=== PATIENT | male | born 1955 | race American Indian/Alaskan Native ===

== ENCOUNTER 2019-07-19 13:18 | Inpatient (IN) | payer BC, MEDICARE ==
[2019-07-19] MEDS ORDERED: SODIUM CHLORIDE 0.9% 1000 ML IV SOLN IV ONE (14:45)
[2019-07-19] MEDS ORDERED: ALBUTEROL 2.5 MG/3 ML NEBU IH ONE (14:49)
--- NOTE | 2019-07-19 14:51 | Emergency Department Report ---
ED Shortness of Breath HPI - General Chief Complaint: Dyspnea/Respdistress Stated Complaint: ABNORMAL BREATHING Time Seen by Provider: 07/19/19 14:22 Source: patient Mode of arrival: Ambulatory Limitations: No Limitations - History of Present Illness Initial Comments: This is a 64-year-old gentleman. This patient is not known to this provider previously. Primary care Dr.: Dr Crowder Oncology: Dr Dolan Past medical history: Lung cancer, right-sided port, history of chemotherapy, radiation therapy, currently on durvalumab the patient presents to the ER with a complaint of cough, shortness of breath, malaise and fatigue. This is associated with left-sided hemithorax pain. This is been going on for the past couple days. It is getting worse. No fevers. No chest pain. No abdominal pain. No muscular pain. No urinary symptoms. MD Complaint: shortness of breath, cough -: Gradual, days(s) Quality: aching Consistency: intermittent Improves With: oxygen, rest, upright position Worsens With: lying flat, exertion Known History Of: other - Related Data Home Oxygen Therapy: No Home Medications Medication Instructions Recorded Confirmed Last Taken ALBUTEROL Inhaler (OR & NICU) 2 puff IH QID PRN 07/19/19 07/19/19 07/18/19 [Proair] Aspirin [Aspirin BABY CHEW TAB] 81 mg PO QDAY 07/19/19 07/19/19 07/18/19 Carvedilol [Coreg] 3.125 mg PO BID 07/19/19 07/19/19 07/18/19 Diclofenac EC [Voltaren] 25 mg PO QDAY 07/19/19 07/19/19 07/18/19 Durvalumab [Imfinzi] 120 mg IV Q2W 07/19/19 07/19/19 07/18/19 Lisinopril [Zestril TAB] 2.5 mg PO QDAY 07/19/19 07/19/19 07/18/19 diazePAM [Diazepam] 10 mg PO QHS 07/19/19 07/19/19 07/18/19 Allergies Allergy/AdvReac Type Severity Reaction Status Date / Time No Known Allergies Allergy Verified 07/19/19 14:55 ED Review of Systems ROS: Stated complaint: ABNORMAL BREATHING Other details as noted in HPI Constitutional: malaise, weakness. denies: fever Eyes: denies: eye discharge ENT: congestion Respiratory: cough, shortness of breath Cardiovascular: denies: chest pain Gastrointestinal: denies: nausea, vomiting Genitourinary: denies: dysuria Musculoskeletal: back pain, myalgia Skin: denies: lesions Neurological: weakness Hematological/Lymphatic: denies: easy bleeding ED Past Medical Hx - Past Medical History Previous Medical History?: Yes Additional medical history: Lung CA - Surgical History Past Surgical History?: Yes Additional Surgical History: Port placement. Cervical fusion - Medications Home Medications: Home Medications Medication Instructions Recorded Confirmed Last Taken Type ALBUTEROL Inhaler (OR & NICU) 2 puff IH QID PRN 07/19/19 07/19/19 07/18/19 History [Proair] Aspirin [Aspirin BABY CHEW TAB] 81 mg PO QDAY 07/19/19 07/19/19 07/18/19 History Carvedilol [Coreg] 3.125 mg PO BID 07/19/19 07/19/19 07/18/19 History Diclofenac EC [Voltaren] 25 mg PO QDAY 07/19/19 07/19/19 07/18/19 History Durvalumab [Imfinzi] 120 mg IV Q2W 07/19/19 07/19/19 07/18/19 History Lisinopril [Zestril TAB] 2.5 mg PO QDAY 07/19/19 07/19/19 07/18/19 History diazePAM [Diazepam] 10 mg PO QHS 07/19/19 07/19/19 07/18/19 History ED Physical Exam - General Limitations: No Limitations General appearance: alert, anxious, in distress - Head Head exam: Present: atraumatic, normocephalic - Eye Eye exam: Present: normal appearance, EOMI. Absent: nystagmus - ENT ENT exam: Present: normal exam, normal orophraynx, mucous membranes moist, normal external ear exam - Neck Neck exam: Present: normal inspection, full ROM. Absent: tenderness, meningismus - Respiratory Respiratory exam: Present: respiratory distress, rhonchi - Cardiovascular Cardiovascular Exam: Present: normal rhythm, tachycardia, normal heart sounds. Absent: systolic murmur, diastolic murmur, rubs, gallop - GI/Abdominal GI/Abdominal exam: Present: soft. Absent: distended, tenderness, guarding, rebound, rigid, pulsatile mass - Rectal Rectal exam: Present: deferred - Extremities Exam Extremities exam: Present: normal inspection, full ROM, other (2+ pulses noted in the bilateral upper, lower extremities. There is no long bone tenderness. Musculoskeletal compartments are soft. The pelvis is stable.). Absent: pedal edema, joint swelling, calf tenderness - Back Exam Back exam: Present: normal inspection, full ROM. Absent: tenderness, CVA tenderness (R), CVA tenderness (L), paraspinal tenderness, vertebral tenderness - Neurological Exam Neurological exam: Present: alert, other (there is no facial droop. The tongue is midline. Extraocular movements are intact bilaterally. Patient speaking in full complete sentences. Shoulder shrug is intact bilaterally. Hearing is grossly intact bilaterally. Visual acuity intact to finger counting and color perception at a close distance. 5/5 strength 4 extremities. Sensation intact to light touch in 4 extremities.) - Psychiatric Psychiatric exam: Present: anxious - Skin Skin exam: Present: warm, dry, intact, normal color. Absent: rash ED Course Vital Signs 07/19/19 07/19/19 07/19/19 13:34 14:00 14:30 Temperature 98.0 F Pulse Rate 116 H 112 H 112 H Pulse Rate [ Anterior Bilateral Throughout] Respiratory 116 H 18 21 Rate Respiratory Rate [Anterior Bilateral Throughout] Blood Pressure 100/65 97/67 Blood Pressure 121/76 [Left] O2 Sat by Pulse 98 96 Oximetry 07/19/19 07/19/19 15:00 15:24 Temperature Pulse Rate 117 H Pulse Rate [ 114 H Anterior Bilateral Throughout] Respiratory 21 Rate Respiratory 20 Rate [Anterior Bilateral Throughout] Blood Pressure 115/75 Blood Pressure [Left] O2 Sat by Pulse 86 Oximetry - Reevaluation(s) Reevaluation #1: 07/19/19 18:32 CT scan of chest suggest no pulmonary embolism, pneumonia is suggested, along with known existing lung cancer. Hospital physician, Dr. Lozada to admit patient to the medical service. ED Medical Decision Making - Lab Data Result diagrams: 07/19/19 15:02 07/19/19 15:02 Vital Signs 07/19/19 07/19/19 07/19/19 13:34 14:00 14:30 Temperature 98.0 F Pulse Rate 116 H 112 H 112 H Pulse Rate [ Anterior Bilateral Throughout] Respiratory 116 H 18 21 Rate Respiratory Rate [Anterior Bilateral Throughout] Blood Pressure 100/65 97/67 Blood Pressure 121/76 [Left] O2 Sat by Pulse 98 96 Oximetry 07/19/19 07/19/19 15:00 15:24 Temperature Pulse Rate 117 H Pulse Rate [ 114 H Anterior Bilateral Throughout] Respiratory 21 Rate Respiratory 20 Rate [Anterior Bilateral Throughout] Blood Pressure 115/75 Blood Pressure [Left] O2 Sat by Pulse 86 Oximetry Lab Results 07/19/19 07/19/19 07/19/19 Range/Units 15:02 15:02 15:02 WBC 6.7 (4.5-11.0) K/mm3 RBC 4.31 (3.65-5.03) M/mm3 Hgb 12.5 (11.8-15.2) gm/dl Hct 37.1 (35.5-45.6) % MCV 86 (84-94) fl MCH 29 (28-32) pg MCHC 34 (32-34) % RDW 15.3 H (13.2-15.2) % Plt Count 233 (140-440) K/mm3 Lymph % (Auto) 15.3 (13.4-35.0) % [place] % (Auto) 11.0 H (0.0-7.3) % Eos % (Auto) 0.4 (0.0-4.3) % Baso % (Auto) 0.4 (0.0-1.8) % Lymph # 1.0 L (1.2-5.4) K/mm3 [place] # 0.7 (0.0-0.8) K/mm3 Eos # 0.0 (0.0-0.4) K/mm3 Baso # 0.0 (0.0-0.1) K/mm3 Seg Neutrophils % 72.9 H (40.0-70.0) % Seg Neutrophils # 4.9 (1.8-7.7) K/mm3 PT 13.9 (12.2-14.9) Sec. INR 1.10 (0.87-1.13) APTT 31.5 (24.2-36.6) Sec. D-Dimer 916.71 H (0-234) ng/mlDDU POC ABG pH (7.35-7.45) POC ABG pCO2 (35-45) POC ABG pO2 (80-105) POC ABG HCO3 (22-26 mml/L) POC ABG Total CO2 (23-27mmol/L) POC ABG O2 Sat POC ABG Base Excess ((-2) - (+3)mmol/L) FiO2 % Sodium 137 (137-145) mmol/L Potassium 4.7 (3.6-5.0) mmol/L Chloride 99.1 (98-107) mmol/L Carbon Dioxide 23 (22-30) mmol/L Anion Gap 20 mmol/L BUN 14 (9-20) mg/dL Creatinine 1.0 (0.8-1.5) mg/dL Estimated GFR > 60 ml/min BUN/Creatinine Ratio 14 % Glucose 107 H (75-100) mg/dL Lactic Acid (0.7-2.0) mmol/L Calcium 9.1 (8.4-10.2) mg/dL Magnesium 2.30 (1.7-2.3) mg/dL Total Bilirubin 0.40 (0.1-1.2) mg/dL AST 15 (5-40) units/L ALT 10 (7-56) units/L Alkaline Phosphatase 88 (35-129) units/L Total Creatine Kinase 66 (55-170) units/L Troponin T < 0.010 (0.00-0.029) ng/mL Total Protein 8.2 (6.3-8.2) g/dL Albumin 3.7 L (3.9-5) g/dL Albumin/Globulin Ratio 0.8 % Urine Color (Yellow) Urine Turbidity (Clear) Urine pH (5.0-7.0) Ur Specific [place] (1.003-1.030) Urine Protein (Negative) mg/dL Urine Glucose (UA) (Negative) mg/dL Urine Ketones (Negative) mg/dL Urine Blood (Negative) Urine Nitrite (Negative) Urine Bilirubin (Negative) Urine Urobilinogen (<2.0) mg/dL Ur Leukocyte Esterase (Negative) Urine WBC (Auto) (0.0-6.0) /HPF Urine RBC (Auto) (0.0-6.0) /HPF Urine Mucus /HPF 07/19/19 07/19/19 07/19/19 Range/Units 15:02 15:20 15:58 WBC (4.5-11.0) K/mm3 RBC (3.65-5.03) M/mm3 Hgb (11.8-15.2) gm/dl Hct (35.5-45.6) % MCV (84-94) fl MCH (28-32) pg MCHC (32-34) % RDW (13.2-15.2) % Plt Count (140-440) K/mm3 Lymph % (Auto) (13.4-35.0) % [place] % (Auto) (0.0-7.3) % Eos % (Auto) (0.0-4.3) % Baso % (Auto) (0.0-1.8) % Lymph # (1.2-5.4) K/mm3 [place] # (0.0-0.8) K/mm3 Eos # (0.0-0.4) K/mm3 Baso # (0.0-0.1) K/mm3 Seg Neutrophils % (40.0-70.0) % Seg Neutrophils # (1.8-7.7) K/mm3 PT (12.2-14.9) Sec. INR (0.87-1.13) APTT (24.2-36.6) Sec. D-Dimer (0-234) ng/mlDDU POC ABG pH 7.432 (7.35-7.45) POC ABG pCO2 34.3 L (35-45) POC ABG pO2 67 L (80-105) POC ABG HCO3 22.9 (22-26 mml/L) POC ABG Total CO2 24 (23-27mmol/L) POC ABG O2 Sat 94 POC ABG Base Excess -1 ((-2) - (+3)mmol/L) FiO2 21 % Sodium (137-145) mmol/L Potassium (3.6-5.0) mmol/L Chloride (98-107) mmol/L Carbon Dioxide (22-30) mmol/L Anion Gap mmol/L BUN (9-20) mg/dL Creatinine (0.8-1.5) mg/dL Estimated GFR ml/min BUN/Creatinine Ratio % Glucose (75-100) mg/dL Lactic Acid 1.20 (0.7-2.0) mmol/L Calcium (8.4-10.2) mg/dL Magnesium (1.7-2.3) mg/dL Total Bilirubin (0.1-1.2) mg/dL AST (5-40) units/L ALT (7-56) units/L Alkaline Phosphatase (35-129) units/L Total Creatine Kinase (55-170) units/L Troponin T (0.00-0.029) ng/mL Total Protein (6.3-8.2) g/dL Albumin (3.9-5) g/dL Albumin/Globulin Ratio % Urine Color Yellow (Yellow) Urine Turbidity Clear (Clear) Urine pH 5.0 (5.0-7.0) Ur Specific [place] 1.017 (1.003-1.030) Urine Protein <15 mg/dl (Negative) mg/dL Urine Glucose (UA) Neg (Negative) mg/dL Urine Ketones Neg (Negative) mg/dL Urine Blood Sm (Negative) Urine Nitrite Neg (Negative) Urine Bilirubin Neg (Negative) Urine Urobilinogen < 2.0 (<2.0) mg/dL Ur Leukocyte Esterase Neg (Negative) Urine WBC (Auto) < 1.0 (0.0-6.0) /HPF Urine RBC (Auto) 3.0 (0.0-6.0) /HPF Urine Mucus Few /HPF - EKG Data -: EKG Interpreted by Nh EKG shows normal: sinus rhythm Rate: tachycardia - EKG Data 07/19/19 16:54 The EKG shows sinus tachycardia, 108 bpm, borderline leftward axis deviation versus low voltage, there is motion artifact, there is poor R-wave progression, QTC is prolonged, the EKG is abnormal, there is no prior for comparison, the EKG is not consistent with ST elevation PA - Radiology Data Radiology results: report reviewed, image reviewed Print Report Referring Physician: RASHAD MCNAMARA Patient Name: KHURRAM REDDY Date of : 1955 Sex: Male Report Date: 2019-07-19 Report Status: Finalized Findings [facility] [address] [place] [address] XRay Report Signed Patient: KHURRAM REDDY MR#: [id number] [birth year] : 1955 Acct:[id number] Age/Sex: 64 / M ADM Date: 07/19/19 Loc: ED Attending Dr: Ordering Physician: RASHAD MCNAMARA MD Date of Service: 07/19/19 Procedure(s): XR chest 1V ap Accession Number(s): [id number] cc: RASHAD MCNAMARA MD Fluoro Time In Minutes: CHEST 1 VIEW INDICATION: sob. COMPARISON: None FINDINGS: Support devices: Right [id number]-[id number] terminates near the cavoatrial junction. Rebreather device is partially imaged. Heart: Upper limits of normal. Lungs/Pleura: The interstitium is prominent throughout both lungs which could represent chronic interstitial changes. Patchy infiltration is suspected in the region of the lingula which could represent an early infiltrate. No consolidation, pleural effusion or pneumothorax. Additional findings: None. IMPRESSION: Bilateral chronic interstitial changes. Possible early infiltrate in the lingula. Signer Name: Cash Gaona Jr, MD Signed: 07/19/2019 3:39 PM Workstation Name: [id number] Transcribed By: TTR Dictated By: CASH GAONA JR, MD Electronically Authenticated By: CASH GAONA JR, MD Signed Date/Time: 07/19/19 1539 DD/ 1538 Report Referring Physician: RASHAD MCNAMARA Patient Name: KHURRAM REDDY Date of : 1955 Sex: Male Report Date: 2019-07-19 Report Status: Finalized Findings [address] [address] Cat Scan Report Signed Patient: KHURRAM REDDY MR#: [id number] [birth year] : 1955 Acct:[id number] Age/Sex: 64 / M ADM Date: 07/19/19 Loc: ED Attending Dr: Ordering Physician: RASHAD MCNAMARA MD Date of Service: 07/19/19 Procedure(s): CT angio chest Accession Number(s): [id number] cc: RASHAD MCNAMARA MD CT angio chest INDICATION / CLINICAL INFORMATION: sob lung ca. TECHNIQUE: Axial CT images were obtained after injection of Omnipaque 350, 100 cc IV contrast using CTA protocol. 3 plane MIP / 3D reconstructions were produced. All CT scans at this location are performed using CT dose reduction for ALARA by means of automated exposure control. COMPARISON: None available. FINDINGS: The lungs contain diffuse bilateral interstitial disease. A left effusion is small. A more localized soft tissue lesion at the lingula anteriorly and medially (series #3, image 213) measures 3.2 cm in the AP dimension. A few areas of slightly more patchy infiltrate are seen bilaterally. A few small mediastinal nodes are present. Negative for dominant mass. Imaging of the upper abdomen is unremarkable. Negative for aneurysm, dissection or pulmonary embolus. IMPRESSION: 1. Soft tissue lesion at the lingula medially likely represents the patient's known lung cancer. 2. Small left pleural effusion and diffuse bilateral interstitial lung disease. 3. There are a few areas of slightly more confluent density which may represent more confluent interstitial disease. Signer Name: Kyle Dotson MD Signed: 07/19/2019 6:00 PM Workstation Name: [id number] Transcribed By: ES Dictated By: Kyle Dotson MD Electronically Authenticated By: Kyle Dotson MD Signed Date/Time: 07/19/19 1800 - Medical Decision Making Differential diagnosis, including but not limited to: Pulmonary embolism, pneumonia, metastatic lung disease, atelectatic changes, respiratory failure Assessment and plan: 64-year-old gentleman with tachycardia, hypoxia, borderline hypoxemic respiratory failure, PaO2 67 on room air, requiring supplemental oxygen. Concerning for pneumonia versus pulmonary embolism. CT scan of the ch est will be ordered to exclude pulmonary embolism. Patient will be treated according to the sepsis pathway with appropriate targeted antibiotic therapy. Discussed plan of care with patient, who verbalizes understanding. Critical care attestation.: If time is entered above; I have spent that time in minutes in the direct care of this critically ill patient, excluding procedure time. ED Disposition Clinical Impression: Hypoxia, Dyspnea Disposition: DC-09 OP ADMIT IP TO THIS HOSP Is pt being admited?: Yes Condition: Fair Referrals: PRIMARY CARE, [Primary Care Provider] - 3-5 Days
[2019-07-19 15:20] LABS: Basophils % (Auto) 0.4 % (0.0-1.8); Eosinophils % (Auto) 0.4 % (0.0-4.3); Hematocrit 37.1 % (35.5-45.6); Hemoglobin 12.5 gm/dl (11.8-15.2); Lymphocytes % (Auto) 15.3 % (13.4-35.0); Mean Corpuscular HGB Conc 34 % (32-34); Mean Corpuscular Volume 86 fl (84-94); Monocytes # (Auto) 0.7 K/mm3 (0.0-0.8); Platelet Count 233 K/mm3 (140-440); Red Blood Count 4.31 M/mm3 (3.65-5.03); Red Cell Distribution Width 15.3 % (13.2-15.2)
[2019-07-19 15:40] LABS: Alanine Aminotransferase 10 units/L (7-56); Albumin 3.7 g/dL (3.9-5); BUN/Creatinine Ratio 14; Blood Urea Nitrogen 14 mg/dL (9-20); Calcium 9.1 mg/dL (8.4-10.2); Hemolysis Index 3
--- NOTE | 2019-07-19 15:44 | XRay Report ---
CHEST 1 VIEW INDICATION: sob. COMPARISON: None FINDINGS: Support devices: Right Eoqxyb-e-Twii terminates near the cavoatrial junction. Rebreather device is pa rtially imaged. Heart: Upper limits of normal. Lungs/Pleura: The interstitium is prominent throughout both lungs which could represent chronic inter stitial changes. Patchy infiltration is suspected in the region of the lingula which could represent an early infiltrate. No consolidation, pleural effusion or pneumothorax. Additional findings: None. IMPRESSION: Bilateral chronic interstitial changes. Possible early infiltrate in the lingula. Signer Name: Cash Gaona Jr, MD Signed: 07/19/2019 3:39 PM Workstation Name: [id number]
[2019-07-19 15:47] LABS: Bilirubin,Urine NEG (Negative); Blood,Urine SM (Negative); Color,Urine Yellow (Yellow); Mucus,Urine FEW /HPF; Protein,Urine <15 mg/dL mg/dL (Negative); Urobilinogen,Urine < 2.0 mg/dL (<2.0); WBC,Urine < 1.0 /HPF (0.0-6.0)
[2019-07-19 15:50] LABS: INR 1.1 (0.87-1.13)
[2019-07-19 15:51] LABS: Partial Thromboplastin Time 31.5 Sec. (24.2-36.6)
[2019-07-19] MEDS ORDERED: SODIUM CHLORIDE 0.9% 500 ML 500 ML ONE (16:53)
[2019-07-19] MEDS ORDERED: SODIUM CHLORIDE 0.9% 1000 ML 1,000 ML ONE (16:54)
--- NOTE | 2019-07-19 18:05 | Cat Scan Report ---
CT angio chest INDICATION / CLINICAL INFORMATION: sob lung ca. TECHNIQUE: Axial CT images were obtained after injection of Omnipaque 350, 100 cc IV contrast using CTA protocol . 3 plane MIP / 3D reconstructions were produced. All CT scans at this location are performed using C T dose reduction for ALARA by means of automated exposure control. COMPARISON: None available. FINDINGS: The lungs contain diffuse bilateral interstitial disease. A left effusion is small. A more localized soft tissue lesion at the lingula anteriorly and medially (series #3, image 213) measures 3.2 cm in t he AP dimension. A few areas of slightly more patchy infiltrate are seen bilaterally. A few small mediastinal nodes are present. Negative for dominant mass. Imaging of the upper abdomen i s unremarkable. Negative for aneurysm, dissection or pulmonary embolus. IMPRESSION: 1. Soft tissue lesion at the lingula medially likely represents the patient's known lung cancer. 2. Small left pleural effusion and diffuse bilateral interstitial lung disease. 3. There are a few areas of slightly more confluent density which may represent more confluent inters titial disease. Signer Name: Kyle Dotson MD Signed: 07/19/2019 6:00 PM Workstation Name: [id number]
--- NOTE | 2019-07-19 18:27 | History and Physical Report ---
History of Present Illness Chief complaint: I feel weak, and Im short of breath. History of present illness: 64 YO Male with Lung Cancer S/P Radiation, Currently undergoing Chemotherapy with Left Hemothorax, HTN, Anxiety presents to ED for evaluation. Pt states that he has experienced shortness of breath, cough, malaise, and fatigue over the past 3 days with persistently worsening symptoms over the same time frame. Pt was seen by his Oncologist and was found to have pulse oximetry in the 70's with exertion. Pt was subsequently sent to [facility] for further care and evaluation. Pt seen and evaluated in ED and found to have Acute Hypoxemic Respiratory Failure complicated by HCAP. Pt placed on supplemental oxygen and admitted to [facility]. No prior admission for review. All listed medication reconciled at time of admissi on. Past History Past Medical History: other (see hpi) Past Surgical History: Other (Port placement, Cervical Fusion) Social history: , lives with family. denies: smoking, alcohol abuse, prescription drug abuse Family history: no significant family history (reviewed) Medications and Allergies Allergies Allergy/AdvReac Type Severity Reaction Status Date / Time No Known Allergies Allergy Verified 07/19/19 14:55 Home Medications Medication Instructions Recorded Confirmed Last Taken Type ALBUTEROL Inhaler (OR & NICU) 2 puff IH QID PRN 07/19/19 07/19/19 07/18/19 History [Proair] Aspirin [Aspirin BABY CHEW TAB] 81 mg PO QDAY 07/19/19 07/19/19 07/18/19 History Carvedilol [Coreg] 3.125 mg PO BID 07/19/19 07/19/19 07/18/19 History Diclofenac EC [Voltaren] 25 mg PO QDAY 07/19/19 07/19/19 07/18/19 History Durvalumab [Imfinzi] 120 mg IV Q2W 07/19/19 07/19/19 07/18/19 History Lisinopril [Zestril TAB] 2.5 mg PO QDAY 07/19/19 07/19/19 07/18/19 History diazePAM [Diazepam] 10 mg PO QHS 07/19/19 07/19/19 07/18/19 History Review of Systems Constitutional: weight loss, no weight gain, no fever, no chills Ears, nose, mouth and throat: no ear pain, no ear discharge, no tinnitis, no decreased hearing, no nose pain Cardiovascular: no chest pain, no orthopnea, no palpitations Respiratory: cough, shortness of breath, no congestion, no wheezing Gastrointestinal: no nausea, no vomiting, no diarrhea, no constipation Genitourinary Male: no hematuria, no flank pain, no discharge, no urinary frequency, no urinary hesitancy Rectal: no pain, no incontinence, no bleeding Musculoskeletal: no neck stiffness, no neck pain, no shooting arm pain, no arm numbness/tingling, no low back pain Integumentary: no rash, no pruritis, no redness, no sores, no wounds Neurological: no transient paralysis, no paralysis, no weakness, no parathesias, no numbness, no tingling Psychiatric: no anxiety, no memory loss, no change in sleep habits, no insomnia, no hypersomnia, no change in libido, no suicidal ideation Endocrine: no cold intolerance, no heat intolerance, no polyphagia, no excessive thirst, no polydipsia, no polyuria Hematologic/Lymphatic: no easy bruising, no easy bleeding, no lymphadenopathy, no lymphedema Allergic/Immunologic: no urticaria, no allergic rhinitis, no wheezing, no persistent infections, no anaphylaxis, no angioedema Exam - Constitutional Vitals: Temp Pulse Resp BP Pulse Ox 98.0 F 114 H 20 115/75 86 07/19/19 13:34 07/19/19 15:24 07/19/19 15:24 07/19/19 15:00 07/19/19 15:00 General appearance: Present: mild distress - EENT Eyes: Present: PERRL ENT: hearing intact, clear oral mucosa - Neck Neck: Present: supple, normal ROM - Respiratory Respiratory: right: diminished, rhonchi - Cardiovascular Heart Sounds: Present: S1 & S2. Absent: rub, click - Extremities Extremities: pulses symmetrical, No edema Peripheral Pulses: within normal limits - Abdominal General gastrointestinal: Present: soft, non-tender, non-distended, normal bowel sounds Male genitourinary: Present: normal - Integumentary Integumentary: Present: clear, warm, dry - Musculoskeletal Musculoskeletal: generalized weakness - Psychiatric Psychiatric: appropriate mood/affect, intact judgment & insight - Neurologic Neurologic: CNII-XII intact, moves all extremities Results - Labs CBC & Chem 7: 07/19/19 15:02 10/21/19 15:02 Labs: Abnormal lab results 07/19/19 07/19/19 07/19/19 Range/Units 15:02 15:02 15:02 RDW 15.3 H (13.2-15.2) % [place] % (Auto) 11.0 H (0.0-7.3) % Lymph # 1.0 L (1.2-5.4) K/mm3 Seg Neutrophils % 72.9 H (40.0-70.0) % D-Dimer 916.71 H (0-234) ng/mlDDU POC ABG pCO2 (35-45) POC ABG pO2 (80-105) Glucose 107 H (75-100) mg/dL Albumin 3.7 L (3.9-5) g/dL 07/19/19 Range/Units 15:58 RDW (13.2-15.2) % [place] % (Auto) (0.0-7.3) % Lymph # (1.2-5.4) K/mm3 Seg Neutrophils % (40.0-70.0) % D-Dimer (0-234) ng/mlDDU POC ABG pCO2 34.3 L (35-45) POC ABG pO2 67 L (80-105) Glucose (75-100) mg/dL Albumin (3.9-5) g/dL Assessment and Plan - Patient Problems (1) HCAP (healthcare-associated pneumonia) Current Visit: Yes Status: Acute Plan to address problem: Pneumonia Protocol: IV antibiotic therapy, IVF resuscitation therapy, monitor uop q shift, CT Chest, Chest X ray, supplemental oxygen, nebulizer therapy, NIPPV as clinically indicated, pulse oximetry, blood cultures, CBC, CMP. (2) Lung cancer Current Visit: Yes Status: Acute Qualifiers: Laterality: unspecified laterality Plan to address problem: Oncology consulted, continue current care. (3) Respiratory failure Current Visit: Yes Status: Acute Qualifiers: Chronicity: acute Respiratory failure complication: hypoxia Qualified Code(s): J96.01 - Acute respiratory failure with hypoxia Plan to address problem: Supplemental oxygen, pulse oximetry, chest x ray, NIPPV as clinically indicated, pain control, CT chest, d dimer (4) HTN (hypertension) Current Visit: Yes Status: Acute Qualifiers: Hypertension type: essential hypertension Qualified Code(s): I10 - Essential (primary) hypertension Plan to address problem: Monitor bp q shift, supportive care. (5) DVT prophylaxis Current Visit: Yes Status: Acute Plan to address problem: SCD to BLE while in bed, prophylactic lovenox
[2019-07-19] MEDS ORDERED: ALBUTEROL 2.5 MG/3 ML NEBU IH PRN (18:28)
[2019-07-19] MEDS ORDERED: DURVALUMAB IV SCH (18:30)
[2019-07-19] MEDS ORDERED: HYDROcodone/HOMATROPINE 5-1.5MG /5 ML ORAL LIQD UNIT DOSE PO PRN (18:36)
[2019-07-19] MEDS ORDERED: VANCOMYCIN PHARMACY TO DOSE IV SCH (19:00)
[2019-07-19] MEDS ORDERED: VANCOMYCIN 1,500 MG in SODIUM CHLORIDE 0.9% 500 ML 500 ML IV ONE (20:00)
[2019-07-19] MEDS: CEFEPIME/NS 2 GM/100 ML 2 GM/100 ML BAG IV SCH (21:39)
[2019-07-19] MEDS ORDERED: NON-FORMULARY EACH (Diazepam [Diazepam] 10 MG) PO SCH (22:00)
[2019-07-19] MEDS: diazePAM 5 MG TAB PO SCH (22:38)
[2019-07-20] MEDS: BENZONATATE 100 MG CAP PO SCH ×4 (00:18→21:24)
[2019-07-20] MEDS: diazePAM 5 MG TAB PO SCH ×2 (03:08→21:24)
[2019-07-20] MEDS: CEFEPIME/NS 2 GM/100 ML 2 GM/100 ML BAG IV SCH ×3 (05:20→21:24)
[2019-07-20] MEDS: ASPIRIN 81 MG TAB CHEW PO SCH (09:45)
[2019-07-20] MEDS: ENOXAPARIN 40 MG/0.4 ML INJ SUB-Q SCH (09:45)
[2019-07-20] MEDS: VANCOMYCIN/NS 1 GM/250 ML 1 GM/250 ML BAG IV SCH ×2 (09:45→22:16)
[2019-07-20] MEDS: DICLOFENAC EC 25 MG TAB PO SCH (09:45)
[2019-07-20] MEDS ORDERED: ENOXAPARIN 30 MG/0.3 ML INJ SUB-Q SCH (10:00)
[2019-07-20] MEDS ORDERED: LISINOPRIL 5 MG TAB PO SCH (10:00)
[2019-07-20] MEDS ORDERED: NON-FORMULARY EACH (Lisinopril [Zestril Tab] 2.5 MG) PO SCH (10:00)
--- NOTE | 2019-07-20 16:07 | Progress Note ---
Assessment and Plan Assessment and plan: (1) HCAP (healthcare-associated pneumonia) Current Visit: Yes Status: Acute Plan to address problem: Pneumonia Protocol: IV antibiotic therapy, IVF resuscitation therapy,supplemental oxygen, nebulizer therapy, NIPPV as clinically indicated, pulse oximetry, blood cultures, CBC, CMP. CT and chest x-ray was done and infiltrates vs atelectasis (2) Lung cancer Current Visit: Yes Status: Acute Qualifiers: Laterality: unspecified laterality Plan to address problem: Oncology consulted, continue current care. (3) Respiratory failure Current Visit: Yes Status: Acute Qualifiers: Chronicity: acute Respiratory failure complication: hypoxia Qualified Code(s): J96.01 - Acute respiratory failure with hypoxia Plan to address problem: Supplemental oxygen, pulse oximetry, chest x ray, NIPPV as clinically indicated, pain control, CT chest, d dimer (4) HTN (hypertension) Current Visit: Yes Status: Acute Qualifiers: Hypertension type: essential hypertension Qualified Code(s): I10 - Essential (primary) hypertension Plan to address problem: Monitor bp q shift, supportive care. (5) DVT prophylaxis Current Visit: Yes Status: Acute Plan to address problem: SCD to BLE while in bed, prophylactic lovenox History Interval history: Patient was seen this morning, patient's complaining generalized weakness. No pain. Hospitalist Physical - Physical exam Narrative exam: Not in cardiopulmonary distress. The patient appeared well nourished and normally developed. Vital signs as documented. Head exam is unremarkable. No scleral icterus . Neck is without jugular venous distension, thyromegaly, or carotid bruits. Lungs are clear to auscultation. Cardiac exam reveals regular rate and Rhythm. First and second heart sounds normal. No murmurs, rubs or gallops. Abdominal exam reveals normal bowel sounds, no masses, no organomegaly and no aortic enlargement. Extremities are nonedematous and both femoral and pedal pulses are normal. DRUG COUNSELOR: Alert and oriented 3. No focal weakness. - Constitutional Vitals: Temp Pulse Resp BP Pulse Ox 99.4 F 118 H 21 103/57 98 07/20/19 04:00 07/20/19 12:00 07/20/19 12:00 07/20/19 12:00 07/20/19 12:00 General appearance: Present: mild distress Results - Labs CBC & Chem 7: 07/19/19 15:02 07/19/19 15:02 Labs: Laboratory Last Values WBC 6.7 K/mm3 (4.5-11.0) 07/19/19 15:02 RBC 4.31 M/mm3 (3.65-5.03) 07/19/19 15:02 Hgb 12.5 gm/dl (11.8-15.2) 07/19/19 15:02 Hct 37.1 % (35.5-45.6) 07/19/19 15:02 MCV 86 fl (84-94) 07/19/19 15:02 MCH 29 pg (28-32) 07/19/19 15:02 MCHC 34 % (32-34) 07/19/19 15:02 RDW 15.3 % (13.2-15.2) H 07/19/19 15:02 Plt Count 233 K/mm3 (140-440) 07/19/19 15:02 Lymph % (Auto) 15.3 % (13.4-35.0) 07/19/19 15:02 [place] % (Auto) 11.0 % (0.0-7.3) H 07/19/19 15:02 Eos % (Auto) 0.4 % (0.0-4.3) 07/19/19 15:02 Baso % (Auto) 0.4 % (0.0-1.8) 07/19/19 15:02 Lymph # 1.0 K/mm3 (1.2-5.4) L 07/19/19 15:02 [place] # 0.7 K/mm3 (0.0-0.8) 07/19/19 15:02 Eos # 0.0 K/mm3 (0.0-0.4) 07/19/19 15:02 Baso # 0.0 K/mm3 (0.0-0.1) 07/19/19 15:02 Seg Neutrophils % 72.9 % (40.0-70.0) H 07/19/19 15:02 Seg Neutrophils # 4.9 K/mm3 (1.8-7.7) 07/19/19 15:02 PT 13.9 Sec. (12.2-14.9) 07/19/19 15:02 INR 1.10 (0.87-1.13) 07/19/19 15:02 APTT 31.5 Sec. (24.2-36.6) 07/19/19 15:02 D-Dimer 916.71 ng/mlDDU (0-234) H 07/19/19 15:02 POC ABG pH 7.432 (7.35-7.45) 07/19/19 15:58 POC ABG pCO2 34.3 (35-45) L 07/19/19 15:58 POC ABG pO2 67 (80-105) L 07/19/19 15:58 POC ABG HCO3 22.9 (22-26 mml/L) 07/19/19 15:58 POC ABG Total CO2 24 (23-27mmol/L) 07/19/19 15:58 POC ABG O2 Sat 94 07/19/19 15:58 POC ABG Base Excess -1 ((-2) - (+3)mmol/L) 07/19/19 15:58 FiO2 21 % 07/19/19 15:58 Sodium 137 mmol/L (137-145) 07/19/19 15:02 Potassium 4.7 mmol/L (3.6-5.0) 07/19/19 15:02 Chloride 99.1 mmol/L (98-107) 07/19/19 15:02 Carbon Dioxide 23 mmol/L (22-30) 07/19/19 15:02 Anion Gap 20 mmol/L 07/19/19 15:02 BUN 14 mg/dL (9-20) 07/19/19 15:02 Creatinine 1.0 mg/dL (0.8-1.5) 07/19/19 15:02 Estimated GFR > 60 ml/min 07/19/19 15:02 BUN/Creatinine Ratio 14 % 07/19/19 15:02 Glucose 107 mg/dL (75-100) H 07/19/19 15:02 Lactic Acid 1.70 mmol/L (0.7-2.0) 07/19/19 21:44 Calcium 9.1 mg/dL (8.4-10.2) 07/19/19 15:02 Magnesium 2.30 mg/dL (1.7-2.3) 07/19/19 15:02 Total Bilirubin 0.40 mg/dL (0.1-1.2) 07/19/19 15:02 AST 15 units/L (5-40) 07/19/19 15:02 ALT 10 units/L (7-56) 07/19/19 15:02 Alkaline Phosphatase 88 units/L (35-129) 07/19/19 15:02 Total Creatine Kinase 66 units/L (55-170) 07/19/19 15:02 Troponin T < 0.010 ng/mL (0.00-0.029) 07/19/19 19:30 Total Protein 8.2 g/dL (6.3-8.2) 07/19/19 15:02 Albumin 3.7 g/dL (3.9-5) L 07/19/19 15:02 Albumin/Globulin Ratio 0.8 % 07/19/19 15:02 Urine Color Yellow (Yellow) 07/19/19 15:20 Urine Turbidity Clear (Clear) 07/19/19 15:20 Urine pH 5.0 (5.0-7.0) 07/19/19 15:20 Ur Specific [place] 1.017 (1.003-1.030) 07/19/19 15:20 Urine Protein <15 mg/dl mg/dL (Negative) 07/19/19 15:20 Urine Glucose (UA) Neg mg/dL (Negative) 07/19/19 15:20 Urine Ketones Neg mg/dL (Negative) 07/19/19 15:20 Urine Blood Sm (Negative) 07/19/19 15:20 Urine Nitrite Neg (Negative) 07/19/19 15:20 Urine Bilirubin Neg (Negative) 07/19/19 15:20 Urine Urobilinogen < 2.0 mg/dL (<2.0) 07/19/19 15:20 Ur Leukocyte Esterase Neg (Negative) 07/19/19 15:20 Urine WBC (Auto) < 1.0 /HPF (0.0-6.0) 07/19/19 15:20 Urine RBC (Auto) 3.0 /HPF (0.0-6.0) 07/19/19 15:20 Urine Mucus Few /HPF 07/19/19 15:20 Active Medications - Current Medications Current Medications: Generic Name Dose Route Start Last Admin Trade Name Freq PRN Reason Stop Dose Admin Albuterol 2.5 mg 07/19/19 18:28 Proventil IH Q3HRT PRN Shortness Of Breath Aspirin 81 mg 07/20/19 10:00 07/20/19 09:45 Baby Aspirin PO 81 mg QDAY ELI Administration Benzonatate 100 mg 07/19/19 23:45 07/20/19 13:51 Tessalon Perles PO 100 mg Q8HR ELI Administration Diazepam 10 mg 07/19/19 22:00 07/20/19 03:08 Valium PO 10 mg HS ELI Administration Diclofenac Sodium 25 mg 07/20/19 10:00 07/20/19 09:45 Voltaren PO 25 mg QDAY ELI Administration Enoxaparin Sodium 40 mg 07/20/19 10:00 07/20/19 09:45 Lovenox SUB-Q 40 mg QDAY@1000 ELI Administration Hydrocodone Bit/Homatropine Methylb 10 ml 07/19/19 18:36 Hydromet PO Q6H PRN Cough Cefepime HCl 2 gm in 100 mls @ 200 mls/hr 07/19/19 20:00 07/20/19 13:51 Maxipime/Ns 2 Gm/100 Ml IV 200 mls/hr Q8H ELI Administration Protocol Vancomycin HCl 1 gm in 250 mls @ 125 mls/hr 07/20/19 10:00 07/20/19 09:45 Vancomycin/Ns 1 Gm/250 Ml IV 125 mls/hr Q12H ELI Administration Lisinopril 2.5 mg 07/20/19 10:00 07/20/19 09:46 Zestril PO 2.5 mg QDAY ELI Administration Miscellaneous Medication 120 mg 07/19/19 18:30 Durvalumab [Imfinzi] IV Q2W ELI Sodium Chloride 10 ml 07/19/19 22:00 07/20/19 09:45 Sodium Chloride Flush Syringe 10 Ml IV 10 ml BID ELI Administration Sodium Chloride 10 ml 07/19/19 18:28 Sodium Chloride Flush Syringe 10 Ml IV PRN PRN LINE FLUSH Nutrition/Malnutrition Assess - Dietary Evaluation Nutrition/Malnutrition Findings: Nutrition Notes Start: 07/20/19 12:10 Freq: Status: Active Protocol: Document 07/20/19 12:10 AP (Rec: 07/20/19 12:51 AP [email or web address]) Co-Sign 07/20/19 12:10 KH Nutrition Notes Need for Assessment 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 Currently undergoing CA tx. Pt states he likes vanilla ensure. Pt dislikes " cafeteria" food so isn't eating much instay. Burn Absent Trauma Absent Current % PO Poor (25-49%) Minimum of two criteria No physical signs of malnutrition #1 Nutrition Diagnosis Inadequate oral intake Etiology Pt does not like the food here . As Evidenced by Signs and Symptoms Pt consumes <50% of meal trays . Is patient on ventilator? No Is Patient Ambulatory and/or Out of Bed Yes REE-([facility]-ambulatory/OOB) [ 1932.125 NUTR.MSJOOB] Calculation Used for Recommendations [facility] Additional Notes PRO needs: 75-90g/day (1-1.2g/ kg IBW 75kg) Fluid: 1ml/kcal or per MD Nutrition Intervention Change Diet Order: Continue regular diet. Add Supplement/Snack (indicate name/kcal Ensure Enlive Vanilla BID /protein ) Provides kCal: 700 Provides Protein (gm) 40 Goal #1 Pt meet >80% of kcal/PRO needs via PO/ONS. Anticipated Discharge Needs: Regular Follow-Up By: 07/22/19 Additional Comments F/U for PO/ONS intakes.
[2019-07-21] MEDS: BENZONATATE 100 MG CAP PO SCH ×3 (05:23→21:57)
[2019-07-21 05:26] LABS: Basophils % (Auto) 0.2 % (0.0-1.8); Eosinophils % (Auto) 0.5 % (0.0-4.3); Hematocrit 34.6 % (35.5-45.6); Hemoglobin 11.5 gm/dl (11.8-15.2); Lymphocytes # (Auto) 0.9 K/mm3 (1.2-5.4); Mean Corpuscular HGB Conc 33 % (32-34); Mean Corpuscular Volume 86 fl (84-94); Monocytes # (Auto) 0.7 K/mm3 (0.0-0.8); Monocytes % (Auto) 10.5 % (0.0-7.3); Platelet Count 193 K/mm3 (140-440); Red Blood Count 4.03 M/mm3 (3.65-5.03); Red Cell Distribution Width 15.2 % (13.2-15.2)
[2019-07-21] MEDS: CEFEPIME/NS 2 GM/100 ML 2 GM/100 ML BAG IV SCH ×3 (05:38→20:40)
[2019-07-21 06:10] LABS: BUN/Creatinine Ratio 12; Blood Urea Nitrogen 11 mg/dL (9-20); Calcium 8.8 mg/dL (8.4-10.2); Hemolysis Index 5
[2019-07-21] MEDS: VANCOMYCIN/NS 1 GM/250 ML 1 GM/250 ML BAG IV SCH ×2 (09:44→21:53)
[2019-07-21] MEDS: ASPIRIN 81 MG TAB CHEW PO SCH (09:45)
[2019-07-21] MEDS: ENOXAPARIN 40 MG/0.4 ML INJ SUB-Q SCH (09:45)
[2019-07-21] MEDS: DICLOFENAC EC 25 MG TAB PO SCH (09:46)
[2019-07-21] MEDS: CARVEDILOL 3.125 MG TAB PO SCH ×2 (10:08→21:59)
--- NOTE | 2019-07-21 11:59 | Consultation ---
History of Present Illness Consult date: 07/21/19 Consult reason: shortness of breath History of present illness: 64 YO male with Lung Cancer S/P Radiation, Currently undergoing immunotherapy and presenting with worsening shortness of breath, cough, malaise, and fatigue over the past 3 days. Pt was seen by his Oncologist and was found to have pulse oximetry in the 70's with exertion. Pt was subsequently sent to [facility] for further care and evaluation. Pt seen and evaluated in ED and found to have Acute Hypoxemic Respiratory Failure complicated by HCAP. Patient also describes pleuritic chest pain. Past History Past Medical History: other (see hpi) Past Surgical History: Other (Port placement, Cervical Fusion) Social history: , lives with family. denies: smoking, alcohol abuse, prescription drug abuse Family history: no significant family history (reviewed) Medications and Allergies Allergies Allergy/AdvReac Type Severity Reaction Status Date / Time No Known Allergies Allergy Verified 07/19/19 14:55 Home Medications Medication Instructions Recorded Confirmed Last Taken Type ALBUTEROL Inhaler (OR & NICU) 2 puff IH QID PRN 07/19/19 07/19/19 07/18/19 History [Proair] Aspirin [Aspirin BABY CHEW TAB] 81 mg PO QDAY 07/19/19 07/19/19 07/18/19 History Carvedilol [Coreg] 3.125 mg PO BID 07/19/19 07/19/19 07/18/19 History Diclofenac EC [Voltaren] 25 mg PO QDAY 07/19/19 07/19/19 07/18/19 History Durvalumab [Imfinzi] 120 mg IV Q2W 07/19/19 07/19/19 07/18/19 History Lisinopril [Zestril TAB] 2.5 mg PO QDAY 07/19/19 07/19/19 07/18/19 History diazePAM [Diazepam] 10 mg PO QHS 07/19/19 07/19/19 07/18/19 History Active Meds: Active Medications Albuterol (Proventil) 2.5 mg IH Q3HRT PRN PRN Reason: Shortness Of Breath Aspirin (Baby Aspirin) 81 mg PO QDAY [facility] Last Admin: 07/21/19 09:45 Dose: 81 mg Documented by: Benzonatate (Tessalon Perles) 100 mg PO Q8HR [facility] Last Admin: 07/21/19 05:23 Dose: 100 mg Documented by: Carvedilol (Coreg) 3.125 mg PO BID [facility] Last Admin: 07/21/19 10:08 Dose: 3.125 mg Documented by: Diazepam (Valium) 10 mg PO HS [facility] Last Admin: 07/20/19 21:24 Dose: 10 mg Documented by: Diclofenac Sodium (Voltaren) 25 mg PO QDAY [facility] Last Admin: 07/21/19 09:46 Dose: 25 mg Documented by: Enoxaparin Sodium (Lovenox) 40 mg SUB-Q QDAY@1000 [facility] Last Admin: 07/21/19 09:45 Dose: 40 mg Documented by: Hydrocodone Bit/Homatropine Methylb (Hydromet) 10 ml PO Q6H PRN PRN Reason: Cough Cefepime HCl (Maxipime/Ns 2 Gm/100 Ml) 2 gm in 100 mls @ 200 mls/hr IV Q8H [facility]; Protocol Last Admin: 07/21/19 11:25 Dose: 200 mls/hr Documented by: Vancomycin HCl (Vancomycin/Ns 1 Gm/250 Ml) 1 gm in 250 mls @ 125 mls/hr IV Q12H [facility] Last Admin: 07/21/19 09:44 Dose: 125 mls/hr Documented by: Miscellaneous Medication (Durvalumab [Imfinzi]) 120 mg IV Q2W [facility] Sodium Chloride (Sodium Chloride Flush Syringe 10 Ml) 10 ml IV BID [facility] Last Admin: 07/21/19 09:47 Dose: 10 ml Documented by: Sodium Chloride (Sodium Chloride Flush Syringe 10 Ml) 10 ml IV PRN PRN PRN Reason: LINE FLUSH Review of Systems All systems: negative Physical Examination Vital Signs Temp Pulse Resp BP Pulse Ox 98.0 F 116 H 116 H 121/76 98 07/19/19 13:34 07/19/19 13:34 07/19/19 13:34 07/19/19 13:34 07/19/19 13:34 General appearance: mild distress HEENT: Positive: PERRL Neck: Positive: neck supple. Negative: JVD/HJR Cardiac: Positive: Tachycardia Lungs: Positive: Rales Neuro: Positive: Grossly Intact Abdomen: Positive: Soft Extremities: Present: normal Results 07/21/19 04:23 07/21/19 04:23 CBC 07/21/19 Range/Units 04:23 WBC 7.0 (4.5-11.0) K/mm3 RBC 4.03 (3.65-5.03) M/mm3 Hgb 11.5 L (11.8-15.2) gm/dl Hct 34.6 L (35.5-45.6) % Plt Count 193 (140-440) K/mm3 Lymph # 0.9 L (1.2-5.4) K/mm3 [place] # 0.7 (0.0-0.8) K/mm3 Eos # 0.0 (0.0-0.4) K/mm3 Baso # 0.0 (0.0-0.1) K/mm3 Comprehensive Metabolic Panel 07/21/19 Range/Units 04:23 Sodium 137 (137-145) mmol/L Potassium 4.1 (3.6-5.0) mmol/L Chloride 99.9 (98-107) mmol/L Carbon Dioxide 21 L (22-30) mmol/L BUN 11 (9-20) mg/dL Creatinine 0.9 (0.8-1.5) mg/dL Glucose 108 H (75-100) mg/dL Calcium 8.8 (8.4-10.2) mg/dL - EKG Interpretation EKG shows: tachycardia EKG interpretations - Telemetry EKG Rhythm: Sinus Tachycardia Assessment and Plan Shortness of breath No clinical evidence of heart failure Troponin x 2 negative Exam is consistent with diffuse crackles CT scan showing diffuse interstitial lung disease Lung cancer on immunotherapy Mild cardiomyopathy, LVEF 40-45% by echo done 05/2019 No recent ischemic work-up Reflex sinus tachycardia No other arrhythmias Recommendations: Patient has shortness of breath and evidence of interstitial lung disease most likely an adverse reaction from his immunotherapy. There is no evidence of heart failure We will get a limited echo to re-evaluate his LVEF Suggest oncology consult to look into his immunotherapy and think of alternatives
--- NOTE | 2019-07-21 15:32 | Progress Note ---
Assessment and Plan Assessment and plan: (1) HCAP (healthcare-associated pneumonia) Current Visit: Yes Status: Acute Plan to address problem: Pneumonia Protocol: IV antibiotic therapy, IVF resuscitation therapy,supplemental oxygen, nebulizer therapy, NIPPV as clinically indicated, pulse oximetry, blood cultures, CBC, CMP. CT and chest x-ray was done and infiltrates vs atelectasis (2) Lung cancer Current Visit: Yes Status: Acute Qualifiers: Laterality: unspecified laterality Plan to address problem: Oncology consulted, continue current care. On immunotherapy Dr Webster consulted (3) Respiratory failure Current Visit: Yes Status: Acute Qualifiers: Chronicity: acute Respiratory failure complication: hypoxia Qualified Code(s): J96.01 - Acute respiratory failure with hypoxia Plan to address problem: Supplemental oxygen, pulse oximetry, chest x ray, NIPPV as clinically indicated, pain control, CT chest, d dimer (4) HTN (hypertension) Current Visit: Yes Status: Acute Qualifiers: Hypertension type: essential hypertension Qualified Code(s): I10 - Essential (primary) hypertension Plan to address problem: Monitor bp q shift, supportive care. (5) DVT prophylaxis Current Visit: Yes Status: Acute Plan to address problem: SCD to BLE while in bed, prophylactic lovenox Tachycardia; cardiology consulted and will do echo. They didn't mention about tachycardia that was i consulted for. History Interval history: Patient was seen this morning, patient's complaining generalized weakness. Shortness of breath. Hospitalist Physical - Physical exam Narrative exam: Not in cardiopulmonary distress. The patient appeared well nourished and normally developed. Vital signs as documented. Head exam is unremarkable. No scleral icterus . Neck is without jugular venous distension, thyromegaly, or carotid bruits. Lungs are clear to auscultation. Cardiac exam reveals regular rate and Rhythm. First and second heart sounds normal. No murmurs, rubs or gallops. Abdominal exam reveals normal bowel sounds, no masses, no organomegaly and no aortic enlargement. Extremities are nonedematous and both femoral and pedal pulses are normal. DELICATE FABRICS PRESSER: Alert and oriented 3. No focal weakness. - Constitutional Vitals: Temp Pulse Resp BP Pulse Ox 98.4 F 118 H 17 93/62 96 07/21/19 08:00 07/21/19 15:00 07/21/19 15:00 07/21/19 15:00 07/21/19 15:00 General appearance: Present: mild distress Results - Labs CBC & Chem 7: 07/21/19 04:23 07/21/19 04:23 Labs: Laboratory Last Values WBC 7.0 K/mm3 (4.5-11.0) 07/21/19 04:23 RBC 4.03 M/mm3 (3.65-5.03) 07/21/19 04:23 Hgb 11.5 gm/dl (11.8-15.2) L 07/21/19 04:23 Hct 34.6 % (35.5-45.6) L 07/21/19 04:23 MCV 86 fl (84-94) 07/21/19 04:23 MCH 28 pg (28-32) 07/21/19 04:23 MCHC 33 % (32-34) 07/21/19 04:23 RDW 15.2 % (13.2-15.2) 07/21/19 04:23 Plt Count 193 K/mm3 (140-440) 07/21/19 04:23 Lymph % (Auto) 13.0 % (13.4-35.0) L 07/21/19 04:23 [place] % (Auto) 10.5 % (0.0-7.3) H 07/21/19 04:23 Eos % (Auto) 0.5 % (0.0-4.3) 07/21/19 04:23 Baso % (Auto) 0.2 % (0.0-1.8) 07/21/19 04:23 Lymph # 0.9 K/mm3 (1.2-5.4) L 07/21/19 04:23 [place] # 0.7 K/mm3 (0.0-0.8) 07/21/19 04:23 Eos # 0.0 K/mm3 (0.0-0.4) 07/21/19 04:23 Baso # 0.0 K/mm3 (0.0-0.1) 07/21/19 04:23 Seg Neutrophils % 75.8 % (40.0-70.0) H 07/21/19 04:23 Seg Neutrophils # 5.3 K/mm3 (1.8-7.7) 07/21/19 04:23 PT 13.9 Sec. (12.2-14.9) 07/19/19 15:02 INR 1.10 (0.87-1.13) 07/19/19 15:02 APTT 31.5 Sec. (24.2-36.6) 07/19/19 15:02 D-Dimer 916.71 ng/mlDDU (0-234) H 07/19/19 15:02 POC ABG pH 7.432 (7.35-7.45) 07/19/19 15:58 POC ABG pCO2 34.3 (35-45) L 07/19/19 15:58 POC ABG pO2 67 (80-105) L 07/19/19 15:58 POC ABG HCO3 22.9 (22-26 mml/L) 07/19/19 15:58 POC ABG Total CO2 24 (23-27mmol/L) 07/19/19 15:58 POC ABG O2 Sat 94 07/19/19 15:58 POC ABG Base Excess -1 ((-2) - (+3)mmol/L) 07/19/19 15:58 FiO2 21 % 07/19/19 15:58 Sodium 137 mmol/L (137-145) 07/21/19 04:23 Potassium 4.1 mmol/L (3.6-5.0) 07/21/19 04:23 Chloride 99.9 mmol/L (98-107) 07/21/19 04:23 Carbon Dioxide 21 mmol/L (22-30) L 07/21/19 04:23 Anion Gap 20 mmol/L 07/21/19 04:23 BUN 11 mg/dL (9-20) 07/21/19 04:23 Creatinine 0.9 mg/dL (0.8-1.5) 07/21/19 04:23 Estimated GFR > 60 ml/min 07/21/19 04:23 BUN/Creatinine Ratio 12 % 07/21/19 04:23 Glucose 108 mg/dL (75-100) H 07/21/19 04:23 Lactic Acid 1.70 mmol/L (0.7-2.0) 07/19/19 21:44 Calcium 8.8 mg/dL (8.4-10.2) 07/21/19 04:23 Magnesium 2.30 mg/dL (1.7-2.3) 07/19/19 15:02 Total Bilirubin 0.40 mg/dL (0.1-1.2) 07/19/19 15:02 AST 15 units/L (5-40) 07/19/19 15:02 ALT 10 units/L (7-56) 07/19/19 15:02 Alkaline Phosphatase 88 units/L (35-129) 07/19/19 15:02 Total Creatine Kinase 66 units/L (55-170) 07/19/19 15:02 Troponin T < 0.010 ng/mL (0.00-0.029) 07/19/19 19:30 Total Protein 8.2 g/dL (6.3-8.2) 07/19/19 15:02 Albumin 3.7 g/dL (3.9-5) L 07/19/19 15:02 Albumin/Globulin Ratio 0.8 % 07/19/19 15:02 Urine Color Yellow (Yellow) 07/19/19 15:20 Urine Turbidity Clear (Clear) 07/19/19 15:20 Urine pH 5.0 (5.0-7.0) 07/19/19 15:20 Ur Specific [place] 1.017 (1.003-1.030) 07/19/19 15:20 Urine Protein <15 mg/dl mg/dL (Negative) 07/19/19 15:20 Urine Glucose (UA) Neg mg/dL (Negative) 07/19/19 15:20 Urine Ketones Neg mg/dL (Negative) 07/19/19 15:20 Urine Blood Sm (Negative) 07/19/19 15:20 Urine Nitrite Neg (Negative) 07/19/19 15:20 Urine Bilirubin Neg (Negative) 07/19/19 15:20 Urine Urobilinogen < 2.0 mg/dL (<2.0) 07/19/19 15:20 Ur Leukocyte Esterase Neg (Negative) 07/19/19 15:20 Urine WBC (Auto) < 1.0 /HPF (0.0-6.0) 07/19/19 15:20 Urine RBC (Auto) 3.0 /HPF (0.0-6.0) 07/19/19 15:20 Urine Mucus Few /HPF 07/19/19 15:20 Active Medications - Current Medications Current Medications: Generic Name Dose Route Start Last Admin Trade Name Freq PRN Reason Stop Dose Admin Albuterol 2.5 mg 07/19/19 18:28 Proventil IH Q3HRT PRN Shortness Of Breath Aspirin 81 mg 07/20/19 10:00 07/21/19 09:45 Baby Aspirin PO 81 mg QDAY ELI Administration Benzonatate 100 mg 07/19/19 23:45 07/21/19 13:14 Tessalon Perles PO 100 mg Q8HR ELI Administration Carvedilol 3.125 mg 07/21/19 11:00 07/21/19 10:08 Coreg PO 3.125 mg BID ELI Administration Diazepam 10 mg 07/19/19 22:00 07/20/19 21:24 Valium PO 10 mg HS ELI Administration Diclofenac Sodium 25 mg 07/20/19 10:00 07/21/19 09:46 Voltaren PO 25 mg QDAY ELI Administration Enoxaparin Sodium 40 mg 07/20/19 10:00 07/21/19 09:45 Lovenox SUB-Q 40 mg QDAY@1000 ELI Administration Hydrocodone Bit/Homatropine Methylb 10 ml 07/19/19 18:36 Hydromet PO Q6H PRN Cough Cefepime HCl 2 gm in 100 mls @ 200 mls/hr 07/19/19 20:00 07/21/19 11:25 Maxipime/Ns 2 Gm/100 Ml IV 200 mls/hr Q8H ELI Administration Protocol Vancomycin HCl 1 gm in 250 mls @ 125 mls/hr 07/20/19 10:00 07/21/19 09:44 Vancomycin/Ns 1 Gm/250 Ml IV 125 mls/hr Q12H ELI Administration Miscellaneous Medication 120 mg 07/19/19 18:30 Durvalumab [Imfinzi] IV Q2W ELI Sodium Chloride 10 ml 07/19/19 22:00 07/21/19 09:47 Sodium Chloride Flush Syringe 10 Ml IV 10 ml BID ELI Administration Sodium Chloride 10 ml 07/19/19 18:28 Sodium Chloride Flush Syringe 10 Ml IV PRN PRN LINE FLUSH Nutrition/Malnutrition Assess - Dietary Evaluation Nutrition/Malnutrition Findings: Nutrition Notes Start: 07/20/19 12:10 Freq: Status: Active Protocol: Document 07/20/19 12:10 AP (Rec: 07/20/19 12:51 AP [id number]) Co-Sign 07/20/19 12:10 Nutrition Notes Need for Assessment 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 Currently undergoing CA tx. Pt states he likes vanilla ensure. Pt dislikes " cafeteria" food so isn't eating much instay. Burn Absent Trauma Absent Current % PO Poor (25-49%) Minimum of two criteria No physical signs of malnutrition #1 Nutrition Diagnosis Inadequate oral intake Etiology Pt does not like the food here . As Evidenced by Signs and Symptoms Pt consumes <50% of meal trays . Is patient on ventilator? No Is Patient Ambulatory and/or Out of Bed Yes [facility] [ 1932.125 NUTR.MSJOOB] Calculation Used for Recommendations [facility] Additional Notes PRO needs: 75-90g/day (1-1.2g/ kg IBW 75kg) Fluid: 1ml/kcal or per MD Nutrition Intervention Change Diet Order: Continue regular diet. Add Supplement/Snack (indicate name/kcal Ensure Enlive Vanilla BID /protein ) Provides kCal: 700 Provides Protein (gm) 40 Goal #1 Pt meet >80% of kcal/PRO needs via PO/ONS. Anticipated Discharge Needs: Regular Follow-Up By: 07/22/19 Additional Comments F/U for PO/ONS intakes.
[2019-07-21] MEDS: diazePAM 5 MG TAB PO SCH (21:58)
[2019-07-22] MEDS ORDERED: dilTIAZem 25 MG/5 ML INJ IV ONE (03:03)
[2019-07-22 05:05] LABS: BUN/Creatinine Ratio 16; Blood Urea Nitrogen 13 mg/dL (9-20); Calcium 8.7 mg/dL (8.4-10.2); Hemolysis Index 0
[2019-07-22] MEDS: CEFEPIME/NS 2 GM/100 ML 2 GM/100 ML BAG IV SCH ×3 (06:33→21:40)
[2019-07-22] MEDS: BENZONATATE 100 MG CAP PO SCH ×3 (06:33→21:46)
--- NOTE | 2019-07-22 08:04 | Event Note ---
Date: 07/22/19 [id number]
--- NOTE | 2019-07-22 08:51 | Consultation ---
REFERRING PHYSICIAN: Dr. Lozada. REASON FOR CONSULTATION: Lung cancer, on immunotherapy, short of breath. HISTORY OF PRESENT ILLNESS: I saw the patient, a 64-year-old male in the medical floor. The patient has history of lung cancer, as per the information he has stage 3. He received chemotherapy and radiation and then was on immunotherapy with Imfinzi. The patient states he has received 3 treatments of same. His oncologist is Dr. Dolan. He has been short of breath for 2 weeks, he has been having cough. He came to the hospital. He also has fatigue, malaise. He was placed on BiPAP. He is alert, awake. At this time, he is feeling slightly better with the BiPAP, no headache, no visual disturbances. No ear discharge, no chest pain, no vomiting, no diarrhea, no dysuria. PAST MEDICAL HISTORY: As above. PAST SURGICAL HISTORY: Port placement, cervical fusion. SOCIAL HISTORY: , lives with family members. No history of tobacco usage. FAMILY HISTORY: Noncontributory. ALLERGIES: None. HOME MEDICATIONS: Include aspirin, Coreg, Imfinzi, lisinopril, diazepam. PHYSICAL EXAMINATION: VITAL SIGNS: Temperature 98.9, pulse 142, respirations 28, BP 137/82. HEENT: No pallor, no icterus. NECK: No neck lymph nodes. The patient is on BiPAP. HEART: S1, S2. LUNGS: Decreased air entry bases. ABDOMEN: Soft. EXTREMITIES: No calf tenderness. NEUROLOGIC: Alert, awake. LABORATORY DATA: White cell 7, hemoglobin 11, MCV 86, platelet 193, potassium 4.1, creatinine 0.8, calcium 8.7. RADIOLOGY: 1. CTA chest shows soft tissue abnormality in the lingula, likely to represent the patient's cancer. 2. Small left pleural effusion. 3. Diffuse bilateral interstitial lung disease. ASSESSMENT: 1. Interstitial changes on Radiology. 2. Shortness of breath, it is possible that this may be effect of pneumonitis. This may be pneumonitis secondary to Imfinzi. I discussed with Dr. Dolan. 3. We will start the patient on methylprednisolone dose ranges 2-4 mg/kg daily. I discussed with Dr. Heath. We will do blood sugar monitoring. 4. History of hypertension. 5. History of respiratory issues. 6. History of port placement. 7. I will follow the patient during inpatient stay and then in the clinic setting. JOB# [id number] ERIC/ROCIO
[2019-07-22] MEDS ORDERED: METHYLPREDNISOLONE SOD SUC IV SCH (10:00)
[2019-07-22] MEDS ORDERED: SODIUM CHLORIDE 0.9% IV SCH (10:00)
[2019-07-22] MEDS: ASPIRIN 81 MG TAB CHEW PO SCH (10:29)
[2019-07-22] MEDS: ENOXAPARIN 40 MG/0.4 ML INJ SUB-Q SCH (10:29)
[2019-07-22] MEDS: CARVEDILOL 3.125 MG TAB PO SCH ×2 (10:29→21:47)
[2019-07-22] MEDS: DICLOFENAC EC 25 MG TAB PO SCH (10:30)
--- NOTE | 2019-07-22 11:05 | Progress Note ---
Assessment and Plan Shortness of breath CT scan showing diffuse interstitial lung disease Lung cancer on immunotherapy Mild cardiomyopathy LVEF 40-45% by echo done 05/2019 limited echo this admission shows septal flattening of the interventricular septum consistent with RV overload. EF 40-45% No recent ischemic work-up Reflex sinus tachycardia No other arrhythmias Conservative cardiac management. Subjective Date of service: 07/22/19 Interval history: On Bipap therapy. Objective Vital Signs Temp Pulse Pulse Resp BP Pulse Ox 07/22/19 10:29 134 H 100/64 07/22/19 08:22 92 07/22/19 08:00 98.9 F 07/22/19 06:00 128 H 46 H 103/68 99 07/22/19 05:06 129 H 29 H 137/82 96 07/22/19 05:01 142 H 28 H 137/82 73 L 07/22/19 04:00 98.9 F 131 H 129 H 18 114/72 93 07/22/19 03:23 146 H 110/70 07/22/19 03:00 142 H 19 110/70 90 07/22/19 02:00 133 H 20 107/74 92 07/22/19 01:00 128 H 22 109/72 92 07/22/19 00:00 98.7 F 124 H 126 H 18 119/69 94 07/21/19 23:58 119 H 07/21/19 23:03 120 H 19 105/72 94 07/21/19 23:00 119 H 21 105/72 93 07/21/19 22:00 113 H 18 101/66 95 07/21/19 21:00 123 H 29 H 102/75 90 07/21/19 20:24 98 07/21/19 20:00 98.9 F 118 H 119 H 24 101/64 98 07/21/19 19:58 118 H 07/21/19 19:00 118 H 33 H 101/67 97 07/21/19 18:00 116 H 22 96/62 95 07/21/19 17:01 108 H 21 93/62 99 07/21/19 16:01 120 H 28 H 93/62 94 07/21/19 15:00 97.7 F 118 H 17 93/62 96 07/21/19 14:01 117 H 16 91/58 96 07/21/19 13:00 125 H 20 94/61 97 07/21/19 12:00 98.0 F 128 H 20 94/63 98 - Physical Examination General: Other (on Bipap therapy) HEENT: Positive: PERRL Neuro: Positive: Grossly Intact Extremities: Present: normal - Labs and Meds Comprehensive Metabolic Panel 07/22/19 Range/Units 03:44 Sodium 139 (137-145) mmol/L Potassium 4.1 (3.6-5.0) mmol/L Chloride 101.9 (98-107) mmol/L Carbon Dioxide 23 (22-30) mmol/L BUN 13 (9-20) mg/dL Creatinine 0.8 (0.8-1.5) mg/dL Glucose 129 H (75-100) mg/dL Calcium 8.7 (8.4-10.2) mg/dL
[2019-07-22] MEDS ORDERED: ALPRAZolam 0.5 MG TAB PO PRN (11:24)
[2019-07-22] MEDS: METHYLPREDNISOLONE SOD SUC IV SCH (12:13)
[2019-07-22] MEDS: SODIUM CHLORIDE 0.9% IV SCH (12:13)
--- NOTE | 2019-07-22 12:30 | Consultation ---
History of Present Illness Consult date: 07/22/19 Requesting physician: LAZARO VARGAS Reason for consult: COPD, hypoxemia, abnormal CXR/CT History of present illness: 64 y/o male with lung CA, followed by Dr. Dolan, currently on immunosuppressive therapy with I think a monoclonal antibody presents after being seen at Oncology and room air sats in the 70's. CTA done and was negative for PE but shows chronic changes consistent with lung disease and what appears to be some radiation changes as well. Per patient has never seen a lung specialist until today. Past History Past Medical History: other (see hpi) Past Surgical History: Other (Port placement, Cervical Fusion) Social history: , lives with family. denies: smoking, alcohol abuse, prescription drug abuse Family history: no significant family history (reviewed) Medications and Allergies Allergies Allergy/AdvReac Type Severity Reaction Status Date / Time No Known Allergies Allergy Verified 07/19/19 14:55 Home Medications Medication Instructions Recorded Confirmed Last Taken Type ALBUTEROL Inhaler (OR & NICU) 2 puff IH QID PRN 07/19/19 07/19/19 07/18/19 History [Proair] Aspirin [Aspirin BABY CHEW TAB] 81 mg PO QDAY 07/19/19 07/19/19 07/18/19 History Carvedilol [Coreg] 3.125 mg PO BID 07/19/19 07/19/19 07/18/19 History Diclofenac EC [Voltaren] 25 mg PO QDAY 07/19/19 07/19/19 07/18/19 History Durvalumab [Imfinzi] 120 mg IV Q2W 07/19/19 07/19/19 07/18/19 History Lisinopril [Zestril TAB] 2.5 mg PO QDAY 07/19/19 07/19/19 07/18/19 History diazePAM [Diazepam] 10 mg PO QHS 07/19/19 07/19/19 07/18/19 History Active Meds: Active Medications Albuterol (Proventil) 2.5 mg IH Q3HRT PRN PRN Reason: Shortness Of Breath Alprazolam (Xanax) 0.5 mg PO Q8H PRN PRN Reason: Anxiety Aspirin (Baby Aspirin) 81 mg PO QDAY ELI Last Admin: 07/22/19 10:29 Dose: 81 mg Documented by: Benzonatate (Tessalon Perles) 100 mg PO Q8HR [facility] Last Admin: 07/22/19 06:33 Dose: 100 mg Documented by: Carvedilol (Coreg) 3.125 mg PO BID [facility] Last Admin: 07/22/19 10:29 Dose: 3.125 mg Documented by: Diazepam (Valium) 10 mg PO HS [facility] Last Admin: 07/21/19 21:58 Dose: 10 mg Documented by: Diclofenac Sodium (Voltaren) 25 mg PO QDAY [facility] Last Admin: 07/22/19 10:30 Dose: 25 mg Documented by: Enoxaparin Sodium (Lovenox) 40 mg SUB-Q QDAY@1000 ELI Last Admin: 07/22/19 10:29 Dose: 40 mg Documented by: Hydrocodone Bit/Homatropine Methylb (Hydromet) 10 ml PO Q6H PRN PRN Reason: Cough Cefepime HCl (Cefepime/Ns 2 Gm/100 Ml) 2 gm in 100 mls @ 200 mls/hr IV Q8H [facility]; Protocol Stop: 07/23/19 23:59 Last Admin: 07/22/19 12:13 Dose: 200 mls/hr Documented by: Methylprednisolone Sodium Succinate 140 mg/ Sodium Chloride 100 mls @ 200 mls/hr IV Q24HR [facility] Last Admin: 07/22/19 12:13 Dose: 200 mls/hr Documented by: Miscellaneous Medication (Durvalumab [Imfinzi]) 120 mg IV Q2W [facility] Sodium Chloride (Sodium Chloride Flush Syringe 10 Ml) 10 ml IV BID [facility] Last Admin: 07/22/19 10:29 Dose: 10 ml Documented by: Sodium Chloride (Sodium Chloride Flush Syringe 10 Ml) 10 ml IV PRN PRN PRN Reason: LINE FLUSH Review of Systems All systems: negative Physical Examination Vital signs: Vital Signs Temp Pulse Resp BP Pulse Ox 98.0 F 116 H 116 H 121/76 98 07/19/19 13:34 07/19/19 13:34 07/19/19 13:34 07/19/19 13:34 07/19/19 13:34 General appearance: alert, appears uncomfortable Eyes: non-icteric ENT: oropharynx moist Neck: supple Effort: very labored Ascultation: Bilateral: rales, rhonchi Percussion: Bilateral: not dull Tactile fremitus: Bilateral: normal Cardiovascular: other (sinus tachycardia) Gastrointestinal: soft Extremities: no edema normal mental status, non-focal exam Results - Laboratory Findings CBC and BMP: 07/21/19 04:23 07/22/19 03:44 ABG POC ABG pH 7.432 (7.35-7.45) 07/19/19 15:58 POC ABG pCO2 34.3 (35-45) L 07/19/19 15:58 POC ABG pO2 67 (80-105) L 07/19/19 15:58 POC ABG HCO3 22.9 (22-26 mml/L) 07/19/19 15:58 POC ABG Total CO2 24 (23-27mmol/L) 07/19/19 15:58 POC ABG O2 Sat 94 07/19/19 15:58 PT/INR, D-dimer PT 13.9 Sec. (12.2-14.9) 07/19/19 15:02 INR 1.10 (0.87-1.13) 07/19/19 15:02 D-Dimer 916.71 ng/mlDDU (0-234) H 07/19/19 15:02 Abnormal lab findings: Abnormal Labs 07/19/19 07/19/19 07/19/19 15:02 15:02 15:02 Hgb Hct RDW 15.3 H Lymph % (Auto) [place] % (Auto) 11.0 H Lymph # 1.0 L Seg Neutrophils % 72.9 H D-Dimer 916.71 H POC ABG pCO2 POC ABG pO2 Carbon Dioxide Glucose 107 H Lactic Acid Albumin 3.7 L 07/19/19 07/19/19 07/21/19 15:58 19:30 04:23 Hgb 11.5 L Hct 34.6 L RDW Lymph % (Auto) 13.0 L [place] % (Auto) 10.5 H Lymph # 0.9 L Seg Neutrophils % 75.8 H D-Dimer POC ABG pCO2 34.3 L POC ABG pO2 67 L Carbon Dioxide Glucose Lactic Acid 2.40 H* Albumin 07/21/19 07/22/19 04:23 03:44 Hgb Hct RDW Lymph % (Auto) [place] % (Auto) Lymph # Seg Neutrophils % D-Dimer POC ABG pCO2 POC ABG pO2 Carbon Dioxide 21 L Glucose 108 H 129 H Lactic Acid Albumin - Diagnostic Findings CT scan - chest: image reviewed (as stated in HPI) Assessment and Plan 64 y/o male with acute respiratory failure secondary to underlying COPD exacerbation from either radiation pneumonitis, infection (pneumonia) or both. 1. Agree with onc in regards to steroids but I feel that 24 hour dosing is not enough. Will go ahead with the 140 ordered until I can speak with Dr. Hernandez. Would suggest increasing steroids to 60q6 and tapering from there. 2. Agree with broad spec abx therapy as well. Would add Vanc back given that he is immunosuppressed and now we are adding steroids 3. Will also given a one time dose of IV lasix 10 to help eliminate any extra volume that could be compromising respiratory status. 4. Overall prognosis is guarded. patient is very close to iminiate respiratory failure. He is a full code.
[2019-07-22] MEDS ORDERED: FUROSEMIDE 20 MG/2 ML INJ IV ONE (12:31)
[2019-07-22] MEDS ORDERED: FUROSEMIDE 20 MG/2 ML INJ ONE (15:51)
--- NOTE | 2019-07-22 16:51 | Progress Note ---
Assessment and Plan Assessment and plan: (1) HCAP (healthcare-associated pneumonia) Current Visit: Yes Status: Acute Continue empiric treatment with cefepime, vancomycin discontinued today blood cultures negative CT and chest x-ray was done and infiltrates vs atelectasis Pulmonary consulted and recommend to increase steroid dose (2) Lung cancer Current Visit: Yes Status: Acute Qualifiers: Laterality: unspecified laterality Plan to address problem: Oncology consulted, continue current care. On immunotherapy Dr Webster consulted (3) Respiratory failure Current Visit: Yes Status: Acute Qualifiers: Chronicity: acute Respiratory failure complication: hypoxia Qualified Code(s): J96.01 - Acute respiratory failure with hypoxia Plan to address problem: Supplemental oxygen, pulse oximetry, chest x ray, NIPPV as clinically indicated, pain control, CT chest, d dimer (4) HTN (hypertension) Current Visit: Yes Status: Acute Qualifiers: Hypertension type: essential hypertension Qualified Code(s): I10 - Essential (primary) hypertension Plan to address problem: Monitor bp q shift, supportive care. (5) DVT prophylaxis Current Visit: Yes Status: Acute Plan to address problem: SCD to BLE while in bed, prophylactic lovenox Tachycardia; cardiology consulted and did echo which showed mild decrease in EF. History Interval history: Patient was seen this morning, patient's complaining generalized weakness. Shortness of breath. Hospitalist Physical - Physical exam Narrative exam: Not in cardiopulmonary distress. The patient appeared well nourished and normally developed. Vital signs as documented. Head exam is unremarkable. No scleral icterus . Neck is without jugular venous distension, thyromegaly, or carotid bruits. Lungs are clear to auscultation. Cardiac exam reveals regular rate and Rhythm. First and second heart sounds normal. No murmurs, rubs or gallops. Abdominal exam reveals normal bowel sounds, no masses, no organomegaly and no aortic enlargement. Extremities are nonedematous and both femoral and pedal pulses are normal. RAND CEMENTER: Alert and oriented 3. No focal weakness. - Constitutional Vitals: Temp Pulse Resp BP Pulse Ox 98.5 F 132 H 19 102/69 98 07/22/19 15:54 07/22/19 13:00 07/22/19 13:00 07/22/19 13:00 07/22/19 13:00 General appearance: Present: mild distress Results - Labs CBC & Chem 7: 07/21/19 04:23 07/22/19 03:44 Labs: Laboratory Last Values WBC 7.0 K/mm3 (4.5-11.0) 07/21/19 04:23 RBC 4.03 M/mm3 (3.65-5.03) 07/21/19 04:23 Hgb 11.5 gm/dl (11.8-15.2) L 07/21/19 04:23 Hct 34.6 % (35.5-45.6) L 07/21/19 04:23 MCV 86 fl (84-94) 07/21/19 04:23 MCH 28 pg (28-32) 07/21/19 04:23 MCHC 33 % (32-34) 07/21/19 04:23 RDW 15.2 % (13.2-15.2) 07/21/19 04:23 Plt Count 193 K/mm3 (140-440) 07/21/19 04:23 Lymph % (Auto) 13.0 % (13.4-35.0) L 07/21/19 04:23 [place] % (Auto) 10.5 % (0.0-7.3) H 07/21/19 04:23 Eos % (Auto) 0.5 % (0.0-4.3) 07/21/19 04:23 Baso % (Auto) 0.2 % (0.0-1.8) 07/21/19 04:23 Lymph # 0.9 K/mm3 (1.2-5.4) L 07/21/19 04:23 [place] # 0.7 K/mm3 (0.0-0.8) 07/21/19 04:23 Eos # 0.0 K/mm3 (0.0-0.4) 07/21/19 04:23 Baso # 0.0 K/mm3 (0.0-0.1) 07/21/19 04:23 Seg Neutrophils % 75.8 % (40.0-70.0) H 07/21/19 04:23 Seg Neutrophils # 5.3 K/mm3 (1.8-7.7) 07/21/19 04:23 PT 13.9 Sec. (12.2-14.9) 07/19/19 15:02 INR 1.10 (0.87-1.13) 07/19/19 15:02 APTT 31.5 Sec. (24.2-36.6) 07/19/19 15:02 D-Dimer 916.71 ng/mlDDU (0-234) H 07/19/19 15:02 POC ABG pH 7.432 (7.35-7.45) 07/19/19 15:58 POC ABG pCO2 34.3 (35-45) L 07/19/19 15:58 POC ABG pO2 67 (80-105) L 07/19/19 15:58 POC ABG HCO3 22.9 (22-26 mml/L) 07/19/19 15:58 POC ABG Total CO2 24 (23-27mmol/L) 07/19/19 15:58 POC ABG O2 Sat 94 07/19/19 15:58 POC ABG Base Excess -1 ((-2) - (+3)mmol/L) 07/19/19 15:58 FiO2 21 % 07/19/19 15:58 Sodium 139 mmol/L (137-145) 07/22/19 03:44 Potassium 4.1 mmol/L (3.6-5.0) 07/22/19 03:44 Chloride 101.9 mmol/L (98-107) 07/22/19 03:44 Carbon Dioxide 23 mmol/L (22-30) 07/22/19 03:44 Anion Gap 18 mmol/L 07/22/19 03:44 BUN 13 mg/dL (9-20) 07/22/19 03:44 Creatinine 0.8 mg/dL (0.8-1.5) 07/22/19 03:44 Estimated GFR > 60 ml/min 07/22/19 03:44 BUN/Creatinine Ratio 16 % 07/22/19 03:44 Glucose 129 mg/dL (75-100) H 07/22/19 03:44 Lactic Acid 1.70 mmol/L (0.7-2.0) 07/19/19 21:44 Calcium 8.7 mg/dL (8.4-10.2) 07/22/19 03:44 Magnesium 2.30 mg/dL (1.7-2.3) 07/19/19 15:02 Total Bilirubin 0.40 mg/dL (0.1-1.2) 07/19/19 15:02 AST 15 units/L (5-40) 07/19/19 15:02 ALT 10 units/L (7-56) 07/19/19 15:02 Alkaline Phosphatase 88 units/L (35-129) 07/19/19 15:02 Total Creatine Kinase 66 units/L (55-170) 07/19/19 15:02 Troponin T < 0.010 ng/mL (0.00-0.029) 07/19/19 19:30 Total Protein 8.2 g/dL (6.3-8.2) 07/19/19 15:02 Albumin 3.7 g/dL (3.9-5) L 07/19/19 15:02 Albumin/Globulin Ratio 0.8 % 07/19/19 15:02 Urine Color Yellow (Yellow) 07/19/19 15:20 Urine Turbidity Clear (Clear) 07/19/19 15:20 Urine pH 5.0 (5.0-7.0) 07/19/19 15:20 Ur Specific [place] 1.017 (1.003-1.030) 07/19/19 15:20 Urine Protein <15 mg/dl mg/dL (Negative) 07/19/19 15:20 Urine Glucose (UA) Neg mg/dL (Negative) 07/19/19 15:20 Urine Ketones Neg mg/dL (Negative) 07/19/19 15:20 Urine Blood Sm (Negative) 07/19/19 15:20 Urine Nitrite Neg (Negative) 07/19/19 15:20 Urine Bilirubin Neg (Negative) 07/19/19 15:20 Urine Urobilinogen < 2.0 mg/dL (<2.0) 07/19/19 15:20 Ur Leukocyte Esterase Neg (Negative) 07/19/19 15:20 Urine WBC (Auto) < 1.0 /HPF (0.0-6.0) 07/19/19 15:20 Urine RBC (Auto) 3.0 /HPF (0.0-6.0) 07/19/19 15:20 Urine Mucus Few /HPF 07/19/19 15:20 Active Medications - Current Medications Current Medications: Generic Name Dose Route Start Last Admin Trade Name Freq PRN Reason Stop Dose Admin Albuterol 2.5 mg 07/19/19 18:28 Proventil IH Q3HRT PRN Shortness Of Breath Alprazolam 0.5 mg 07/22/19 11:24 Xanax PO Q8H PRN Anxiety Aspirin 81 mg 07/20/19 10:00 07/22/19 10:29 Baby Aspirin PO 81 mg QDAY ELI Administration Benzonatate 100 mg 07/19/19 23:45 07/22/19 15:50 Tessalon Perles PO 100 mg Q8HR ELI Administration Carvedilol 3.125 mg 07/21/19 11:00 07/22/19 10:29 Coreg PO 3.125 mg BID ELI Administration Diazepam 10 mg 07/19/19 22:00 07/21/19 21:58 Valium PO 10 mg HS ELI Administration Diclofenac Sodium 25 mg 07/20/19 10:00 07/22/19 10:30 Voltaren PO 25 mg QDAY ELI Administration Enoxaparin Sodium 40 mg 07/20/19 10:00 07/22/19 10:29 Lovenox SUB-Q 40 mg QDAY@1000 ELI Administration Hydrocodone Bit/Homatropine Methylb 10 ml 07/19/19 18:36 Hydromet PO Q6H PRN Cough Cefepime HCl 2 gm in 100 mls @ 200 mls/hr 07/19/19 20:00 07/22/19 12:13 Cefepime/Ns 2 Gm/100 Ml IV 07/23/19 23:59 200 mls/hr Q8H [facility]I Administration Protocol Methylprednisolone Sodium 100 mls @ 200 mls/hr 07/22/19 12:00 07/22/19 12:13 Succinate 140 mg/ Sodium IV 200 mls/hr Chloride Q24HR [facility] Administration Miscellaneous Medication 120 mg 07/19/19 18:30 Durvalumab [Imfinzi] IV Q2W [facility] Sodium Chloride 10 ml 07/19/19 22:00 07/22/19 10:29 Sodium Chloride Flush Syringe 10 Ml IV 10 ml BID ELI Administration Sodium Chloride 10 ml 07/19/19 18:28 Sodium Chloride Flush Syringe 10 Ml IV PRN PRN LINE FLUSH Nutrition/Malnutrition Assess - Dietary Evaluation Nutrition/Malnutrition Findings: Nutrition Notes Start: 07/20/19 12:10 Freq: Status: Active Protocol: Document 07/22/19 11:27 RM (Rec: 07/22/19 11:47 RM [id number]) Nutrition Notes Initial or Follow up Reassessment Current Diagnosis Hypertension,Respiratory Failure Other Pertinent Diagnosis Lung CA, anxiety, HCAP Current Diet Regular Labs/Tests Reviewed Pertinent Medications Reviewed Height 5 ft 10 in Weight 70 kg [place] Body Weight (kg) 75.45 BMI 22.1 Subjective/Other Information Pt stated that he eats most of his meals and does not know why he is receiving Ensure Enlive but drank one today. Per tech pt has some short term memory loss and tells different people different things. Stated that pt eats 50 to 75% of facility meals in addition to food that family brings in. Stated that pt has said that he likes to have Ensure Enlive in case he does not like the facility meal. Noted uneaten breakfast and 1 unopened Ensure Enlive at bedside. Pt stated that he does not like biscuits w/gravy and sausage. Noted preferences. Percent of energy/protein needs met: 100%/100% (facility meals + outside food +1 ONS) Burn Absent Trauma Absent Minimum of two criteria No physical signs of malnutrition #1 Nutrition Diagnosis Inadequate oral intake As Evidenced by Signs and Symptoms pt meeting 100% of calorie and protein needs via PO and ONS intakes Diagnosis Progress(for reassessment Resolved documentation) Is patient on ventilator? No Is Patient Ambulatory and/or Out of Bed Yes REE-([facility]-ambulatory/OOB) [ 1932.125 [id number]] Calculation Used for Recommendations [facility] Additional Notes PRO needs: 75-90g/day (1-1.2g/ kg IBW 75kg) Fluid: 1ml/kcal or per MD Nutrition Intervention Change Diet Order: Continue current diet Add Supplement/Snack (indicate name/kcal Ensure Enlive Vanilla 1 daily /protein ) Provides kCal: 350 Provides Protein (gm) 20 Goal #1 Continue to meet at least 75% of calorie and protein needs via PO intakes Anticipated Discharge Needs: Regular Follow-Up By: 07/29/19 Additional Comments Follow for PO and ONS intakes
[2019-07-22] MEDS: diazePAM 5 MG TAB PO SCH (21:46)
[2019-07-23] MEDS: CEFEPIME/NS 2 GM/100 ML 2 GM/100 ML BAG IV SCH ×2 (04:49→13:40)
[2019-07-23] MEDS: BENZONATATE 100 MG CAP PO SCH ×3 (05:13→21:01)
--- NOTE | 2019-07-23 10:25 | Progress Note ---
Assessment and Plan Shortness of breath CT scan showing diffuse interstitial lung disease Lung cancer on immunotherapy Mild cardiomyopathy LVEF 40-45% by echo done 05/2019 limited echo this admission shows evidence of right heart enlargement, pressure and volume overload. EF 40-45% No recent ischemic work-up Reflex sinus tachycardia No other arrhythmias Conservative cardiac management. Subjective Date of service: 07/23/19 Interval history: Venturi mask is in place. No distress noted. Objective Vital Signs Temp Pulse Pulse Resp BP Pulse Ox 07/23/19 09:58 98 07/23/19 09:40 96.3 F L 07/23/19 09:09 92 07/23/19 07:00 107 H 126/84 72 L 07/23/19 06:00 102 H 21 108/79 100 07/23/19 05:00 97 H 29 H 109/77 98 07/23/19 04:00 99 H 983 H 41 H 111/69 100 07/23/19 03:00 102 H 25 H 108/70 100 07/23/19 02:00 106 H 21 107/67 99 07/23/19 01:12 107 H 31 H 106/72 95 07/23/19 01:00 113 H 29 H 106/72 07/23/19 00:00 106 H 108 H 24 107/66 100 07/22/19 23:00 113 H 22 103/67 100 07/22/19 22:04 119 H 32 H 123/73 95 07/22/19 22:00 120 H 29 H 123/73 92 07/22/19 21:47 118 H 117/74 07/22/19 21:00 117 H 11 L 112/49 90 07/22/19 20:00 120 H 120 H 28 H 110/77 92 07/22/19 19:15 91 07/22/19 19:01 130 H 110/77 07/22/19 19:00 120 H 110/77 07/22/19 18:00 125 H 34 H 107/72 94 07/22/19 17:01 128 H 33 H 108/73 90 07/22/19 16:00 120 H 128 H 29 H 104/69 94 07/22/19 15:54 98.5 F 07/22/19 15:00 126 H 19 102/69 99 07/22/19 14:00 127 H 15 100/69 98 07/22/19 13:00 132 H 19 102/69 98 07/22/19 12:01 141 H 14 120/68 82 L 07/22/19 12:00 98.4 F 119 H 15 98 07/22/19 11:00 137 H 24 110/65 88 07/22/19 10:29 134 H 100/64 - Physical Examination General: No Apparent Distress HEENT: Positive: PERRL Neck: Positive: neck supple Cardiac: Positive: Tachycardia Lungs: Positive: Decreased Breath Sounds Neuro: Positive: Grossly Intact Abdomen: Positive: Soft Extremities: Absent: edema
[2019-07-23] MEDS: ENOXAPARIN 40 MG/0.4 ML INJ SUB-Q SCH (10:26)
[2019-07-23 10:27] LABS: BUN/Creatinine Ratio 26; Blood Urea Nitrogen 21 mg/dL (9-20); Calcium 9.1 mg/dL (8.4-10.2); Hemolysis Index 17
[2019-07-23] MEDS: DICLOFENAC EC 25 MG TAB PO SCH (10:27)
[2019-07-23] MEDS: CARVEDILOL 3.125 MG TAB PO SCH ×2 (10:27→21:00)
[2019-07-23] MEDS: METHYLPREDNISOLONE SOD SUC IV SCH (10:28)
[2019-07-23] MEDS: SODIUM CHLORIDE 0.9% IV SCH (10:28)
[2019-07-23] MEDS: ASPIRIN 81 MG TAB CHEW PO SCH (10:31)
[2019-07-23 11:17] LABS: Hematocrit 37.1 % (35.5-45.6); Hemoglobin 12.2 gm/dl (11.8-15.2); Mean Corpuscular HGB Conc 33 % (32-34); Mean Corpuscular Volume 86 fl (84-94); Platelet Count 219 K/mm3 (140-440); Red Blood Count 4.32 M/mm3 (3.65-5.03); Red Cell Distribution Width 15.3 % (13.2-15.2)
[2019-07-23 12:05] LABS: Basophils % (Manual) 0 % (0.0-1.8); Eosinophils % (Manual) 0 % (0.0-4.3); Ovalocytes Few; Platelet Estimate Consistent w Auto; Poikilocytosis Few; Total Cells Counted 100
[2019-07-23] MEDS ORDERED: FUROSEMIDE 20 MG/2 ML INJ IV NR (12:31)
--- NOTE | 2019-07-23 12:33 | Progress Note ---
Assessment and Plan 64 y/o male with acute respiratory failure secondary to underlying COPD exacerbation from either radiation pneumonitis, infection (pneumonia) or both. 1. Increased steroids to 60 q6. First dose of this will be at 1800. Gave another dose of lasix IV today as well. 2. Agree with broad spec abx therapy as well. Would add Vanc back given that he is immunosuppressed and now we are adding steroids 3. Continue PRN PPV and qhs therapy. 4. Overall prognosis is guarded. He is a full code. Subjective Date of service: 07/23/19 Interval history: Heme has not seen but I feel the need to change the frequency of the steroids. Patient has had some improvement and tolerated the lasix therapy well. at bedside. Objective Vital Signs - 12hr 07/23/19 07/23/19 07/23/19 01:00 01:12 02:00 Temperature Pulse Rate 113 H 107 H 106 H Pulse Rate [ From Monitor] Respiratory 29 H 31 H 21 Rate Blood Pressure 106/72 106/72 107/67 O2 Sat by Pulse 95 99 Oximetry 07/23/19 07/23/19 07/23/19 03:00 04:00 05:00 Temperature Pulse Rate 102 H 99 H 97 H Pulse Rate [ 983 H From Monitor] Respiratory 25 H 41 H 29 H Rate Blood Pressure 108/70 111/69 109/77 O2 Sat by Pulse 100 100 98 Oximetry 07/23/19 07/23/19 07/23/19 06:00 07:00 09:09 Temperature Pulse Rate 102 H 107 H Pulse Rate [ From Monitor] Respiratory 21 Rate Blood Pressure 108/79 126/84 O2 Sat by Pulse 100 72 L 92 Oximetry 07/23/19 07/23/19 07/23/19 09:40 09:58 10:27 Temperature 96.3 F L Pulse Rate 117 H Pulse Rate [ From Monitor] Respiratory Rate Blood Pressure 125/80 O2 Sat by Pulse 98 Oximetry Constitutional: alert, appears uncomfortable Eyes: non-icteric ENT: oropharynx moist Neck: supple Effort: very labored Ascultation: Bilateral: rales, rhonchi Percussion: Bilateral: not dull Tactile fremitus: Bilateral: normal Cardiovascular: other (sinus tachycardia) Gastrointestinal: soft Extremities: no edema Neurologic: normal mental status, non-focal exam CBC and BMP: 07/23/19 09:17 07/23/19 09:17 ABG, PT/INR, D-dimer: ABG POC ABG pH 7.432 (7.35-7.45) 07/19/19 15:58 POC ABG pCO2 34.3 (35-45) L 07/19/19 15:58 POC ABG pO2 67 (80-105) L 07/19/19 15:58 POC ABG HCO3 22.9 (22-26 mml/L) 07/19/19 15:58 POC ABG Total CO2 24 (23-27mmol/L) 07/19/19 15:58 POC ABG O2 Sat 94 07/19/19 15:58 PT/INR, D-dimer PT 13.9 Sec. (12.2-14.9) 07/19/19 15:02 INR 1.10 (0.87-1.13) 07/19/19 15:02 D-Dimer 916.71 ng/mlDDU (0-234) H 07/19/19 15:02 Abnormal lab findings: Abnormal Labs 07/19/19 07/19/19 07/19/19 15:02 15:02 15:02 Hgb Hct RDW 15.3 H Lymph % (Auto) [place] % (Auto) 11.0 H Lymph # 1.0 L Seg Neutrophils % 72.9 H Seg Neuts % (Manual) Lymphocytes % (Manual) Lymphocytes # (Manual) D-Dimer 916.71 H POC ABG pCO2 POC ABG pO2 Carbon Dioxide BUN Glucose 107 H POC Glucose Lactic Acid Albumin 3.7 L 07/19/19 07/19/19 07/21/19 15:58 19:30 04:23 Hgb 11.5 L Hct 34.6 L RDW Lymph % (Auto) 13.0 L [place] % (Auto) 10.5 H Lymph # 0.9 L Seg Neutrophils % 75.8 H Seg Neuts % (Manual) Lymphocytes % (Manual) Lymphocytes # (Manual) D-Dimer POC ABG pCO2 34.3 L POC ABG pO2 67 L Carbon Dioxide BUN Glucose POC Glucose Lactic Acid 2.40 H* Albumin 07/21/19 07/22/19 07/22/19 04:23 03:44 19:21 Hgb Hct RDW Lymph % (Auto) [place] % (Auto) Lymph # Seg Neutrophils % Seg Neuts % (Manual) Lymphocytes % (Manual) Lymphocytes # (Manual) D-Dimer POC ABG pCO2 POC ABG pO2 Carbon Dioxide 21 L BUN Glucose 108 H 129 H POC Glucose 314 H Lactic Acid Albumin 07/23/19 07/23/19 07/23/19 01:02 06:33 09:17 Hgb Hct RDW 15.3 H Lymph % (Auto) [place] % (Auto) Lymph # Seg Neutrophils % Seg Neuts % (Manual) 86.0 H Lymphocytes % (Manual) 9.0 L Lymphocytes # (Manual) 0.8 L D-Dimer POC ABG pCO2 POC ABG pO2 Carbon Dioxide BUN Glucose POC Glucose 120 H 152 H Lactic Acid Albumin 07/23/19 09:17 Hgb Hct RDW Lymph % (Auto) [place] % (Auto) Lymph # Seg Neutrophils % Seg Neuts % (Manual) Lymphocytes % (Manual) Lymphocytes # (Manual) D-Dimer POC ABG pCO2 POC ABG pO2 Carbon Dioxide 21 L BUN 21 H Glucose 181 H POC Glucose Lactic Acid Albumin
--- NOTE | 2019-07-23 15:13 | Progress Note ---
Assessment and Plan Assessment and plan: (1) HCAP (healthcare-associated pneumonia) Current Visit: Yes Status: Acute Continue empiric treatment with cefepime, vancomycin discontinued today blood cultures negative CT and chest x-ray was done and infiltrates vs atelectasis Pulmonary consulted and recommend to increase steroid dose (2) Lung cancer Current Visit: Yes Status: Acute Qualifiers: Laterality: unspecified laterality Plan to address problem: Oncology consulted, continue current care. On immunotherapy Dr Webster consulted (3) Respiratory failure, due to COPD exacerbation, likely due to acute radiation pneumonitis 2/2 immunotherapy - Patient is on IV Solu-Medrol - Breathing treatment, nebulizer treatment (4) HTN (hypertension) Current Visit: Yes Status: Acute Qualifiers: Hypertension type: essential hypertension Qualified Code(s): I10 - Essential (primary) hypertension Plan to address problem: Monitor bp q shift, supportive care. (5) DVT prophylaxis Current Visit: Yes Status: Acute Plan to address problem: SCD to BLE while in bed, prophylactic lovenox Tachycardia; cardiology consulted and did echo which showed mild decrease in EF. History Interval history: Patient was seen this morning, patient's complaining generalized weakness. Shortness of breath is getting better Hospitalist Physical - Physical exam Narrative exam: Not in cardiopulmonary distress. The patient appeared well nourished and normally developed. Vital signs as documented. Head exam is unremarkable. No scleral icterus . Neck is without jugular venous distension, thyromegaly, or carotid bruits. Lungs are clear to auscultation. Cardiac exam reveals regular rate and Rhythm. First and second heart sounds normal. No murmurs, rubs or gallops. Abdominal exam reveals normal bowel sounds, no masses, no organomegaly and no aortic enlargement. Extremities are nonedematous and both femoral and pedal pulses are normal. 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 No focal weakness. - Constitutional Vitals: Temp Pulse Resp BP Pulse Ox 97.4 F L 117 H 21 125/80 98 07/23/19 13:04 07/23/19 10:27 07/23/19 06:00 07/23/19 10:27 07/23/19 09:58 General appearance: Present: mild distress Results - Labs CBC & Chem 7: 07/23/19 09:17 07/23/19 09:17 Labs: Laboratory Last Values WBC 8.4 K/mm3 (4.5-11.0) 07/23/19 09:17 RBC 4.32 M/mm3 (3.65-5.03) 07/23/19 09:17 Hgb 12.2 gm/dl (11.8-15.2) 07/23/19 09:17 Hct 37.1 % (35.5-45.6) 07/23/19 09:17 MCV 86 fl (84-94) 07/23/19 09:17 MCH 28 pg (28-32) 07/23/19 09:17 MCHC 33 % (32-34) 07/23/19 09:17 RDW 15.3 % (13.2-15.2) H 07/23/19 09:17 Plt Count 219 K/mm3 (140-440) 07/23/19 09:17 Lymph % (Auto) 13.0 % (13.4-35.0) L 07/21/19 04:23 Carbon % (Auto) 10.5 % (0.0-7.3) H 07/21/19 04:23 Eos % (Auto) 0.5 % (0.0-4.3) 07/21/19 04:23 Baso % (Auto) 0.2 % (0.0-1.8) 07/21/19 04:23 Lymph # 0.9 K/mm3 (1.2-5.4) L 07/21/19 04:23 Carbon # 0.7 K/mm3 (0.0-0.8) 07/21/19 04:23 Eos # 0.0 K/mm3 (0.0-0.4) 07/21/19 04:23 Baso # 0.0 K/mm3 (0.0-0.1) 07/21/19 04:23 Add Manual Diff Complete 07/23/19 09:17 Total Counted 100 07/23/19 09:17 Seg Neutrophils % [employer] 07/23/19 09:17 Seg Neuts % (Manual) 86.0 % (40.0-70.0) H 07/23/19 09:17 Band Neutrophils % 0 % 07/23/19 09:17 Lymphocytes % (Manual) 9.0 % (13.4-35.0) L 07/23/19 09:17 Reactive Lymphs % (Man) 0 % 07/23/19 09:17 Monocytes % (Manual) 5.0 % (0.0-7.3) 07/23/19 09:17 Eosinophils % (Manual) 0 % (0.0-4.3) 07/23/19 09:17 Basophils % (Manual) 0 % (0.0-1.8) 07/23/19 09:17 Metamyelocytes % 0 % 07/23/19 09:17 Myelocytes % 0 % 07/23/19 09:17 Promyelocytes % 0 % 07/23/19 09:17 Blast Cells % 0 % 07/23/19 09:17 Nucleated RBC % Not Reportable 07/23/19 09:17 Seg Neutrophils # 5.3 K/mm3 (1.8-7.7) 07/21/19 04:23 Seg Neutrophils # Man 7.2 K/mm3 (1.8-7.7) 07/23/19 09:17 Band Neutrophils # 0.0 K/mm3 07/23/19 09:17 Lymphocytes # (Manual) 0.8 K/mm3 (1.2-5.4) L 07/23/19 09:17 Abs React Lymphs (Man) 0.0 K/mm3 07/23/19 09:17 Monocytes # (Manual) 0.4 K/mm3 (0.0-0.8) 07/23/19 09:17 Eosinophils # (Manual) 0.0 K/mm3 (0.0-0.4) 07/23/19 09:17 Basophils # (Manual) 0.0 K/mm3 (0.0-0.1) 07/23/19 09:17 Metamyelocytes # 0.0 K/mm3 07/23/19 09:17 Myelocytes # 0.0 K/mm3 07/23/19 09:17 Promyelocytes # 0.0 K/mm3 07/23/19 09:17 Blast Cells # 0.0 K/mm3 07/23/19 09:17 WBC Morphology Not Reportable 07/23/19 09:17 Hypersegmented Neuts Not Reportable 07/23/19 09:17 Hyposegmented Neuts Not Reportable 07/23/19 09:17 Hypogranular Neuts Not Reportable 07/23/19 09:17 Smudge Cells Not Reportable 07/23/19 09:17 Toxic Granulation Not Reportable 07/23/19 09:17 Toxic Vacuolation Not Reportable 07/23/19 09:17 Dohle Bodies Not Reportable 07/23/19 09:17 Pelger-Huet Anomaly Not Reportable 07/23/19 09:17 Zak Rods Not Reportable 07/23/19 09:17 Platelet Estimate Consistent w auto 07/23/19 09:17 Clumped Platelets Not Reportable 07/23/19 09:17 Plt Clumps, EDTA Not Reportable 07/23/19 09:17 Large Platelets Not Reportable 07/23/19 09:17 Giant Platelets Not Reportable 07/23/19 09:17 Platelet Satelliting Not Reportable 07/23/19 09:17 Plt Morphology Comment Not Reportable 07/23/19 09:17 RBC Morphology Not Reportable 07/23/19 09:17 Dimorphic RBCs Not Reportable 07/23/19 09:17 Polychromasia Not Reportable 07/23/19 09:17 Hypochromasia Not Reportable 07/23/19 09:17 Poikilocytosis Few 07/23/19 09:17 Anisocytosis Not Reportable 07/23/19 09:17 Microcytosis Not Reportable 07/23/19 09:17 Macrocytosis Not Reportable 07/23/19 09:17 Spherocytes Not Reportable 07/23/19 09:17 Pappenheimer Bodies Not Reportable 07/23/19 09:17 Sickle Cells Not Reportable 07/23/19 09:17 Target Cells Not Reportable 07/23/19 09:17 Tear Drop Cells Not Reportable 07/23/19 09:17 Ovalocytes Few 07/23/19 09:17 Helmet Cells Not Reportable 07/23/19 09:17 Alegre-Poydras Bodies Not Reportable 07/23/19 09:17 [place] Rings Not Reportable 07/23/19 09:17 Renata Cells Not Reportable 07/23/19 09:17 Bite Cells Not Reportable 07/23/19 09:17 Crenated Cell Not Reportable 07/23/19 09:17 Elliptocytes Not Reportable 07/23/19 09:17 Acanthocytes (Spur) Not Reportable 07/23/19 09:17 Rouleaux Not Reportable 07/23/19 09:17 Hemoglobin C Crystals Not Reportable 07/23/19 09:17 Schistocytes Not Reportable 07/23/19 09:17 Malaria parasites Not Reportable 07/23/19 09:17 Rafa Bodies Not Reportable 07/23/19 09:17 Hem Pathologist Commnt No 07/23/19 09:17 PT 13.9 Sec. (12.2-14.9) 07/19/19 15:02 INR 1.10 (0.87-1.13) 07/19/19 15:02 APTT 31.5 Sec. (24.2-36.6) 07/19/19 15:02 D-Dimer 916.71 ng/mlDDU (0-234) H 07/19/19 15:02 POC ABG pH 7.432 (7.35-7.45) 07/19/19 15:58 POC ABG pCO2 34.3 (35-45) L 07/19/19 15:58 POC ABG pO2 67 (80-105) L 07/19/19 15:58 POC ABG HCO3 22.9 (22-26 mml/L) 07/19/19 15:58 POC ABG Total CO2 24 (23-27mmol/L) 07/19/19 15:58 POC ABG O2 Sat 94 07/19/19 15:58 POC ABG Base Excess -1 ((-2) - (+3)mmol/L) 07/19/19 15:58 FiO2 21 % 07/19/19 15:58 Sodium 140 mmol/L (137-145) 07/23/19 09:17 Potassium 4.9 mmol/L (3.6-5.0) 07/23/19 09:17 Chloride 104.3 mmol/L (98-107) 07/23/19 09:17 Carbon Dioxide 21 mmol/L (22-30) L 07/23/19 09:17 Anion Gap 20 mmol/L 07/23/19 09:17 BUN 21 mg/dL (9-20) H 07/23/19 09:17 Creatinine 0.8 mg/dL (0.8-1.5) 07/23/19 09:17 Estimated GFR > 60 ml/min 07/23/19 09:17 BUN/Creatinine Ratio 26 % 07/23/19 09:17 Glucose 181 mg/dL (75-100) H 07/23/19 09:17 POC Glucose 185 (70-105) H 07/23/19 12:41 Lactic Acid 1.70 mmol/L (0.7-2.0) 07/19/19 21:44 Calcium 9.1 mg/dL (8.4-10.2) 07/23/19 09:17 Magnesium 2.30 mg/dL (1.7-2.3) 07/19/19 15:02 Total Bilirubin 0.40 mg/dL (0.1-1.2) 07/19/19 15:02 AST 15 units/L (5-40) 07/19/19 15:02 ALT 10 units/L (7-56) 07/19/19 15:02 Alkaline Phosphatase 88 units/L (35-129) 07/19/19 15:02 Total Creatine Kinase 66 units/L (55-170) 07/19/19 15:02 Troponin T < 0.010 ng/mL (0.00-0.029) 07/19/19 19:30 Total Protein 8.2 g/dL (6.3-8.2) 07/19/19 15:02 Albumin 3.7 g/dL (3.9-5) L 07/19/19 15:02 Albumin/Globulin Ratio 0.8 % 07/19/19 15:02 Urine Color Yellow (Yellow) 07/19/19 15:20 Urine Turbidity Clear (Clear) 07/19/19 15:20 Urine pH 5.0 (5.0-7.0) 07/19/19 15:20 Ur Specific [place] 1.017 (1.003-1.030) 07/19/19 15:20 Urine Protein <15 mg/dl mg/dL (Negative) 07/19/19 15:20 Urine Glucose (UA) Neg mg/dL (Negative) 07/19/19 15:20 Urine Ketones Neg mg/dL (Negative) 07/19/19 15:20 Urine Blood Sm (Negative) 07/19/19 15:20 Urine Nitrite Neg (Negative) 07/19/19 15:20 Urine Bilirubin Neg (Negative) 07/19/19 15:20 Urine Urobilinogen < 2.0 mg/dL (<2.0) 07/19/19 15:20 Ur Leukocyte Esterase Neg (Negative) 07/19/19 15:20 Urine WBC (Auto) < 1.0 /HPF (0.0-6.0) 07/19/19 15:20 Urine RBC (Auto) 3.0 /HPF (0.0-6.0) 07/19/19 15:20 Urine Mucus Few /HPF 07/19/19 15:20 Active Medications - Current Medications Current Medications: Generic Name Dose Route Start Last Admin Trade Name Freq PRN Reason Stop Dose Admin Albuterol 2.5 mg 07/19/19 18:28 Proventil IH Q3HRT PRN Shortness Of Breath Alprazolam 0.5 mg 07/22/19 11:24 Xanax PO Q8H PRN Anxiety Aspirin 81 mg 07/20/19 10:00 07/23/19 10:31 Baby Aspirin PO 81 mg QDAY ELI Administration Benzonatate 100 mg 07/19/19 23:45 07/23/19 13:40 Tessalon Perles PO 100 mg Q8HR ELI Administration Carvedilol 3.125 mg 07/21/19 11:00 07/23/19 10:27 Coreg PO 3.125 mg BID ELI Administration Diazepam 10 mg 07/19/19 22:00 07/22/19 21:46 Valium PO 10 mg HS ELI Administration Diclofenac Sodium 25 mg 07/20/19 10:00 07/23/19 10:27 Voltaren PO 25 mg QDAY ELI Administration Enoxaparin Sodium 40 mg 07/20/19 10:00 07/23/19 10:26 Lovenox SUB-Q 40 mg QDAY@1000 ELI Administration Hydrocodone Bit/Homatropine Methylb 10 ml 07/19/19 18:36 Hydromet PO Q6H PRN Cough Cefepime HCl 2 gm in 100 mls @ 200 mls/hr 07/19/19 20:00 07/23/19 13:40 Cefepime/Ns 2 Gm/100 Ml IV 07/23/19 23:59 200 mls/hr Q8H ELI Administration Protocol Methylprednisolone Sodium Succinate 60 mg 07/23/19 18:00 Solu-Medrol IV Q6HR ELI Miscellaneous Medication 120 mg 07/19/19 18:30 Durvalumab [Imfinzi] IV Q2W ELI Sodium Chloride 10 ml 07/19/19 22:00 07/23/19 10:28 Sodium Chloride Flush Syringe 10 Ml IV 10 ml BID ELI Administration Sodium Chloride 10 ml 07/19/19 18:28 Sodium Chloride Flush Syringe 10 Ml IV PRN PRN LINE FLUSH Nutrition/Malnutrition Assess - Dietary Evaluation Nutrition/Malnutrition Findings: Nutrition Notes Start: 07/20/19 12:10 Freq: Status: Active Protocol: Document 07/22/19 11:27 RM (Rec: 07/22/19 11:47 RM [id number]) Nutrition Notes Initial or Follow up Reassessment Current Diagnosis Hypertension,Respiratory Failure Other Pertinent Diagnosis Lung CA, anxiety, HCAP Current Diet Regular Labs/Tests Reviewed Pertinent Medications Reviewed Height 5 ft 10 in Weight 70 kg Walker Body Weight (kg) 75.45 BMI 22.1 Subjective/Other Information Pt stated that he eats most of his meals and does not know why he is receiving Ensure Enlive but drank one today. Per tech pt has some short term memory loss and tells different people different things. Stated that pt eats 50 to 75% of facility meals in addition to food that family brings in. Stated that pt has said that he likes to have Ensure Enlive in case he does not like the facility meal. Noted uneaten breakfast and 1 unopened Ensure Enlive at bedside. Pt stated that he does not like biscuits w/gravy and sausage. Noted preferences. Percent of energy/protein needs met: 100%/100% (facility meals + outside food +1 ONS) Burn Absent Trauma Absent Minimum of two criteria No physical signs of malnutrition #1 Nutrition Diagnosis Inadequate oral intake As Evidenced by Signs and Symptoms pt meeting 100% of calorie and protein needs via PO and ONS intakes Diagnosis Progress(for reassessment Resolved documentation) Is patient on ventilator? No Is Patient Ambulatory and/or Out of Bed Yes REE-([place]-St. Jeor-ambulatory/OOB) [ 1932.125 [id number]] Calculation Used for Recommendations [place]-St Jeor Additional Notes PRO needs: 75-90g/day (1-1.2g/ kg IBW 75kg) Fluid: 1ml/kcal or per MD Nutrition Intervention Change Diet Order: Continue current diet Add Supplement/Snack (indicate name/kcal Ensure Enlive Vanilla 1 daily /protein ) Provides kCal: 350 Provides Protein (gm) 20 Goal #1 Continue to meet at least 75% of calorie and protein needs via PO intakes Anticipated Discharge Needs: Regular Follow-Up By: 07/29/19 Additional Comments Follow for PO and ONS intakes
[2019-07-23] MEDS: methylPREDNISolone Sod Succinate 125 MG/2 ML INJ IV SCH (17:51)
[2019-07-23] MEDS: diazePAM 5 MG TAB PO SCH (21:00)
[2019-07-24] MEDS: CEFEPIME/NS 2 GM/100 ML 2 GM/100 ML BAG IV SCH (00:40)
[2019-07-24] MEDS: methylPREDNISolone Sod Succinate 125 MG/2 ML INJ IV SCH ×4 (00:40→18:14)
[2019-07-24] MEDS: BENZONATATE 100 MG CAP PO SCH ×3 (06:08→22:01)
[2019-07-24] MEDS: CARVEDILOL 3.125 MG TAB PO SCH ×2 (09:49→22:01)
[2019-07-24] MEDS: ASPIRIN 81 MG TAB CHEW PO SCH (09:49)
[2019-07-24] MEDS: ENOXAPARIN 40 MG/0.4 ML INJ SUB-Q SCH (09:51)
[2019-07-24] MEDS: DICLOFENAC EC 25 MG TAB PO SCH (09:52)
--- NOTE | 2019-07-24 10:28 | Progress Note ---
Subjective Date of service: 07/24/19 Interval history: No acute events Objective Vital Signs - 12hr 07/23/19 07/23/19 07/24/19 22:57 23:01 00:00 Temperature 97.3 F L Pulse Rate 97 H 110 H Pulse Rate [ 80 From Monitor] Respiratory 21 34 H 24 Rate Blood Pressure 122/81 O2 Sat by Pulse 97 99 96 Oximetry 07/24/19 07/24/19 07/24/19 00:01 01:01 02:00 Temperature Pulse Rate 108 H 104 H 102 H Pulse Rate [ From Monitor] Respiratory 25 H 21 24 Rate Blood Pressure 122/81 122/81 122/80 O2 Sat by Pulse 98 99 99 Oximetry 07/24/19 07/24/19 07/24/19 03:00 04:00 04:31 Temperature 97.3 F L Pulse Rate 96 H 93 H 97 H Pulse Rate [ 77 From Monitor] Respiratory 23 25 H 19 Rate Blood Pressure 116/80 112/77 112/77 O2 Sat by Pulse 99 99 99 Oximetry 07/24/19 07/24/19 07/24/19 05:00 06:00 07:00 Temperature Pulse Rate 92 H 92 H 94 H Pulse Rate [ From Monitor] Respiratory 17 20 22 Rate Blood Pressure 118/77 113/77 117/78 O2 Sat by Pulse 98 99 97 Oximetry 07/24/19 07/24/19 07/24/19 08:01 09:40 09:49 Temperature Pulse Rate 113 H 107 H Pulse Rate [ From Monitor] Respiratory 40 H Rate Blood Pressure 117/78 128/80 O2 Sat by Pulse 93 95 Oximetry Constitutional: alert, appears uncomfortable Eyes: non-icteric ENT: oropharynx moist Neck: supple Effort: very labored Ascultation: Bilateral: rales, rhonchi Percussion: Bilateral: not dull Tactile fremitus: Bilateral: normal Cardiovascular: other (sinus tachycardia) Gastrointestinal: soft Extremities: no edema Neurologic: normal mental status, non-focal exam CBC and BMP: 07/23/19 09:17 07/23/19 09:17 ABG, PT/INR, D-dimer: ABG POC ABG pH 7.432 (7.35-7.45) 07/19/19 15:58 POC ABG pCO2 34.3 (35-45) L 07/19/19 15:58 POC ABG pO2 67 (80-105) L 07/19/19 15:58 POC ABG HCO3 22.9 (22-26 mml/L) 07/19/19 15:58 POC ABG Total CO2 24 (23-27mmol/L) 07/19/19 15:58 POC ABG O2 Sat 94 07/19/19 15:58 PT/INR, D-dimer PT 13.9 Sec. (12.2-14.9) 07/19/19 15:02 INR 1.10 (0.87-1.13) 07/19/19 15:02 D-Dimer 916.71 ng/mlDDU (0-234) H 07/19/19 15:02 Abnormal lab findings: Abnormal Labs 07/19/19 07/19/19 07/19/19 15:02 15:02 15:02 Hgb Hct RDW 15.3 H Lymph % (Auto) [place] % (Auto) 11.0 H Lymph # 1.0 L Seg Neutrophils % 72.9 H Seg Neuts % (Manual) Lymphocytes % (Manual) Lymphocytes # (Manual) D-Dimer 916.71 H POC ABG pCO2 POC ABG pO2 Carbon Dioxide BUN Glucose 107 H POC Glucose Lactic Acid Albumin 3.7 L 07/19/19 07/19/19 07/21/19 15:58 19:30 04:23 Hgb 11.5 L Hct 34.6 L RDW Lymph % (Auto) 13.0 L [place] % (Auto) 10.5 H Lymph # 0.9 L Seg Neutrophils % 75.8 H Seg Neuts % (Manual) Lymphocytes % (Manual) Lymphocytes # (Manual) D-Dimer POC ABG pCO2 34.3 L POC ABG pO2 67 L Carbon Dioxide BUN Glucose POC Glucose Lactic Acid 2.40 H* Albumin 07/21/19 07/22/19 07/22/19 04:23 03:44 19:21 Hgb Hct RDW Lymph % (Auto) [place] % (Auto) Lymph # Seg Neutrophils % Seg Neuts % (Manual) Lymphocytes % (Manual) Lymphocytes # (Manual) D-Dimer POC ABG pCO2 POC ABG pO2 Carbon Dioxide 21 L BUN Glucose 108 H 129 H POC Glucose 314 H Lactic Acid Albumin 07/23/19 07/23/19 07/23/19 01:02 06:33 09:17 Hgb Hct RDW 15.3 H Lymph % (Auto) [place] % (Auto) Lymph # Seg Neutrophils % Seg Neuts % (Manual) 86.0 H Lymphocytes % (Manual) 9.0 L Lymphocytes # (Manual) 0.8 L D-Dimer POC ABG pCO2 POC ABG pO2 Carbon Dioxide BUN Glucose POC Glucose 120 H 152 H Lactic Acid Albumin 07/23/19 07/23/19 07/23/19 09:17 12:41 18:42 Hgb Hct RDW Lymph % (Auto) [place] % (Auto) Lymph # Seg Neutrophils % Seg Neuts % (Manual) Lymphocytes % (Manual) Lymphocytes # (Manual) D-Dimer POC ABG pCO2 POC ABG pO2 Carbon Dioxide 21 L BUN 21 H Glucose 181 H POC Glucose 185 H 198 H Lactic Acid Albumin 07/24/19 07/24/19 00:24 06:02 Hgb Hct RDW Lymph % (Auto) [place] % (Auto) Lymph # Seg Neutrophils % Seg Neuts % (Manual) Lymphocytes % (Manual) Lymphocytes # (Manual) D-Dimer POC ABG pCO2 POC ABG pO2 Carbon Dioxide BUN Glucose POC Glucose 179 H 150 H Lactic Acid Albumin
[2019-07-24 12:48] LABS: BUN/Creatinine Ratio 34; Blood Urea Nitrogen 24 mg/dL (9-20); Calcium 8.7 mg/dL (8.4-10.2); Hemolysis Index 0
--- NOTE | 2019-07-24 15:15 | Progress Note ---
Assessment and Plan Assessment and plan: (1) HCAP (healthcare-associated pneumonia) Current Visit: Yes Status: Acute Continue empiric treatment with cefepime, vancomycin discontinued today blood cultures negative CT and chest x-ray was done and infiltrates vs atelectasis Pulmonary consulted and recommend to increase steroid dose (2) Lung cancer Current Visit: Yes Status: Acute Qualifiers: Laterality: unspecified laterality Plan to address problem: Oncology consulted, continue current care. On immunotherapy Dr Webster consulted (3) Respiratory failure, due to COPD exacerbation, likely due to acute radiation pneumonitis 2/2 immunotherapy - Patient is on IV Solu-Medrol - Breathing treatment, nebulizer treatment (4) HTN (hypertension) Current Visit: Yes Status: Acute Qualifiers: Hypertension type: essential hypertension Qualified Code(s): I10 - Essential (primary) hypertension Plan to address problem: Monitor bp q shift, supportive care. (5) DVT prophylaxis Current Visit: Yes Status: Acute Plan to address problem: SCD to BLE while in bed, prophylactic lovenox Tachycardia; cardiology consulted and did echo which showed mild decrease in EF. History Interval history: Patient was seen this morning, patient's complaining generalized weakness. Shortness of breath is getting better Hospitalist Physical - Physical exam Narrative exam: Not in cardiopulmonary distress. The patient appeared well nourished and normally developed. Vital signs as documented. Head exam is unremarkable. No scleral icterus . Neck is without jugular venous distension, thyromegaly, or carotid bruits. Lungs are clear to auscultation. Cardiac exam reveals regular rate and Rhythm. First and second heart sounds normal. No murmurs, rubs or gallops. Abdominal exam reveals normal bowel sounds, no masses, no organomegaly and no aortic enlargement. Extremities are nonedematous and both femoral and pedal pulses are normal. [employer] MACHINE: Alert and oriented 3. No focal weakness. - Constitutional Vitals: Temp Pulse Resp BP Pulse Ox 97.3 F L 112 H 37 H 120/78 89 07/24/19 04:00 07/24/19 14:00 07/24/19 14:00 07/24/19 14:00 07/24/19 14:00 General appearance: Present: mild distress Results - Labs CBC & Chem 7: 07/23/19 09:17 07/24/19 12:15 Labs: Laboratory Last Values WBC 8.4 K/mm3 (4.5-11.0) 07/23/19 09:17 RBC 4.32 M/mm3 (3.65-5.03) 07/23/19 09:17 Hgb 12.2 gm/dl (11.8-15.2) 07/23/19 09:17 Hct 37.1 % (35.5-45.6) 07/23/19 09:17 MCV 86 fl (84-94) 07/23/19 09:17 MCH 28 pg (28-32) 07/23/19 09:17 MCHC 33 % (32-34) 07/23/19 09:17 RDW 15.3 % (13.2-15.2) H 07/23/19 09:17 Plt Count 219 K/mm3 (140-440) 07/23/19 09:17 Lymph % (Auto) 13.0 % (13.4-35.0) L 07/21/19 04:23 Burnett % (Auto) 10.5 % (0.0-7.3) H 07/21/19 04:23 Eos % (Auto) 0.5 % (0.0-4.3) 07/21/19 04:23 Baso % (Auto) 0.2 % (0.0-1.8) 07/21/19 04:23 Lymph # 0.9 K/mm3 (1.2-5.4) L 07/21/19 04:23 Burnett # 0.7 K/mm3 (0.0-0.8) 07/21/19 04:23 Eos # 0.0 K/mm3 (0.0-0.4) 07/21/19 04:23 Baso # 0.0 K/mm3 (0.0-0.1) 07/21/19 04:23 Add Manual Diff Complete 07/23/19 09:17 Total Counted 100 07/23/19 09:17 Seg Neutrophils % Automotive Airconditioning Mechanic 07/23/19 09:17 Seg Neuts % (Manual) 86.0 % (40.0-70.0) H 07/23/19 09:17 Band Neutrophils % 0 % 07/23/19 09:17 Lymphocytes % (Manual) 9.0 % (13.4-35.0) L 07/23/19 09:17 Reactive Lymphs % (Man) 0 % 07/23/19 09:17 Monocytes % (Manual) 5.0 % (0.0-7.3) 07/23/19 09:17 Eosinophils % (Manual) 0 % (0.0-4.3) 07/23/19 09:17 Basophils % (Manual) 0 % (0.0-1.8) 07/23/19 09:17 Metamyelocytes % 0 % 07/23/19 09:17 Myelocytes % 0 % 07/23/19 09:17 Promyelocytes % 0 % 07/23/19 09:17 Blast Cells % 0 % 07/23/19 09:17 Nucleated RBC % Not Reportable 07/23/19 09:17 Seg Neutrophils # 5.3 K/mm3 (1.8-7.7) 07/21/19 04:23 Seg Neutrophils # Man 7.2 K/mm3 (1.8-7.7) 07/23/19 09:17 Band Neutrophils # 0.0 K/mm3 07/23/19 09:17 Lymphocytes # (Manual) 0.8 K/mm3 (1.2-5.4) L 07/23/19 09:17 Abs React Lymphs (Man) 0.0 K/mm3 07/23/19 09:17 Monocytes # (Manual) 0.4 K/mm3 (0.0-0.8) 07/23/19 09:17 Eosinophils # (Manual) 0.0 K/mm3 (0.0-0.4) 07/23/19 09:17 Basophils # (Manual) 0.0 K/mm3 (0.0-0.1) 07/23/19 09:17 Metamyelocytes # 0.0 K/mm3 07/23/19 09:17 Myelocytes # 0.0 K/mm3 07/23/19 09:17 Promyelocytes # 0.0 K/mm3 07/23/19 09:17 Blast Cells # 0.0 K/mm3 07/23/19 09:17 WBC Morphology Not Reportable 07/23/19 09:17 Hypersegmented Neuts Not Reportable 07/23/19 09:17 Hyposegmented Neuts Not Reportable 07/23/19 09:17 Hypogranular Neuts Not Reportable 07/23/19 09:17 Smudge Cells Not Reportable 07/23/19 09:17 Toxic Granulation Not Reportable 07/23/19 09:17 Toxic Vacuolation Not Reportable 07/23/19 09:17 Dohle Bodies Not Reportable 07/23/19 09:17 Pelger-Huet Anomaly Not Reportable 07/23/19 09:17 Zak Rods Not Reportable 07/23/19 09:17 Platelet Estimate Consistent w auto 07/23/19 09:17 Clumped Platelets Not Reportable 07/23/19 09:17 Plt Clumps, EDTA Not Reportable 07/23/19 09:17 Large Platelets Not Reportable 07/23/19 09:17 Giant Platelets Not Reportable 07/23/19 09:17 Platelet Satelliting Not Reportable 07/23/19 09:17 Plt Morphology Comment Not Reportable 07/23/19 09:17 RBC Morphology Not Reportable 07/23/19 09:17 Dimorphic RBCs Not Reportable 07/23/19 09:17 Polychromasia Not Reportable 07/23/19 09:17 Hypochromasia Not Reportable 07/23/19 09:17 Poikilocytosis Few 07/23/19 09:17 Anisocytosis Not Reportable 07/23/19 09:17 Microcytosis Not Reportable 07/23/19 09:17 Macrocytosis Not Reportable 07/23/19 09:17 Spherocytes Not Reportable 07/23/19 09:17 Pappenheimer Bodies Not Reportable 07/23/19 09:17 Sickle Cells Not Reportable 07/23/19 09:17 Target Cells Not Reportable 07/23/19 09:17 Tear Drop Cells Not Reportable 07/23/19 09:17 Ovalocytes Few 07/23/19 09:17 Helmet Cells Not Reportable 07/23/19 09:17 Alegre-[place] Bodies Not Reportable 07/23/19 09:17 [place] Rings Not Reportable 07/23/19 09:17 Renata Cells Not Reportable 07/23/19 09:17 Bite Cells Not Reportable 07/23/19 09:17 Crenated Cell Not Reportable 07/23/19 09:17 Elliptocytes Not Reportable 07/23/19 09:17 Acanthocytes (Spur) Not Reportable 07/23/19 09:17 Rouleaux Not Reportable 07/23/19 09:17 Hemoglobin C Crystals Not Reportable 07/23/19 09:17 Schistocytes Not Reportable 07/23/19 09:17 Malaria parasites Not Reportable 07/23/19 09:17 Rafa Bodies Not Reportable 07/23/19 09:17 Hem Pathologist Commnt No 07/23/19 09:17 PT 13.9 Sec. (12.2-14.9) 07/19/19 15:02 INR 1.10 (0.87-1.13) 07/19/19 15:02 APTT 31.5 Sec. (24.2-36.6) 07/19/19 15:02 D-Dimer 916.71 ng/mlDDU (0-234) H 07/19/19 15:02 POC ABG pH 7.432 (7.35-7.45) 07/19/19 15:58 POC ABG pCO2 34.3 (35-45) L 07/19/19 15:58 POC ABG pO2 67 (80-105) L 07/19/19 15:58 POC ABG HCO3 22.9 (22-26 mml/L) 07/19/19 15:58 POC ABG Total CO2 24 (23-27mmol/L) 07/19/19 15:58 POC ABG O2 Sat 94 07/19/19 15:58 POC ABG Base Excess -1 ((-2) - (+3)mmol/L) 07/19/19 15:58 FiO2 21 % 07/19/19 15:58 Sodium 140 mmol/L (137-145) 07/24/19 12:15 Potassium 4.3 mmol/L (3.6-5.0) 07/24/19 12:15 Chloride 100.8 mmol/L (98-107) 07/24/19 12:15 Carbon Dioxide 26 mmol/L (22-30) 07/24/19 12:15 Anion Gap 18 mmol/L 07/24/19 12:15 BUN 24 mg/dL (9-20) H 07/24/19 12:15 Creatinine 0.7 mg/dL (0.8-1.5) L 07/24/19 12:15 Estimated GFR > 60 ml/min 07/24/19 12:15 BUN/Creatinine Ratio 34 % 07/24/19 12:15 Glucose 201 mg/dL (75-100) H 07/24/19 12:15 POC Glucose 225 (70-105) H 07/24/19 11:31 Lactic Acid 1.70 mmol/L (0.7-2.0) 07/19/19 21:44 Calcium 8.7 mg/dL (8.4-10.2) 07/24/19 12:15 Magnesium 2.30 mg/dL (1.7-2.3) 07/19/19 15:02 Total Bilirubin 0.40 mg/dL (0.1-1.2) 07/19/19 15:02 AST 15 units/L (5-40) 07/19/19 15:02 ALT 10 units/L (7-56) 07/19/19 15:02 Alkaline Phosphatase 88 units/L (35-129) 07/19/19 15:02 Total Creatine Kinase 66 units/L (55-170) 07/19/19 15:02 Troponin T < 0.010 ng/mL (0.00-0.029) 07/19/19 19:30 Total Protein 8.2 g/dL (6.3-8.2) 07/19/19 15:02 Albumin 3.7 g/dL (3.9-5) L 07/19/19 15:02 Albumin/Globulin Ratio 0.8 % 07/19/19 15:02 Urine Color Yellow (Yellow) 07/19/19 15:20 Urine Turbidity Clear (Clear) 07/19/19 15:20 Urine pH 5.0 (5.0-7.0) 07/19/19 15:20 Ur Specific [place] 1.017 (1.003-1.030) 07/19/19 15:20 Urine Protein <15 mg/dl mg/dL (Negative) 07/19/19 15:20 Urine Glucose (UA) Neg mg/dL (Negative) 07/19/19 15:20 Urine Ketones Neg mg/dL (Negative) 07/19/19 15:20 Urine Blood Sm (Negative) 07/19/19 15:20 Urine Nitrite Neg (Negative) 07/19/19 15:20 Urine Bilirubin Neg (Negative) 07/19/19 15:20 Urine Urobilinogen < 2.0 mg/dL (<2.0) 07/19/19 15:20 Ur Leukocyte Esterase Neg (Negative) 07/19/19 15:20 Urine WBC (Auto) < 1.0 /HPF (0.0-6.0) 07/19/19 15:20 Urine RBC (Auto) 3.0 /HPF (0.0-6.0) 07/19/19 15:20 Urine Mucus Few /HPF 07/19/19 15:20 Active Medications - Current Medications Current Medications: Generic Name Dose Route Start Last Admin Trade Name Freq PRN Reason Stop Dose Admin Albuterol 2.5 mg 07/19/19 18:28 Proventil IH Q3HRT PRN Shortness Of Breath Alprazolam 0.5 mg 07/22/19 11:24 Xanax PO Q8H PRN Anxiety Aspirin 81 mg 07/20/19 10:00 07/24/19 09:49 Baby Aspirin PO 81 mg QDAY ELI Administration Benzonatate 100 mg 07/19/19 23:45 07/24/19 15:00 Tessalon Perles PO 100 mg Q8HR ELI Administration Carvedilol 3.125 mg 07/21/19 11:00 07/24/19 09:49 Coreg PO 3.125 mg BID ELI Administration Diazepam 10 mg 07/19/19 22:00 07/23/19 21:00 Valium PO 10 mg HS ELI Administration Diclofenac Sodium 25 mg 07/20/19 10:00 07/24/19 09:52 Voltaren PO 25 mg QDAY ELI Administration Enoxaparin Sodium 40 mg 07/20/19 10:00 07/24/19 09:51 Lovenox SUB-Q 40 mg QDAY@1000 ELI Administration Hydrocodone Bit/Homatropine Methylb 10 ml 07/19/19 18:36 Hydromet PO Q6H PRN Cough Methylprednisolone Sodium Succinate 60 mg 07/23/19 18:00 07/24/19 12:00 Solu-Medrol IV 60 mg Q6HR ELI Administration Miscellaneous Medication 120 mg 07/19/19 18:30 Durvalumab [Imfinzi] IV Q2W ELI Sodium Chloride 10 ml 07/19/19 22:00 07/24/19 09:52 Sodium Chloride Flush Syringe 10 Ml IV 10 ml BID ELI Administration Sodium Chloride 10 ml 07/19/19 18:28 Sodium Chloride Flush Syringe 10 Ml IV PRN PRN LINE FLUSH Nutrition/Malnutrition Assess - Dietary Evaluation Nutrition/Malnutrition Findings: Nutrition Notes Start: 07/20/19 12:10 Freq: Status: Active Protocol: Document 07/22/19 11:27 RM (Rec: 07/22/19 11:47 RM [id number]) Nutrition Notes Initial or Follow up Reassessment Current Diagnosis Hypertension,Respiratory Failure Other Pertinent Diagnosis Lung CA, anxiety, HCAP Current Diet Regular Labs/Tests Reviewed Pertinent Medications Reviewed Height 5 ft 10 in Weight 70 kg [place] Body Weight (kg) 75.45 BMI 22.1 Subjective/Other Information Pt stated that he eats most of his meals and does not know why he is receiving Ensure Enlive but drank one today. Per tech pt has some short term memory loss and tells different people different things. Stated that pt eats 50 to 75% of facility meals in addition to food that family brings in. Stated that pt has said that he likes to have Ensure Enlive in case he does not like the facility meal. Noted uneaten breakfast and 1 unopened Ensure Enlive at bedside. Pt stated that he does not like biscuits w/gravy and sausage. Noted preferences. Percent of energy/protein needs met: 100%/100% (facility meals + outside food +1 ONS) Burn Absent Trauma Absent Minimum of two criteria No physical signs of malnutrition #1 Nutrition Diagnosis Inadequate oral intake As Evidenced by Signs and Symptoms pt meeting 100% of calorie and protein needs via PO and ONS intakes Diagnosis Progress(for reassessment Resolved documentation) Is patient on ventilator? No Is Patient Ambulatory and/or Out of Bed Yes REE-([facility]-ambulatory/OOB) [ 1932.125 [id number]] Calculation Used for Recommendations [facility] Additional Notes PRO needs: 75-90g/day (1-1.2g/ kg IBW 75kg) Fluid: 1ml/kcal or per MD Nutrition Intervention Change Diet Order: Continue current diet Add Supplement/Snack (indicate name/kcal Ensure Enlive Vanilla 1 daily /protein ) Provides kCal: 350 Provides Protein (gm) 20 Goal #1 Continue to meet at least 75% of calorie and protein needs via PO intakes Anticipated Discharge Needs: Regular Follow-Up By: 07/29/19 Additional Comments Follow for PO and ONS intakes
--- NOTE | 2019-07-24 15:36 | Hem/Onc Progress Note ---
Assessment and Plan 1. Interstitial changes on Radiology. 2. Shortness of breath, it is possible that this may be effect of pneumonitis. This may be pneumonitis secondary to Imfinzi. I had discussed with Dr. Dolan. 3. the patient on methylprednisolone dose ranges 2-4 mg/kg daily. I had discussed with Dr. Heath. 4. History of hypertension. 5. History of respiratory issues. 6. History of port placement. 7. I will follow the patient during inpatient stay and then in the clinic setting. d/w dr becerra - steroid frequency changed - Patient Problems (1) Lung cancer Current Visit: Yes Status: Acute Qualifiers: Laterality: unspecified laterality Subjective Date of service: 07/24/19 Principal diagnosis: lung ca Interval history: breathing better Objective - Exam Narrative Exam: Pain - none now General appearance - awake Performance status limited self care - on o2 Eyes - no icterus ENT - no thrush LNs cervical not palpable Neck - no LN Respiratory Normal Breath sounds - CTA anteriorly CVS S1 S2 + Extremities no calf tenderness General GI Soft Rectal deferred male - deferred Skin warm Musculoskeletal moves limbs neuro - awake - Constitutional Vitals: Last Vital Signs Temp 97.3 F L 07/24/19 04:00 Pulse 112 H 07/24/19 14:00 Resp 37 H 07/24/19 14:00 BP 120/78 07/24/19 14:00 Pulse Ox 89 07/24/19 14:00 - Labs Lab Results: Laboratory Results - last 24 hr 07/23/19 07/24/19 07/24/19 18:42 00:24 06:02 Sodium Potassium Chloride Carbon Dioxide Anion Gap BUN Creatinine Estimated GFR BUN/Creatinine Ratio Glucose POC Glucose 198 H 179 H 150 H Calcium 07/24/19 07/24/19 11:31 12:15 Sodium 140 Potassium 4.3 Chloride 100.8 Carbon Dioxide 26 Anion Gap 18 BUN 24 H Creatinine 0.7 L Estimated GFR > 60 BUN/Creatinine Ratio 34 Glucose 201 H POC Glucose 225 H Calcium 8.7 Medications & Allergies - Medications Allergies/Adverse Reactions: Allergies No Known Allergies Allergy (Verified 07/19/19 14:55) Home Medications: Home Medications Medication Instructions Recorded Confirmed Last Taken Type ALBUTEROL Inhaler (OR & NICU) 2 puff IH QID PRN 07/19/19 07/19/19 07/18/19 History [Proair] Aspirin [Aspirin BABY CHEW TAB] 81 mg PO QDAY 07/19/19 07/19/19 07/18/19 History Carvedilol [Coreg] 3.125 mg PO BID 07/19/19 07/19/19 07/18/19 History Diclofenac EC [Voltaren] 25 mg PO QDAY 07/19/19 07/19/19 07/18/19 History Durvalumab [Imfinzi] 120 mg IV Q2W 07/19/19 07/19/19 07/18/19 History Lisinopril [Zestril TAB] 2.5 mg PO QDAY 07/19/19 07/19/19 07/18/19 History diazePAM [Diazepam] 10 mg PO QHS 07/19/19 07/19/19 07/18/19 History Active Medications: Generic Name Dose Route Start Last Admin Trade Name Freq PRN Reason Stop Dose Admin Albuterol 2.5 mg 07/19/19 18:28 Proventil IH Q3HRT PRN Shortness Of Breath Alprazolam 0.5 mg 07/22/19 11:24 Xanax PO Q8H PRN Anxiety Aspirin 81 mg 07/20/19 10:00 07/24/19 09:49 Baby Aspirin PO 81 mg QDAY ELI Administration Benzonatate 100 mg 07/19/19 23:45 07/24/19 15:00 Tessalon Perles PO 100 mg Q8HR ELI Administration Carvedilol 3.125 mg 07/21/19 11:00 07/24/19 09:49 Coreg PO 3.125 mg BID ELI Administration Diazepam 10 mg 07/19/19 22:00 07/23/19 21:00 Valium PO 10 mg HS ELI Administration Diclofenac Sodium 25 mg 07/20/19 10:00 07/24/19 09:52 Voltaren PO 25 mg QDAY ELI Administration Enoxaparin Sodium 40 mg 07/20/19 10:00 07/24/19 09:51 Lovenox SUB-Q 40 mg QDAY@1000 ELI Administration Hydrocodone Bit/Homatropine Methylb 10 ml 07/19/19 18:36 Hydromet PO Q6H PRN Cough Methylprednisolone Sodium Succinate 60 mg 07/23/19 18:00 07/24/19 12:00 Solu-Medrol IV 60 mg Q6HR ELI Administration Miscellaneous Medication 120 mg 07/19/19 18:30 Durvalumab [Imfinzi] IV Q2W ELI Sodium Chloride 10 ml 07/19/19 22:00 07/24/19 09:52 Sodium Chloride Flush Syringe 10 Ml IV 10 ml BID ELI Administration Sodium Chloride 10 ml 07/19/19 18:28 Sodium Chloride Flush Syringe 10 Ml IV PRN PRN LINE FLUSH
[2019-07-24] MEDS: diazePAM 5 MG TAB PO SCH (22:00)
[2019-07-25] MEDS: methylPREDNISolone Sod Succinate 125 MG/2 ML INJ IV SCH ×4 (00:32→17:07)
[2019-07-25] MEDS: BENZONATATE 100 MG CAP PO SCH ×3 (06:27→22:16)
[2019-07-25] MEDS: ASPIRIN 81 MG TAB CHEW PO SCH (10:23)
[2019-07-25] MEDS: ENOXAPARIN 40 MG/0.4 ML INJ SUB-Q SCH (10:23)
[2019-07-25] MEDS: DICLOFENAC EC 25 MG TAB PO SCH (10:23)
[2019-07-25] MEDS: CARVEDILOL 3.125 MG TAB PO SCH ×2 (10:23→22:15)
--- NOTE | 2019-07-25 12:40 | Progress Note ---
Assessment and Plan Assessment and plan: (1) Suspected HCAP (healthcare-associated pneumonia) CTA chest negative for infiltrates Off antibiotics (2) H/O Lung cancer s/p radiation therapy oncology, Dr Webster following (3) Acute Respiratory failure with hypoxia likely due to radiation pneumonitis improving on IV Solu-Medrol and nebulizer treatment pulmonology following (4) Essential HTN (hypertension) -stable (5) Sinus Tachycardia cardiology consulted: echo done which showed mildly decreased EF of 40-45%. cont coreg (6) Hyperglycemia probably due to steroid use on SSI hba1c level pending DVT prophylaxis with lovenox Disp: d/c per clinical course and cleared by pulmonology/oncology History Interval history: Pt complained of dry mouth. He admits to sob, no chest pain Hospitalist Physical - Constitutional Vitals: Temp Pulse Resp BP Pulse Ox 96.3 F L 103 H 21 119/73 99 07/25/19 04:00 07/25/19 10:23 07/25/19 06:00 07/25/19 10:23 07/25/19 06:00 General appearance: Present: no acute distress, well-nourished - EENT Eyes: Present: PERRL, EOM intact ENT: hearing intact, clear oral mucosa - Neck Neck: Present: supple - Respiratory Respiratory effort: normal Respiratory: bilateral: CTA, diminished - Cardiovascular Rhythm: regular Heart Sounds: Present: S1 & S2 - Extremities Extremities: No edema - Abdominal General gastrointestinal: soft, non-tender, non-distended, normal bowel sounds - Integumentary Integumentary: Present: clear, warm, dry - Psychiatric Psychiatric: appropriate mood/affect - Neurologic Neurologic: CNII-XII intact Results - Labs CBC & Chem 7: 07/23/19 09:17 07/24/19 12:15 Labs: Laboratory Last Values WBC 8.4 K/mm3 (4.5-11.0) 07/23/19 09:17 RBC 4.32 M/mm3 (3.65-5.03) 07/23/19 09:17 Hgb 12.2 gm/dl (11.8-15.2) 07/23/19 09:17 Hct 37.1 % (35.5-45.6) 07/23/19 09:17 MCV 86 fl (84-94) 07/23/19 09:17 MCH 28 pg (28-32) 07/23/19 09:17 MCHC 33 % (32-34) 07/23/19 09:17 RDW 15.3 % (13.2-15.2) H 07/23/19 09:17 Plt Count 219 K/mm3 (140-440) 07/23/19 09:17 Lymph % (Auto) 13.0 % (13.4-35.0) L 07/21/19 04:23 [place] % (Auto) 10.5 % (0.0-7.3) H 07/21/19 04:23 Eos % (Auto) 0.5 % (0.0-4.3) 07/21/19 04:23 Baso % (Auto) 0.2 % (0.0-1.8) 07/21/19 04:23 Lymph # 0.9 K/mm3 (1.2-5.4) L 07/21/19 04:23 [place] # 0.7 K/mm3 (0.0-0.8) 07/21/19 04:23 Eos # 0.0 K/mm3 (0.0-0.4) 07/21/19 04:23 Baso # 0.0 K/mm3 (0.0-0.1) 07/21/19 04:23 Add Manual Diff Complete 07/23/19 09:17 Total Counted 100 07/23/19 09:17 Seg Neutrophils % Calender Operator Helper 07/23/19 09:17 Seg Neuts % (Manual) 86.0 % (40.0-70.0) H 07/23/19 09:17 Band Neutrophils % 0 % 07/23/19 09:17 Lymphocytes % (Manual) 9.0 % (13.4-35.0) L 07/23/19 09:17 Reactive Lymphs % (Man) 0 % 07/23/19 09:17 Monocytes % (Manual) 5.0 % (0.0-7.3) 07/23/19 09:17 Eosinophils % (Manual) 0 % (0.0-4.3) 07/23/19 09:17 Basophils % (Manual) 0 % (0.0-1.8) 07/23/19 09:17 Metamyelocytes % 0 % 07/23/19 09:17 Myelocytes % 0 % 07/23/19 09:17 Promyelocytes % 0 % 07/23/19 09:17 Blast Cells % 0 % 07/23/19 09:17 Nucleated RBC % Not Reportable 07/23/19 09:17 Seg Neutrophils # 5.3 K/mm3 (1.8-7.7) 07/21/19 04:23 Seg Neutrophils # Man 7.2 K/mm3 (1.8-7.7) 07/23/19 09:17 Band Neutrophils # 0.0 K/mm3 07/23/19 09:17 Lymphocytes # (Manual) 0.8 K/mm3 (1.2-5.4) L 07/23/19 09:17 Abs React Lymphs (Man) 0.0 K/mm3 07/23/19 09:17 Monocytes # (Manual) 0.4 K/mm3 (0.0-0.8) 07/23/19 09:17 Eosinophils # (Manual) 0.0 K/mm3 (0.0-0.4) 07/23/19 09:17 Basophils # (Manual) 0.0 K/mm3 (0.0-0.1) 07/23/19 09:17 Metamyelocytes # 0.0 K/mm3 07/23/19 09:17 Myelocytes # 0.0 K/mm3 07/23/19 09:17 Promyelocytes # 0.0 K/mm3 07/23/19 09:17 Blast Cells # 0.0 K/mm3 07/23/19 09:17 WBC Morphology Not Reportable 07/23/19 09:17 Hypersegmented Neuts Not Reportable 07/23/19 09:17 Hyposegmented Neuts Not Reportable 07/23/19 09:17 Hypogranular Neuts Not Reportable 07/23/19 09:17 Smudge Cells Not Reportable 07/23/19 09:17 Toxic Granulation Not Reportable 07/23/19 09:17 Toxic Vacuolation Not Reportable 07/23/19 09:17 Dohle Bodies Not Reportable 07/23/19 09:17 Pelger-Huet Anomaly Not Reportable 07/23/19 09:17 Zak Rods Not Reportable 07/23/19 09:17 Platelet Estimate Consistent w auto 07/23/19 09:17 Clumped Platelets Not Reportable 07/23/19 09:17 Plt Clumps, EDTA Not Reportable 07/23/19 09:17 Large Platelets Not Reportable 07/23/19 09:17 Giant Platelets Not Reportable 07/23/19 09:17 Platelet Satelliting Not Reportable 07/23/19 09:17 Plt Morphology Comment Not Reportable 07/23/19 09:17 RBC Morphology Not Reportable 07/23/19 09:17 Dimorphic RBCs Not Reportable 07/23/19 09:17 Polychromasia Not Reportable 07/23/19 09:17 Hypochromasia Not Reportable 07/23/19 09:17 Poikilocytosis Few 07/23/19 09:17 Anisocytosis Not Reportable 07/23/19 09:17 Microcytosis Not Reportable 07/23/19 09:17 Macrocytosis Not Reportable 07/23/19 09:17 Spherocytes Not Reportable 07/23/19 09:17 Pappenheimer Bodies Not Reportable 07/23/19 09:17 Sickle Cells Not Reportable 07/23/19 09:17 Target Cells Not Reportable 07/23/19 09:17 Tear Drop Cells Not Reportable 07/23/19 09:17 Ovalocytes Few 07/23/19 09:17 Helmet Cells Not Reportable 07/23/19 09:17 Alegre-[place]usick Bodies Not Reportable 07/23/19 09:17 [place] Rings Not Reportable 07/23/19 09:17 Renata Cells Not Reportable 07/23/19 09:17 Bite Cells Not Reportable 07/23/19 09:17 Crenated Cell Not Reportable 07/23/19 09:17 Elliptocytes Not Reportable 07/23/19 09:17 Acanthocytes (Spur) Not Reportable 07/23/19 09:17 Rouleaux Not Reportable 07/23/19 09:17 Hemoglobin C Crystals Not Reportable 07/23/19 09:17 Schistocytes Not Reportable 07/23/19 09:17 Malaria parasites Not Reportable 07/23/19 09:17 Rafa Bodies Not Reportable 07/23/19 09:17 Hem Pathologist Commnt No 07/23/19 09:17 PT 13.9 Sec. (12.2-14.9) 07/19/19 15:02 INR 1.10 (0.87-1.13) 07/19/19 15:02 APTT 31.5 Sec. (24.2-36.6) 07/19/19 15:02 D-Dimer 916.71 ng/mlDDU (0-234) H 07/19/19 15:02 POC ABG pH 7.432 (7.35-7.45) 07/19/19 15:58 POC ABG pCO2 34.3 (35-45) L 07/19/19 15:58 POC ABG pO2 67 (80-105) L 07/19/19 15:58 POC ABG HCO3 22.9 (22-26 mml/L) 07/19/19 15:58 POC ABG Total CO2 24 (23-27mmol/L) 07/19/19 15:58 POC ABG O2 Sat 94 07/19/19 15:58 POC ABG Base Excess -1 ((-2) - (+3)mmol/L) 07/19/19 15:58 FiO2 21 % 07/19/19 15:58 Sodium 140 mmol/L (137-145) 07/24/19 12:15 Potassium 4.3 mmol/L (3.6-5.0) 07/24/19 12:15 Chloride 100.8 mmol/L (98-107) 07/24/19 12:15 Carbon Dioxide 26 mmol/L (22-30) 07/24/19 12:15 Anion Gap 18 mmol/L 07/24/19 12:15 BUN 24 mg/dL (9-20) H 07/24/19 12:15 Creatinine 0.7 mg/dL (0.8-1.5) L 07/24/19 12:15 Estimated GFR > 60 ml/min 07/24/19 12:15 BUN/Creatinine Ratio 34 % 07/24/19 12:15 Glucose 201 mg/dL (75-100) H 07/24/19 12:15 POC Glucose 148 (70-105) H 07/25/19 06:40 Lactic Acid 1.70 mmol/L (0.7-2.0) 07/19/19 21:44 Calcium 8.7 mg/dL (8.4-10.2) 07/24/19 12:15 Magnesium 2.30 mg/dL (1.7-2.3) 07/19/19 15:02 Total Bilirubin 0.40 mg/dL (0.1-1.2) 07/19/19 15:02 AST 15 units/L (5-40) 07/19/19 15:02 ALT 10 units/L (7-56) 07/19/19 15:02 Alkaline Phosphatase 88 units/L (35-129) 07/19/19 15:02 Total Creatine Kinase 66 units/L (55-170) 07/19/19 15:02 Troponin T < 0.010 ng/mL (0.00-0.029) 07/19/19 19:30 Total Protein 8.2 g/dL (6.3-8.2) 07/19/19 15:02 Albumin 3.7 g/dL (3.9-5) L 07/19/19 15:02 Albumin/Globulin Ratio 0.8 % 07/19/19 15:02 Urine Color Yellow (Yellow) 07/19/19 15:20 Urine Turbidity Clear (Clear) 07/19/19 15:20 Urine pH 5.0 (5.0-7.0) 07/19/19 15:20 Ur Specific [place] 1.017 (1.003-1.030) 07/19/19 15:20 Urine Protein <15 mg/dl mg/dL (Negative) 07/19/19 15:20 Urine Glucose (UA) Neg mg/dL (Negative) 07/19/19 15:20 Urine Ketones Neg mg/dL (Negative) 07/19/19 15:20 Urine Blood Sm (Negative) 07/19/19 15:20 Urine Nitrite Neg (Negative) 07/19/19 15:20 Urine Bilirubin Neg (Negative) 07/19/19 15:20 Urine Urobilinogen < 2.0 mg/dL (<2.0) 07/19/19 15:20 Ur Leukocyte Esterase Neg (Negative) 07/19/19 15:20 Urine WBC (Auto) < 1.0 /HPF (0.0-6.0) 07/19/19 15:20 Urine RBC (Auto) 3.0 /HPF (0.0-6.0) 07/19/19 15:20 Urine Mucus Few /HPF 07/19/19 15:20 Active Medications - Current Medications Current Medications: Generic Name Dose Route Start Last Admin Trade Name Freq PRN Reason Stop Dose Admin Albuterol 2.5 mg 07/19/19 18:28 Proventil IH Q3HRT PRN Shortness Of Breath Alprazolam 0.5 mg 07/22/19 11:24 Xanax PO Q8H PRN Anxiety Aspirin 81 mg 07/20/19 10:00 07/25/19 10:23 Baby Aspirin PO 81 mg QDAY ELI Administration Benzonatate 100 mg 07/19/19 23:45 07/25/19 06:27 Tessalon Perles PO 100 mg Q8HR ELI Administration Carvedilol 3.125 mg 07/21/19 11:00 07/25/19 10:23 Coreg PO 3.125 mg BID ELI Administration Diazepam 10 mg 07/19/19 22:00 07/24/19 22:00 Valium PO 10 mg HS ELI Administration Diclofenac Sodium 25 mg 07/20/19 10:00 07/25/19 10:23 Voltaren PO 25 mg QDAY ELI Administration Enoxaparin Sodium 40 mg 07/20/19 10:00 07/25/19 10:23 Lovenox SUB-Q 40 mg QDAY@1000 ELI Administration Hydrocodone Bit/Homatropine Methylb 10 ml 07/19/19 18:36 Hydromet PO Q6H PRN Cough Methylprednisolone Sodium Succinate 60 mg 07/23/19 18:00 07/25/19 06:27 Solu-Medrol IV 60 mg Q6HR ELI Administration Miscellaneous Medication 120 mg 07/19/19 18:30 Durvalumab [Imfinzi] IV Q2W ELI Sodium Chloride 10 ml 07/19/19 22:00 07/25/19 10:23 Sodium Chloride Flush Syringe 10 Ml IV 10 ml BID ELI Administration Sodium Chloride 10 ml 07/19/19 18:28 Sodium Chloride Flush Syringe 10 Ml IV PRN PRN LINE FLUSH Nutrition/Malnutrition Assess - Dietary Evaluation Nutrition/Malnutrition Findings: Nutrition Notes Start: 07/20/19 12:10 Freq: Status: Active Protocol: Document 07/22/19 11:27 RM (Rec: 07/22/19 11:47 RM [id number]) Nutrition Notes Initial or Follow up Reassessment Current Diagnosis Hypertension,Respiratory Failure Other Pertinent Diagnosis Lung CA, anxiety, HCAP Current Diet Regular Labs/Tests Reviewed Pertinent Medications Reviewed Height 5 ft 10 in Weight 70 kg [place] Body Weight (kg) 75.45 BMI 22.1 Subjective/Other Information Pt stated that he eats most of his meals and does not know why he is receiving Ensure Enlive but drank one today. Per tech pt has some short term memory loss and tells different people different things. Stated that pt eats 50 to 75% of facility meals in addition to food that family brings in. Stated that pt has said that he likes to have Ensure Enlive in case he does not like the facility meal. Noted uneaten breakfast and 1 unopened Ensure Enlive at bedside. Pt stated that he does not like biscuits w/gravy and sausage. Noted preferences. Percent of energy/protein needs met: 100%/100% (facility meals + outside food +1 ONS) Burn Absent Trauma Absent Minimum of two criteria No physical signs of malnutrition #1 Nutrition Diagnosis Inadequate oral intake As Evidenced by Signs and Symptoms pt meeting 100% of calorie and protein needs via PO and ONS intakes Diagnosis Progress(for reassessment Resolved documentation) Is patient on ventilator? No Is Patient Ambulatory and/or Out of Bed Yes REE-([facility]-ambulatory/OOB) [ 1932.125 [id number]] Calculation Used for Recommendations [facility] Additional Notes PRO needs: 75-90g/day (1-1.2g/ kg IBW 75kg) Fluid: 1ml/kcal or per MD Nutrition Intervention Change Diet Order: Continue current diet Add Supplement/Snack (indicate name/kcal Ensure Enlive Vanilla 1 daily /protein ) Provides kCal: 350 Provides Protein (gm) 20 Goal #1 Continue to meet at least 75% of calorie and protein needs via PO intakes Anticipated Discharge Needs: Regular Follow-Up By: 07/29/19 Additional Comments Follow for PO and ONS intakes
[2019-07-25] MEDS ORDERED: DEXTROSE 50% IN WATER (25GM) 50 ML SYRINGE IV PRN (12:47)
--- NOTE | 2019-07-25 13:27 | Progress Note ---
Assessment and Plan 64 y/o male with acute respiratory failure secondary to underlying COPD exacerbation from either radiation pneumonitis, infection (pneumonia) or both. 1. Continue steroids. Will given IV lasix today as well 2. abx therapy stopped. Cannot see when It was discontinued. If patient decompensates will need to restart. 3. Continue PRN PPV and qhs therapy. 4. Overall prognosis is guarded. He is a full code. 5. Will add some PRN haldol therapy. Feel patient is stable enough for transfer to floor. Would suggest either tele or med surge with remote tele. Subjective Date of service: 07/25/19 Interval history: Had some delirium last night. Confused. Attempting to get up, taking off oxygen. Better this am. Sats stable and pulm status appears to be improving. not present. Objective Vital Signs - 12hr 07/25/19 07/25/19 07/25/19 02:00 03:00 04:00 Temperature 96.3 F L Pulse Rate 90 97 H 91 H Pulse Rate [ 90 From Monitor] Respiratory 26 H 28 H 20 Rate Blood Pressure 104/71 112/71 115/77 O2 Sat by Pulse 99 97 98 Oximetry 07/25/19 07/25/19 07/25/19 05:00 06:00 07:00 Temperature Pulse Rate 89 87 89 Pulse Rate [ From Monitor] Respiratory 22 21 25 H Rate Blood Pressure 110/75 116/83 125/82 O2 Sat by Pulse 98 99 94 Oximetry 07/25/19 07/25/19 07/25/19 08:00 09:00 10:00 Temperature 97.6 F Pulse Rate 90 107 H 102 H Pulse Rate [ 113 H From Monitor] Respiratory 22 32 H 20 Rate Blood Pressure 119/87 125/82 119/73 O2 Sat by Pulse 95 93 98 Oximetry 07/25/19 07/25/19 07/25/19 10:23 11:00 12:00 Temperature 97.5 F L Pulse Rate 103 H 99 H 108 H Pulse Rate [ 102 H From Monitor] Respiratory 20 28 H Rate Blood Pressure 119/73 115/76 112/74 O2 Sat by Pulse 98 97 Oximetry Constitutional: alert, appears uncomfortable Eyes: non-icteric ENT: oropharynx moist Neck: supple Effort: very labored Ascultation: Bilateral: rales, rhonchi Percussion: Bilateral: not dull Tactile fremitus: Bilateral: normal Cardiovascular: other (sinus tachycardia) Gastrointestinal: soft Extremities: no edema Neurologic: normal mental status, non-focal exam CBC and BMP: 07/23/19 09:17 07/24/19 12:15 ABG, PT/INR, D-dimer: ABG POC ABG pH 7.432 (7.35-7.45) 07/19/19 15:58 POC ABG pCO2 34.3 (35-45) L 07/19/19 15:58 POC ABG pO2 67 (80-105) L 07/19/19 15:58 POC ABG HCO3 22.9 (22-26 mml/L) 07/19/19 15:58 POC ABG Total CO2 24 (23-27mmol/L) 07/19/19 15:58 POC ABG O2 Sat 94 07/19/19 15:58 PT/INR, D-dimer PT 13.9 Sec. (12.2-14.9) 07/19/19 15:02 INR 1.10 (0.87-1.13) 07/19/19 15:02 D-Dimer 916.71 ng/mlDDU (0-234) H 07/19/19 15:02 Abnormal lab findings: Abnormal Labs 07/19/19 07/19/19 07/19/19 15:02 15:02 15:02 Hgb Hct RDW 15.3 H Lymph % (Auto) [place] % (Auto) 11.0 H Lymph # 1.0 L Seg Neutrophils % 72.9 H Seg Neuts % (Manual) Lymphocytes % (Manual) Lymphocytes # (Manual) D-Dimer 916.71 H POC ABG pCO2 POC ABG pO2 Carbon Dioxide BUN Creatinine Glucose 107 H POC Glucose Lactic Acid Albumin 3.7 L 07/19/19 07/19/19 07/21/19 15:58 19:30 04:23 Hgb 11.5 L Hct 34.6 L RDW Lymph % (Auto) 13.0 L [place] % (Auto) 10.5 H Lymph # 0.9 L Seg Neutrophils % 75.8 H Seg Neuts % (Manual) Lymphocytes % (Manual) Lymphocytes # (Manual) D-Dimer POC ABG pCO2 34.3 L POC ABG pO2 67 L Carbon Dioxide BUN Creatinine Glucose POC Glucose Lactic Acid 2.40 H* Albumin 07/21/19 07/22/19 07/22/19 04:23 03:44 19:21 Hgb Hct RDW Lymph % (Auto) [place] % (Auto) Lymph # Seg Neutrophils % Seg Neuts % (Manual) Lymphocytes % (Manual) Lymphocytes # (Manual) D-Dimer POC ABG pCO2 POC ABG pO2 Carbon Dioxide 21 L BUN Creatinine Glucose 108 H 129 H POC Glucose 314 H Lactic Acid Albumin 07/23/19 07/23/19 07/23/19 01:02 06:33 09:17 Hgb Hct RDW 15.3 H Lymph % (Auto) [place] % (Auto) Lymph # Seg Neutrophils % Seg Neuts % (Manual) 86.0 H Lymphocytes % (Manual) 9.0 L Lymphocytes # (Manual) 0.8 L D-Dimer POC ABG pCO2 POC ABG pO2 Carbon Dioxide BUN Creatinine Glucose POC Glucose 120 H 152 H Lactic Acid Albumin 07/23/19 07/23/19 07/23/19 09:17 12:41 18:42 Hgb Hct RDW Lymph % (Auto) [place] % (Auto) Lymph # Seg Neutrophils % Seg Neuts % (Manual) Lymphocytes % (Manual) Lymphocytes # (Manual) D-Dimer POC ABG pCO2 POC ABG pO2 Carbon Dioxide 21 L BUN 21 H Creatinine Glucose 181 H POC Glucose 185 H 198 H Lactic Acid Albumin 07/24/19 07/24/19 07/24/19 00:24 06:02 11:31 Hgb Hct RDW Lymph % (Auto) [place] % (Auto) Lymph # Seg Neutrophils % Seg Neuts % (Manual) Lymphocytes % (Manual) Lymphocytes # (Manual) D-Dimer POC ABG pCO2 POC ABG pO2 Carbon Dioxide BUN Creatinine Glucose POC Glucose 179 H 150 H 225 H Lactic Acid Albumin 07/24/19 07/24/19 07/24/19 12:15 18:32 23:54 Hgb Hct RDW Lymph % (Auto) [place] % (Auto) Lymph # Seg Neutrophils % Seg Neuts % (Manual) Lymphocytes % (Manual) Lymphocytes # (Manual) D-Dimer POC ABG pCO2 POC ABG pO2 Carbon Dioxide BUN 24 H Creatinine 0.7 L Glucose 201 H POC Glucose 251 H 215 H Lactic Acid Albumin 07/25/19 07/25/19 06:40 12:18 Hgb Hct RDW Lymph % (Auto) [place] % (Auto) Lymph # Seg Neutrophils % Seg Neuts % (Manual) Lymphocytes % (Manual) Lymphocytes # (Manual) D-Dimer POC ABG pCO2 POC ABG pO2 Carbon Dioxide BUN Creatinine Glucose POC Glucose 148 H 225 H Lactic Acid Albumin
[2019-07-25] MEDS: INSULIN LISPRO 100 UNIT/ML SUB-Q SCH ×2 (17:07→22:16)
[2019-07-25] MEDS: diazePAM 5 MG TAB PO SCH (22:15)
[2019-07-26] MEDS: methylPREDNISolone Sod Succinate 125 MG/2 ML INJ IV SCH ×4 (00:43→21:36)
[2019-07-26] MEDS: BENZONATATE 100 MG CAP PO SCH ×3 (06:12→21:35)
[2019-07-26] MEDS: INSULIN LISPRO 100 UNIT/ML SUB-Q SCH ×4 (07:30→21:37)
--- NOTE | 2019-07-26 07:56 | Hem/Onc Progress Note ---
Assessment and Plan 1. Interstitial changes on Radiology. 2. Shortness of breath, it is possible that this may be effect of pneumonitis. This may be pneumonitis secondary to Imfinzi. I had discussed with Dr. Dolan. 3. the patient on methylprednisolone dose ranges 2-4 mg/kg daily. I had discussed with Dr. Heath. 4. History of hypertension. 5. History of respiratory issues. 6. History of port placement. 7. I will follow the patient during inpatient stay and then in the clinic setting. ? option of changing to oral steroids? need for home o2? pt will follow dr Dolan upon discharge - Patient Problems (1) Lung cancer Current Visit: Yes Status: Acute Qualifiers: Laterality: unspecified laterality Subjective Date of service: 07/26/19 Principal diagnosis: lung ca Interval history: breathing better Objective - Exam Narrative Exam: Pain - none now General appearance - awake Performance status limited self care - on o2 Eyes - no icterus ENT - no thrush LNs cervical not palpable Neck - no LN Respiratory Normal Breath sounds - CTA anteriorly CVS S1 S2 + Extremities no calf tenderness General GI Soft Rectal deferred male - deferred Skin warm Musculoskeletal moves limbs neuro - awake - Constitutional Vitals: Last Vital Signs Temp 98.8 F 07/26/19 04:00 Pulse 95 H 07/26/19 06:00 Resp 29 H 07/26/19 06:00 BP 116/81 07/26/19 06:00 Pulse Ox 99 07/26/19 06:00 - Labs Lab Results: Laboratory Results - last 24 hr 07/25/19 07/25/19 07/25/19 12:18 16:37 21:46 POC Glucose 225 H 166 H 332 H Hemoglobin A1c 07/26/19 04:03 POC Glucose Hemoglobin A1c 6.1 H Medications & Allergies - Medications Allergies/Adverse Reactions: Allergies No Known Allergies Allergy (Verified 07/19/19 14:55) Home Medications: Home Medications Medication Instructions Recorded Confirmed Last Taken Type ALBUTEROL Inhaler (OR & NICU) 2 puff IH QID PRN 07/19/19 07/19/19 07/18/19 History [Proair] Aspirin [Aspirin BABY CHEW TAB] 81 mg PO QDAY 07/19/19 07/19/19 07/18/19 History Carvedilol [Coreg] 3.125 mg PO BID 07/19/19 07/19/1919 History Diclofenac EC [Voltaren] 25 mg PO QDAY 07/19/19 07/19/19 07/18/19 History Durvalumab [Imfinzi] 120 mg IV Q2W 07/19/19 07/19/19 07/18/19 History Lisinopril [Zestril TAB] 2.5 mg PO QDAY 07/19/19 07/19/19 07/18/19 History diazePAM [Diazepam] 10 mg PO QHS 07/19/19 07/19/19 07/18/19 History Active Medications: Generic Name Dose Route Start Last Admin Trade Name Freq PRN Reason Stop Dose Admin Albuterol 2.5 mg 07/19/19 18:28 Proventil IH Q3HRT PRN Shortness Of Breath Alprazolam 0.5 mg 07/22/19 11:24 Xanax PO Q8H PRN Anxiety Aspirin 81 mg 07/20/19 10:00 07/25/19 10:23 Baby Aspirin PO 81 mg QDAY ELI Administration Benzonatate 100 mg 07/19/19 23:45 07/26/19 06:12 Tessalon Perles PO 100 mg Q8HR ELI Administration Carvedilol 3.125 mg 07/21/19 11:00 07/25/19 22:15 Coreg PO 3.125 mg BID ELI Administration Dextrose 50 ml 07/25/19 12:47 D50w (25gm) Syringe IV Q30MIN PRN Hypoglycemia Diazepam 10 mg 07/19/19 22:00 07/25/19 22:15 Valium PO 10 mg HS ELI Administration Diclofenac Sodium 25 mg 07/20/19 10:00 07/25/19 10:23 Voltaren PO 25 mg QDAY ELI Administration Enoxaparin Sodium 40 mg 07/20/19 10:00 07/25/19 10:23 Lovenox SUB-Q 40 mg QDAY@1000 ELI Administration Hydrocodone Bit/Homatropine Methylb 10 ml 07/19/19 18:36 Hydromet PO Q6H PRN Cough Insulin Human Lispro 0 unit 07/25/19 16:30 07/25/19 22:16 Humalog SUB-Q 6 unit ACHS ELI Administration Protocol Methylprednisolone Sodium Succinate 60 mg 07/23/19 18:00 07/26/19 06:12 Solu-Medrol IV 60 mg Q6HR ELI Administration Miscellaneous Medication 120 mg 07/19/19 18:30 Durvalumab [Imfinzi] IV Q2W ELI Sodium Chloride 10 ml 07/19/19 22:00 07/25/19 22:17 Sodium Chloride Flush Syringe 10 Ml IV 10 ml BID ELI Administration Sodium Chloride 10 ml 07/19/19 18:28 Sodium Chloride Flush Syringe 10 Ml IV PRN PRN LINE FLUSH
[2019-07-26] MEDS: CARVEDILOL 3.125 MG TAB PO SCH ×2 (10:20→21:36)
--- NOTE | 2019-07-26 11:27 | Progress Note ---
Assessment and Plan Shortness of breath CT scan showing diffuse interstitial lung disease Lung cancer on immunotherapy Mild cardiomyopathy LVEF 40-45% by echo done 05/2019 limited echo this admission shows evidence of right heart enlargement, pressure and volume overload. EF 40-45% No recent ischemic work-up Reflex sinus tachycardia Conservative cardiac management. Subjective Date of service: 07/26/19 Principal diagnosis: lung ca Interval history: No distress noted. Objective Vital Signs Temp Pulse Pulse Resp BP Pulse Ox 07/26/19 10:17 97.5 F L 105 H 20 107/66 92 07/26/19 09:51 112 H 23 123/87 86 07/26/19 09:44 93 07/26/19 09:40 110 H 29 H 123/87 97 07/26/19 09:30 102 H 25 H 123/87 98 07/26/19 09:20 102 H 33 H 119/83 97 07/26/19 09:00 99 H 28 H 119/83 93 07/26/19 08:00 97.8 F 92 H 96 H 20 119/83 99 07/26/19 07:00 92 H 33 H 120/82 98 07/26/19 06:00 95 H 29 H 116/81 99 07/26/19 05:00 92 H 23 118/80 98 07/26/19 04:00 98.8 F 96 H 96 H 20 108/78 99 07/26/19 03:00 99 H 22 112/75 99 07/26/19 02:00 103 H 25 H 113/78 99 07/26/19 01:00 103 H 25 H 116/78 99 07/26/19 00:00 98.4 F 107 H 107 H 24 111/77 98 07/25/19 23:00 104 H 27 H 126/83 99 07/25/19 22:30 103 H 29 H 98 07/25/19 22:15 107 H 115/79 07/25/19 22:00 108 H 26 H 116/71 88 07/25/19 21:00 112 H 28 H 125/76 96 07/25/19 20:19 94 07/25/19 20:00 97.3 F L 104 H 104 H 30 H 135/91 95 07/25/19 19:00 97 H 27 H 127/81 96 07/25/19 18:00 93 H 19 123/84 98 07/25/19 17:00 98 H 23 119/81 96 07/25/19 16:00 97.4 F L 99 H 99 H 20 118/79 100 07/25/19 15:00 99 H 22 121/75 99 07/25/19 14:00 106 H 34 H 121/77 92 07/25/19 13:00 108 H 33 H 112/74 85 07/25/19 12:00 97.5 F L 108 H 102 H 28 H 112/74 97 - Physical Examination General: No Apparent Distress HEENT: Positive: PERRL Neck: Positive: trachea midline Cardiac: Positive: Tachycardia Lungs: Positive: Decreased Breath Sounds Neuro: Positive: Grossly Intact Abdomen: Positive: Soft Extremities: Absent: edema
[2019-07-26] MEDS ORDERED: FUROSEMIDE 20 MG/2 ML INJ IV ONE (12:41)
--- NOTE | 2019-07-26 12:46 | Progress Note ---
Assessment and Plan 64 y/o male with acute respiratory failure secondary to underlying COPD exacerbation from either radiation pneumonitis, infection (pneumonia) or both. 1. Will drop steroids down to BID dosing. lasix today as I did not order on yesterday. Needs labs to at least evaluate Cr. 2. abx therapy stopped. Cannot see when It was discontinued. If patient decompensates will need to restart. 3. Continue PRN PPV and qhs therapy. 4. Overall prognosis is guarded. He is a full code. Subjective Date of service: 07/26/19 Principal diagnosis: lung ca Interval history: No acute events. Being transferred to [facility] unit. Sats good on 3 liters. Reviewed Onc and Cards notes. Objective Vital Signs - 12hr 07/26/19 07/26/19 07/26/19 01:00 02:00 03:00 Temperature Pulse Rate 103 H 103 H 99 H Pulse Rate [ From Monitor] Respiratory 25 H 25 H 22 Rate Blood Pressure 116/78 113/78 112/75 O2 Sat by Pulse 99 99 99 Oximetry 07/26/19 07/26/19 07/26/19 04:00 05:00 06:00 Temperature 98.8 F Pulse Rate 96 H 92 H 95 H Pulse Rate [ 96 H From Monitor] Respiratory 20 23 29 H Rate Blood Pressure 108/78 118/80 116/81 O2 Sat by Pulse 99 98 99 Oximetry 07/26/19 07/26/19 07/26/19 07:00 08:00 09:00 Temperature 97.8 F Pulse Rate 92 H 92 H 99 H Pulse Rate [ 96 H From Monitor] Respiratory 33 H 20 28 H Rate Blood Pressure 120/82 119/83 119/83 O2 Sat by Pulse 98 99 93 Oximetry 07/26/19 07/26/19 07/26/19 09:20 09:30 09:40 Temperature Pulse Rate 102 H 102 H 110 H Pulse Rate [ From Monitor] Respiratory 33 H 25 H 29 H Rate Blood Pressure 119/83 123/87 123/87 O2 Sat by Pulse 97 98 97 Oximetry 07/26/19 07/26/19 07/26/19 09:44 09:51 10:17 Temperature 97.5 F L Pulse Rate 112 H 105 H Pulse Rate [ From Monitor] Respiratory 23 20 Rate Blood Pressure 123/87 107/66 O2 Sat by Pulse 93 86 92 Oximetry Constitutional: alert, appears uncomfortable Eyes: non-icteric ENT: oropharynx moist Neck: supple Effort: very labored Ascultation: Bilateral: rales, rhonchi Percussion: Bilateral: not dull Tactile fremitus: Bilateral: normal Cardiovascular: other (sinus tachycardia) Gastrointestinal: soft Extremities: no edema Neurologic: normal mental status, non-focal exam CBC and BMP: 07/23/19 09:17 07/24/19 12:15 ABG, PT/INR, D-dimer: ABG POC ABG pH 7.432 (7.35-7.45) 07/19/19 15:58 POC ABG pCO2 34.3 (35-45) L 07/19/19 15:58 POC ABG pO2 67 (80-105) L 07/19/19 15:58 POC ABG HCO3 22.9 (22-26 mml/L) 07/19/19 15:58 POC ABG Total CO2 24 (23-27mmol/L) 07/19/19 15:58 POC ABG O2 Sat 94 07/19/19 15:58 PT/INR, D-dimer PT 13.9 Sec. (12.2-14.9) 07/19/19 15:02 INR 1.10 (0.87-1.13) 07/19/19 15:02 D-Dimer 916.71 ng/mlDDU (0-234) H 07/19/19 15:02 Abnormal lab findings: Abnormal Labs 07/19/19 07/19/19 07/19/19 15:02 15:02 15:02 Hgb Hct RDW 15.3 H Lymph % (Auto) [place] % (Auto) 11.0 H Lymph # 1.0 L Seg Neutrophils % 72.9 H Seg Neuts % (Manual) Lymphocytes % (Manual) Lymphocytes # (Manual) D-Dimer 916.71 H POC ABG pCO2 POC ABG pO2 Carbon Dioxide BUN Creatinine Glucose 107 H POC Glucose Hemoglobin A1c Lactic Acid Albumin 3.7 L 07/19/19 07/19/19 07/21/19 15:58 19:30 04:23 Hgb 11.5 L Hct 34.6 L RDW Lymph % (Auto) 13.0 L Rowan % (Auto) 10.5 H Lymph # 0.9 L Seg Neutrophils % 75.8 H Seg Neuts % (Manual) Lymphocytes % (Manual) Lymphocytes # (Manual) D-Dimer POC ABG pCO2 34.3 L POC ABG pO2 67 L Carbon Dioxide BUN Creatinine Glucose POC Glucose Hemoglobin A1c Lactic Acid 2.40 H* Albumin 07/21/19 07/22/19 07/22/19 04:23 03:44 19:21 Hgb Hct RDW Lymph % (Auto) Rowan % (Auto) Lymph # Seg Neutrophils % Seg Neuts % (Manual) Lymphocytes % (Manual) Lymphocytes # (Manual) D-Dimer POC ABG pCO2 POC ABG pO2 Carbon Dioxide 21 L BUN Creatinine Glucose 108 H 129 H POC Glucose 314 H Hemoglobin A1c Lactic Acid Albumin 07/23/19 07/23/19 07/23/19 01:02 06:33 09:17 Hgb Hct RDW 15.3 H Lymph % (Auto) Row[place] % (Auto) Lymph # Seg Neutrophils % Seg Neuts % (Manual) 86.0 H Lymphocytes % (Manual) 9.0 L Lymphocytes # (Manual) 0.8 L D-Dimer POC ABG pCO2 POC ABG pO2 Carbon Dioxide BUN Creatinine Glucose POC Glucose 120 H 152 H Hemoglobin A1c Lactic Acid Albumin 07/23/19 07/23/19 07/23/19 09:17 12:41 18:42 Hgb Hct RDW Lymph % (Auto) Row[place] % (Auto) Lymph # Seg Neutrophils % Seg Neuts % (Manual) Lymphocytes % (Manual) Lymphocytes # (Manual) D-Dimer POC ABG pCO2 POC ABG pO2 Carbon Dioxide 21 L BUN 21 H Creatinine Glucose 181 H POC Glucose 185 H 198 H Hemoglobin A1c Lactic Acid Albumin 07/24/19 07/24/19 07/24/19 00:24 06:02 11:31 Hgb Hct RDW Lymph % (Auto) Row[place] % (Auto) Lymph # Seg Neutrophils % Seg Neuts % (Manual) Lymphocytes % (Manual) Lymphocytes # (Manual) D-Dimer POC ABG pCO2 POC ABG pO2 Carbon Dioxide BUN Creatinine Glucose POC Glucose 179 H 150 H 225 H Hemoglobin A1c Lactic Acid Albumin 07/24/19 07/24/19 07/24/19 12:15 18:32 23:54 Hgb Hct RDW Lymph % (Auto) Rowan % (Auto) Lymph # Seg Neutrophils % Seg Neuts % (Manual) Lymphocytes % (Manual) Lymphocytes # (Manual) D-Dimer POC ABG pCO2 POC ABG pO2 Carbon Dioxide BUN 24 H Creatinine 0.7 L Glucose 201 H POC Glucose 251 H 215 H Hemoglobin A1c Lactic Acid Albumin 07/25/19 07/25/19 07/25/19 06:40 12:18 16:37 Hgb Hct RDW Lymph % (Auto) Row[place] % (Auto) Lymph # Seg Neutrophils % Seg Neuts % (Manual) Lymphocytes % (Manual) Lymphocytes # (Manual) D-Dimer POC ABG pCO2 POC ABG pO2 Carbon Dioxide BUN Creatinine Glucose POC Glucose 148 H 225 H 166 H Hemoglobin A1c Lactic Acid Albumin 07/25/19 07/26/19 07/26/19 21:46 04:03 08:33 Hgb Hct RDW Lymph % (Auto) Row[place] % (Auto) Lymph # Seg Neutrophils % Seg Neuts % (Manual) Lymphocytes % (Manual) Lymphocytes # (Manual) D-Dimer POC ABG pCO2 POC ABG pO2 Carbon Dioxide BUN Creatinine Glucose POC Glucose 332 H 144 H Hemoglobin A1c 6.1 H Lactic Acid Albumin 07/26/19 11:32 Hgb Hct RDW Lymph % (Auto) Row[place] % (Auto) Lymph # Seg Neutrophils % Seg Neuts % (Manual) Lymphocytes % (Manual) Lymphocytes # (Manual) D-Dimer POC ABG pCO2 POC ABG pO2 Carbon Dioxide BUN Creatinine Glucose POC Glucose 242 H Hemoglobin A1c Lactic Acid Albumin
--- NOTE | 2019-07-26 12:48 | Progress Note ---
Assessment and Plan Assessment and plan: (1) Suspected HCAP (healthcare-associated pneumonia) CTA chest negative for infiltrates Off antibiotics (2) H/O Lung cancer on immunotherapy with Imfinzi. oncology, Dr Webster following (3) Acute Respiratory failure with hypoxia likely due to pneumonitis from the Imfinzi. improving on IV Solu-Medrol and nebulizer treatment pulmonology following (4) Essential HTN (hypertension) -stable (5) Sinus Tachycardia cardiology consulted: echo done which showed mildly decreased EF of 40-45%. cont coreg (6) Prediabetes with hba1c of 6.1 cont SSI and diet control DVT prophylaxis with lovenox Disp: d/c per clinical course and cleared by pulmonology/oncology. pt to be transferred to med/surg floor on telemetry History Interval history: Pt continues to report sob on mild exertion. He denies chest pain Hospitalist Physical - Constitutional Vitals: Temp Pulse Resp BP Pulse Ox 97.5 F L 105 H 20 107/66 92 07/26/19 10:17 07/26/19 10:17 07/26/19 10:17 07/26/19 10:17 07/26/19 10:17 General appearance: Present: no acute distress, well-nourished - EENT Eyes: Present: PERRL, EOM intact ENT: hearing intact - Neck Neck: Present: supple - Respiratory Respiratory effort: normal Respiratory: bilateral: diminished (bibasilar lungs), negative: wheezing - Cardiovascular Rhythm: regular Heart Sounds: Present: S1 & S2 (rhythm with tachycardia) - Extremities Extremities: No edema - Abdominal General gastrointestinal: soft, non-tender, non-distended, normal bowel sounds - Integumentary Integumentary: Present: warm, dry - Psychiatric Psychiatric: appropriate mood/affect - Neurologic Neurologic: CNII-XII intact Results - Labs CBC & Chem 7: 07/23/19 09:17 07/24/19 12:15 Labs: Laboratory Last Values WBC 8.4 K/mm3 (4.5-11.0) 07/23/19 09:17 RBC 4.32 M/mm3 (3.65-5.03) 07/23/19 09:17 Hgb 12.2 gm/dl (11.8-15.2) 07/23/19 09:17 Hct 37.1 % (35.5-45.6) 07/23/19 09:17 MCV 86 fl (84-94) 07/23/19 09:17 MCH 28 pg (28-32) 07/23/19 09:17 MCHC 33 % (32-34) 07/23/19 09:17 RDW 15.3 % (13.2-15.2) H 07/23/19 09:17 Plt Count 219 K/mm3 (140-440) 07/23/19 09:17 Lymph % (Auto) 13.0 % (13.4-35.0) L 07/21/19 04:23 [place] % (Auto) 10.5 % (0.0-7.3) H 07/21/19 04:23 Eos % (Auto) 0.5 % (0.0-4.3) 07/21/19 04:23 Baso % (Auto) 0.2 % (0.0-1.8) 07/21/19 04:23 Lymph # 0.9 K/mm3 (1.2-5.4) L 07/21/19 04:23 [place] # 0.7 K/mm3 (0.0-0.8) 07/21/19 04:23 Eos # 0.0 K/mm3 (0.0-0.4) 07/21/19 04:23 Baso # 0.0 K/mm3 (0.0-0.1) 07/21/19 04:23 Add Manual Diff Complete 07/23/19 09:17 Total Counted 100 07/23/19 09:17 Seg Neutrophils % Electric Meter Reader 07/23/19 09:17 Seg Neuts % (Manual) 86.0 % (40.0-70.0) H 07/23/19 09:17 Band Neutrophils % 0 % 07/23/19 09:17 Lymphocytes % (Manual) 9.0 % (13.4-35.0) L 07/23/19 09:17 Reactive Lymphs % (Man) 0 % 07/23/19 09:17 Monocytes % (Manual) 5.0 % (0.0-7.3) 07/23/19 09:17 Eosinophils % (Manual) 0 % (0.0-4.3) 07/23/19 09:17 Basophils % (Manual) 0 % (0.0-1.8) 07/23/19 09:17 Metamyelocytes % 0 % 07/23/19 09:17 Myelocytes % 0 % 07/23/19 09:17 Promyelocytes % 0 % 07/23/19 09:17 Blast Cells % 0 % 07/23/19 09:17 Nucleated RBC % Not Reportable 07/23/19 09:17 Seg Neutrophils # 5.3 K/mm3 (1.8-7.7) 07/21/19 04:23 Seg Neutrophils # Man 7.2 K/mm3 (1.8-7.7) 07/23/19 09:17 Band Neutrophils # 0.0 K/mm3 07/23/19 09:17 Lymphocytes # (Manual) 0.8 K/mm3 (1.2-5.4) L 07/23/19 09:17 Abs React Lymphs (Man) 0.0 K/mm3 07/23/19 09:17 Monocytes # (Manual) 0.4 K/mm3 (0.0-0.8) 07/23/19 09:17 Eosinophils # (Manual) 0.0 K/mm3 (0.0-0.4) 07/23/19 09:17 Basophils # (Manual) 0.0 K/mm3 (0.0-0.1) 07/23/19 09:17 Metamyelocytes # 0.0 K/mm3 07/23/19 09:17 Myelocytes # 0.0 K/mm3 07/23/19 09:17 Promyelocytes # 0.0 K/mm3 07/23/19 09:17 Blast Cells # 0.0 K/mm3 07/23/19 09:17 WBC Morphology Not Reportable 07/23/19 09:17 Hypersegmented Neuts Not Reportable 07/23/19 09:17 Hyposegmented Neuts Not Reportable 07/23/19 09:17 Hypogranular Neuts Not Reportable 07/23/19 09:17 Smudge Cells Not Reportable 07/23/19 09:17 Toxic Granulation Not Reportable 07/23/19 09:17 Toxic Vacuolation Not Reportable 07/23/19 09:17 Dohle Bodies Not Reportable 07/23/19 09:17 Pelger-Huet Anomaly Not Reportable 07/23/19 09:17 Zak Rods Not Reportable 07/23/19 09:17 Platelet Estimate Consistent w auto 07/23/19 09:17 Clumped Platelets Not Reportable 07/23/19 09:17 Plt Clumps, EDTA Not Reportable 07/23/19 09:17 Large Platelets Not Reportable 07/23/19 09:17 Giant Platelets Not Reportable 07/23/19 09:17 Platelet Satelliting Not Reportable 07/23/19 09:17 Plt Morphology Comment Not Reportable 07/23/19 09:17 RBC Morphology Not Reportable 07/23/19 09:17 Dimorphic RBCs Not Reportable 07/23/19 09:17 Polychromasia Not Reportable 07/23/19 09:17 Hypochromasia Not Reportable 07/23/19 09:17 Poikilocytosis Few 07/23/19 09:17 Anisocytosis Not Reportable 07/23/19 09:17 Microcytosis Not Reportable 07/23/19 09:17 Macrocytosis Not Reportable 07/23/19 09:17 Spherocytes Not Reportable 07/23/19 09:17 Pappenheimer Bodies Not Reportable 07/23/19 09:17 Sickle Cells Not Reportable 07/23/19 09:17 Target Cells Not Reportable 07/23/19 09:17 Tear Drop Cells Not Reportable 07/23/19 09:17 Ovalocytes Few 07/23/19 09:17 Helmet Cells Not Reportable 07/23/19 09:17 Alegre-Thurman Bodies Not Reportable 07/23/19 09:17 [place] Rings Not Reportable 07/23/19 09:17 Renata Cells Not Reportable 07/23/19 09:17 Bite Cells Not Reportable 07/23/19 09:17 Crenated Cell Not Reportable 07/23/19 09:17 Elliptocytes Not Reportable 07/23/19 09:17 Acanthocytes (Spur) Not Reportable 07/23/19 09:17 Rouleaux Not Reportable 07/23/19 09:17 Hemoglobin C Crystals Not Reportable 07/23/19 09:17 Schistocytes Not Reportable 07/23/19 09:17 Malaria parasites Not Reportable 07/23/19 09:17 Rafa Bodies Not Reportable 07/23/19 09:17 Hem Pathologist Commnt No 07/23/19 09:17 PT 13.9 Sec. (12.2-14.9) 07/19/19 15:02 INR 1.10 (0.87-1.13) 07/19/19 15:02 APTT 31.5 Sec. (24.2-36.6) 07/19/19 15:02 D-Dimer 916.71 ng/mlDDU (0-234) H 07/19/19 15:02 POC ABG pH 7.432 (7.35-7.45) 07/19/19 15:58 POC ABG pCO2 34.3 (35-45) L 07/19/19 15:58 POC ABG pO2 67 (80-105) L 07/19/19 15:58 POC ABG HCO3 22.9 (22-26 mml/L) 07/19/19 15:58 POC ABG Total CO2 24 (23-27mmol/L) 07/19/19 15:58 POC ABG O2 Sat 94 07/19/19 15:58 POC ABG Base Excess -1 ((-2) - (+3)mmol/L) 07/19/19 15:58 FiO2 21 % 07/19/19 15:58 Sodium 140 mmol/L (137-145) 07/24/19 12:15 Potassium 4.3 mmol/L (3.6-5.0) 07/24/19 12:15 Chloride 100.8 mmol/L (98-107) 07/24/19 12:15 Carbon Dioxide 26 mmol/L (22-30) 07/24/19 12:15 Anion Gap 18 mmol/L 07/24/19 12:15 BUN 24 mg/dL (9-20) H 07/24/19 12:15 Creatinine 0.7 mg/dL (0.8-1.5) L 07/24/19 12:15 Estimated GFR > 60 ml/min 07/24/19 12:15 BUN/Creatinine Ratio 34 % 07/24/19 12:15 Glucose 201 mg/dL (75-100) H 07/24/19 12:15 POC Glucose 242 (70-105) H 07/26/19 11:32 Hemoglobin A1c 6.1 % (4-6) H 07/26/19 04:03 Lactic Acid 1.70 mmol/L (0.7-2.0) 07/19/19 21:44 Calcium 8.7 mg/dL (8.4-10.2) 07/24/19 12:15 Magnesium 2.30 mg/dL (1.7-2.3) 07/19/19 15:02 Total Bilirubin 0.40 mg/dL (0.1-1.2) 07/19/19 15:02 AST 15 units/L (5-40) 07/19/19 15:02 ALT 10 units/L (7-56) 07/19/19 15:02 Alkaline Phosphatase 88 units/L (35-129) 07/19/19 15:02 Total Creatine Kinase 66 units/L (55-170) 07/19/19 15:02 Troponin T < 0.010 ng/mL (0.00-0.029) 07/19/19 19:30 Total Protein 8.2 g/dL (6.3-8.2) 07/19/19 15:02 Albumin 3.7 g/dL (3.9-5) L 07/19/19 15:02 Albumin/Globulin Ratio 0.8 % 07/19/19 15:02 Urine Color Yellow (Yellow) 07/19/19 15:20 Urine Turbidity Clear (Clear) 07/19/19 15:20 Urine pH 5.0 (5.0-7.0) 07/19/19 15:20 Ur Specific Mathias 1.017 (1.003-1.030) 07/19/19 15:20 Urine Protein <15 mg/dl mg/dL (Negative) 07/19/19 15:20 Urine Glucose (UA) Neg mg/dL (Negative) 07/19/19 15:20 Urine Ketones Neg mg/dL (Negative) 07/19/19 15:20 Urine Blood Sm (Negative) 07/19/19 15:20 Urine Nitrite Neg (Negative) 07/19/19 15:20 Urine Bilirubin Neg (Negative) 07/19/19 15:20 Urine Urobilinogen < 2.0 mg/dL (<2.0) 07/19/19 15:20 Ur Leukocyte Esterase Neg (Negative) 07/19/19 15:20 Urine WBC (Auto) < 1.0 /HPF (0.0-6.0) 07/19/19 15:20 Urine RBC (Auto) 3.0 /HPF (0.0-6.0) 07/19/19 15:20 Urine Mucus Few /HPF 07/19/19 15:20 Active Medications - Current Medications Current Medications: Generic Name Dose Route Start Last Admin Trade Name Freq PRN Reason Stop Dose Admin Albuterol 2.5 mg 07/19/19 18:28 Proventil IH Q3HRT PRN Shortness Of Breath Alprazolam 0.5 mg 07/22/19 11:24 Xanax PO Q8H PRN Anxiety Aspirin 81 mg 07/20/19 10:00 07/25/19 10:23 Baby Aspirin PO 81 mg QDAY ELI Administration Benzonatate 100 mg 07/19/19 23:45 07/26/19 06:12 Tessalon Perles PO 100 mg Q8HR ELI Administration Carvedilol 3.125 mg 07/21/19 11:00 07/25/19 22:15 Coreg PO 3.125 mg BID ELI Administration Dextrose 50 ml 07/25/19 12:47 D50w (25gm) Syringe IV Q30MIN PRN Hypoglycemia Diazepam 10 mg 07/19/19 22:00 07/25/19 22:15 Valium PO 10 mg HS ELI Administration Diclofenac Sodium 25 mg 07/20/19 10:00 07/25/19 10:23 Voltaren PO 25 mg QDAY ELI Administration Enoxaparin Sodium 40 mg 07/20/19 10:00 07/25/19 10:23 Lovenox SUB-Q 40 mg QDAY@1000 ELI Administration Hydrocodone Bit/Homatropine Methylb 10 ml 07/19/19 18:36 Hydromet PO Q6H PRN Cough Insulin Human Lispro 0 unit 07/25/19 16:30 07/26/19 07:30 Humalog SUB-Q Not Given ACHS [facility] Protocol Methylprednisolone Sodium Succinate 60 mg 07/23/19 18:00 07/26/19 06:12 Solu-Medrol IV 60 mg Q6HR ELI Administration Miscellaneous Medication 120 mg 07/19/19 18:30 Durvalumab [Imfinzi] IV Q2W ELI Sodium Chloride 10 ml 07/19/19 22:00 07/25/19 22:17 Sodium Chloride Flush Syringe 10 Ml IV 10 ml BID ELI Administration Sodium Chloride 10 ml 07/19/19 18:28 Sodium Chloride Flush Syringe 10 Ml IV PRN PRN LINE FLUSH Nutrition/Malnutrition Assess - Dietary Evaluation Nutrition/Malnutrition Findings: Nutrition Notes Start: 07/20/19 12:10 Freq: Status: Active Protocol: Document 07/22/19 11:27 RM (Rec: 07/22/19 11:47 RM [id number]) Nutrition Notes Initial or Follow up Reassessment Current Diagnosis Hypertension,Respiratory Failure Other Pertinent Diagnosis Lung CA, anxiety, HCAP Current Diet Regular Labs/Tests Reviewed Pertinent Medications Reviewed Height 5 ft 10 in Weight 70 kg [place] Body Weight (kg) 75.45 BMI 22.1 Subjective/Other Information Pt stated that he eats most of his meals and does not know why he is receiving Ensure Enlive but drank one today. Per tech pt has some short term memory loss and tells different people different things. Stated that pt eats 50 to 75% of facility meals in addition to food that family brings in. Stated that pt has said that he likes to have Ensure Enlive in case he does not like the facility meal. Noted uneaten breakfast and 1 unopened Ensure Enlive at bedside. Pt stated that he does not like biscuits w/gravy and sausage. Noted preferences. Percent of energy/protein needs met: 100%/100% (facility meals + outside food +1 ONS) Burn Absent Trauma Absent Minimum of two criteria No physical signs of malnutrition #1 Nutrition Diagnosis Inadequate oral intake As Evidenced by Signs and Symptoms pt meeting 100% of calorie and protein needs via PO and ONS intakes Diagnosis Progress(for reassessment Resolved documentation) Is patient on ventilator? No Is Patient Ambulatory and/or Out of Bed Yes REE-([facility]-ambulatory/OOB) [ 1932.125 [id number]] Calculation Used for Recommendations [facility] Additional Notes PRO needs: 75-90g/day (1-1.2g/ kg IBW 75kg) Fluid: 1ml/kcal or per MD Nutrition Intervention Change Diet Order: Continue current diet Add Supplement/Snack (indicate name/kcal Ensure Enlive Vanilla 1 daily /protein ) Provides kCal: 350 Provides Protein (gm) 20 Goal #1 Continue to meet at least 75% of calorie and protein needs via PO intakes Anticipated Discharge Needs: Regular Follow-Up By: 07/29/19 Additional Comments Follow for PO and ONS intakes
[2019-07-26] MEDS: ENOXAPARIN 40 MG/0.4 ML INJ SUB-Q SCH (13:02)
[2019-07-26] MEDS: ASPIRIN 81 MG TAB CHEW PO SCH (13:09)
[2019-07-26] MEDS: DICLOFENAC EC 25 MG TAB PO SCH (13:36)
[2019-07-26] MEDS: diazePAM 5 MG TAB PO SCH (21:35)
[2019-07-27] MEDS: BENZONATATE 100 MG CAP PO SCH ×3 (05:21→21:53)
--- NOTE | 2019-07-27 07:51 | Hem/Onc Progress Note ---
Assessment and Plan 1. Interstitial changes on Radiology. 2. Shortness of breath, it is possible that this may be effect of pneumonitis. This may be pneumonitis secondary to Imfinzi. I had discussed with Dr. Dolan. 3. the patient was on methylprednisolone dose ranges 2-4 mg/kg daily. I had discussed with Dr. Heath. 4. History of hypertension. 5. History of respiratory issues. 6. History of port placement. 7. I will follow the patient during inpatient stay and then in the clinic setting. ? option of changing to oral steroids? need for home o2? pt will follow dr Dolan upon discharge pt getting physical therapy - frequency of steroid reduced to BID - Patient Problems (1) Lung cancer Current Visit: Yes Status: Acute Qualifiers: Laterality: unspecified laterality Subjective Date of service: 07/27/19 Principal diagnosis: lung ca Interval history: transferred to medical floor - on 3 litres o2 - sitting and eating breakfast Objective - Exam Narrative Exam: Pain - none now General appearance - awake Performance status limited self care - on o2 Eyes - no icterus ENT - no thrush LNs cervical not palpable Neck - no LN Respiratory Normal Breath sounds - CTA anteriorly CVS S1 S2 + Extremities no calf tenderness General GI Soft Rectal deferred male - deferred Skin warm Musculoskeletal moves limbs neuro - awake - Constitutional Vitals: Last Vital Signs Temp 97.5 F L 07/27/19 04:20 Pulse 104 H 07/27/19 04:20 Resp 18 07/27/19 04:20 BP 109/81 07/27/19 04:20 Pulse Ox 100 07/27/19 07:34 - Labs Lab Results: Laboratory Results - last 24 hr 07/26/19 07/26/19 07/26/19 08:33 11:32 17:32 POC Glucose 144 H 242 H 122 H 07/26/19 21:12 POC Glucose 123 H Medications & Allergies - Medications Allergies/Adverse Reactions: Allergies No Known Allergies Allergy (Verified 07/19/19 14:55) Home Medications: Home Medications Medication Instructions Recorded Confirmed Last Taken Type ALBUTEROL Inhaler (OR & NICU) 2 puff IH QID PRN 07/19/19 07/19/19 07/18/19 History [Proair] Aspirin [Aspirin BABY CHEW TAB] 81 mg PO QDAY 07/19/19 07/19/19 07/18/19 History Carvedilol [Coreg] 3.125 mg PO BID 07/19/19 07/19/19 07/18/19 History Diclofenac EC [Voltaren] 25 mg PO QDAY 07/19/19 07/19/19 07/18/19 History Durvalumab [Imfinzi] 120 mg IV Q2W 07/19/19 07/19/19 07/18/19 History Lisinopril [Zestril TAB] 2.5 mg PO QDAY 07/19/19 07/19/19 07/18/19 History diazePAM [Diazepam] 10 mg PO QHS 07/19/19 07/19/19 07/18/19 History Active Medications: Generic Name Dose Route Start Last Admin Trade Name Freq PRN Reason Stop Dose Admin Albuterol 2.5 mg 07/19/19 18:28 Proventil IH Q3HRT PRN Shortness Of Breath Alprazolam 0.5 mg 07/22/19 11:24 07/26/19 15:34 Xanax PO 0.5 mg Q8H PRN Administration Anxiety Aspirin 81 mg 07/20/19 10:00 07/26/19 13:09 Baby Aspirin PO 81 mg QDAY ELI Administration Benzonatate 100 mg 07/19/19 23:45 07/27/19 05:21 Tessalon Perles PO 100 mg Q8HR ELI Administration Carvedilol 3.125 mg 07/21/19 11:00 07/26/19 21:36 Coreg PO 3.125 mg BID ELI Administration Dextrose 50 ml 07/25/19 12:47 D50w (25gm) Syringe IV Q30MIN PRN Hypoglycemia Diazepam 10 mg 07/19/19 22:00 07/26/19 21:35 Valium PO 10 mg HS ELI Administration Diclofenac Sodium 25 mg 07/20/19 10:00 07/26/19 13:36 Voltaren PO 25 mg QDAY ELI Administration Enoxaparin Sodium 40 mg 07/20/19 10:00 07/26/19 13:02 Lovenox SUB-Q 40 mg QDAY@1000 ELI Administration Hydrocodone Bit/Homatropine Methylb 10 ml 07/19/19 18:36 Hydromet PO Q6H PRN Cough Insulin Human Lispro 0 unit 07/25/19 16:30 07/26/19 21:37 Humalog SUB-Q Not Given ACHS ELI Protocol Methylprednisolone Sodium Succinate 60 mg 07/26/19 22:00 07/26/19 21:36 Solu-Medrol IV 60 mg Q12HR ELI Administration Miscellaneous Medication 120 mg 07/19/19 18:30 Durvalumab [Imfinzi] IV Q2W ELI Sodium Chloride 10 ml 07/19/19 22:00 07/26/19 21:37 Sodium Chloride Flush Syringe 10 Ml IV 10 ml BID ELI Administration Sodium Chloride 10 ml 07/19/19 18:28 Sodium Chloride Flush Syringe 10 Ml IV PRN PRN LINE FLUSH
[2019-07-27] MEDS: INSULIN LISPRO 100 UNIT/ML SUB-Q SCH ×4 (08:30→23:24)
[2019-07-27] MEDS: DICLOFENAC EC 25 MG TAB PO SCH (09:31)
[2019-07-27] MEDS: ENOXAPARIN 40 MG/0.4 ML INJ SUB-Q SCH (09:32)
[2019-07-27] MEDS: methylPREDNISolone Sod Succinate 125 MG/2 ML INJ IV SCH ×2 (09:32→21:53)
[2019-07-27] MEDS: CARVEDILOL 3.125 MG TAB PO SCH ×3 (09:33→22:00)
[2019-07-27] MEDS: ASPIRIN 81 MG TAB CHEW PO SCH (09:33)
--- NOTE | 2019-07-27 14:17 | Progress Note ---
Assessment and Plan 64 y/o male with acute respiratory failure secondary to underlying COPD exacerbation from chemotherapy per Oncology note. 1. Hold on any further lasix therapy. Tomorrow suggest changing to Prednisone 60 daily and taper from their. 2. abx therapy stopped. Cannot see when It was discontinued. If patient decompensates will need to restart. 3. Continue PRN PPV and qhs therapy. 4. 6 minute walk in the near future. 5. Agree with PT assessement and possiblity of home health Hopeful discharge in the next 24-48 hours. Subjective Date of service: 07/27/19 Principal diagnosis: lung ca Interval history: Patient currently in restroom. Sats good on 2 liters. Tolerated decrease in steroids. Objective Vital Signs - 12hr 07/27/19 07/27/19 07/27/19 04:00 04:20 07:34 Temperature 97.5 F L Pulse Rate 104 H 104 H Respiratory 18 Rate Blood Pressure Blood Pressure 109/81 [Left] O2 Sat by Pulse 97 100 Oximetry 07/27/19 07/27/19 07:40 09:33 Temperature 97.3 F L Pulse Rate 98 H 98 H Respiratory 18 Rate Blood Pressure 116/85 116/85 Blood Pressure [Left] O2 Sat by Pulse 94 Oximetry Constitutional: alert, appears uncomfortable Eyes: non-icteric ENT: oropharynx moist Neck: supple Effort: very labored Ascultation: Bilateral: rales, rhonchi Percussion: Bilateral: not dull Tactile fremitus: Bilateral: normal Cardiovascular: other (sinus tachycardia) Gastrointestinal: soft Extremities: no edema Neurologic: normal mental status, non-focal exam CBC and BMP: 07/23/19 09:17 07/24/19 12:15 ABG, PT/INR, D-dimer: ABG POC ABG pH 7.432 (7.35-7.45) 07/19/19 15:58 POC ABG pCO2 34.3 (35-45) L 07/19/19 15:58 POC ABG pO2 67 (80-105) L 07/19/19 15:58 POC ABG HCO3 22.9 (22-26 mml/L) 07/19/19 15:58 POC ABG Total CO2 24 (23-27mmol/L) 07/19/19 15:58 POC ABG O2 Sat 94 07/19/19 15:58 PT/INR, D-dimer PT 13.9 Sec. (12.2-14.9) 07/19/19 15:02 INR 1.10 (0.87-1.13) 07/19/19 15:02 D-Dimer 916.71 ng/mlDDU (0-234) H 07/19/19 15:02 Abnormal lab findings: Abnormal Labs 07/19/19 07/19/19 07/19/19 15:02 15:02 15:02 Hgb Hct RDW 15.3 H Lymph % (Auto) [place]oke % (Auto) 11.0 H Lymph # 1.0 L Seg Neutrophils % 72.9 H Seg Neuts % (Manual) Lymphocytes % (Manual) Lymphocytes # (Manual) D-Dimer 916.71 H POC ABG pCO2 POC ABG pO2 Carbon Dioxide BUN Creatinine Glucose 107 H POC Glucose Hemoglobin A1c Lactic Acid Albumin 3.7 L 07/19/19 07/19/19 07/21/19 15:58 19:30 04:23 Hgb 11.5 L Hct 34.6 L RDW Lymph % (Auto) 13.0 L [place] % (Auto) 10.5 H Lymph # 0.9 L Seg Neutrophils % 75.8 H Seg Neuts % (Manual) Lymphocytes % (Manual) Lymphocytes # (Manual) D-Dimer POC ABG pCO2 34.3 L POC ABG pO2 67 L Carbon Dioxide BUN Creatinine Glucose POC Glucose Hemoglobin A1c Lactic Acid 2.40 H* Albumin 07/21/19 07/22/19 07/22/19 04:23 03:44 19:21 Hgb Hct RDW Lymph % (Auto) [place] % (Auto) Lymph # Seg Neutrophils % Seg Neuts % (Manual) Lymphocytes % (Manual) Lymphocytes # (Manual) D-Dimer POC ABG pCO2 POC ABG pO2 Carbon Dioxide 21 L BUN Creatinine Glucose 108 H 129 H POC Glucose 314 H Hemoglobin A1c Lactic Acid Albumin 07/23/19 07/23/19 07/23/19 01:02 06:33 09:17 Hgb Hct RDW 15.3 H Lymph % (Auto) [place] % (Auto) Lymph # Seg Neutrophils % Seg Neuts % (Manual) 86.0 H Lymphocytes % (Manual) 9.0 L Lymphocytes # (Manual) 0.8 L D-Dimer POC ABG pCO2 POC ABG pO2 Carbon Dioxide BUN Creatinine Glucose POC Glucose 120 H 152 H Hemoglobin A1c Lactic Acid Albumin 07/23/19 07/23/19 07/23/19 09:17 12:41 18:42 Hgb Hct RDW Lymph % (Auto) [place] % (Auto) Lymph # Seg Neutrophils % Seg Neuts % (Manual) Lymphocytes % (Manual) Lymphocytes # (Manual) D-Dimer POC ABG pCO2 POC ABG pO2 Carbon Dioxide 21 L BUN 21 H Creatinine Glucose 181 H POC Glucose 185 H 198 H Hemoglobin A1c Lactic Acid Albumin 07/24/19 07/24/19 07/24/19 00:24 06:02 11:31 Hgb Hct RDW Lymph % (Auto) [place] % (Auto) Lymph # Seg Neutrophils % Seg Neuts % (Manual) Lymphocytes % (Manual) Lymphocytes # (Manual) D-Dimer POC ABG pCO2 POC ABG pO2 Carbon Dioxide BUN Creatinine Glucose POC Glucose 179 H 150 H 225 H Hemoglobin A1c Lactic Acid Albumin 07/24/19 07/24/19 07/24/19 12:15 18:32 23:54 Hgb Hct RDW Lymph % (Auto) [place] % (Auto) Lymph # Seg Neutrophils % Seg Neuts % (Manual) Lymphocytes % (Manual) Lymphocytes # (Manual) D-Dimer POC ABG pCO2 POC ABG pO2 Carbon Dioxide BUN 24 H Creatinine 0.7 L Glucose 201 H POC Glucose 251 H 215 H Hemoglobin A1c Lactic Acid Albumin 07/25/19 07/25/19 07/25/19 06:40 12:18 16:37 Hgb Hct RDW Lymph % (Auto) [place] % (Auto) Lymph # Seg Neutrophils % Seg Neuts % (Manual) Lymphocytes % (Manual) Lymphocytes # (Manual) D-Dimer POC ABG pCO2 POC ABG pO2 Carbon Dioxide BUN Creatinine Glucose POC Glucose 148 H 225 H 166 H Hemoglobin A1c Lactic Acid Albumin 07/25/19 07/26/19 07/26/19 21:46 04:03 08:33 Hgb Hct RDW Lymph % (Auto) [place] % (Auto) Lymph # Seg Neutrophils % Seg Neuts % (Manual) Lymphocytes % (Manual) Lymphocytes # (Manual) D-Dimer POC ABG pCO2 POC ABG pO2 Carbon Dioxide BUN Creatinine Glucose POC Glucose 332 H 144 H Hemoglobin A1c 6.1 H Lactic Acid Albumin 07/26/19 07/26/19 07/26/19 11:32 17:32 21:12 Hgb Hct RDW Lymph % (Auto) [place] % (Auto) Lymph # Seg Neutrophils % Seg Neuts % (Manual) Lymphocytes % (Manual) Lymphocytes # (Manual) D-Dimer POC ABG pCO2 POC ABG pO2 Carbon Dioxide BUN Creatinine Glucose POC Glucose 242 H 122 H 123 H Hemoglobin A1c Lactic Acid Albumin 07/27/19 07/27/19 07:48 11:34 Hgb Hct RDW Lymph % (Auto) [place] % (Auto) Lymph # Seg Neutrophils % Seg Neuts % (Manual) Lymphocytes % (Manual) Lymphocytes # (Manual) D-Dimer POC ABG pCO2 POC ABG pO2 Carbon Dioxide BUN Creatinine Glucose POC Glucose 113 H 174 H Hemoglobin A1c Lactic Acid Albumin
--- NOTE | 2019-07-27 15:15 | Progress Note ---
Assessment and Plan Assessment and plan: 64 YO Male with Lung Cancer S/P Radiation, Currently undergoing Chemotherapy with Left Hemothorax, HTN, Anxiety presents to ED for evaluation. Pt states that he has experienced shortness of breath, cough, malaise, and fatigue over the past 3 days with persistently worsening symptoms over the same time frame. Pt was seen by his Oncologist and was found to have pulse oximetry in the 70's with exertion. Pt was subsequently sent to [facility] for further care and evaluation. Pt seen and evaluated in ED and found to have Acute Hypoxemic Respiratory Failure complicated by HCAP. Pt placed on supplemental oxygen and admitted to [facility] [place]. (1) Acute Respiratory failure with hypoxia secondary to COPD exacerbation and also likely due to pneumonitis from the Imfinzi. improving on IV Solu-Medrol and nebulizer treatment pulmonology following (2)H/O Lung cancer on immunotherapy with Imfinzi. oncology, Dr Webster following (3) HCAP (healthcare-associated pneumonia) ruled out No evidence of Sepsis CTA chest negative for infiltrates Off antibiotics- Stopped on 07/24 (4) Essential HTN (hypertension) -stable (5) Mild cardiomyopathy- pER CARDIOLOGY LVEF 40-45% by echo done 05/2019 limited echo this admission shows evidence of right heart enlargement, pressure and volume overload. EF 40-45% No recent ischemic work-up Got a dose of lasix. No diagnosed hx of Heart failure Reflex sinus tachycardia cont coreg (6) Presumed Pneumonitis possible secondary to Infinzi. Continue to follow by pulmonary (7)Prediabetes with hba1c of 6.1 cont SSI and diet control DVT prophylaxis with lovenox Disp: d/c per clinical course and cleared by pulmonology/oncology. Hopeful discharge in the next 24 hours. History Interval history: F/U:" Shortness of breath. Patient seen and examined, reports lethargic after walking with PT. still with shortness of breath on exertion but reports improvement. Hospitalist Physical - Physical exam Narrative exam: General appearance: Present: no acute distress, well-nourished, ambulated with physcial therapy and appears deconditioned - EENT Eyes: Present: PERRL, EOM intact ENT: hearing intact - Neck Neck: Present: supple - Respiratory Respiratory effort: normal Respiratory: bilateral: diminished (bibasilar lungs), Mild wheezing at base - Cardiovascular Rhythm: regular Heart Sounds: Present: S1 & S2 (rhythm with tachycardia) - Extremities Extremities: No edema - Abdominal General gastrointestinal: soft, non-tender, non-distended, normal bowel sounds - Integumentary Integumentary: Present: warm, dry - Psychiatric Psychiatric: appropriate mood/affect - Neurologic Neurologic: CNII-XII intact - Constitutional Vitals: Temp Pulse Resp BP Pulse Ox 97.3 F L 98 H 18 116/85 94 07/27/19 07:40 07/27/19 09:33 07/27/19 07:40 07/27/19 09:33 07/27/19 07:40 General appearance: Present: no acute distress, well-nourished Results - Labs CBC & Chem 7: 07/23/19 09:17 07/24/19 12:15 Labs: Laboratory Last Values WBC 8.4 K/mm3 (4.5-11.0) 07/23/19 09:17 RBC 4.32 M/mm3 (3.65-5.03) 07/23/19 09:17 Hgb 12.2 gm/dl (11.8-15.2) 07/23/19 09:17 Hct 37.1 % (35.5-45.6) 07/23/19 09:17 MCV 86 fl (84-94) 07/23/19 09:17 MCH 28 pg (28-32) 07/23/19 09:17 MCHC 33 % (32-34) 07/23/19 09:17 RDW 15.3 % (13.2-15.2) H 07/23/19 09:17 Plt Count 219 K/mm3 (140-440) 07/23/19 09:17 Lymph % (Auto) 13.0 % (13.4-35.0) L 07/21/19 04:23 [place] % (Auto) 10.5 % (0.0-7.3) H 07/21/19 04:23 Eos % (Auto) 0.5 % (0.0-4.3) 07/21/19 04:23 Baso % (Auto) 0.2 % (0.0-1.8) 07/21/19 04:23 Lymph # 0.9 K/mm3 (1.2-5.4) L 07/21/19 04:23 [place] # 0.7 K/mm3 (0.0-0.8) 07/21/19 04:23 Eos # 0.0 K/mm3 (0.0-0.4) 07/21/19 04:23 Baso # 0.0 K/mm3 (0.0-0.1) 07/21/19 04:23 Add Manual Diff Complete 07/23/19 09:17 Total Counted 100 07/23/19 09:17 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 [employer] 07/23/19 09:17 Seg Neuts % (Manual) 86.0 % (40.0-70.0) H 07/23/19 09:17 Band Neutrophils % 0 % 07/23/19 09:17 Lymphocytes % (Manual) 9.0 % (13.4-35.0) L 07/23/19 09:17 Reactive Lymphs % (Man) 0 % 07/23/19 09:17 Monocytes % (Manual) 5.0 % (0.0-7.3) 07/23/19 09:17 Eosinophils % (Manual) 0 % (0.0-4.3) 07/23/19 09:17 Basophils % (Manual) 0 % (0.0-1.8) 07/23/19 09:17 Metamyelocytes % 0 % 07/23/19 09:17 Myelocytes % 0 % 07/23/19 09:17 Promyelocytes % 0 % 07/23/19 09:17 Blast Cells % 0 % 07/23/19 09:17 Nucleated RBC % Not Reportable 07/23/19 09:17 Seg Neutrophils # 5.3 K/mm3 (1.8-7.7) 07/21/19 04:23 Seg Neutrophils # Man 7.2 K/mm3 (1.8-7.7) 07/23/19 09:17 Band Neutrophils # 0.0 K/mm3 07/23/19 09:17 Lymphocytes # (Manual) 0.8 K/mm3 (1.2-5.4) L 07/23/19 09:17 Abs React Lymphs (Man) 0.0 K/mm3 07/23/19 09:17 Monocytes # (Manual) 0.4 K/mm3 (0.0-0.8) 07/23/19 09:17 Eosinophils # (Manual) 0.0 K/mm3 (0.0-0.4) 07/23/19 09:17 Basophils # (Manual) 0.0 K/mm3 (0.0-0.1) 07/23/19 09:17 Metamyelocytes # 0.0 K/mm3 07/23/19 09:17 Myelocytes # 0.0 K/mm3 07/23/19 09:17 Promyelocytes # 0.0 K/mm3 07/23/19 09:17 Blast Cells # 0.0 K/mm3 07/23/19 09:17 WBC Morphology Not Reportable 07/23/19 09:17 Hypersegmented Neuts Not Reportable 07/23/19 09:17 Hyposegmented Neuts Not Reportable 07/23/19 09:17 Hypogranular Neuts Not Reportable 07/23/19 09:17 Smudge Cells Not Reportable 07/23/19 09:17 Toxic Granulation Not Reportable 07/23/19 09:17 Toxic Vacuolation Not Reportable 07/23/19 09:17 Dohle Bodies Not Reportable 07/23/19 09:17 Pelger-Huet Anomaly Not Reportable 07/23/19 09:17 Zak Rods Not Reportable 07/23/19 09:17 Platelet Estimate Consistent w auto 07/23/19 09:17 Clumped Platelets Not Reportable 07/23/19 09:17 Plt Clumps, EDTA Not Reportable 07/23/19 09:17 Large Platelets Not Reportable 07/23/19 09:17 Giant Platelets Not Reportable 07/23/19 09:17 Platelet Satelliting Not Reportable 07/23/19 09:17 Plt Morphology Comment Not Reportable 07/23/19 09:17 RBC Morphology Not Reportable 07/23/19 09:17 Dimorphic RBCs Not Reportable 07/23/19 09:17 Polychromasia Not Reportable 07/23/19 09:17 Hypochromasia Not Reportable 07/23/19 09:17 Poikilocytosis Few 07/23/19 09:17 Anisocytosis Not Reportable 07/23/19 09:17 Microcytosis Not Reportable 07/23/19 09:17 Macrocytosis Not Reportable 07/23/19 09:17 Spherocytes Not Reportable 07/23/19 09:17 Pappenheimer Bodies Not Reportable 07/23/19 09:17 Sickle Cells Not Reportable 07/23/19 09:17 Target Cells Not Reportable 07/23/19 09:17 Tear Drop Cells Not Reportable 07/23/19 09:17 Ovalocytes Few 07/23/19 09:17 Helmet Cells Not Reportable 07/23/19 09:17 [place] Bodies Not Reportable 07/23/19 09:17 [place] Rings Not Reportable 07/23/19 09:17 [place] Cells Not Reportable 07/23/19 09:17 Bite Cells Not Reportable 07/23/19 09:17 Crenated Cell Not Reportable 07/23/19 09:17 Elliptocytes Not Reportable 07/23/19 09:17 Acanthocytes (Spur) Not Reportable 07/23/19 09:17 Rouleaux Not Reportable 07/23/19 09:17 Hemoglobin C Crystals Not Reportable 07/23/19 09:17 Schistocytes Not Reportable 07/23/19 09:17 Malaria parasites Not Reportable 07/23/19 09:17 Rafa Bodies Not Reportable 07/23/19 09:17 Hem Pathologist Commnt No 07/23/19 09:17 PT 13.9 Sec. (12.2-14.9) 07/19/19 15:02 INR 1.10 (0.87-1.13) 07/19/19 15:02 APTT 31.5 Sec. (24.2-36.6) 07/19/19 15:02 D-Dimer 916.71 ng/mlDDU (0-234) H 07/19/19 15:02 POC ABG pH 7.432 (7.35-7.45) 07/19/19 15:58 POC ABG pCO2 34.3 (35-45) L 07/19/19 15:58 POC ABG pO2 67 (80-105) L 07/19/19 15:58 POC ABG HCO3 22.9 (22-26 mml/L) 07/19/19 15:58 POC ABG Total CO2 24 (23-27mmol/L) 07/19/19 15:58 POC ABG O2 Sat 94 07/19/19 15:58 POC ABG Base Excess -1 ((-2) - (+3)mmol/L) 07/19/19 15:58 FiO2 21 % 07/19/19 15:58 Sodium 140 mmol/L (137-145) 07/24/19 12:15 Potassium 4.3 mmol/L (3.6-5.0) 07/24/19 12:15 Chloride 100.8 mmol/L (98-107) 07/24/19 12:15 Carbon Dioxide 26 mmol/L (22-30) 07/24/19 12:15 Anion Gap 18 mmol/L 07/24/19 12:15 BUN 24 mg/dL (9-20) H 07/24/19 12:15 Creatinine 0.7 mg/dL (0.8-1.5) L 07/24/19 12:15 Estimated GFR > 60 ml/min 07/24/19 12:15 BUN/Creatinine Ratio 34 % 07/24/19 12:15 Glucose 201 mg/dL (75-100) H 07/24/19 12:15 POC Glucose 174 (70-105) H 07/27/19 11:34 Hemoglobin A1c 6.1 % (4-6) H 07/26/19 04:03 Lactic Acid 1.70 mmol/L (0.7-2.0) 07/19/19 21:44 Calcium 8.7 mg/dL (8.4-10.2) 07/24/19 12:15 Magnesium 2.30 mg/dL (1.7-2.3) 07/19/19 15:02 Total Bilirubin 0.40 mg/dL (0.1-1.2) 07/19/19 15:02 AST 15 units/L (5-40) 07/19/19 15:02 ALT 10 units/L (7-56) 07/19/19 15:02 Alkaline Phosphatase 88 units/L (35-129) 07/19/19 15:02 Total Creatine Kinase 66 units/L (55-170) 07/19/19 15:02 Troponin T < 0.010 ng/mL (0.00-0.029) 07/19/19 19:30 Total Protein 8.2 g/dL (6.3-8.2) 07/19/19 15:02 Albumin 3.7 g/dL (3.9-5) L 07/19/19 15:02 Albumin/Globulin Ratio 0.8 % 07/19/19 15:02 Urine Color Yellow (Yellow) 07/19/19 15:20 Urine Turbidity Clear (Clear) 07/19/19 15:20 Urine pH 5.0 (5.0-7.0) 07/19/19 15:20 Ur Specific [place] 1.017 (1.003-1.030) 07/19/19 15:20 Urine Protein <15 mg/dl mg/dL (Negative) 07/19/19 15:20 Urine Glucose (UA) Neg mg/dL (Negative) 07/19/19 15:20 Urine Ketones Neg mg/dL (Negative) 07/19/19 15:20 Urine Blood Sm (Negative) 07/19/19 15:20 Urine Nitrite Neg (Negative) 07/19/19 15:20 Urine Bilirubin Neg (Negative) 07/19/19 15:20 Urine Urobilinogen < 2.0 mg/dL (<2.0) 07/19/19 15:20 Ur Leukocyte Esterase Neg (Negative) 07/19/19 15:20 Urine WBC (Auto) < 1.0 /HPF (0.0-6.0) 07/19/19 15:20 Urine RBC (Auto) 3.0 /HPF (0.0-6.0) 07/19/19 15:20 Urine Mucus Few /HPF 07/19/19 15:20 Active Medications - Current Medications Current Medications: Generic Name Dose Route Start Last Admin Trade Name Freq PRN Reason Stop Dose Admin Albuterol 2.5 mg 07/19/19 18:28 Proventil IH Q3HRT PRN Shortness Of Breath Alprazolam 0.5 mg 07/22/19 11:24 07/26/19 15:34 Xanax PO 0.5 mg Q8H PRN Administration Anxiety Aspirin 81 mg 07/20/19 10:00 07/27/19 09:33 Baby Aspirin PO 81 mg QDAY ELI Administration Benzonatate 100 mg 07/19/19 23:45 07/27/19 05:21 Tessalon Perles PO 100 mg Q8HR ELI Administration Carvedilol 3.125 mg 07/21/19 11:00 07/27/19 09:33 Coreg PO 3.125 mg BID ELI Administration Dextrose 50 ml 07/25/19 12:47 D50w (25gm) Syringe IV Q30MIN PRN Hypoglycemia Diazepam 10 mg 07/19/19 22:00 07/26/19 21:35 Valium PO 10 mg HS ELI Administration Diclofenac Sodium 25 mg 07/20/19 10:00 07/27/19 09:31 Voltaren PO 25 mg QDAY ELI Administration Enoxaparin Sodium 40 mg 07/20/19 10:00 07/27/19 09:32 Lovenox SUB-Q 40 mg QDAY@1000 ELI Administration Hydrocodone Bit/Homatropine Methylb 10 ml 07/19/19 18:36 Hydromet PO Q6H PRN Cough Insulin Human Lispro 0 unit 07/25/19 16:30 07/27/19 11:55 Humalog SUB-Q 2 unit ACHS ELI Administration Protocol Methylprednisolone Sodium Succinate 60 mg 07/26/19 22:00 07/27/19 09:32 Solu-Medrol IV 60 mg Q12HR ELI Administration Miscellaneous Medication 120 mg 07/19/19 18:30 Durvalumab [Imfinzi] IV Q2W ELI Sodium Chloride 10 ml 07/19/19 22:00 07/27/19 09:33 Sodium Chloride Flush Syringe 10 Ml IV 10 ml BID ELI Administration Sodium Chloride 10 ml 07/19/19 18:28 Sodium Chloride Flush Syringe 10 Ml IV PRN PRN LINE FLUSH Nutrition/Malnutrition Assess - Dietary Evaluation Nutrition/Malnutrition Findings: Nutrition Notes Start: 07/20/19 12:10 Freq: Status: Active Protocol: Document 07/22/19 11:27 RM (Rec: 07/22/19 11:47 RM [email or web address]) Nutrition Notes Initial or Follow up Reassessment Current Diagnosis Hypertension,Respiratory Failure Other Pertinent Diagnosis Lung CA, anxiety, HCAP Current Diet Regular Labs/Tests Reviewed Pertinent Medications Reviewed Height 5 ft 10 in Weight 70 kg Dana Body Weight (kg) 75.45 BMI 22.1 Subjective/Other Information Pt stated that he eats most of his meals and does not know why he is receiving Ensure Enlive but drank one today. Per tech pt has some short term memory loss and tells different people different things. Stated that pt eats 50 to 75% of facility meals in addition to food that family brings in. Stated that pt has said that he likes to have Ensure Enlive in case he does not like the facility meal. Noted uneaten breakfast and 1 unopened Ensure Enlive at bedside. Pt stated that he does not like biscuits w/gravy and sausage. Noted preferences. Percent of energy/protein needs met: 100%/100% (facility meals + outside food +1 ONS) Burn Absent Trauma Absent Minimum of two criteria No physical signs of malnutrition #1 Nutrition Diagnosis Inadequate oral intake As Evidenced by Signs and Symptoms pt meeting 100% of calorie and protein needs via PO and ONS intakes Diagnosis Progress(for reassessment Resolved documentation) Is patient on ventilator? No Is Patient Ambulatory and/or Out of Bed Yes [facility]OOB) [ 1932.125 [id number]] Calculation Used for Recommendations [facility] Additional Notes PRO needs: 75-90g/day (1-1.2g/ kg IBW 75kg) Fluid: 1ml/kcal or per MD Nutrition Intervention Change Diet Order: Continue current diet Add Supplement/Snack (indicate name/kcal Ensure Enlive Vanilla 1 daily /protein ) Provides kCal: 350 Provides Protein (gm) 20 Goal #1 Continue to meet at least 75% of calorie and protein needs via PO intakes Anticipated Discharge Needs: Regular Follow-Up By: 07/29/19 Additional Comments Follow for PO and ONS intakes
[2019-07-27] MEDS: diazePAM 5 MG TAB PO SCH (21:54)
[2019-07-28] MEDS: BENZONATATE 100 MG CAP PO SCH ×2 (05:32→13:16)
[2019-07-28] MEDS: INSULIN LISPRO 100 UNIT/ML SUB-Q SCH ×3 (07:48→16:43)
--- NOTE | 2019-07-28 07:56 | Hem/Onc Progress Note ---
Assessment and Plan 1. NSCLC - clinically stage III - now Interstitial changes on Radiology. 2. Shortness of breath, it is possible that this may be effect of pneumonitis. This may be pneumonitis secondary to Imfinzi. I had discussed with Dr. Dolan. 3. the patient was on methylprednisolone dose ranges 2-4 mg/kg daily. I had discussed with Dr. Heath. 4. History of hypertension. 5. History of respiratory issues. 6. History of port placement. 7. I will follow the patient during inpatient stay. ? option of changing to oral steroids? need for home o2? pt will follow dr Dolan upon discharge pt getting physical therapy - steroid being managed with plan for D/c - Patient Problems (1) Lung cancer Current Visit: Yes Status: Acute Qualifiers: Laterality: unspecified laterality Subjective Date of service: 07/28/19 Principal diagnosis: lung ca Interval history: walked - on o2 3 liters Objective - Exam Narrative Exam: Pain - none now General appearance - awake Performance status limited self care - on o2 Eyes - no icterus ENT - no thrush LNs cervical not palpable Neck - no LN Respiratory Normal Breath sounds - CTA anteriorly CVS S1 S2 + Extremities no calf tenderness General GI Soft Rectal deferred male - deferred Skin warm Musculoskeletal moves limbs neuro - awake - Constitutional Vitals: Last Vital Signs Temp 98.0 F 07/28/19 07:14 Pulse 94 H 07/28/19 07:14 Resp 20 07/28/19 07:14 BP 129/83 07/28/19 07:14 Pulse Ox 96 07/28/19 07:47 - Labs Lab Results: Laboratory Results - last 24 hr 07/27/19 07/27/19 07/27/19 07:48 11:34 16:59 POC Glucose 113 H 174 H 114 H 07/27/19 07/28/19 22:31 07:31 POC Glucose 174 H 129 H Medications & Allergies - Medications Allergies/Adverse Reactions: Allergies No Known Allergies Allergy (Verified 07/19/19 14:55) Home Medications: Home Medications Medication Instructions Recorded Confirmed Last Taken Type ALBUTEROL Inhaler (OR & NICU) 2 puff IH QID PRN 07/19/19 07/19/19 07/18/19 History [Proair] Aspirin [Aspirin BABY CHEW TAB] 81 mg PO QDAY 07/19/19 07/19/19 07/18/19 History Carvedilol [Coreg] 3.125 mg PO BID 07/19/19 07/19/19 07/18/19 History Diclofenac EC [Voltaren] 25 mg PO QDAY 07/19/19 07/19/19 07/18/19 History Durvalumab [Imfinzi] 120 mg IV Q2W 07/19/19 07/19/19 07/18/19 History Lisinopril [Zestril TAB] 2.5 mg PO QDAY 07/19/19 07/19/19 07/18/19 History diazePAM [Diazepam] 10 mg PO QHS 07/19/19 07/19/19 07/18/19 History Active Medications: Generic Name Dose Route Start Last Admin Trade Name Freq PRN Reason Stop Dose Admin Albuterol 2.5 mg 07/19/19 18:28 Proventil IH Q3HRT PRN Shortness Of Breath Alprazolam 0.5 mg 07/22/19 11:24 07/26/19 15:34 Xanax PO 0.5 mg Q8H PRN Administration Anxiety Aspirin 81 mg 07/20/19 10:00 07/27/19 09:33 Baby Aspirin PO 81 mg QDAY ELI Administration Benzonatate 100 mg 07/19/19 23:45 07/28/19 05:32 Tessalon Perles PO 100 mg Q8HR ELI Administration Carvedilol 3.125 mg 07/21/19 11:00 07/27/19 22:00 Coreg PO 3.125 mg BID ELI Administration Dextrose 50 ml 07/25/19 12:47 D50w (25gm) Syringe IV Q30MIN PRN Hypoglycemia Diazepam 10 mg 07/19/19 22:00 07/27/19 21:54 Valium PO 10 mg HS ELI Administration Diclofenac Sodium 25 mg 07/20/19 10:00 07/27/19 09:31 Voltaren PO 25 mg QDAY ELI Administration Enoxaparin Sodium 40 mg 07/20/19 10:00 07/27/19 09:32 Lovenox SUB-Q 40 mg QDAY@1000 ELI Administration Hydrocodone Bit/Homatropine Methylb 10 ml 07/19/19 18:36 Hydromet PO Q6H PRN Cough Insulin Human Lispro 0 unit 07/25/19 16:30 07/28/19 07:48 Humalog SUB-Q Not Given ACHS [facility] Protocol Methylprednisolone Sodium Succinate 60 mg 07/26/19 22:00 07/27/19 21:53 Solu-Medrol IV 60 mg Q12HR ELI Administration Miscellaneous Medication 120 mg 07/19/19 18:30 Durvalumab [Imfinzi] IV Q2W ELI Sodium Chloride 10 ml 07/19/19 22:00 07/27/19 21:54 Sodium Chloride Flush Syringe 10 Ml IV 10 ml BID ELI Administration Sodium Chloride 10 ml 07/19/19 18:28 Sodium Chloride Flush Syringe 10 Ml IV PRN PRN LINE FLUSH
[2019-07-28] MEDS: ENOXAPARIN 40 MG/0.4 ML INJ SUB-Q SCH (09:30)
[2019-07-28] MEDS: CARVEDILOL 3.125 MG TAB PO SCH (09:30)
[2019-07-28] MEDS: ASPIRIN 81 MG TAB CHEW PO SCH (09:30)
[2019-07-28] MEDS: DICLOFENAC EC 25 MG TAB PO SCH (09:32)
[2019-07-28] MEDS ORDERED: predniSONE 20 MG TAB PO SCH (10:00)
--- NOTE | 2019-07-28 11:40 | Discharge Summary ---
Providers - Providers Date of Admission: 07/19/19 18:28 Attending physician: ODILIA SANTOS MD 07/20/19 09:35 Physical Therapy Evaluation and Treat [CONS] Routine Comment: Reason For Exam: weakness, debility 07/21/19 15:28 Consult to Physician [CONS] Routine Comment: Consulting Provider: PRATIMA DUVALL Physician Instructions: Reason For Exam: lung cancer, on immunotherapy 07/22/19 07:59 Consult to Physician [CONS] Routine Comment: ?reaction to immunotherapy Consulting Provider: ARTIE RAMON Physician Instructions: Reason For Exam: SOB, interstitial lung disease Primary care physician: [employer] Hospitalization Reason for admission: respiratory failure Condition: Stable Hospital course: 64 YO Male with Lung Cancer S/P Radiation, Currently undergoing Chemotherapy with Left Hemothorax, HTN, Anxiety presents to ED for evaluation. Pt states that he has experienced shortness of breath, cough, malaise, and fatigue over the past 3 days with persistently worsening symptoms over the same time frame. Pt was seen by his Oncologist and was found to have pulse oximetry in the 70's with exertion. Pt was subsequently sent to [facility] for further care and evaluation. Pt seen and evaluated in ED and found to have Acute Hypoxemic Respiratory Failure complicated by HCAP. Pt placed on supplemental oxygen and admitted to IMCU. * Clinically improved but will need home oxygen * Discussed with Pulmonary who assisted with management will leave patient on 60mg of prednisone till evaluated in the office. (1) Acute Respiratory failure with hypoxia secondary to COPD exacerbation and also likely due to pneumonitis from the Imfinzi. (2) NSCLC - clinically stage III - now Interstitial changes on Radiology.on immunotherapy with Imfinzi. Follow with oncologist outpatient (3) HCAP (healthcare-associated pneumonia) ruled out No evidence of Sepsis CTA chest negative for infiltrates Off antibiotics- Stopped on 07/24 (4) Essential HTN (hypertension) -stable (5) Mild cardiomyopathy- pER CARDIOLOGY LVEF 40-45% by echo done 05/2019 limited echo this admission shows evidence of right heart enlargement, pressure and volume overload. EF 40-45% No recent ischemic work-up Got a dose of lasix. No diagnosed hx of Heart failure Reflex sinus tachycardia cont coreg (6) Presumed Pneumonitis possible secondary to Infinzi. Continue to follow by pulmonary (7)Prediabetes with hba1c of 6.1 cont SSI and diet control Disposition: DC/[place]-06 HOME UNDER [facility] Time spent for discharge: 35 mins Core Measure Documentation - Palliative Care Palliative Care/ Comfort Measures: Not Applicable - Core Measures Any of the following diagnoses?: none Exam - Physical Exam Narrative exam: General appearance: Present: no acute distress, well-nourished, ambulated with physcial therapy and appears deconditioned - EENT Eyes: Present: PERRL, EOM intact ENT: hearing intact - Neck Neck: Present: supple - Respiratory Respiratory effort: normal Respiratory: bilateral: diminished (bibasilar lungs), Mild wheezing at base - Cardiovascular Rhythm: regular Heart Sounds: Present: S1 & S2 (rhythm with tachycardia) - Extremities Extremities: No edema - Abdominal General gastrointestinal: soft, non-tender, non-distended, normal bowel sounds - Integumentary Integumentary: Present: warm, dry - Psychiatric Psychiatric: appropriate mood/affect - Neurologic Neurologic: CNII-XII intact - Constitutional Vitals: Temp Pulse Resp BP Pulse Ox 98.0 F 97 H 20 117/87 96 07/28/19 07:14 07/28/19 10:00 07/28/19 07:14 07/28/19 09:30 07/28/19 07:47 Plan Activity: advance as tolerated, fall precautions Diet: low fat Special Instructions: record daily BP diary, home oxygen via (nasal cannula @ 2 liters per minute) Durable Medical Equipment Needed Upon Discharge: Oxygen Care Plan Goals: Improved pulmonary status Plan of Treatment: Continued steroid therapy and Home o2, while continuing to follow with Oncologist and Pulmonary Health Concerns: Worsening pulmonary status secondary to malignancy Assessment: Improved clinicall and functional status Follow up with: PRIMARY CAREMD [Primary Care Provider] - 3-5 Days DELMER SARABIA MD [Staff Physician] - 7 Days ARTIE RAMON MD [Staff Physician] - 08/03/19 Prescriptions: predniSONE [Deltasone] 60 mg PO QDAY #14 tablet ALBUTEROL Inhaler (OR & NICU) [ProAir HFA Inhaler] 2 puff IH QID PRN #1 PRN Reason: Shortness Of Breath Benzonatate [Tessalon Perles] 100 mg PO Q8HR #14 capsule
--- NOTE | 2019-07-28 12:41 | Progress Note ---
Assessment and Plan 64 y/o male with acute respiratory failure secondary to underlying COPD exacerbation from chemotherapy per Oncology note. 1. Agree with Discharge today. 2. Discharge on Prednisone 60 daily, will wean further as outpatient 3. Patient can follow up with me in the office and will call Dr. Dolan to ask about weaning steroids with this pneumonitis secondary to Imfinzi (durvalumab) Subjective Date of service: 07/28/19 Principal diagnosis: lung ca Interval history: Stable today. Walked and does not require oxygen. Objective Vital Signs - 12hr 07/28/19 07/28/19 07/28/19 02:16 07:14 07:47 Temperature 98.3 F 98.0 F Pulse Rate 94 H Respiratory 20 20 Rate Blood Pressure 112/79 129/83 O2 Sat by Pulse 94 96 Oximetry 07/28/19 07/28/19 09:30 10:00 Temperature Pulse Rate 104 H 97 H Respiratory Rate Blood Pressure 117/87 O2 Sat by Pulse Oximetry Constitutional: alert, appears uncomfortable Eyes: non-icteric ENT: oropharynx moist Neck: supple Effort: very labored Ascultation: Bilateral: rales, rhonchi Percussion: Bilateral: not dull Tactile fremitus: Bilateral: normal Cardiovascular: other (sinus tachycardia) Gastrointestinal: soft Extremities: no edema Neurologic: normal mental status, non-focal exam CBC and BMP: 07/23/19 09:17 07/24/19 12:15 ABG, PT/INR, D-dimer: ABG POC ABG pH 7.432 (7.35-7.45) 07/19/19 15:58 POC ABG pCO2 34.3 (35-45) L 07/19/19 15:58 POC ABG pO2 67 (80-105) L 07/19/19 15:58 POC ABG HCO3 22.9 (22-26 mml/L) 07/19/19 15:58 POC ABG Total CO2 24 (23-27mmol/L) 07/19/19 15:58 POC ABG O2 Sat 94 07/19/19 15:58 PT/INR, D-dimer PT 13.9 Sec. (12.2-14.9) 07/19/19 15:02 INR 1.10 (0.87-1.13) 07/19/19 15:02 D-Dimer 916.71 ng/mlDDU (0-234) H 07/19/19 15:02 Abnormal lab findings: Abnormal Labs 07/19/19 07/19/19 07/19/19 15:02 15:02 15:02 Hgb Hct RDW 15.3 H Lymph % (Auto) Sunflower % (Auto) 11.0 H Lymph # 1.0 L Seg Neutrophils % 72.9 H Seg Neuts % (Manual) Lymphocytes % (Manual) Lymphocytes # (Manual) D-Dimer 916.71 H POC ABG pCO2 POC ABG pO2 Carbon Dioxide BUN Creatinine Glucose 107 H POC Glucose Hemoglobin A1c Lactic Acid Albumin 3.7 L 07/19/19 07/19/19 07/21/19 15:58 19:30 04:23 Hgb 11.5 L Hct 34.6 L RDW Lymph % (Auto) 13.0 L Sunflower % (Auto) 10.5 H Lymph # 0.9 L Seg Neutrophils % 75.8 H Seg Neuts % (Manual) Lymphocytes % (Manual) Lymphocytes # (Manual) D-Dimer POC ABG pCO2 34.3 L POC ABG pO2 67 L Carbon Dioxide BUN Creatinine Glucose POC Glucose Hemoglobin A1c Lactic Acid 2.40 H* Albumin 07/21/19 07/22/19 07/22/19 04:23 03:44 19:21 Hgb Hct RDW Lymph % (Auto) [place]flower % (Auto) Lymph # Seg Neutrophils % Seg Neuts % (Manual) Lymphocytes % (Manual) Lymphocytes # (Manual) D-Dimer POC ABG pCO2 POC ABG pO2 Carbon Dioxide 21 L BUN Creatinine Glucose 108 H 129 H POC Glucose 314 H Hemoglobin A1c Lactic Acid Albumin 07/23/19 07/23/19 07/23/19 01:02 06:33 09:17 Hgb Hct RDW 15.3 H Lymph % (Auto) [place]flower % (Auto) Lymph # Seg Neutrophils % Seg Neuts % (Manual) 86.0 H Lymphocytes % (Manual) 9.0 L Lymphocytes # (Manual) 0.8 L D-Dimer POC ABG pCO2 POC ABG pO2 Carbon Dioxide BUN Creatinine Glucose POC Glucose 120 H 152 H Hemoglobin A1c Lactic Acid Albumin 07/23/19 07/23/19 07/23/19 09:17 12:41 18:42 Hgb Hct RDW Lymph % (Auto) [place]flower % (Auto) Lymph # Seg Neutrophils % Seg Neuts % (Manual) Lymphocytes % (Manual) Lymphocytes # (Manual) D-Dimer POC ABG pCO2 POC ABG pO2 Carbon Dioxide 21 L BUN 21 H Creatinine Glucose 181 H POC Glucose 185 H 198 H Hemoglobin A1c Lactic Acid Albumin 07/24/19 07/24/19 07/24/19 00:24 06:02 11:31 Hgb Hct RDW Lymph % (Auto) [place]flower % (Auto) Lymph # Seg Neutrophils % Seg Neuts % (Manual) Lymphocytes % (Manual) Lymphocytes # (Manual) D-Dimer POC ABG pCO2 POC ABG pO2 Carbon Dioxide BUN Creatinine Glucose POC Glucose 179 H 150 H 225 H Hemoglobin A1c Lactic Acid Albumin 07/24/19 07/24/19 07/24/19 12:15 18:32 23:54 Hgb Hct RDW Lymph % (Auto) [place]flower % (Auto) Lymph # Seg Neutrophils % Seg Neuts % (Manual) Lymphocytes % (Manual) Lymphocytes # (Manual) D-Dimer POC ABG pCO2 POC ABG pO2 Carbon Dioxide BUN 24 H Creatinine 0.7 L Glucose 201 H POC Glucose 251 H 215 H Hemoglobin A1c Lactic Acid Albumin 07/25/19 07/25/19 07/25/19 06:40 12:18 16:37 Hgb Hct RDW Lymph % (Auto) [place] % (Auto) Lymph # Seg Neutrophils % Seg Neuts % (Manual) Lymphocytes % (Manual) Lymphocytes # (Manual) D-Dimer POC ABG pCO2 POC ABG pO2 Carbon Dioxide BUN Creatinine Glucose POC Glucose 148 H 225 H 166 H Hemoglobin A1c Lactic Acid Albumin 07/25/19 07/26/19 07/26/19 21:46 04:03 08:33 Hgb Hct RDW Lymph % (Auto) [place]flower % (Auto) Lymph # Seg Neutrophils % Seg Neuts % (Manual) Lymphocytes % (Manual) Lymphocytes # (Manual) D-Dimer POC ABG pCO2 POC ABG pO2 Carbon Dioxide BUN Creatinine Glucose POC Glucose 332 H 144 H Hemoglobin A1c 6.1 H Lactic Acid Albumin 07/26/19 07/26/19 07/26/19 11:32 17:32 21:12 Hgb Hct RDW Lymph % (Auto) Sunflower % (Auto) Lymph # Seg Neutrophils % Seg Neuts % (Manual) Lymphocytes % (Manual) Lymphocytes # (Manual) D-Dimer POC ABG pCO2 POC ABG pO2 Carbon Dioxide BUN Creatinine Glucose POC Glucose 242 H 122 H 123 H Hemoglobin A1c Lactic Acid Albumin 07/27/19 07/27/19 07/27/19 07:48 11:34 16:59 Hgb Hct RDW Lymph % (Auto) Sunflower % (Auto) Lymph # Seg Neutrophils % Seg Neuts % (Manual) Lymphocytes % (Manual) Lymphocytes # (Manual) D-Dimer POC ABG pCO2 POC ABG pO2 Carbon Dioxide BUN Creatinine Glucose POC Glucose 113 H 174 H 114 H Hemoglobin A1c Lactic Acid Albumin 07/27/19 07/28/19 07/28/19 22:31 07:31 11:18 Hgb Hct RDW Lymph % (Auto) Sunflower % (Auto) Lymph # Seg Neutrophils % Seg Neuts % (Manual) Lymphocytes % (Manual) Lymphocytes # (Manual) D-Dimer POC ABG pCO2 POC ABG pO2 Carbon Dioxide BUN Creatinine Glucose POC Glucose 174 H 129 H 121 H Hemoglobin A1c Lactic Acid Albumin
[2019-07-28 14:22] VITALS: BP 128/86
== END 2019-07-28 17:25 | disposition home or self-care (01) | DRG 205 ==
LOC: ED 13:18 → IMCU 18:28 → 2B-ACE 07-26 10:20
PROVIDERS: ADMIT Internal Medicine; ATTEND Internal Medicine
PROC: 4A033R1 Measurement of Arterial Saturation, Peripheral, Percutaneous Approach (ICD-10-PCS; principal; 2019-07-19)
PROC: 5A09357 Assistance with Respiratory Ventilation, Less than 24 Consecutive Hours, Continuous Positive Airway Pressure (ICD-10-PCS; 2019-07-21)
PROC: 5A09357 Assistance with Respiratory Ventilation, Less than 24 Consecutive Hours, Continuous Positive Airway Pressure (ICD-10-PCS; 2019-07-22)
PROC: 5A09357 Assistance with Respiratory Ventilation, Less than 24 Consecutive Hours, Continuous Positive Airway Pressure (ICD-10-PCS; 2019-07-23)
PROC: 5A09357 Assistance with Respiratory Ventilation, Less than 24 Consecutive Hours, Continuous Positive Airway Pressure (ICD-10-PCS; 2019-07-24)
PROC: 5A09357 Assistance with Respiratory Ventilation, Less than 24 Consecutive Hours, Continuous Positive Airway Pressure (ICD-10-PCS; 2019-07-25)
DX: J70.4 Drug-induced interstitial lung disorders, unspecified (principal); J96.01 Acute respiratory failure with hypoxia; C34.90 Malignant neoplasm of unspecified part of unspecified bronchus or lung; J44.1 Chronic obstructive pulmonary disease with (acute) exacerbation; I42.9 Cardiomyopathy, unspecified; J70.0 Acute pulmonary manifestations due to radiation; T45.1X5A Adverse effect of antineoplastic and immunosuppressive drugs, initial encounter; I10 Essential (primary) hypertension; F41.9 Anxiety disorder, unspecified; R00.0 Tachycardia, unspecified; E11.65 Type 2 diabetes mellitus with hyperglycemia; Z79.82 Long term (current) use of aspirin; Z79.899 Other long term (current) drug therapy; Y92.89 Other specified places as the place of occurrence of the external cause
CPT/HCPCS: 36415; 71045; 71275; 80048; 80053; 81001; 82140; 82550; 82803; 82962; 83036; 83735; 84484; 85007; 85025; 85379; 85610; 85730; 87040; 87086; 93005; 93010; 93308; 93321; 93325; 94644; 94660; 94760; 96374; G0378; J0692; J1650; J1815; J1940; J1956; J2930; J3370; J7030; J7040; J7512; Q9967

== ENCOUNTER 2019-08-07 17:06 | Inpatient (IN) | payer BC, MEDICARE ==
[2019-08-07] MEDS ORDERED: ALBUTEROL 2.5 MG/3 ML NEBU IH ONE ×2 (17:10→17:14)
[2019-08-07] MEDS ORDERED: ONDANSETRON 4 MG/2 ML INJ IV ONE (17:10)
[2019-08-07] MEDS ORDERED: dexAMETHasone 20 MG/5 ML VIAL IV ONE (17:10)
[2019-08-07] MEDS ORDERED: LORazepam 2 MG/ML VIAL IV ONE (17:10)
[2019-08-07] MEDS ORDERED: IPRATROPIUM 0.02% NEBU 2.5 ML IH ONE (17:14)
[2019-08-07] MEDS: IPRATROPIUM 0.02% NEBU 2.5 ML IH ONE ×2 (17:22→17:29)
--- NOTE | 2019-08-07 17:50 | XRay Report ---
CHEST 1 VIEW INDICATION / CLINICAL INFORMATION: respiratory distress. COMPARISON: None available. FINDINGS: SUPPORT DEVICES: Port terminates at the SVC/right atrial junction. HEART / MEDIASTINUM: No significant abnormality. LUNGS / PLEURA: Severe bilateral interstitial disease with patchy airspace density within the lower l ungs bilaterally, left worse than right. Signer Name: Ki Cortez MD Signed: 08/07/2019 5:46 PM Workstation Name: [id number]
[2019-08-07 18:02] LABS: INR 1.3 (0.87-1.13)
[2019-08-07 18:03] LABS: Hematocrit 41.8 % (35.5-45.6); Hemoglobin 13.6 gm/dl (11.8-15.2); Mean Corpuscular HGB Conc 33 % (32-34); Mean Corpuscular Volume 87 fl (84-94); Partial Thromboplastin Time 28.5 Sec. (24.2-36.6); Platelet Count 153 K/mm3 (140-440); Red Blood Count 4.83 M/mm3 (3.65-5.03); Red Cell Distribution Width 16.5 % (13.2-15.2)
[2019-08-07 18:09] LABS: Alanine Aminotransferase 17 units/L (7-56); Albumin 2.8 g/dL (3.9-5); BUN/Creatinine Ratio 20; Blood Urea Nitrogen 18 mg/dL (9-20); Calcium 8.4 mg/dL (8.4-10.2); Hemolysis Index 12
[2019-08-07] MEDS ORDERED: FUROSEMIDE 40 MG/4 ML INJ IV ONE (18:29)
--- NOTE | 2019-08-07 18:41 | Emergency Department Report ---
ED Shortness of Breath HPI - General Chief Complaint: Dyspnea/Respdistress Stated Complaint: SAVANA Time Seen by Provider: 08/07/19 17:10 Source: patient, EMS Mode of arrival: Stretcher Limitations: No Limitations - History of Present Illness Initial Comments: Patient is a 64-year-old male with a past medical history of lung cancer who is status post radiation is currently on chemotherapy as well as COPD and congestive heart failure with ejection fraction of 40% who is presenting with acute onset shortness of breath. Patient became more short of breath today at home. Patient has had a mild cough as well. Patient is called 911 and upon supervisor abattoir arrival patient's O2 sats were in the low 80s even with 15 L of nonrebreather. Patient is denying any chest pain at this time. Patient denies fevers chills nausea vomiting. - Related Data Home Medications Medication Instructions Recorded Confirmed Last Taken Aspirin [Aspirin BABY CHEW TAB] 81 mg PO QDAY 07/19/19 07/19/19 07/18/19 Carvedilol [Coreg] 3.125 mg PO BID 07/19/19 07/19/19 07/18/19 Diclofenac EC [Voltaren] 25 mg PO QDAY 07/19/19 07/19/19 07/18/19 Durvalumab [Imfinzi] 120 mg IV Q2W 07/19/19 07/19/19 07/18/19 diazePAM [Diazepam] 10 mg PO QHS 07/19/19 07/19/19 07/18/19 Previous Rx's Medication Instructions Recorded Last Taken Type ALBUTEROL Inhaler (OR & NICU) 2 puff IH QID PRN #1 07/28/19 Unknown Rx [ProAir HFA Inhaler] Benzonatate [Tessalon Perles] 100 mg PO Q8HR #14 capsule 07/28/19 Unknown Rx predniSONE [Deltasone] 60 mg PO QDAY #14 tablet 07/28/19 Unknown Rx Allergies Allergy/AdvReac Type Severity Reaction Status Date / Time No Known Allergies Allergy Verified 07/19/19 14:55 ED Review of Systems ROS: Stated complaint: SAVANA Other details as noted in HPI Comment: All other systems reviewed and negative ED Past Medical Hx - Past Medical History Hx Hypertension: Yes Hx COPD: Yes Additional medical history: Lung CA - Surgical History Past Surgical History?: No Additional Surgical History: Port placement. Cervical fusion - Social History Smoking Status: Former Smoker Substance Use Type: None - Medications Home Medications: Home Medications Medication Instructions Recorded Confirmed Last Taken Type Aspirin [Aspirin BABY CHEW TAB] 81 mg PO QDAY 07/19/19 07/19/19 07/18/19 History Carvedilol [Coreg] 3.125 mg PO BID 07/19/19 07/19/19 07/18/19 History Diclofenac EC [Voltaren] 25 mg PO QDAY 07/19/19 07/19/19 07/18/19 History Durvalumab [Imfinzi] 120 mg IV Q2W 07/19/19 07/19/19 07/18/19 History diazePAM [Diazepam] 10 mg PO QHS 07/19/19 07/19/19 07/18/19 History ALBUTEROL Inhaler (OR & NICU) 2 puff IH QID PRN #1 07/28/19 Unknown Rx [ProAir HFA Inhaler] Benzonatate [Tessalon Perles] 100 mg PO Q8HR #14 capsule 07/28/19 Unknown Rx predniSONE [Deltasone] 60 mg PO QDAY #14 tablet 07/28/19 Unknown Rx ED Physical Exam - General Limitations: No Limitations General appearance: alert, in distress - Head Head exam: Present: atraumatic, normocephalic - Eye Eye exam: Present: normal appearance, PERRL, EOMI - ENT ENT exam: Present: mucous membranes moist - Neck Neck exam: Present: normal inspection. Absent: tenderness, meningismus - Respiratory Respiratory exam: Present: respiratory distress, wheezes, rales, rhonchi. Absent: normal lung sounds bilaterally - Cardiovascular Cardiovascular Exam: Present: regular rate, tachycardia. Absent: systolic murmur, diastolic murmur, rubs, gallop - GI/Abdominal GI/Abdominal exam: Present: soft, normal bowel sounds. Absent: distended, tenderness, guarding - Rectal Rectal exam: Present: deferred - Extremities Exam Extremities exam: Present: normal inspection - Back Exam Back exam: Present: normal inspection - Neurological Exam Neurological exam: Present: alert, oriented X3 - Psychiatric Psychiatric exam: Present: normal affect, normal mood - Skin Skin exam: Present: warm, dry, intact, normal color. Absent: rash ED Course Vital Signs 08/07/19 08/07/19 17:08 17:22 Pulse Rate 133 H Pulse Rate [ 137 H Anterior Bilateral Throughout] Pulse Rate [ 133 H Anterior Right Throughout] Respiratory 45 H Rate Respiratory 38 H Rate [Anterior Bilateral Throughout] Respiratory 45 H Rate [Anterior Right Throughout] Blood Pressure 140/92 O2 Sat by Pulse 92 Oximetry ED Medical Decision Making - Lab Data Result diagrams: 08/07/19 17:29 08/07/19 17:29 Lab Results 08/07/19 08/07/19 08/07/19 Range/Units 17:29 17:29 17:29 WBC 17.1 H (4.5-11.0) K/mm3 RBC 4.83 (3.65-5.03) M/mm3 Hgb 13.6 (11.8-15.2) gm/dl Hct 41.8 (35.5-45.6) % MCV 87 (84-94) fl MCH 28 (28-32) pg MCHC 33 (32-34) % RDW 16.5 H (13.2-15.2) % Plt Count 153 (140-440) K/mm3 Lymph % (Auto) Veneer Supervisor [place] % (Auto) Veneer Supervisor Eos % (Auto) Veneer Supervisor Baso % (Auto) Veneer Supervisor Lymph # Veneer Supervisor [place] # Veneer Supervisor Eos # Veneer Supervisor Baso # Veneer Supervisor Seg Neutrophils % Veneer Supervisor Seg Neutrophils # Veneer Supervisor PT 16.0 H (12.2-14.9) Sec. INR 1.30 H (0.87-1.13) APTT 28.5 (24.2-36.6) Sec. POC ABG pH (7.35-7.45) POC ABG pCO2 (35-45) POC ABG pO2 (80-105) POC ABG HCO3 (22-26 mml/L) POC ABG Total CO2 (23-27mmol/L) POC ABG O2 Sat POC ABG Base Excess ((-2) - (+3)mmol/L) FiO2 % Sodium 137 (137-145) mmol/L Potassium 4.1 (3.6-5.0) mmol/L Chloride 98.6 (98-107) mmol/L Carbon Dioxide 24 (22-30) mmol/L Anion Gap 19 mmol/L BUN 18 (9-20) mg/dL Creatinine 0.9 (0.8-1.5) mg/dL Estimated GFR > 60 ml/min BUN/Creatinine Ratio 20 % Glucose 213 H (75-100) mg/dL Calcium 8.4 (8.4-10.2) mg/dL Total Bilirubin 0.70 (0.1-1.2) mg/dL AST 18 (5-40) units/L ALT 17 (7-56) units/L Alkaline Phosphatase 81 (35-129) units/L Troponin T 0.013 (0.00-0.029) ng/mL NT-Pro-B Natriuret Pep 4527 H (0-900) pg/mL Total Protein 7.0 (6.3-8.2) g/dL Albumin 2.8 L (3.9-5) g/dL Albumin/Globulin Ratio 0.7 % 08/07/19 Range/Units 18:38 WBC (4.5-11.0) K/mm3 RBC (3.65-5.03) M/mm3 Hgb (11.8-15.2) gm/dl Hct (35.5-45.6) % MCV (84-94) fl MCH (28-32) pg MCHC (32-34) % RDW (13.2-15.2) % Plt Count (140-440) K/mm3 Lymph % (Auto) [place] % (Auto) Eos % (Auto) Baso % (Auto) Lymph # [place] # Eos # Baso # Seg Neutrophils % Seg Neutrophils # PT (12.2-14.9) Sec. INR (0.87-1.13) APTT (24.2-36.6) Sec. POC ABG pH 7.415 (7.35-7.45) POC ABG pCO2 45.1 H (35-45) POC ABG pO2 89 (80-105) POC ABG HCO3 28.9 (22-26 mml/L) POC ABG Total CO2 30 (23-27mmol/L) POC ABG O2 Sat 97 POC ABG Base Excess 4 ((-2) - (+3)mmol/L) FiO2 60 % Sodium (137-145) mmol/L Potassium (3.6-5.0) mmol/L Chloride (98-107) mmol/L Carbon Dioxide (22-30) mmol/L Anion Gap mmol/L BUN (9-20) mg/dL Creatinine (0.8-1.5) mg/dL Estimated GFR ml/min BUN/Creatinine Ratio % Glucose (75-100) mg/dL Calcium (8.4-10.2) mg/dL Total Bilirubin (0.1-1.2) mg/dL AST (5-40) units/L ALT (7-56) units/L Alkaline Phosphatase (35-129) units/L Troponin T (0.00-0.029) ng/mL NT-Pro-B Natriuret Pep (0-900) pg/mL Total Protein (6.3-8.2) g/dL Albumin (3.9-5) g/dL Albumin/Globulin Ratio % - Radiology Data CHEST 1 VIEW INDICATION / CLINICAL INFORMATION: respiratory distress. COMPARISON: None available. FINDINGS: SUPPORT DEVICES: Port terminates at the SVC/right atrial junction. HEART / MEDIASTINUM: No significant abnormality. LUNGS / PLEURA: Severe bilateral interstitial disease with patchy airspace density within the lower lungs bilaterally, left worse than right. Signer Name: Ki Coretz MD Signed: 08/07/2019 5:46 PM Workstation Name: [id number] - Medical Decision Making Patient is a 64-year-old admitted male who has a past medical history of lung cancer who is currently on chemotherapy as well as COPD as CHF who is presenting with respiratory distress. Patient was hypoxic prior to arrival. Patient was started on BiPAP. The patient's respiratory rate was elevated secondary to likely anxiety and his hypoxia. BiPAP did help with the patient's hypoxia and the patient states he is breathing slightly better but he states he was also still very nervous and is worried that he was actively dying. Patient was given low-dose of Ativan was also help with the anxiety symptoms. Patient's BMP was elevated the patient was started on Lasix. Patient had wheeze and Rales clinically on arrival. Patient given neb treatment and Lasix. Patient be admitted to the hospitalist service for further care. Critical Care Time: Yes (40) Critical care attestation.: If time is entered above; I have spent that time in minutes in the direct care of this critically ill patient, excluding procedure time. ED Disposition Clinical Impression: Hypoxia, HCAP (healthcare-associated pneumonia) Lung cancer Qualifiers: Laterality: unspecified laterality Congestive heart failure (CHF) Qualifiers: Heart failure type: unspecified Heart failure chronicity: acute on chronic Qualified Code(s): I50.9 - Heart failure, unspecified Disposition: DC-09 OP ADMIT IP TO THIS HOSP Is pt being admited?: Yes Does the pt Need Aspirin: No Condition: Stable Instructions: Bacterial Pneumonia (ED) Time of Disposition: 18:43
--- NOTE | 2019-08-07 18:41 | History and Physical Report ---
History of Present Illness Chief complaint: I'm coughing, and i'm having problems breathing History of present illness: 64 YO Male with Lung Cancer S/P Radiation, Currently undergoing Chemotherapy with Left Hemothorax, HTN, Anxiety presents to ED for evaluation. Pt states that he has experienced shortness of breath, cough, malaise, and fatigue over the past 3 days with persistently worsening symptoms over the same time frame. EMS notified, and upon arrival the patient was found to be in distress and transported to [facility] for further care and evaluation. Pt seen and evaluated in ED and found to have Acute Hypoxemic Respiratory Failure with pulse oximetry in the 80's complicated by HCAP, as well as sepsis. Pt placed on supplemental oxygen without significant improvement and was then placed on NIPPV. Pt initiated on Sepsis protocol and admitted to [facility]. Prior admission on 07/19/19 reviewed. All listed medication reconciled at time of admission. Advanced care planning conducted in ED. Past History Past Medical History: other (see hpi) Past Surgical History: Other (Cervical Fusion, Port Placement) Social history: , lives with family. denies: smoking, alcohol abuse Family history: hypertension Medications and Allergies Allergies Allergy/AdvReac Type Severity Reaction Status Date / Time No Known Allergies Allergy Verified 07/19/19 14:55 Home Medications Medication Instructions Recorded Confirmed Last Taken Type Aspirin [Aspirin BABY CHEW TAB] 81 mg PO QDAY 07/19/19 07/19/19 07/18/19 History Carvedilol [Coreg] 3.125 mg PO BID 07/19/19 07/19/19 07/18/19 History Diclofenac EC [Voltaren] 25 mg PO QDAY 07/19/19 07/19/19 07/18/19 History Durvalumab [Imfinzi] 120 mg IV Q2W 07/19/19 07/19/19 07/18/19 History diazePAM [Diazepam] 10 mg PO QHS 07/19/19 07/19/19 07/18/19 History ALBUTEROL Inhaler (OR & NICU) 2 puff IH QID PRN #1 07/28/19 Unknown Rx [ProAir HFA Inhaler] Benzonatate [Tessalon Perles] 100 mg PO Q8HR #14 capsule 07/28/19 Unknown Rx predniSONE [Deltasone] 60 mg PO QDAY #14 tablet 07/28/19 Unknown Rx Active Meds: Active Medications Vancomycin HCl 1,500 mg/ (Sodium Chloride) 530 mls @ 333 mls/hr IV ONCE ONE; Protocol Stop: 08/07/19 20:08 Cefepime HCl (Cefepime/Ns 2 Gm/100 Ml) 2 gm in 100 mls @ 200 mls/hr IV Q8HR [facility]; Protocol Review of Systems Constitutional: weakness, no weight loss, no weight gain, no fever Ears, nose, mouth and throat: no ear pain, no ear discharge, no tinnitis, no decreased hearing, no nose pain Cardiovascular: no chest pain, no orthopnea, no palpitations, no rapid/irregular heart beat, no edema Respiratory: cough, cough with sputum, shortness of breath Gastrointestinal: no nausea, no diarrhea, no constipation, no change in bowel habits Genitourinary Male: no hematuria, no flank pain, no discharge, no urinary frequency, no urinary hesitancy Rectal: no pain, no incontinence, no bleeding Musculoskeletal: no neck stiffness, no neck pain, no shooting arm pain, no arm numbness/tingling, no shooting leg pain Integumentary: no rash, no pruritis, no sores Neurological: no head injury, no transient paralysis, no paralysis, no parathesias Psychiatric: no anxiety, no memory loss, no sleep disturbances, no insomnia, no hypersomnia, no change in appetite Endocrine: no cold intolerance, no heat intolerance, no polyphagia Hematologic/Lymphatic: no easy bruising, no easy bleeding, no lymphadenopathy Allergic/Immunologic: no allergic rhinitis, no persistent infections, no anaphylaxis Exam - Constitutional Vitals: Temp Pulse Resp BP Pulse Ox 134 H 43 H 110/80 96 08/07/19 18:35 08/07/19 18:35 08/07/19 18:35 08/07/19 18:35 General appearance: Present: mild distress - EENT Eyes: Present: PERRL ENT: hearing intact, clear oral mucosa - Neck Neck: Present: supple, normal ROM - Respiratory Respiratory effort: normal Respiratory: bilateral: CTA - Cardiovascular Heart Sounds: Present: S1 & S2. Absent: rub, click - Extremities Extremities: pulses symmetrical, No edema Peripheral Pulses: within normal limits - Abdominal General gastrointestinal: Present: soft, non-tender, non-distended, normal bowel sounds Male genitourinary: Present: normal - Integumentary Integumentary: Present: clear, warm, dry - Musculoskeletal Musculoskeletal: gait normal, strength equal bilaterally - Psychiatric Psychiatric: appropriate mood/affect, intact judgment & insight - Neurologic Neurologic: CNII-XII intact, moves all extremities Results - Labs CBC & Chem 7: 08/07/19 17:29 08/07/19 17:29 Labs: Abnormal lab results 08/07/19 08/07/19 08/07/19 Range/Units 17:29 17:29 17:29 WBC 17.1 H (4.5-11.0) K/mm3 RDW 16.5 H (13.2-15.2) % PT 16.0 H (12.2-14.9) Sec. INR 1.30 H (0.87-1.13) POC ABG pCO2 (35-45) Glucose 213 H (75-100) mg/dL NT-Pro-B Natriuret Pep 4527 H (0-900) pg/mL Albumin 2.8 L (3.9-5) g/dL 08/07/19 Range/Units 18:38 WBC (4.5-11.0) K/mm3 RDW (13.2-15.2) % PT (12.2-14.9) Sec. INR (0.87-1.13) POC ABG pCO2 45.1 H (35-45) Glucose (75-100) mg/dL NT-Pro-B Natriuret Pep (0-900) pg/mL Albumin (3.9-5) g/dL Assessment and Plan - Patient Problems (1) Sepsis Current Visit: Yes Status: Acute Qualifiers: Sepsis acute organ dysfunction status: unspecified Plan to address problem: Sepsis protocol: IV antibiotic therapy, IVF resuscitation therapy, serial lactic acid, blood cultures, chest x ray, urinalysis, CBC, CMP, (2) Lung cancer Current Visit: Yes Status: Acute Qualifiers: Laterality: left Plan to address problem: Outpatient Oncology F/U care. (3) HCAP (healthcare-associated pneumonia) Current Visit: Yes Status: Acute Plan to address problem: Pneumonia protocol: IV antibiotic therapy, chest x ray, pulse oximetry, nebulizer therapy, CBc, CMP, blood cultures (4) Respiratory failure Current Visit: No Status: Acute Qualifiers: Chronicity: acute Respiratory failure complication: hypoxia Qualified Code(s): J96.01 - Acute respiratory failure with hypoxia Plan to address problem: Chest x ray, NIPPV, pulse oximetry, supportive care. (5) Advance care planning Current Visit: Yes Status: Acute Plan to address problem: +30 min. Pt is full code. Prognosis discussed with patient and family. Pt and family acknowledge understanding prognosis, and understand and agree with treatment plan. (6) DVT prophylaxis Current Visit: Yes Status: Acute Plan to address problem: SCD to BLE while in bed, prophylactic lovenox
[2019-08-07] MEDS ORDERED: ACETAMINOPHEN 325 MG TAB PO PRN (18:52)
[2019-08-07] MEDS ORDERED: ONDANSETRON 4 MG/2 ML INJ IV PRN (18:52)
[2019-08-07] MEDS ORDERED: SODIUM CHLORIDE 0.9% 1000 ML IV SOLN IV ONE (18:52)
[2019-08-07 18:57] LABS: Basophils % (Manual) 0 % (0.0-1.8); RBC Morphology Normal; Total Cells Counted 100
[2019-08-07] MEDS ORDERED: VANCOMYCIN PHARMACY TO DOSE IV SCH (19:00)
[2019-08-07] MEDS: CEFEPIME/NS 2 GM/100 ML 2 GM/100 ML BAG IV SCH ×2 (19:20→23:08)
[2019-08-07] MEDS ORDERED: VANCOMYCIN 1,500 MG in SODIUM CHLORIDE 0.9% 500 ML 500 ML IV ONE (19:30)
[2019-08-08 04:12] LABS: Hematocrit 37.9 % (35.5-45.6); Hemoglobin 12.3 gm/dl (11.8-15.2); Mean Corpuscular HGB Conc 33 % (32-34); Mean Corpuscular Volume 87 fl (84-94); Red Blood Count 4.34 M/mm3 (3.65-5.03); Red Cell Distribution Width 16.9 % (13.2-15.2)
[2019-08-08 04:37] LABS: Alanine Aminotransferase 15 units/L (7-56); Albumin 2.6 g/dL (3.9-5); BUN/Creatinine Ratio 24; Blood Urea Nitrogen 17 mg/dL (9-20); Calcium 8.3 mg/dL (8.4-10.2); Hemolysis Index 33
[2019-08-08 05:07] LABS: Basophils % (Manual) 0 % (0.0-1.8); Total Cells Counted 100
[2019-08-08 05:08] LABS: Anisocytosis Few; Macrocytosis Rare; Platelet Estimate Consistent w Auto
[2019-08-08 05:20] LABS: Platelet Count 122 K/mm3 (140-440)
[2019-08-08] MEDS: CEFEPIME/NS 2 GM/100 ML 2 GM/100 ML BAG IV SCH ×3 (05:39→22:29)
--- NOTE | 2019-08-08 08:52 | Progress Note ---
Assessment and Plan Assessment and plan: 64-year-old male patient with lung cancer status post radiation undergoing chemotherapy with lifting with his chemotherapy next hypertension was admitted through emergency room with worsening shortness of breath cough and fatigue. Patient is being treated for healthcare associated pneumonia on IV antibiotics., Patient feels slightly better today --General anxiety: Current Visit: Yes Status: Acute Low-dose Xanax when necessary, if no improvement Psych evaluation as needed -- Sepsis; Current Visit: Yes Status: Acute Sepsis protocol: IV antibiotic therapy, IVF resuscitation therapy, serial lactic acid, blood cultures, chest x ray, urinalysis, CBC, CMP, --Lung cancer Current Visit: Yes Status: Acute Outpatient Oncology F/U care. --HCAP (healthcare-associated pneumonia) Current Visit: Yes Status: Acute Pneumonia protocol: IV antibiotic therapy, chest x ray, pulse oximetry, nebulizer therapy, CBc, CMP, blood cultures --Respiratory failure: Current Visit: No Status: Acute Chest x ray, NIPPV, pulse oximetry, supportive care. --Advance care planning Current Visit: Yes Status: Acute +30 min. Pt is full code. Prognosis discussed with patient and family. Pt and family acknowledge understanding prognosis, and understand and agree with treatment plan. -- DVT prophylaxis Current Visit: Yes Status: Acute : SCD to BLE while in bed, prophylactic lovenox Monitor clinically and adjust the management as needed Plan of care is reviewed with the patient and the daughter at the bedside as well as the nurse History Interval history: Patient seen and examined medical records reviewed Admitted with worsening shortness of breath Recently discharged from the hospital Patient has cough condition Vital signs reviewed Hospitalist Physical - Constitutional Vitals: Temp Pulse Resp BP Pulse Ox 96.1 F L 103 H 18 107/69 92 08/08/19 07:25 08/08/19 07:25 08/08/19 07:25 08/08/19 07:25 08/08/19 07:25 General appearance: Present: mild distress - EENT Eyes: Present: PERRL, EOM intact, irregular pupil ENT: hearing intact - Respiratory Respiratory: bilateral: diminished, rales, negative: wheezing - Cardiovascular Rhythm: regular Heart Sounds: Present: S1 & S2 - Extremities Extremities: no ischemia, No edema - Abdominal General gastrointestinal: soft, non-tender, non-distended, normal bowel sounds - Integumentary Integumentary: Present: clear, warm - Psychiatric Psychiatric: appropriate mood/affect, cooperative - Neurologic Neurologic: moves all extremities Results - Labs CBC & Chem 7: 08/08/19 03:53 08/08/19 03:53 Labs: Laboratory Last Values WBC 10.5 K/mm3 (4.5-11.0) 08/08/19 03:53 RBC 4.34 M/mm3 (3.65-5.03) 08/08/19 03:53 Hgb 12.3 gm/dl (11.8-15.2) 08/08/19 03:53 Hct 37.9 % (35.5-45.6) 08/08/19 03:53 MCV 87 fl (84-94) 08/08/19 03:53 MCH 28 pg (28-32) 08/08/19 03:53 MCHC 33 % (32-34) 08/08/19 03:53 RDW 16.9 % (13.2-15.2) H 08/08/19 03:53 Plt Count 122 K/mm3 (140-440) L 08/08/19 03:53 Lymph % (Auto) Sales And Operations Trainee 08/07/19 17:29 Coleman % (Auto) Sales And Operations Trainee 08/07/19 17:29 Eos % (Auto) Sales And Operations Trainee 08/07/19 17:29 Baso % (Auto) Sales And Operations Trainee 08/07/19 17:29 Lymph # Sales And Operations Trainee 08/07/19 17:29 Coleman # Sales And Operations Trainee 08/07/19 17:29 Eos # Sales And Operations Trainee 08/07/19 17:29 Baso # Sales And Operations Trainee 08/07/19 17:29 Add Manual Diff Complete 08/08/19 03:53 Total Counted 100 08/08/19 03:53 Seg Neutrophils % Sales And Operations Trainee 08/08/19 03:53 Seg Neuts % (Manual) 94.0 % (40.0-70.0) H 08/08/19 03:53 Band Neutrophils % 0 % 08/08/19 03:53 Lymphocytes % (Manual) 4.0 % (13.4-35.0) L 08/08/19 03:53 Reactive Lymphs % (Man) 0 % 08/08/19 03:53 Monocytes % (Manual) 1.0 % (0.0-7.3) 08/08/19 03:53 Eosinophils % (Manual) 1.0 % (0.0-4.3) 08/08/19 03:53 Basophils % (Manual) 0 % (0.0-1.8) 08/08/19 03:53 Metamyelocytes % 0 % 08/08/19 03:53 Myelocytes % 0 % 08/08/19 03:53 Promyelocytes % 0 % 08/08/19 03:53 Blast Cells % 0 % 08/08/19 03:53 Nucleated RBC % Not Reportable 08/08/19 03:53 Seg Neutrophils # Sales And Operations Trainee 08/07/19 17:29 Seg Neutrophils # Man 9.9 K/mm3 (1.8-7.7) H 08/08/19 03:53 Band Neutrophils # 0.0 K/mm3 08/08/19 03:53 Lymphocytes # (Manual) 0.4 K/mm3 (1.2-5.4) L 08/08/19 03:53 Abs React Lymphs (Man) 0.0 K/mm3 08/08/19 03:53 Monocytes # (Manual) 0.1 K/mm3 (0.0-0.8) 08/08/19 03:53 Eosinophils # (Manual) 0.1 K/mm3 (0.0-0.4) 08/08/19 03:53 Basophils # (Manual) 0.0 K/mm3 (0.0-0.1) 08/08/19 03:53 Metamyelocytes # 0.0 K/mm3 08/08/19 03:53 Myelocytes # 0.0 K/mm3 08/08/19 03:53 Promyelocytes # 0.0 K/mm3 08/08/19 03:53 Blast Cells # 0.0 K/mm3 08/08/19 03:53 WBC Morphology Not Reportable 08/08/19 03:53 Hypersegmented Neuts Not Reportable 08/08/19 03:53 Hyposegmented Neuts Not Reportable 08/08/19 03:53 Hypogranular Neuts Not Reportable 08/08/19 03:53 Smudge Cells Not Reportable 08/08/19 03:53 Toxic Granulation Not Reportable 08/08/19 03:53 Toxic Vacuolation Not Reportable 08/08/19 03:53 Dohle Bodies Not Reportable 08/08/19 03:53 Pelger-Huet Anomaly Not Reportable 08/08/19 03:53 Zak Rods Not Reportable 08/08/19 03:53 Platelet Estimate Consistent w auto 08/08/19 03:53 Clumped Platelets Not Reportable 08/08/19 03:53 Plt Clumps, EDTA Not Reportable 08/08/19 03:53 Large Platelets Not Reportable 08/08/19 03:53 Giant Platelets Not Reportable 08/08/19 03:53 Platelet Satelliting Not Reportable 08/08/19 03:53 Plt Morphology Comment Not Reportable 08/08/19 03:53 RBC Morphology Not Reportable 08/08/19 03:53 Dimorphic RBCs Not Reportable 08/08/19 03:53 Polychromasia Not Reportable 08/08/19 03:53 Hypochromasia Not Reportable 08/08/19 03:53 Poikilocytosis Not Reportable 08/08/19 03:53 Anisocytosis Few 08/08/19 03:53 Microcytosis Not Reportable 08/08/19 03:53 Macrocytosis Rare 08/08/19 03:53 Spherocytes Not Reportable 08/08/19 03:53 Pappenheimer Bodies Not Reportable 08/08/19 03:53 Sickle Cells Not Reportable 08/08/19 03:53 Target Cells Not Reportable 08/08/19 03:53 Tear Drop Cells Not Reportable 08/08/19 03:53 Ovalocytes Not Reportable 08/08/19 03:53 Helmet Cells Not Reportable 08/08/19 03:53 [place] Bodies Not Reportable 08/08/19 03:53 [place] Rings Not Reportable 08/08/19 03:53 [place] Cells Not Reportable 08/08/19 03:53 Bite Cells Not Reportable 08/08/19 03:53 Crenated Cell Not Reportable 08/08/19 03:53 Elliptocytes Not Reportable 08/08/19 03:53 Acanthocytes (Spur) Not Reportable 08/08/19 03:53 Rouleaux Not Reportable 08/08/19 03:53 Hemoglobin C Crystals Not Reportable 08/08/19 03:53 Schistocytes Not Reportable 08/08/19 03:53 Malaria parasites Not Reportable 08/08/19 03:53 Rafa Bodies Not Reportable 08/08/19 03:53 Hem Pathologist Commnt No 08/08/19 03:53 PT 16.0 Sec. (12.2-14.9) H 08/07/19 17:29 INR 1.30 (0.87-1.13) H 08/07/19 17:29 APTT 28.5 Sec. (24.2-36.6) 08/07/19 17:29 POC ABG pH 7.415 (7.35-7.45) 08/07/19 18:38 POC ABG pCO2 45.1 (35-45) H 08/07/19 18:38 POC ABG pO2 89 (80-105) 08/07/19 18:38 POC ABG HCO3 28.9 (22-26 mml/L) 08/07/19 18:38 POC ABG Total CO2 30 (23-27mmol/L) 08/07/19 18:38 POC ABG O2 Sat 97 08/07/19 18:38 POC ABG Base Excess 4 ((-2) - (+3)mmol/L) 08/07/19 18:38 FiO2 60 % 08/07/19 18:38 Sodium 140 mmol/L (137-145) 08/08/19 03:53 Potassium 4.6 mmol/L (3.6-5.0) 08/08/19 03:53 Chloride 105.3 mmol/L (98-107) 08/08/19 03:53 Carbon Dioxide 23 mmol/L (22-30) 08/08/19 03:53 Anion Gap 16 mmol/L 08/08/19 03:53 BUN 17 mg/dL (9-20) 08/08/19 03:53 Creatinine 0.7 mg/dL (0.8-1.5) L 08/08/19 03:53 Estimated GFR > 60 ml/min 08/08/19 03:53 BUN/Creatinine Ratio 24 % 08/08/19 03:53 Glucose 136 mg/dL (75-100) H 08/08/19 03:53 Lactic Acid 1.70 mmol/L (0.7-2.0) 08/07/19 20:32 Calcium 8.3 mg/dL (8.4-10.2) L 08/08/19 03:53 Total Bilirubin 0.40 mg/dL (0.1-1.2) 08/08/19 03:53 AST 16 units/L (5-40) 08/08/19 03:53 ALT 15 units/L (7-56) 08/08/19 03:53 Alkaline Phosphatase 72 units/L (35-129) 08/08/19 03:53 Troponin T 0.013 ng/mL (0.00-0.029) 08/07/19 17:29 NT-Pro-B Natriuret Pep 4527 pg/mL (0-900) H 08/07/19 17:29 Total Protein 6.5 g/dL (6.3-8.2) 08/08/19 03:53 Albumin 2.6 g/dL (3.9-5) L 08/08/19 03:53 Albumin/Globulin Ratio 0.7 % 08/08/19 03:53 Active Medications - Current Medications Current Medications: Generic Name Dose Route Start Last Admin Trade Name Freq PRN Reason Stop Dose Admin Acetaminophen 650 mg 08/07/19 18:52 Tylenol PO Q4H PRN Pain MILD(1-3)/Fever >100.5/FU Enoxaparin Sodium 40 mg 08/08/19 10:00 Enoxaparin SUB-Q QDAY@1000 ELI Cefepime HCl 2 gm in 100 mls @ 200 mls/hr 08/07/19 18:33 08/08/19 05:39 Cefepime/Ns 2 Gm/100 Ml IV 200 mls/hr Q8HR ELI Administration Protocol Vancomycin HCl 1 gm in 250 mls @ 166.667 mls/hr 08/08/19 08:00 Vancomycin/Ns 1 Gm/250 Ml IV Q12H ELI Ondansetron HCl 4 mg 08/07/19 18:52 Zofran IV Q8H PRN Nausea And Vomiting Sodium Chloride 10 ml 08/07/19 22:00 08/07/19 22:08 Sodium Chloride Flush Syringe 10 Ml IV 10 ml BID ELI Administration Sodium Chloride 10 ml 08/07/19 18:52 Sodium Chloride Flush Syringe 10 Ml IV PRN PRN LINE FLUSH
[2019-08-08] MEDS: ENOXAPARIN 40 MG/0.4 ML INJ SUB-Q SCH (09:27)
[2019-08-08] MEDS: VANCOMYCIN/NS 1 GM/250 ML 1 GM/250 ML BAG IV SCH ×2 (09:27→20:49)
[2019-08-08 09:51] LABS: Bacteria,Urine 1+ /HPF (Negative); Bilirubin,Urine NEG (Negative); Blood,Urine NEG (Negative); Color,Urine Yellow (Yellow); Hyaline Casts,Urine 4 /LPF; Mucus,Urine 2+ /HPF; Urobilinogen,Urine < 2.0 mg/dL (<2.0)
[2019-08-08] MEDS ORDERED: ENOXAPARIN 30 MG/0.3 ML INJ SUB-Q SCH (10:00)
[2019-08-08] MEDS: ALPRAZolam 0.25 MG TAB PO PRN ×2 (12:22→19:29)
[2019-08-08] MEDS: carvediloL 3.125 MG TAB PO SCH ×2 (12:22→21:21)
[2019-08-08] MEDS: BENZONATATE 100 MG CAP PO SCH ×2 (14:11→21:21)
[2019-08-08] MEDS: IPRATROPIUM/ALBUTEROL SULFATE 3 ML AMPUL.NEB IH SCH ×2 (14:26→19:52)
[2019-08-08] MEDS: ARFORMOTEROL 15 MCG/2 ML NEBU IH SCH (19:52)
[2019-08-08] MEDS: BUDESONIDE 0.5 MG/2 ML NEBU IH SCH (19:52)
[2019-08-09] MEDS: BENZONATATE 100 MG CAP PO SCH ×3 (05:08→21:30)
[2019-08-09] MEDS: CEFEPIME/NS 2 GM/100 ML 2 GM/100 ML BAG IV SCH ×3 (05:17→21:29)
--- NOTE | 2019-08-09 07:53 | Progress Note ---
Assessment and Plan Assessment and plan: 64-year-old male patient with lung cancer status post radiation undergoing chemotherapy with lifting with his chemotherapy next hypertension was admitted through emergency room with worsening shortness of breath cough and fatigue. Patient is being treated for healthcare associated pneumonia on IV antibiotics, pulmonary following, consultation oncology if needed Patient feels slightly better today -- Sepsis; Current Visit: Yes Status: Acute Sepsis secondary to healthcare associated pneumonia, IVF fluid therapy, serial lactic acid, follow blood cultures, empiric antibiotics --HCAP (healthcare-associated pneumonia): Current Visit: Yes Status: Acute IV antibiotic, f/u cultures, Pulm consult. Supportive care. Possible pneumonitis secondary to immunotherapy with Imfinzi --NSCLC Stage III: Follows with hematology oncologist --Respiratory failure: Current Visit: No Status: Acute O2 , NIPPV, pulse oximetry, supportive care. IV steroids, inhalation steroids --General anxiety: Current Visit: Yes Status: Acute Low-dose Xanax when necessary, if no improvement Psych evaluation as needed --UTI: Current Visit: Yes ,Status: Acute Emperic antibiotics,Ur cultures --Severe Malnutrition/hypoalbuminemia: Current Visit: No Status: Acute Additional supplements and nutrition consult --Full code. Prior Prognosis discussed with patient and family. They Verbalized understanding -- DVT prophylaxis Current Visit: Yes Status: Acute : SCD to BLE while in bed, prophylactic lovenox Monitor clinically and adjust the management as needed Plan of care is reviewed with the patient and the daughter at the bedside as well as the nurse Disposition; discharge when medically stable Follow-up pulmonary recommendations History Interval history: Patient seen and examined medical records reviewed Patient feels slightly better on BiPAP Complains of generalized weakness Vital signs noted Hospitalist Physical - Constitutional Vitals: Temp Pulse Resp BP Pulse Ox 97.7 F 64 20 110/75 94 08/09/19 07:19 08/09/19 07:19 08/09/19 07:19 08/09/19 07:19 08/09/19 07:19 General appearance: Present: mild distress, well-nourished - EENT Eyes: Present: PERRL, EOM intact - Neck Neck: Present: supple, normal ROM - Respiratory Respiratory effort: normal Respiratory: bilateral: diminished, rhonchi, negative: rales, wheezing - Cardiovascular Rhythm: regular Heart Sounds: Present: S1 & S2 - Extremities Extremities: no ischemia, No edema - Abdominal General gastrointestinal: soft, non-tender, non-distended, normal bowel sounds - Integumentary Integumentary: Present: clear, warm - Psychiatric Psychiatric: appropriate mood/affect, cooperative - Neurologic Neurologic: moves all extremities Results - Labs CBC & Chem 7: 08/08/19 03:53 08/08/19 03:53 Labs: Laboratory Last Values WBC 10.5 K/mm3 (4.5-11.0) 08/08/19 03:53 RBC 4.34 M/mm3 (3.65-5.03) 08/08/19 03:53 Hgb 12.3 gm/dl (11.8-15.2) 08/08/19 03:53 Hct 37.9 % (35.5-45.6) 08/08/19 03:53 MCV 87 fl (84-94) 08/08/19 03:53 MCH 28 pg (28-32) 08/08/19 03:53 MCHC 33 % (32-34) 08/08/19 03:53 RDW 16.9 % (13.2-15.2) H 08/08/19 03:53 Plt Count 122 K/mm3 (140-440) L 08/08/19 03:53 Lymph % (Auto) [employer] 08/07/19 17:29 [place] % (Auto) Superintendent [employer] 08/07/19 17:29 Eos % (Auto) [employer] 08/07/19 17:29 Baso % (Auto) [employer] 08/07/19 17:29 Lymph # Superintendent Mechanical 08/07/19 17:29 [place] # Superintendent Mechanical 08/07/19 17:29 Eos # Superintendent Mechanical 08/07/19 17:29 Baso # Superintendent Mechanical 08/07/19 17:29 Add Manual Diff Complete 08/08/19 03:53 Total Counted 100 08/08/19 03:53 Seg Neutrophils % Superintendent Mechanical 08/08/19 03:53 Seg Neuts % (Manual) 94.0 % (40.0-70.0) H 08/08/19 03:53 Band Neutrophils % 0 % 08/08/19 03:53 Lymphocytes % (Manual) 4.0 % (13.4-35.0) L 08/08/19 03:53 Reactive Lymphs % (Man) 0 % 08/08/19 03:53 Monocytes % (Manual) 1.0 % (0.0-7.3) 08/08/19 03:53 Eosinophils % (Manual) 1.0 % (0.0-4.3) 08/08/19 03:53 Basophils % (Manual) 0 % (0.0-1.8) 08/08/19 03:53 Metamyelocytes % 0 % 08/08/19 03:53 Myelocytes % 0 % 08/08/19 03:53 Promyelocytes % 0 % 08/08/19 03:53 Blast Cells % 0 % 08/08/19 03:53 Nucleated RBC % Not Reportable 08/08/19 03:53 Seg Neutrophils # Superintendent Mechanical 08/07/19 17:29 Seg Neutrophils # Man 9.9 K/mm3 (1.8-7.7) H 08/08/19 03:53 Band Neutrophils # 0.0 K/mm3 08/08/19 03:53 Lymphocytes # (Manual) 0.4 K/mm3 (1.2-5.4) L 08/08/19 03:53 Abs React Lymphs (Man) 0.0 K/mm3 08/08/19 03:53 Monocytes # (Manual) 0.1 K/mm3 (0.0-0.8) 08/08/19 03:53 Eosinophils # (Manual) 0.1 K/mm3 (0.0-0.4) 08/08/19 03:53 Basophils # (Manual) 0.0 K/mm3 (0.0-0.1) 08/08/19 03:53 Metamyelocytes # 0.0 K/mm3 08/08/19 03:53 Myelocytes # 0.0 K/mm3 08/08/19 03:53 Promyelocytes # 0.0 K/mm3 08/08/19 03:53 Blast Cells # 0.0 K/mm3 08/08/19 03:53 WBC Morphology Not Reportable 08/08/19 03:53 Hypersegmented Neuts Not Reportable 08/08/19 03:53 Hyposegmented Neuts Not Reportable 08/08/19 03:53 Hypogranular Neuts Not Reportable 08/08/19 03:53 Smudge Cells Not Reportable 08/08/19 03:53 Toxic Granulation Not Reportable 08/08/19 03:53 Toxic Vacuolation Not Reportable 08/08/19 03:53 Dohle Bodies Not Reportable 08/08/19 03:53 Pelger-Huet Anomaly Not Reportable 08/08/19 03:53 Zak Rods Not Reportable 08/08/19 03:53 Platelet Estimate Consistent w auto 08/08/19 03:53 Clumped Platelets Not Reportable 08/08/19 03:53 Plt Clumps, EDTA Not Reportable 08/08/19 03:53 Large Platelets Not Reportable 08/08/19 03:53 Giant Platelets Not Reportable 08/08/19 03:53 Platelet Satelliting Not Reportable 08/08/19 03:53 Plt Morphology Comment Not Reportable 08/08/19 03:53 RBC Morphology Not Reportable 08/08/19 03:53 Dimorphic RBCs Not Reportable 08/08/19 03:53 Polychromasia Not Reportable 08/08/19 03:53 Hypochromasia Not Reportable 08/08/19 03:53 Poikilocytosis Not Reportable 08/08/19 03:53 Anisocytosis Few 08/08/19 03:53 Microcytosis Not Reportable 08/08/19 03:53 Macrocytosis Rare 08/08/19 03:53 Spherocytes Not Reportable 08/08/19 03:53 Pappenheimer Bodies Not Reportable 08/08/19 03:53 Sickle Cells Not Reportable 08/08/19 03:53 Target Cells Not Reportable 08/08/19 03:53 Tear Drop Cells Not Reportable 08/08/19 03:53 Ovalocytes Not Reportable 08/08/19 03:53 Helmet Cells Not Reportable 08/08/19 03:53 [place] Bodies Not Reportable 08/08/19 03:53 [place] Rings Not Reportable 08/08/19 03:53 [place] Cells Not Reportable 08/08/19 03:53 Bite Cells Not Reportable 08/08/19 03:53 Crenated Cell Not Reportable 08/08/19 03:53 Elliptocytes Not Reportable 08/08/19 03:53 Acanthocytes (Spur) Not Reportable 08/08/19 03:53 Rouleaux Not Reportable 08/08/19 03:53 Hemoglobin C Crystals Not Reportable 08/08/19 03:53 Schistocytes Not Reportable 08/08/19 03:53 Malaria parasites Not Reportable 08/08/19 03:53 Rafa Bodies Not Reportable 08/08/19 03:53 Hem Pathologist Commnt No 08/08/19 03:53 PT 16.0 Sec. (12.2-14.9) H 08/07/19 17:29 INR 1.30 (0.87-1.13) H 08/07/19 17:29 APTT 28.5 Sec. (24.2-36.6) 08/07/19 17:29 POC ABG pH 7.415 (7.35-7.45) 08/07/19 18:38 POC ABG pCO2 45.1 (35-45) H 08/07/19 18:38 POC ABG pO2 89 (80-105) 08/07/19 18:38 POC ABG HCO3 28.9 (22-26 mml/L) 08/07/19 18:38 POC ABG Total CO2 30 (23-27mmol/L) 08/07/19 18:38 POC ABG O2 Sat 97 08/07/19 18:38 POC ABG Base Excess 4 ((-2) - (+3)mmol/L) 08/07/19 18:38 FiO2 60 % 08/07/19 18:38 Sodium 140 mmol/L (137-145) 08/08/19 03:53 Potassium 4.6 mmol/L (3.6-5.0) 08/08/19 03:53 Chloride 105.3 mmol/L (98-107) 08/08/19 03:53 Carbon Dioxide 23 mmol/L (22-30) 08/08/19 03:53 Anion Gap 16 mmol/L 08/08/19 03:53 BUN 17 mg/dL (9-20) 08/08/19 03:53 Creatinine 0.7 mg/dL (0.8-1.5) L 08/08/19 03:53 Estimated GFR > 60 ml/min 08/08/19 03:53 BUN/Creatinine Ratio 24 % 08/08/19 03:53 Glucose 136 mg/dL (75-100) H 08/08/19 03:53 Lactic Acid 1.70 mmol/L (0.7-2.0) 08/07/19 20:32 Calcium 8.3 mg/dL (8.4-10.2) L 08/08/19 03:53 Total Bilirubin 0.40 mg/dL (0.1-1.2) 08/08/19 03:53 AST 16 units/L (5-40) 08/08/19 03:53 ALT 15 units/L (7-56) 08/08/19 03:53 Alkaline Phosphatase 72 units/L (35-129) 08/08/19 03:53 Troponin T 0.013 ng/mL (0.00-0.029) 08/07/19 17:29 NT-Pro-B Natriuret Pep 4527 pg/mL (0-900) H 08/07/19 17:29 Total Protein 6.5 g/dL (6.3-8.2) 08/08/19 03:53 Albumin 2.6 g/dL (3.9-5) L 08/08/19 03:53 Albumin/Globulin Ratio 0.7 % 08/08/19 03:53 Urine Color Yellow (Yellow) 08/08/19 09:22 Urine Turbidity Slightly-cloudy (Clear) 08/08/19 09:22 Urine pH 5.0 (5.0-7.0) 08/08/19 09:22 Ur Specific [place] 1.027 (1.003-1.030) 08/08/19 09:22 Urine Protein 30 mg/dl mg/dL (Negative) 08/08/19 09:22 Urine Glucose (UA) Neg mg/dL (Negative) 08/08/19 09:22 Urine Ketones Tr mg/dL (Negative) 08/08/19 09:22 Urine Blood Neg (Negative) 08/08/19 09:22 Urine Nitrite Neg (Negative) 08/08/19 09:22 Urine Bilirubin Neg (Negative) 08/08/19 09:22 Urine Urobilinogen < 2.0 mg/dL (<2.0) 08/08/19 09:22 Ur Leukocyte Esterase Neg (Negative) 08/08/19 09:22 Urine WBC (Auto) 2.0 /HPF (0.0-6.0) 08/08/19 09:22 Urine RBC (Auto) 3.0 /HPF (0.0-6.0) 08/08/19 09:22 U Epithel Cells (Auto) < 1.0 /HPF (0-13.0) 08/08/19 09:22 Urine Bacteria (Auto) 1+ /HPF (Negative) 08/08/19 09:22 Hyaline Casts 4 /LPF 08/08/19 09:22 Urine Mucus 2+ /HPF 08/08/19 09:22 Active Medications - Current Medications Current Medications: Generic Name Dose Route Start Last Admin Trade Name Freq PRN Reason Stop Dose Admin Acetaminophen 650 mg 08/07/19 18:52 Tylenol PO Q4H PRN Pain MILD(1-3)/Fever >100.5/FU Albuterol/Ipratropium 1 ampul 08/08/19 14:00 08/08/19 19:52 Duoneb *Not For Prn Use* IH 1 ampul TIDRT ELI Administration Alprazolam 0.25 mg 08/08/19 12:01 08/08/19 19:29 Xanax PO 0.25 mg Q8H PRN Administration Anxiety Arformoterol Tartrate 15 mcg 08/08/19 20:00 08/08/19 19:52 Brovana Nebu IH 15 mcg Q12HRT ELI Administration Aspirin 81 mg 08/09/19 10:00 Baby Aspirin PO QDAY ELI Benzonatate 100 mg 08/08/19 14:00 08/09/19 05:08 Tessalon Perles PO 100 mg Q8HR ELI Administration Budesonide 0.5 mg 08/08/19 20:00 08/08/19 19:52 Pulmicort IH 0.5 mg Q12HRT ELI Administration Carvedilol 3.125 mg 08/08/19 12:00 08/08/19 21:21 Coreg PO 3.125 mg BID ELI Administration Diclofenac Sodium 25 mg 08/09/19 10:00 Voltaren PO QDAY ELI Enoxaparin Sodium 40 mg 08/08/19 10:00 08/08/19 09:27 Enoxaparin SUB-Q 40 mg QDAY@1000 ELI Administration Cefepime HCl 2 gm in 100 mls @ 200 mls/hr 08/07/19 18:33 08/09/19 05:17 Cefepime/Ns 2 Gm/100 Ml IV 200 mls/hr Q8HR ELI Administration Protocol Vancomycin HCl 1 gm in 250 mls @ 166.667 mls/hr 08/08/19 08:00 08/08/19 20:49 Vancomycin/Ns 1 Gm/250 Ml IV 166.667 mls/hr Q12H ELI Administration Ondansetron HCl 4 mg 08/07/19 18:52 Zofran IV Q8H PRN Nausea And Vomiting Prednisone 60 mg 08/09/19 10:00 Deltasone PO QDAY ELI Sodium Chloride 10 ml 08/07/19 22:00 08/08/19 22:25 Sodium Chloride Flush Syringe 10 Ml IV 10 ml BID ELI Administration Sodium Chloride 10 ml 08/07/19 18:52 Sodium Chloride Flush Syringe 10 Ml IV PRN PRN LINE FLUSH Nutrition/Malnutrition Assess - Dietary Evaluation Nutrition/Malnutrition Findings: Nutrition Notes Start: 08/08/19 12:57 Freq: Status: Active Protocol: Document 08/08/19 12:57 RM (Rec: 08/08/19 13:11 RM [id number]) Nutrition Notes Need for Assessment generated from: [facility] Initial or Follow up Assessment Current Diagnosis Sepsis,Respiratory Failure Other Pertinent Diagnosis Lung CA S/P radiation,HCAP Current Diet Regular Labs/Tests Reviewed Pertinent Medications Reviewed Height 5 ft 10 in Weight 70.307 kg Usual Body Weight 70.45 kg [place] Body Weight (kg) 75.45 BMI 22.2 Subjective/Other Information Screened for malnutrition and skin risk. [place] 16 points. 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 Stated that he ate 70% of his breakfast this morning. Stated that his UBW was 155 lbs during previous admission to this facility on 07/19/19. No physical signs of malnutrition. 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 No Is Patient Ambulatory and/or Out of Bed Yes REE-([facility]-ambulatory/OOB) [ 1936.116 [id number]] Calculation Used for Recommendations [facility] Additional Notes Protein Needs: 70-84g (1-1.2g/ kg) Fluid Needs: 1 ml/kcal Nutrition Intervention Change Diet Order: Continue current Add Supplement/Snack (indicate name/kcal Ensure Enlive Vanilla BID /protein ) Provides kCal: 700 Provides Protein (gm) 40 Goal #1 Meet at least 75% of calorie and protein needs via PO and ONS intakes Anticipated Discharge Needs: Regular diet Follow-Up By: 08/10/19 Additional Comments Follow for PO and ONS intakes
[2019-08-09] MEDS: VANCOMYCIN/NS 1 GM/250 ML 1 GM/250 ML BAG IV SCH ×2 (08:01→19:59)
[2019-08-09] MEDS: BUDESONIDE 0.5 MG/2 ML NEBU IH SCH ×2 (09:10→21:35)
[2019-08-09] MEDS: ARFORMOTEROL 15 MCG/2 ML NEBU IH SCH ×2 (09:10→21:35)
[2019-08-09] MEDS: IPRATROPIUM/ALBUTEROL SULFATE 3 ML AMPUL.NEB IH SCH ×3 (09:10→21:35)
[2019-08-09] MEDS ORDERED: predniSONE 20 MG TAB PO SCH (10:00)
[2019-08-09] MEDS: DICLOFENAC EC 25 MG TAB PO SCH (10:15)
[2019-08-09] MEDS: ASPIRIN 81 MG TAB CHEW PO SCH (10:15)
[2019-08-09] MEDS: ENOXAPARIN 40 MG/0.4 ML INJ SUB-Q SCH (10:17)
[2019-08-09] MEDS: carvediloL 3.125 MG TAB PO SCH ×2 (10:18→21:30)
--- NOTE | 2019-08-09 11:36 | Consultation ---
History of Present Illness Consult date: 08/09/19 Requesting physician: FAM TORRES Reason for consult: COPD, hypoxemia Past History Past Medical History: other (see hpi) Past Surgical History: Other (Cervical Fusion, Port Placement) Social history: , lives with family. denies: smoking, alcohol abuse Family history: hypertension Medications and Allergies Allergies Allergy/AdvReac Type Severity Reaction Status Date / Time No Known Allergies Allergy Verified 07/19/19 14:55 Home Medications Medication Instructions Recorded Confirmed Last Taken Type Aspirin [Aspirin BABY CHEW TAB] 81 mg PO QDAY 07/19/19 08/07/19 07/18/19 History Carvedilol [Coreg] 3.125 mg PO BID 07/19/19 08/07/19 07/18/19 History Diclofenac EC [Voltaren] 25 mg PO QDAY 07/19/19 08/07/19 07/18/19 History Durvalumab [Imfinzi] 120 mg IV Q2W 07/19/19 08/07/19 07/18/19 History diazePAM [Diazepam] 10 mg PO QHS 07/19/19 08/07/19 07/18/19 History ALBUTEROL Inhaler (OR & NICU) 2 puff IH QID PRN #1 07/28/19 08/07/19 Unknown Rx [ProAir HFA Inhaler] Benzonatate [Tessalon Perles] 100 mg PO Q8HR #14 capsule 07/28/19 08/08/19 Unknown Rx predniSONE [Deltasone] 60 mg PO QDAY #14 tablet 07/28/19 08/07/19 Unknown Rx Active Meds: Active Medications Acetaminophen (Tylenol) 650 mg PO Q4H PRN PRN Reason: Pain MILD(1-3)/Fever >100.5/FU Albuterol/Ipratropium (Duoneb *Not For Prn Use*) 1 ampul IH TIDRT [facility] Last Admin: 08/09/19 09:10 Dose: 1 ampul Documented by: Alprazolam (Xanax) 0.25 mg PO Q8H PRN PRN Reason: Anxiety Last Admin: 08/08/19 19:29 Dose: 0.25 mg Documented by: Arformoterol Tartrate (Brovana Nebu) 15 mcg IH Q12HRT [facility] Last Admin: 08/09/19 09:10 Dose: 15 mcg Documented by: Aspirin (Baby Aspirin) 81 mg PO QDAY [facility] Last Admin: 08/09/19 10:15 Dose: 81 mg Documented by: Benzonatate (Tessalon Perles) 100 mg PO Q8HR [facility] Last Admin: 08/09/19 05:08 Dose: 100 mg Documented by: Budesonide (Pulmicort) 0.5 mg IH Q12HRT [facility] Last Admin: 08/09/19 09:10 Dose: 0.5 mg Documented by: Carvedilol (Coreg) 3.125 mg PO BID [facility] Last Admin: 08/09/19 10:18 Dose: 3.125 mg Documented by: Diclofenac Sodium (Voltaren) 25 mg PO QDAY [facility] Last Admin: 08/09/19 10:15 Dose: 25 mg Documented by: Enoxaparin Sodium (Enoxaparin) 40 mg SUB-Q QDAY@1000 [facility] Last Admin: 08/09/19 10:17 Dose: 40 mg Documented by: Cefepime HCl (Cefepime/Ns 2 Gm/100 Ml) 2 gm in 100 mls @ 200 mls/hr IV Q8HR [facility]; Protocol Last Admin: 08/09/19 05:17 Dose: 200 mls/hr Documented by: Vancomycin HCl (Vancomycin/Ns 1 Gm/250 Ml) 1 gm in 250 mls @ 166.667 mls/hr IV Q12H [facility] Last Admin: 08/09/19 08:01 Dose: 166.667 mls/hr Documented by: Ondansetron HCl (Zofran) 4 mg IV Q8H PRN PRN Reason: Nausea And Vomiting Prednisone (Deltasone) 60 mg PO QDAY [facility] Last Admin: 08/09/19 10:15 Dose: 60 mg Documented by: Sodium Chloride (Sodium Chloride Flush Syringe 10 Ml) 10 ml IV BID [facility] Last Admin: 08/09/19 10:16 Dose: 10 ml Documented by: Sodium Chloride (Sodium Chloride Flush Syringe 10 Ml) 10 ml IV PRN PRN PRN Reason: LINE FLUSH Physical Examination Vital signs: Vital Signs Pulse Resp BP Pulse Ox 133 H 45 H 140/92 92 08/07/19 17:08 08/07/19 17:08 08/07/19 17:08 08/07/19 17:08 Results - Laboratory Findings CBC and BMP: 08/08/19 03:53 08/08/19 03:53 ABG POC ABG pH 7.415 (7.35-7.45) 08/07/19 18:38 POC ABG pCO2 45.1 (35-45) H 08/07/19 18:38 POC ABG pO2 89 (80-105) 08/07/19 18:38 POC ABG HCO3 28.9 (22-26 mml/L) 08/07/19 18:38 POC ABG Total CO2 30 (23-27mmol/L) 08/07/19 18:38 POC ABG O2 Sat 97 08/07/19 18:38 PT/INR, D-dimer PT 16.0 Sec. (12.2-14.9) H 08/07/19 17:29 INR 1.30 (0.87-1.13) H 08/07/19 17:29 Abnormal lab findings: Abnormal Labs 08/07/19 08/07/19 08/07/19 17:29 17:29 17:29 WBC 17.1 H RDW 16.5 H Plt Count Seg Neuts % (Manual) 89.0 H Lymphocytes % (Manual) 6.0 L Seg Neutrophils # Man 15.2 H Lymphocytes # (Manual) 1.0 L PT 16.0 H INR 1.30 H POC ABG pCO2 Creatinine Glucose 213 H Calcium NT-Pro-B Natriuret Pep 4527 H Albumin 2.8 L 08/07/19 08/08/19 08/08/19 18:38 03:53 03:53 WBC RDW 16.9 H Plt Count 122 L Seg Neuts % (Manual) 94.0 H Lymphocytes % (Manual) 4.0 L Seg Neutrophils # Man 9.9 H Lymphocytes # (Manual) 0.4 L PT INR POC ABG pCO2 45.1 H Creatinine 0.7 L Glucose 136 H Calcium 8.3 L NT-Pro-B Natriuret Pep Albumin 2.6 L Assessment and Plan 64 y/o male with known lung CA, likely COPD and recent allergic reaction to chemo who presents with acute shortness of breath and acute hypoxic respiratory failure. 1. High Dose IV steroids 2. Suggest IV diuresis as tolerated, would assess daily as this worked for him the last time he was here 3. Onc consult, questions would be how long should he be on steroids from this reaction to his chemo, this sounds like a flare from that 4. Montior fluid intake 5. Thank you for this consult, will continue to follow with you.
[2019-08-09] MEDS: ALPRAZolam 0.25 MG TAB PO PRN ×2 (14:40→21:30)
[2019-08-09] MEDS ORDERED: FUROSEMIDE 40 MG/4 ML INJ IV ONE (16:24)
[2019-08-09] MEDS: methylPREDNISolone Sod Succinate 125 MG/2 ML INJ IV SCH (19:53)
[2019-08-10] MEDS: methylPREDNISolone Sod Succinate 125 MG/2 ML INJ IV SCH ×4 (03:18→23:04)
[2019-08-10] MEDS: CEFEPIME/NS 2 GM/100 ML 2 GM/100 ML BAG IV SCH ×3 (05:19→21:33)
[2019-08-10] MEDS: BENZONATATE 100 MG CAP PO SCH ×3 (05:19→21:32)
--- NOTE | 2019-08-10 07:07 | Event Note ---
Date: 08/10/19 [id number]
[2019-08-10] MEDS: VANCOMYCIN/NS 1 GM/250 ML 1 GM/250 ML BAG IV SCH (08:25)
[2019-08-10] MEDS: DICLOFENAC EC 25 MG TAB PO SCH (09:33)
[2019-08-10] MEDS: ASPIRIN 81 MG TAB CHEW PO SCH (09:35)
[2019-08-10] MEDS: carvediloL 3.125 MG TAB PO SCH ×2 (09:35→21:33)
[2019-08-10] MEDS: ENOXAPARIN 40 MG/0.4 ML INJ SUB-Q SCH (09:36)
[2019-08-10] MEDS: IPRATROPIUM/ALBUTEROL SULFATE 3 ML AMPUL.NEB IH SCH ×3 (09:58→21:49)
[2019-08-10] MEDS: BUDESONIDE 0.5 MG/2 ML NEBU IH SCH ×2 (09:58→21:50)
[2019-08-10] MEDS: ARFORMOTEROL 15 MCG/2 ML NEBU IH SCH ×2 (09:58→21:50)
[2019-08-10] MEDS ORDERED: FUROSEMIDE 40 MG/4 ML INJ IV SCH (10:00)
--- NOTE | 2019-08-10 11:37 | Progress Note ---
Assessment and Plan 64 y/o male with known lung CA, likely COPD and recent allergic reaction to chemo who presents with acute shortness of breath and acute hypoxic respiratory failure. 1. High Dose IV steroids 2. Suggest IV diuresis as tolerated, will increase to BID 3. Onc consult, questions would be how long should he be on steroids from this reaction to his chemo, this sounds like a flare from that 4. Montior fluid intake 5. Thank you for this consult, will continue to follow with you. Subjective Date of service: 08/10/19 Interval history: Still requiring HFNC. Sats in the low 90's. I/O if accurate, still show positive fluid balance Objective Vital Signs - 12hr 08/10/19 08/10/19 08/10/19 00:50 02:25 07:42 Temperature 97.6 F 97.4 F L Pulse Rate 104 H 69 102 H Pulse Rate [ From Monitor] Respiratory 18 30 H Rate Blood Pressure 104/72 116/81 O2 Sat by Pulse 100 99 Oximetry 08/10/19 08/10/19 09:35 10:00 Temperature Pulse Rate 102 H 102 H Pulse Rate [ 102 H From Monitor] Respiratory 30 H Rate Blood Pressure O2 Sat by Pulse 99 Oximetry CBC and BMP: 08/08/19 03:53 08/08/19 03:53 ABG, PT/INR, D-dimer: ABG POC ABG pH 7.415 (7.35-7.45) 08/07/19 18:38 POC ABG pCO2 45.1 (35-45) H 08/07/19 18:38 POC ABG pO2 89 (80-105) 08/07/19 18:38 POC ABG HCO3 28.9 (22-26 mml/L) 08/07/19 18:38 POC ABG Total CO2 30 (23-27mmol/L) 08/07/19 18:38 POC ABG O2 Sat 97 08/07/19 18:38 PT/INR, D-dimer PT 16.0 Sec. (12.2-14.9) H 08/07/19 17:29 INR 1.30 (0.87-1.13) H 08/07/19 17:29 Abnormal lab findings: Abnormal Labs 08/07/19 08/07/19 08/07/19 17:29 17:29 17:29 WBC 17.1 H RDW 16.5 H Plt Count Seg Neuts % (Manual) 89.0 H Lymphocytes % (Manual) 6.0 L Seg Neutrophils # Man 15.2 H Lymphocytes # (Manual) 1.0 L PT 16.0 H INR 1.30 H POC ABG pCO2 Creatinine Glucose 213 H Calcium NT-Pro-B Natriuret Pep 4527 H Albumin 2.8 L 08/07/19 08/08/19 08/08/19 18:38 03:53 03:53 WBC RDW 16.9 H Plt Count 122 L Seg Neuts % (Manual) 94.0 H Lymphocytes % (Manual) 4.0 L Seg Neutrophils # Man 9.9 H Lymphocytes # (Manual) 0.4 L PT INR POC ABG pCO2 45.1 H Creatinine 0.7 L Glucose 136 H Calcium 8.3 L NT-Pro-B Natriuret Pep Albumin 2.6 L
[2019-08-10] MEDS: ALPRAZolam 0.25 MG TAB PO PRN ×2 (12:49→21:33)
--- NOTE | 2019-08-10 13:27 | Progress Note ---
Assessment and Plan / Sepsis; Sepsis secondary to healthcare associated pneumonia, IVF fluid therapy, serial lactic acid, follow blood cultures, empiric antibiotics /HCAP (healthcare-associated pneumonia): IV antibiotic, f/u cultures, Pulm consult. Supportive care. Possible pneumonitis secondary to immunotherapy with Imfinzi /NSCLC Stage III: Follows with hematology oncologist Dr Dolan /-Acute on chronic Respiratory failure: O2 , NIPPV, pulse oximetry, supportive care. IV steroids, inhalation steroids /-General anxiety: Low-dose Xanax when necessary, if no improvement will do psych eval /-UTI: Emperic antibiotics, Urine cultures /-Severe Malnutrition/hypoalbuminemia: Additional supplements and nutrition consult /Full code. Poor Prognosis discussed with patient and family. They Verbalized understanding / DVT prophylaxis SCD to BLE while in bed, prophylactic lovenox Monitor clinically and adjust the management as needed, Plan of care is reviewed with the patient and the daughter, at the bedside as well as the nurse. Disposition; discharge when medically stable, Follow-up pulmonary recommendations Brief History 64-year-old male patient with lung cancer status post radiation undergoing chemotherapy with lifting with his chemotherapy next hypertension was admitted through emergency room with worsening shortness of breath cough and fatigue. Patient is being treated for healthcare associated pneumonia on IV antibiotics, pulmonary following, consultated oncology. Patient feels slightly better today. Hospitalist Physical General appearance: Present: mild distress, well-nourished - EENT Eyes: Present: PERRL, EOM intact - Neck Neck: Present: supple, normal ROM - Respiratory Respiratory effort: normal Respiratory: bilateral: diminished, rhonchi, negative: rales, wheezing - Cardiovascular Rhythm: regular Heart Sounds: Present: S1 & S2 - Extremities Extremities: no ischemia, No edema - Abdominal General gastrointestinal: soft, non-tender, non-distended, normal bowel sounds - Integumentary Integumentary: Present: clear, warm - Psychiatric Psychiatric: appropriate mood/affect, cooperative - Neurologic Neurologic: moves all extremities Subjective Date of service: 08/10/19 Interval history: Patient seen and examined. Medical records and medication list reviewed. No acute event overnight noted by the RN. Patient continued to complaints of shortness of breath, remained on 100% FiO2 Discussed plan of care at bedside with patient. Objective - Constitutional Vitals: Vital Signs - 12hr 08/10/19 08/10/19 08/10/19 02:25 07:42 09:35 Temperature 97.6 F 97.4 F L Pulse Rate 69 102 H 102 H Pulse Rate [ From Monitor] Respiratory 18 30 H Rate Blood Pressure 104/72 116/81 O2 Sat by Pulse 100 99 Oximetry 08/10/19 10:00 Temperature Pulse Rate 102 H Pulse Rate [ 102 H From Monitor] Respiratory 30 H Rate Blood Pressure O2 Sat by Pulse 99 Oximetry - Labs CBC & Chem 7: 08/11/19 07:37 08/11/19 07:37
[2019-08-10] MEDS: VANCOMYCIN 1,250 MG in SODIUM CHLORIDE 0.9% 250ML 250 ML IV SCH (21:33)
[2019-08-10] MEDS: FUROSEMIDE 40 MG/4 ML INJ IV SCH (21:33)
[2019-08-11] MEDS: CEFEPIME/NS 2 GM/100 ML 2 GM/100 ML BAG IV SCH ×3 (06:03→22:10)
[2019-08-11] MEDS: methylPREDNISolone Sod Succinate 125 MG/2 ML INJ IV SCH ×3 (06:03→18:52)
[2019-08-11] MEDS: BENZONATATE 100 MG CAP PO SCH ×3 (06:04→22:04)
--- NOTE | 2019-08-11 07:25 | Hem/Onc Progress Note ---
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 Shortness of breath likely secondary to pneumonitis of Imfinzi, the patient has received 3 treatments of same. He follows with Dr. Dolan. IV steroids were started. pt needs a few weeks of steroids 2. History of port placement. 3. History of hypertension. 4. He will need oxygen support and oral steroids for a few days. He has appointment with Dr. Dolan on the . He is being treated for possible pneumonia during this admission. - Patient Problems (1) Lung cancer Current Visit: Yes Status: Acute Qualifiers: Laterality: unspecified laterality Subjective Date of service: 08/11/19 Principal diagnosis: lung ca Interval history: breathing better Objective - Exam Narrative Exam: Pain - none General appearance - awake Performance status limited self care Eyes - no icterus ENT - on o2 LNs cervical not palpable Neck - no LN Respiratory Normal Breath sounds - CTA anteriorly CVS S1 S2 + Extremities no edema General GI Soft Rectal deferred male - deferred Skin warm Musculoskeletal - moving limbs Neurologically awake - Constitutional Vitals: Last Vital Signs Temp 97.3 F L 08/11/19 02:02 Pulse 95 H 08/11/19 02:02 Resp 18 08/11/19 02:02 BP 101/69 08/11/19 02:02 Pulse Ox 97 08/11/19 02:02 - Labs Lab Results: Laboratory Results - last 24 hr 08/10/19 08:14 Vancomycin Trough 13.5 Medications & Allergies - Medications Allergies/Adverse Reactions: Allergies No Known Allergies Allergy (Verified 07/19/19 14:55) Home Medications: Home Medications Medication Instructions Recorded Confirmed Last Taken Type RX: Aspirin [Aspirin BABY CHEW TAB] 81 mg PO QDAY 07/19/19 08/07/19 07/18/19 History RX: Diclofenac EC [Voltaren] 25 mg PO QDAY 07/19/19 08/07/19 07/18/19 History RX: Durvalumab [Imfinzi] 120 mg IV Q2W 07/19/19 08/07/19 07/18/19 History RX: carvediloL [Coreg] 3.125 mg PO BID 07/19/19 08/07/19 07/18/19 History RX: diazePAM [Diazepam] 10 mg PO QHS 07/19/19 08/07/19 07/18/19 History RX: ALBUTEROL Inhaler (OR & NICU) 2 puff IH QID PRN #1 07/28/19 08/07/19 Unknown Rx [ProAir HFA Inhaler] RX: Benzonatate [Tessalon Perles] 100 mg PO Q8HR #14 capsule 07/28/19 08/08/19 Unknown Rx RX: predniSONE [Deltasone] 60 mg PO QDAY #14 tablet 07/28/19 08/07/19 Unknown Rx Active Medications: Generic Name Dose Route Start Last Admin Trade Name Freq PRN Reason Stop Dose Admin Acetaminophen 650 mg 08/07/19 18:52 Tylenol PO Q4H PRN Pain MILD(1-3)/Fever >100.5/FU Albuterol/Ipratropium 1 ampul 08/08/19 14:00 08/10/19 21:49 Duoneb *Not For Prn Use* IH 1 ampul TIDRT ELI Administration Alprazolam 0.25 mg 08/08/19 12:01 08/10/19 21:33 Xanax PO 0.25 mg Q8H PRN Administration Anxiety Arformoterol Tartrate 15 mcg 08/08/19 20:00 08/10/19 21:50 Brovana Nebu IH 15 mcg Q12HRT ELI Administration Aspirin 81 mg 08/09/19 10:00 08/10/19 09:35 Baby Aspirin PO 81 mg QDAY ELI Administration Benzonatate 100 mg 08/08/19 14:00 08/11/19 06:04 Tessalon Perles PO Not Given Q8HR ELI Budesonide 0.5 mg 08/08/19 20:00 08/10/19 21:50 Pulmicort IH 0.5 mg Q12HRT ELI Administration Carvedilol 3.125 mg 08/08/19 12:00 08/10/19 21:33 Coreg PO 3.125 mg BID ELI Administration Diclofenac Sodium 25 mg 08/09/19 10:00 08/10/19 09:33 Voltaren PO 25 mg QDAY ELI Administration Enoxaparin Sodium 40 mg 08/08/19 10:00 08/10/19 09:36 Enoxaparin SUB-Q 40 mg QDAY@1000 ELI Administration Furosemide 40 mg 08/10/19 22:00 08/10/19 21:33 Lasix IV 40 mg BID ELI Administration Cefepime HCl 2 gm in 100 mls @ 200 mls/hr 08/07/19 18:33 08/11/19 06:03 Cefepime/Ns 2 Gm/100 Ml IV 200 mls/hr Q8HR ELI Administration Protocol Vancomycin HCl 1,250 mg/ 275 mls @ 166.667 mls/hr 08/10/19 22:00 08/10/19 21:33 Sodium Chloride IV 166.667 mls/hr Q12HR ELI Administration Magnesium Hydroxide 30 ml 08/09/19 19:33 Milk Of Magnesia PO QDAY PRN Constipation Methylprednisolone Sodium Succinate 60 mg 08/10/19 12:00 08/11/19 06:03 Solu-Medrol IV 60 mg Q6H ELI Administration Ondansetron HCl 4 mg 08/07/19 18:52 Zofran IV Q8H PRN Nausea And Vomiting Sodium Chloride 10 ml 08/07/19 22:00 08/10/19 21:34 Sodium Chloride Flush Syringe 10 Ml IV 10 ml BID ELI Administration Sodium Chloride 10 ml 08/07/19 18:52 Sodium Chloride Flush Syringe 10 Ml IV PRN PRN LINE FLUSH
--- NOTE | 2019-08-11 07:27 | Consultation ---
REFERRED BY: Dr. Guo. REASON FOR CONSULTATION: History of lung cancer, shortness of breath. HISTORY OF PRESENT ILLNESS: I saw the patient, a 64-year-old male in the medical floor. The patient's daughter was present. The patient has a history of non-small cell lung cancer stage 3 for which he received chemotherapy, radiation and then Imfinzi. The patient has been following Dr. Dolan. The patient was recently admitted in late June with shortness of breath. It was pneumonitis due to Imfinzi. The patient was given steroids. He had improved and then discharged. As per the patient's family, 5 days of steroids were given and he saw his primary doctor. He had not seen Dr. Dolan. He became short of breath and ambulance was called. The oxygen at home was not able to help him. At this time, he is on oxygen support. I have been asked to evaluate the patient. The patient has been restarted on steroids. At this time, no headache, no visual disturbances. No ear discharge, no chest pain, no vomiting, no diarrhea, no dysuria. No seizure or syncope. PAST MEDICAL HISTORY: As above. PAST SURGICAL HISTORY: Cervical fusion, port placement. SOCIAL HISTORY: Lives with family members. No history of tobacco or alcohol usage. ALLERGIES: None. PRESENT MEDICATIONS: Includes steroids. PHYSICAL EXAMINATION: VITAL SIGNS: Temperature 97.3, pulse 108, respirations 20, BP 110/77. HEENT: No pallor, no icterus. NECK: No neck lymph nodes. HEART: S1, S2. LUNGS: No rhonchi. ABDOMEN: Soft. EXTREMITIES: No calf tenderness. NEUROLOGIC: Alert, awake, oriented. LABORATORY DATA: White cell 10.5, hemoglobin 12, MCV 87, platelet 122, potassium 4.6, creatinine 0.7, calcium 8.3, bilirubin 0.4. RADIOLOGY: CT chest was done on 07/19/2019, which showed cancer in the left lingula. ASSESSMENT: 1. Shortness of breath likely secondary to pneumonitis of Imfinzi, the patient has received 3 treatments of same. He follows with Dr. Dolan. IV steroids have been started. We will continue the same. 2. History of port placement. 3. History of hypertension. 4. He will need oxygen support and oral steroids for a few days. He has appointment with Dr. Dolan on the . He is being treated for possible pneumonia during this admission. JOB# [id number] ERIC/ROCIO
[2019-08-11 07:49] LABS: Hematocrit 35.7 % (35.5-45.6); Hemoglobin 11.5 gm/dl (11.8-15.2); Mean Corpuscular HGB Conc 32 % (32-34); Mean Corpuscular Volume 87 fl (84-94); Red Blood Count 4.08 M/mm3 (3.65-5.03); Red Cell Distribution Width 18.2 % (13.2-15.2)
[2019-08-11 08:06] LABS: Platelet Count 97 K/mm3 (140-440)
[2019-08-11 08:17] LABS: Alanine Aminotransferase 27 units/L (7-56); BUN/Creatinine Ratio 39; Blood Urea Nitrogen 31 mg/dL (9-20); Calcium 8.7 mg/dL (8.4-10.2); Hemolysis Index 6
[2019-08-11] MEDS: ARFORMOTEROL 15 MCG/2 ML NEBU IH SCH ×2 (08:20→20:18)
[2019-08-11] MEDS: BUDESONIDE 0.5 MG/2 ML NEBU IH SCH ×2 (08:20→20:18)
[2019-08-11] MEDS: IPRATROPIUM/ALBUTEROL SULFATE 3 ML AMPUL.NEB IH SCH ×3 (08:21→20:18)
[2019-08-11 09:25] LABS: Basophils % (Manual) 0 % (0.0-1.8); Total Cells Counted 100
[2019-08-11 09:26] LABS: Eosinophils % (Manual) 0 % (0.0-4.3); Hypochromasia 1+; Platelet Estimate Consistent w Auto
[2019-08-11] MEDS: DICLOFENAC EC 25 MG TAB PO SCH (10:35)
[2019-08-11] MEDS: FUROSEMIDE 40 MG/4 ML INJ IV SCH ×2 (10:35→22:05)
[2019-08-11] MEDS: ENOXAPARIN 40 MG/0.4 ML INJ SUB-Q SCH (10:36)
[2019-08-11] MEDS: ASPIRIN 81 MG TAB CHEW PO SCH (10:36)
[2019-08-11] MEDS: VANCOMYCIN 1,250 MG in SODIUM CHLORIDE 0.9% 250ML 250 ML IV SCH ×2 (10:36→22:44)
[2019-08-11] MEDS: carvediloL 3.125 MG TAB PO SCH ×2 (10:36→22:04)
--- NOTE | 2019-08-11 11:51 | Progress Note ---
Assessment and Plan 64 y/o male with known lung CA, likely COPD and recent allergic reaction to chemo who presents with acute shortness of breath and acute hypoxic respiratory failure. 1. High Dose IV steroids, would not taper anytime soon and continue bipap PRN and QHS 2. Suggest IV diuresis as tolerated, will increase to BID 3. Onc consult, questions would be how long should he be on steroids from this reaction to his chemo, this sounds like a flare from that 4. Montior fluid intake 5. Discussed with CM, patient may need LTACH with pulmonary rehab given his significant decline since discharge and how rapid this happened. Subjective Date of service: 08/11/19 Interval history: Patient on potty this am. Hunched over, increased work of breathing, appears labored. Objective Vital Signs - 12hr 08/11/19 08/11/19 08/11/19 00:29 02:02 07:46 Temperature 97.3 F L 97.4 F L Pulse Rate 101 H 95 H 60 Pulse Rate [ Anterior Bilateral Upper Lobe] Respiratory 18 22 Rate Respiratory Rate [Anterior Bilateral Upper Lobe] Blood Pressure 101/69 116/72 O2 Sat by Pulse 97 92 Oximetry 08/11/19 08/11/19 08/11/19 08:21 08:25 10:36 Temperature Pulse Rate 107 H Pulse Rate [ 102 H Anterior Bilateral Upper Lobe] Respiratory Rate Respiratory 29 H Rate [Anterior Bilateral Upper Lobe] Blood Pressure 115/81 O2 Sat by Pulse 94 Oximetry CBC and BMP: 08/11/19 07:37 08/11/19 07:37 ABG, PT/INR, D-dimer: ABG POC ABG pH 7.415 (7.35-7.45) 08/07/19 18:38 POC ABG pCO2 45.1 (35-45) H 08/07/19 18:38 POC ABG pO2 89 (80-105) 08/07/19 18:38 POC ABG HCO3 28.9 (22-26 mml/L) 08/07/19 18:38 POC ABG Total CO2 30 (23-27mmol/L) 08/07/19 18:38 POC ABG O2 Sat 97 08/07/19 18:38 PT/INR, D-dimer PT 16.0 Sec. (12.2-14.9) H 08/07/19 17:29 INR 1.30 (0.87-1.13) H 08/07/19 17:29 Abnormal lab findings: Abnormal Labs 08/07/19 08/07/19 08/07/19 17:29 17:29 17:29 WBC 17.1 H Hgb RDW 16.5 H Plt Count Seg Neuts % (Manual) 89.0 H Lymphocytes % (Manual) 6.0 L Seg Neutrophils # Man 15.2 H Lymphocytes # (Manual) 1.0 L PT 16.0 H INR 1.30 H POC ABG pCO2 BUN Creatinine Glucose 213 H Calcium NT-Pro-B Natriuret Pep 4527 H Albumin 2.8 L 08/07/19 08/08/19 08/08/19 18:38 03:53 03:53 WBC Hgb RDW 16.9 H Plt Count 122 L Seg Neuts % (Manual) 94.0 H Lymphocytes % (Manual) 4.0 L Seg Neutrophils # Man 9.9 H Lymphocytes # (Manual) 0.4 L PT INR POC ABG pCO2 45.1 H BUN Creatinine 0.7 L Glucose 136 H Calcium 8.3 L NT-Pro-B Natriuret Pep Albumin 2.6 L 08/11/19 08/11/19 07:37 07:37 WBC Hgb 11.5 L RDW 18.2 H Plt Count 97 L Seg Neuts % (Manual) 95.0 H Lymphocytes % (Manual) 3.0 L Seg Neutrophils # Man 10.3 H Lymphocytes # (Manual) 0.3 L PT INR POC ABG pCO2 BUN 31 H Creatinine Glucose 139 H Calcium NT-Pro-B Natriuret Pep Albumin 3.0 L
--- NOTE | 2019-08-11 13:34 | Progress Note ---
Assessment and Plan / Sepsis; Sepsis secondary to healthcare associated pneumonia, IVF fluid therapy, serial lactic acid, follow blood cultures, empiric antibiotics /HCAP (healthcare-associated pneumonia): IV antibiotic cefepime for one week, f/u cultures, Pulm consulted. cont Supportive care. /NSCLC Stage III: Follows with hematology oncologist /-Acute on chronic Respiratory failure: likely due to Possible pneumonitis secondary to immunotherapy with Imfinzi O2 , NIPPV, pulse oximetry, supportive care. IV steroids, inhalation steroids /-General anxiety: Low-dose Xanax when necessary, if no improvement will do Psych evaluation /-UTI: Emperic antibiotics,Urine cultures /-Severe Malnutrition/hypoalbuminemia: nutritional supplements and nutrition consult /Full code. Poor Prognosis discussed with patient and family. They Verbalized understanding / DVT prophylaxis SCD to BLE while in bed, prophylactic lovenox Monitor clinically and adjust the management as needed, Plan of care is reviewed with the patient at the bedside as well as the nurse. Disposition; discharge when medically stable, Follow-up pulmonary recommendations Brief History 64-year-old male patient with lung cancer status post radiation undergoing chemotherapy with lifting with his chemotherapy next hypertension was admitted through emergency room with worsening shortness of breath cough and fatigue. Patient is being treated for healthcare associated pneumonia on IV antibiotics, pneumonitis with iv steroids, pulmonary following, consultated oncology. Patient will need long tapering steroid, CM consulted for LTAC Hospitalist Physical General appearance: Present: mild distress, well-nourished - EENT Eyes: Present: PERRL, EOM intact - Neck Neck: Present: supple, normal ROM - Respiratory Respiratory effort: normal Respiratory: bilateral: diminished, rhonchi, negative: rales, wheezing - Cardiovascular Rhythm: regular Heart Sounds: Present: S1 & S2 - Extremities Extremities: no ischemia, No edema - Abdominal General gastrointestinal: soft, non-tender, non-distended, normal bowel sounds - Integumentary Integumentary: Present: clear, warm - Psychiatric Psychiatric: appropriate mood/affect, cooperative - Neurologic Neurologic: moves all extremities Subjective Date of service: 08/18/19 Interval history: Patient seen and examined. Medical records and medication list reviewed. No acute event overnight noted by the RN. Patient continued to complaints of shortness of breath, remained on 100% FiO2 - unable to wean off Discussed plan of care at bedside with patient - refusing LTAC Objective - Constitutional Vitals: Vital Signs - 12hr 08/11/19 08/11/19 08/11/19 02:02 07:46 08:21 Temperature 97.3 F L 97.4 F L Pulse Rate 95 H 60 Pulse Rate [ 102 H Anterior Bilateral Upper Lobe] Pulse Rate [ From Monitor] Respiratory 18 22 Rate Respiratory 29 H Rate [Anterior Bilateral Upper Lobe] Blood Pressure 101/69 116/72 O2 Sat by Pulse 97 92 Oximetry 08/11/19 08/11/19 08/11/19 08:25 10:00 10:36 Temperature Pulse Rate 102 H 107 H Pulse Rate [ Anterior Bilateral Upper Lobe] Pulse Rate [ 106 H From Monitor] Respiratory 26 H Rate Respiratory Rate [Anterior Bilateral Upper Lobe] Blood Pressure 115/81 O2 Sat by Pulse 94 94 Oximetry - Labs CBC & Chem 7: 08/11/19 07:37 08/11/19 07:37 Labs: Abnormal lab results 08/11/19 08/11/19 Range/Units 07:37 07:37 Hgb 11.5 L (11.8-15.2) gm/dl RDW 18.2 H (13.2-15.2) % Plt Count 97 L (140-440) K/mm3 Seg Neuts % (Manual) 95.0 H (40.0-70.0) % Lymphocytes % (Manual) 3.0 L (13.4-35.0) % Seg Neutrophils # Man 10.3 H (1.8-7.7) K/mm3 Lymphocytes # (Manual) 0.3 L (1.2-5.4) K/mm3 BUN 31 H (9-20) mg/dL Glucose 139 H (75-100) mg/dL Albumin 3.0 L (3.9-5) g/dL
[2019-08-12] MEDS: methylPREDNISolone Sod Succinate 125 MG/2 ML INJ IV SCH ×5 (00:15→23:16)
[2019-08-12] MEDS: CEFEPIME/NS 2 GM/100 ML 2 GM/100 ML BAG IV SCH ×3 (05:50→21:02)
[2019-08-12] MEDS: BENZONATATE 100 MG CAP PO SCH ×3 (05:51→21:00)
--- NOTE | 2019-08-12 07:01 | Hem/Onc Progress Note ---
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 Shortness of breath likely secondary to pneumonitis of Imfinzi, the patient has received 3 treatments of same. He follows with Dr. Dolan. IV steroids were started. pt needs a few weeks of steroids 2. History of port placement. 3. History of hypertension. 4. He will need oxygen support and oral steroids for a few days. He has appointment with Dr. Dolan on the . He is being treated for possible pneumonia during this admission. PLT going down - ? meds related? ON steroids and ABx pt is reluctant to go to rehab/ NH pt needs a few weeks of steroids - dr dolan would follow and taper - Patient Problems (1) Lung cancer Current Visit: Yes Status: Acute Qualifiers: Laterality: unspecified laterality Subjective Date of service: 08/12/19 Principal diagnosis: lung ca - pneumonitis Interval history: still on high flow 02 - with high % o2 Objective - Exam Narrative Exam: Pain - none General appearance - awake Performance status limited self care Eyes - no icterus ENT - on o2 LNs cervical not palpable Neck - no LN Respiratory Normal Breath sounds - CTA anteriorly CVS S1 S2 + Extremities no edema General GI Soft Rectal deferred male - deferred Skin warm Musculoskeletal - moving limbs Neurologically awake - Constitutional Vitals: Last Vital Signs Temp 97.6 F 08/12/19 02:03 Pulse 90 08/12/19 02:03 Resp 24 08/12/19 02:03 BP 104/74 08/12/19 02:03 Pulse Ox 91 08/12/19 02:03 - Labs Lab Results: Laboratory Results - last 24 hr 08/11/19 08/11/19 07:37 07:37 WBC 10.8 RBC 4.08 Hgb 11.5 L Hct 35.7 MCV 87 MCH 28 MCHC 32 RDW 18.2 H Plt Count 97 L Add Manual Diff Complete Total Counted 100 Seg Neutrophils % [employer] Seg Neuts % (Manual) 95.0 H Band Neutrophils % 0 Lymphocytes % (Manual) 3.0 L Reactive Lymphs % (Man) 0 Monocytes % (Manual) 2.0 Eosinophils % (Manual) 0 Basophils % (Manual) 0 Metamyelocytes % 0 Myelocytes % 0 Promyelocytes % 0 Blast Cells % 0 Nucleated RBC % Not Reportable Seg Neutrophils # Man 10.3 H Band Neutrophils # 0.0 Lymphocytes # (Manual) 0.3 L Abs React Lymphs (Man) 0.0 Monocytes # (Manual) 0.2 Eosinophils # (Manual) 0.0 Basophils # (Manual) 0.0 Metamyelocytes # 0.0 Myelocytes # 0.0 Promyelocytes # 0.0 Blast Cells # 0.0 WBC Morphology Not Reportable Hypersegmented Neuts Not Reportable Hyposegmented Neuts Not Reportable Hypogranular Neuts Not Reportable Smudge Cells Not Reportable Toxic Granulation Not Reportable Toxic Vacuolation Not Reportable Dohle Bodies Not Reportable Pelger-Huet Anomaly Not Reportable Zak Rods Not Reportable Platelet Estimate Consistent w auto Clumped Platelets Not Reportable Plt Clumps, EDTA Not Reportable Large Platelets Not Reportable Giant Platelets Not Reportable Platelet Satelliting Not Reportable Plt Morphology Comment Not Reportable RBC Morphology Not Reportable Dimorphic RBCs Not Reportable Polychromasia Not Reportable Hypochromasia 1+ Poikilocytosis Not Reportable Anisocytosis Not Reportable Microcytosis Few Macrocytosis Not Reportable Spherocytes Not Reportable Pappenheimer Bodies Not Reportable Sickle Cells Not Reportable Target Cells Not Reportable Tear Drop Cells Not Reportable Ovalocytes Not Reportable Helmet Cells Not Reportable [place] Bodies Not Reportable [place] Rings Not Reportable Renata Cells Not Reportable Bite Cells Not Reportable Crenated Cell Not Reportable Elliptocytes Not Reportable Acanthocytes (Spur) Not Reportable Rouleaux Not Reportable Hemoglobin C Crystals Not Reportable Schistocytes Not Reportable Malaria parasites Not Reportable Rafa Bodies Not Reportable Hem Pathologist Commnt No Sodium 144 Potassium 4.6 Chloride 100.8 Carbon Dioxide 28 Anion Gap 20 BUN 31 H Creatinine 0.8 Estimated GFR > 60 BUN/Creatinine Ratio 39 Glucose 139 H Calcium 8.7 Total Bilirubin 0.30 AST 20 ALT 27 Alkaline Phosphatase 87 Total Protein 6.7 Albumin 3.0 L Albumin/Globulin Ratio 0.8 Medications & Allergies - Medications Allergies/Adverse Reactions: Allergies No Known Allergies Allergy (Verified 07/19/19 14:55) Home Medications: Home Medications Medication Instructions Recorded Confirmed Last Taken Type Aspirin [Aspirin BABY CHEW TAB] 81 mg PO QDAY 07/19/19 08/07/19 07/18/19 History Diclofenac EC [Voltaren] 25 mg PO QDAY 07/19/19 08/07/19 07/18/19 History Durvalumab [Imfinzi] 120 mg IV Q2W 07/19/19 08/07/19 07/18/19 History carvediloL [Coreg] 3.125 mg PO BID 07/19/19 08/07/19 07/18/19 History diazePAM [Diazepam] 10 mg PO QHS 07/19/19 08/07/19 07/18/19 History ALBUTEROL Inhaler (OR & NICU) 2 puff IH QID PRN #1 07/28/19 08/07/19 Unknown Rx [ProAir HFA Inhaler] Benzonatate [Tessalon Perles] 100 mg PO Q8HR #14 capsule 07/28/19 08/08/19 Unknown Rx predniSONE [Deltasone] 60 mg PO QDAY #14 tablet 07/28/19 08/07/19 Unknown Rx Active Medications: Generic Name Dose Route Start Last Admin Trade Name Freq PRN Reason Stop Dose Admin Acetaminophen 650 mg 08/07/19 18:52 Tylenol PO Q4H PRN Pain MILD(1-3)/Fever >100.5/FU Albuterol/Ipratropium 1 ampul 08/08/19 14:00 08/11/19 20:18 Duoneb *Not For Prn Use* IH 1 ampul TIDRT ELI Administration Alprazolam 0.25 mg 08/08/19 12:01 08/10/19 21:33 Xanax PO 0.25 mg Q8H PRN Administration Anxiety Arformoterol Tartrate 15 mcg 08/08/19 20:00 08/11/19 20:18 Brovana Nebu IH 15 mcg Q12HRT ELI Administration Aspirin 81 mg 08/09/19 10:00 08/11/19 10:36 Baby Aspirin PO 81 mg QDAY ELI Administration Benzonatate 100 mg 08/08/19 14:00 08/12/19 05:51 Tessalon Perles PO 100 mg Q8HR ELI Administration Budesonide 0.5 mg 08/08/19 20:00 08/11/19 20:18 Pulmicort IH 0.5 mg Q12HRT ELI Administration Carvedilol 3.125 mg 08/08/19 12:00 08/11/19 22:04 Coreg PO 3.125 mg BID ELI Administration Diclofenac Sodium 25 mg 08/09/19 10:00 08/11/19 10:35 Voltaren PO 25 mg QDAY ELI Administration Enoxaparin Sodium 40 mg 08/08/19 10:00 08/11/19 10:36 Enoxaparin SUB-Q 40 mg QDAY@1000 ELI Administration Furosemide 40 mg 08/10/19 22:00 08/11/19 22:05 Lasix IV 40 mg BID ELI Administration Cefepime HCl 2 gm in 100 mls @ 200 mls/hr 08/07/19 18:33 08/12/19 05:50 Cefepime/Ns 2 Gm/100 Ml IV 200 mls/hr Q8HR ELI Administration Protocol Vancomycin HCl 1,250 mg/ 275 mls @ 166.667 mls/hr 08/10/19 22:00 08/11/19 22:44 Sodium Chloride IV 166.667 mls/hr Q12HR ELI Administration Magnesium Hydroxide 30 ml 08/09/19 19:33 Milk Of Magnesia PO QDAY PRN Constipation Methylprednisolone Sodium Succinate 60 mg 08/10/19 12:00 08/12/19 05:51 Solu-Medrol IV 60 mg Q6H ELI Administration Ondansetron HCl 4 mg 08/07/19 18:52 Zofran IV Q8H PRN Nausea And Vomiting Sodium Chloride 10 ml 08/07/19 22:00 08/11/19 22:06 Sodium Chloride Flush Syringe 10 Ml IV 10 ml BID ELI Administration Sodium Chloride 10 ml 08/07/19 18:52 Sodium Chloride Flush Syringe 10 Ml IV PRN PRN LINE FLUSH
[2019-08-12] MEDS: IPRATROPIUM/ALBUTEROL SULFATE 3 ML AMPUL.NEB IH SCH ×3 (07:54→20:21)
[2019-08-12] MEDS: BUDESONIDE 0.5 MG/2 ML NEBU IH SCH ×2 (07:54→20:21)
[2019-08-12] MEDS: ARFORMOTEROL 15 MCG/2 ML NEBU IH SCH ×2 (07:54→20:21)
--- NOTE | 2019-08-12 08:16 | Progress Note ---
Subjective Date of service: 08/12/19 Principal diagnosis: lung ca - pneumonitis Interval history: Still on HFNC. Did not wear PPV last night. Objective Vital Signs - 12hr 08/11/19 08/11/19 08/11/19 20:29 22:00 22:04 Temperature Pulse Rate 95 H 95 H Pulse Rate [ Anterior Bilateral Upper Lobe] Pulse Rate [ 113 H From Monitor] Respiratory 24 Rate Respiratory Rate [Anterior Bilateral Upper Lobe] Blood Pressure 125/74 O2 Sat by Pulse 95 95 Oximetry 08/12/19 08/12/19 08/12/19 02:03 07:17 07:54 Temperature 97.6 F 97.8 F Pulse Rate 90 91 H Pulse Rate [ 98 H Anterior Bilateral Upper Lobe] Pulse Rate [ From Monitor] Respiratory 24 22 Rate Respiratory 28 H Rate [Anterior Bilateral Upper Lobe] Blood Pressure 104/74 108/80 O2 Sat by Pulse 91 92 Oximetry 08/12/19 07:58 Temperature Pulse Rate Pulse Rate [ Anterior Bilateral Upper Lobe] Pulse Rate [ From Monitor] Respiratory Rate Respiratory Rate [Anterior Bilateral Upper Lobe] Blood Pressure O2 Sat by Pulse 94 Oximetry CBC and BMP: 08/11/19 07:37 08/11/19 07:37 ABG, PT/INR, D-dimer: ABG POC ABG pH 7.415 (7.35-7.45) 08/07/19 18:38 POC ABG pCO2 45.1 (35-45) H 08/07/19 18:38 POC ABG pO2 89 (80-105) 08/07/19 18:38 POC ABG HCO3 28.9 (22-26 mml/L) 08/07/19 18:38 POC ABG Total CO2 30 (23-27mmol/L) 08/07/19 18:38 POC ABG O2 Sat 97 08/07/19 18:38 PT/INR, D-dimer PT 16.0 Sec. (12.2-14.9) H 08/07/19 17:29 INR 1.30 (0.87-1.13) H 08/07/19 17:29 Abnormal lab findings: Abnormal Labs 08/07/19 08/07/19 08/07/19 17:29 17:29 17:29 WBC 17.1 H Hgb RDW 16.5 H Plt Count Seg Neuts % (Manual) 89.0 H Lymphocytes % (Manual) 6.0 L Seg Neutrophils # Man 15.2 H Lymphocytes # (Manual) 1.0 L PT 16.0 H INR 1.30 H POC ABG pCO2 BUN Creatinine Glucose 213 H Calcium NT-Pro-B Natriuret Pep 4527 H Albumin 2.8 L 08/07/19 08/08/19 08/08/19 18:38 03:53 03:53 WBC Hgb RDW 16.9 H Plt Count 122 L Seg Neuts % (Manual) 94.0 H Lymphocytes % (Manual) 4.0 L Seg Neutrophils # Man 9.9 H Lymphocytes # (Manual) 0.4 L PT INR POC ABG pCO2 45.1 H BUN Creatinine 0.7 L Glucose 136 H Calcium 8.3 L NT-Pro-B Natriuret Pep Albumin 2.6 L 08/11/19 08/11/19 07:37 07:37 WBC Hgb 11.5 L RDW 18.2 H Plt Count 97 L Seg Neuts % (Manual) 95.0 H Lymphocytes % (Manual) 3.0 L Seg Neutrophils # Man 10.3 H Lymphocytes # (Manual) 0.3 L PT INR POC ABG pCO2 BUN 31 H Creatinine Glucose 139 H Calcium NT-Pro-B Natriuret Pep Albumin 3.0 L
--- NOTE | 2019-08-12 08:47 | XRay Report ---
CHEST - 1 VIEW 0828 hours INDICATION: Hypoxemia, with lung CA COMPARISON: 08/07/2019. FINDINGS: Support devices: Stable positioning of the right [id number]. Heart: Stable borderline heart size. Lungs/pleura: Stable extensive interstitial edema or fibrotic changes throughout both lungs. No sign ificant pleural fluid collection or pneumothorax. Additional findings: None. IMPRESSION: Unchanged exam. Signer Name: Cash Gaona Jr, MD Signed: 08/12/2019 8:43 AM Workstation Name: [id number]
[2019-08-12] MEDS: DICLOFENAC EC 25 MG TAB PO SCH (09:54)
[2019-08-12] MEDS: ASPIRIN 81 MG TAB CHEW PO SCH (09:55)
[2019-08-12] MEDS: ENOXAPARIN 40 MG/0.4 ML INJ SUB-Q SCH (09:55)
[2019-08-12] MEDS: FUROSEMIDE 40 MG/4 ML INJ IV SCH ×2 (09:55→21:00)
[2019-08-12] MEDS: carvediloL 3.125 MG TAB PO SCH ×2 (09:55→21:00)
--- NOTE | 2019-08-12 12:17 | Progress Note ---
Assessment and Plan / Sepsis; Sepsis secondary to healthcare associated pneumonia, serial lactic acid, follow blood cultures, empiric antibiotics for a week /HCAP (healthcare-associated pneumonia): cont IV antibiotic cefepime for one week, f/u cultures, Pulm consulted. cont Supportive care. /NSCLC Stage III: Follows with hematology oncologist /-Acute on chronic Respiratory failure: likely due to Possible pneumonitis secondary to immunotherapy with Imfinzi O2 , NIPPV, pulse oximetry, supportive care. IV steroids, inhalation steroids /-General anxiety: Low-dose Xanax when necessary, if no improvement will do Psych evaluation /-UTI: Emperic antibiotics,Urine cultures /-Severe Malnutrition/hypoalbuminemia: nutritional supplements and nutrition consult /Full code. Poor Prognosis discussed with patient and family. They Verbalized understanding / DVT prophylaxis SCD to BLE while in bed, prophylactic lovenox Monitor clinically and adjust the management as needed, Plan of care is reviewed with the patient at the bedside as well as the nurse. Disposition; patient needs LTAC as difficult to wean off from 100% Fio2 Brief History 64-year-old male patient with lung cancer status post radiation undergoing c hemotherapy with lifting with his chemotherapy next hypertension was admitted through emergency room with worsening shortness of breath cough and fatigue. Patient is being treated for healthcare associated pneumonia on IV antibiotics, pneumonitis with iv steroids, pulmonary following, consultated oncology. Patient will need long tapering steroid, CM consulted for LTAC Hospitalist Physical General appearance: Present: mild distress, well-nourished - EENT Eyes: Present: PERRL, EOM intact - Neck Neck: Present: supple, normal ROM - Respiratory Respiratory effort: normal Respiratory: bilateral: diminished, rhonchi, negative: rales, wheezing - Cardiovascular Rhythm: regular Heart Sounds: Present: S1 & S2 - Extremities Extremities: no ischemia, No edema - Abdominal General gastrointestinal: soft, non-tender, non-distended, normal bowel sounds - Integumentary Integumentary: Present: clear, warm - Psychiatric Psychiatric: appropriate mood/affect, cooperative - Neurologic Neurologic: moves all extremities Subjective Date of service: 08/12/19 Principal diagnosis: lung ca - pneumonitis Interval history: Patient seen and examined. Medical records and medication list reviewed. No acute event overnight noted by the RN. Patient continued to complaints of shortness of breath, remained on 100% FiO2 - unable to wean off Discussed plan of care at bedside with patient - agrees for LTAC today Objective - Constitutional Vitals: Vital Signs - 12hr 08/12/19 08/12/19 08/12/19 02:03 07:17 07:54 Temperature 97.6 F 97.8 F Pulse Rate 90 91 H Pulse Rate [ 98 H Anterior Bilateral Upper Lobe] Pulse Rate [ From Monitor] Respiratory 24 22 Rate Respiratory 28 H Rate [Anterior Bilateral Upper Lobe] Blood Pressure 104/74 108/80 O2 Sat by Pulse 91 92 Oximetry 08/12/19 08/12/19 08/12/19 07:58 09:55 10:00 Temperature Pulse Rate 109 H 119 H Pulse Rate [ Anterior Bilateral Upper Lobe] Pulse Rate [ 116 H From Monitor] Respiratory 22 Rate Respiratory Rate [Anterior Bilateral Upper Lobe] Blood Pressure 106/71 O2 Sat by Pulse 94 94 Oximetry - Labs CBC & Chem 7: 08/11/19 07:37 08/11/19 07:37 Labs: Abnormal lab results 08/11/19 Range/Units 07:37 NT-Pro-B Natriuret Pep 5959 H (0-900) pg/mL
[2019-08-12] MEDS: ALPRAZolam 0.25 MG TAB PO PRN ×2 (14:01→21:00)
[2019-08-13] MEDS: CEFEPIME/NS 2 GM/100 ML 2 GM/100 ML BAG IV SCH ×3 (05:27→21:38)
[2019-08-13] MEDS: methylPREDNISolone Sod Succinate 125 MG/2 ML INJ IV SCH ×3 (05:29→19:18)
[2019-08-13] MEDS: BENZONATATE 100 MG CAP PO SCH ×3 (05:29→21:36)
--- NOTE | 2019-08-13 08:07 | Hem/Onc Progress Note ---
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 Shortness of breath likely secondary to pneumonitis of Imfinzi, the patient has received 3 treatments of same. He follows with Dr. Dolan. IV steroids were started. pt needs a few weeks of steroids 2. History of port placement. 3. History of hypertension. 4. He will need oxygen support and oral steroids for a few days. He has appointment with Dr. Dolan on the . He is being treated for possible pneumonia during this admission. PLT going down - ? meds related? ON steroids and ABx pt is reluctant to go to rehab/ NH pt needs a few weeks of steroids - dr dolan would follow and taper still on high o2 d/w family member - Patient Problems (1) Lung cancer Current Visit: Yes Status: Acute Qualifiers: Laterality: unspecified laterality Subjective Date of service: 08/13/19 Principal diagnosis: pneumonitis - Lung cancer Interval history: still SOB -on o2 Objective - Exam Narrative Exam: Pain - none General appearance - awake Performance status limited self care Eyes - no icterus ENT - on o2 LNs cervical not palpable Neck - no LN Respiratory Normal Breath sounds - CTA anteriorly CVS S1 S2 + Extremities no edema General GI Soft Rectal deferred male - deferred Skin warm Musculoskeletal - moving limbs Neurologically awake - Constitutional Vitals: Last Vital Signs Temp 97.8 F 08/13/19 07:21 Pulse 89 08/13/19 07:21 Resp 22 08/13/19 07:21 BP 117/87 08/13/19 07:21 Pulse Ox 92 08/13/19 07:21 - Labs Lab Results: Laboratory Results - last 24 hr 08/11/19 07:37 NT-Pro-B Natriuret Pep 5959 H Medications & Allergies - Medications Allergies/Adverse Reactions: Allergies No Known Allergies Allergy (Verified 07/19/19 14:55) Home Medications: Home Medications Medication Instructions Recorded Confirmed Last Taken Type Aspirin [Aspirin BABY CHEW TAB] 81 mg PO QDAY 07/19/19 08/07/19 07/18/19 History Diclofenac EC [Voltaren] 25 mg PO QDAY 07/19/19 08/07/19 07/18/19 History Durvalumab [Imfinzi] 120 mg IV Q2W 07/19/19 08/07/19 07/18/19 History carvediloL [Coreg] 3.125 mg PO BID 07/19/19 08/07/19 07/18/19 History diazePAM [Diazepam] 10 mg PO QHS 07/19/19 08/07/19 07/18/19 History ALBUTEROL Inhaler (OR & NICU) 2 puff IH QID PRN #1 07/28/19 08/07/19 Unknown Rx [ProAir HFA Inhaler] Benzonatate [Tessalon Perles] 100 mg PO Q8HR #14 capsule 07/28/19 08/08/19 Unknown Rx predniSONE [Deltasone] 60 mg PO QDAY #14 tablet 07/28/19 08/07/19 Unknown Rx Active Medications: Generic Name Dose Route Start Last Admin Trade Name Freq PRN Reason Stop Dose Admin Acetaminophen 650 mg 08/07/19 18:52 Tylenol PO Q4H PRN Pain MILD(1-3)/Fever >100.5/FU Albuterol/Ipratropium 1 ampul 08/08/19 14:00 08/12/19 20:21 Duoneb *Not For Prn Use* IH 1 ampul TIDRT ELI Administration Alprazolam 0.25 mg 08/08/19 12:01 08/12/19 21:00 Xanax PO 0.25 mg Q8H PRN Administration Anxiety Arformoterol Tartrate 15 mcg 08/08/19 20:00 08/12/19 20:21 Brovana Nebu IH 15 mcg Q12HRT ELI Administration Aspirin 81 mg 08/09/19 10:00 08/12/19 09:55 Baby Aspirin PO 81 mg QDAY ELI Administration Benzonatate 100 mg 08/08/19 14:00 08/13/19 05:29 Tessalon Perles PO 100 mg Q8HR ELI Administration Budesonide 0.5 mg 08/08/19 20:00 08/12/19 20:21 Pulmicort IH 0.5 mg Q12HRT ELI Administration Carvedilol 3.125 mg 08/08/19 12:00 08/12/19 21:00 Coreg PO 3.125 mg BID ELI Administration Diclofenac Sodium 25 mg 08/09/19 10:00 08/12/19 09:54 Voltaren PO 25 mg QDAY ELI Administration Enoxaparin Sodium 40 mg 08/08/19 10:00 08/12/19 09:55 Enoxaparin SUB-Q 40 mg QDAY@1000 ELI Administration Furosemide 40 mg 08/10/19 22:00 08/12/19 21:00 Lasix IV 40 mg BID ELI Administration Cefepime HCl 2 gm in 100 mls @ 200 mls/hr 08/07/19 18:33 08/13/19 05:27 Cefepime/Ns 2 Gm/100 Ml IV 08/14/19 23:59 200 mls/hr Q8HR ELI Administration Protocol Magnesium Hydroxide 30 ml 08/09/19 19:33 Milk Of Magnesia PO QDAY PRN Constipation Methylprednisolone Sodium Succinate 60 mg 08/10/19 12:00 08/13/19 05:29 Solu-Medrol IV 60 mg Q6H ELI Administration Ondansetron HCl 4 mg 08/07/19 18:52 Zofran IV Q8H PRN Nausea And Vomiting Sodium Chloride 10 ml 08/07/19 22:00 08/12/19 21:01 Sodium Chloride Flush Syringe 10 Ml IV 10 ml BID ELI Administration Sodium Chloride 10 ml 08/07/19 18:52 Sodium Chloride Flush Syringe 10 Ml IV PRN PRN LINE FLUSH
[2019-08-13] MEDS: BUDESONIDE 0.5 MG/2 ML NEBU IH SCH ×2 (08:14→19:06)
[2019-08-13] MEDS: IPRATROPIUM/ALBUTEROL SULFATE 3 ML AMPUL.NEB IH SCH ×3 (08:14→19:06)
[2019-08-13] MEDS: ARFORMOTEROL 15 MCG/2 ML NEBU IH SCH ×2 (08:14→19:06)
[2019-08-13] MEDS: FUROSEMIDE 40 MG/4 ML INJ IV SCH (09:32)
[2019-08-13] MEDS: DICLOFENAC EC 25 MG TAB PO SCH (09:32)
[2019-08-13] MEDS: ENOXAPARIN 40 MG/0.4 ML INJ SUB-Q SCH (09:32)
[2019-08-13] MEDS: ASPIRIN 81 MG TAB CHEW PO SCH (09:33)
[2019-08-13] MEDS: carvediloL 3.125 MG TAB PO SCH ×2 (09:33→21:36)
--- NOTE | 2019-08-13 13:13 | Progress Note ---
Assessment and Plan 64 y/o male with known lung CA, likely COPD and recent allergic reaction to chemo who presents with acute shortness of breath and acute hypoxic respiratory failure. 1. High Dose IV steroids, would not taper anytime soon and continue bipap PRN and QHS 2. May need higher doses of lasix if BP and renal function will allow. 3. Appreciate Onc recs. 4. Montior fluid intake 5. Discussed with CM, patient may need LTACH with pulmonary rehab given his significant decline since discharge and how rapid this happened. Subjective Date of service: 08/13/19 Principal diagnosis: lung ca - pneumonitis Interval history: No acute events. Still on high flow. BNP checked and greater than 5k. Still on HFNC. Objective Vital Signs - 12hr 08/13/19 08/13/19 08/13/19 01:50 01:51 02:36 Temperature 97.7 F Pulse Rate 98 H 98 H Pulse Rate [ Anterior Bilateral Upper Lobe] Pulse Rate [ From Monitor] Respiratory 20 Rate Respiratory Rate [Anterior Bilateral Upper Lobe] Blood Pressure 112/86 O2 Sat by Pulse 93 96 Oximetry 08/13/19 08/13/19 08/13/19 07:21 08:14 08:40 Temperature 97.8 F Pulse Rate 89 Pulse Rate [ 98 H Anterior Bilateral Upper Lobe] Pulse Rate [ From Monitor] Respiratory 22 Rate Respiratory 20 Rate [Anterior Bilateral Upper Lobe] Blood Pressure 117/87 O2 Sat by Pulse 92 91 Oximetry 08/13/19 08/13/19 09:33 10:00 Temperature Pulse Rate 113 H Pulse Rate [ Anterior Bilateral Upper Lobe] Pulse Rate [ 116 H From Monitor] Respiratory Rate Respiratory Rate [Anterior Bilateral Upper Lobe] Blood Pressure 125/88 O2 Sat by Pulse 93 Oximetry CBC and BMP: 08/11/19 07:37 08/11/19 07:37 ABG, PT/INR, D-dimer: ABG POC ABG pH 7.415 (7.35-7.45) 08/07/19 18:38 POC ABG pCO2 45.1 (35-45) H 08/07/19 18:38 POC ABG pO2 89 (80-105) 08/07/19 18:38 POC ABG HCO3 28.9 (22-26 mml/L) 08/07/19 18:38 POC ABG Total CO2 30 (23-27mmol/L) 08/07/19 18:38 POC ABG O2 Sat 97 08/07/19 18:38 PT/INR, D-dimer PT 16.0 Sec. (12.2-14.9) H 08/07/19 17:29 INR 1.30 (0.87-1.13) H 08/07/19 17:29 Abnormal lab findings: Abnormal Labs 08/07/19 08/07/19 08/07/19 17:29 17:29 17:29 WBC 17.1 H Hgb RDW 16.5 H Plt Count Seg Neuts % (Manual) 89.0 H Lymphocytes % (Manual) 6.0 L Seg Neutrophils # Man 15.2 H Lymphocytes # (Manual) 1.0 L PT 16.0 H INR 1.30 H POC ABG pCO2 BUN Creatinine Glucose 213 H Calcium NT-Pro-B Natriuret Pep 4527 H Albumin 2.8 L 08/07/19 08/08/19 08/08/19 18:38 03:53 03:53 WBC Hgb RDW 16.9 H Plt Count 122 L Seg Neuts % (Manual) 94.0 H Lymphocytes % (Manual) 4.0 L Seg Neutrophils # Man 9.9 H Lymphocytes # (Manual) 0.4 L PT INR POC ABG pCO2 45.1 H BUN Creatinine 0.7 L Glucose 136 H Calcium 8.3 L NT-Pro-B Natriuret Pep Albumin 2.6 L 08/11/19 08/11/19 08/11/19 07:37 07:37 07:37 WBC Hgb 11.5 L RDW 18.2 H Plt Count 97 L Seg Neuts % (Manual) 95.0 H Lymphocytes % (Manual) 3.0 L Seg Neutrophils # Man 10.3 H Lymphocytes # (Manual) 0.3 L PT INR POC ABG pCO2 BUN 31 H Creatinine Glucose 139 H Calcium NT-Pro-B Natriuret Pep 5959 H Albumin 3.0 L
[2019-08-13] MEDS ORDERED: FUROSEMIDE 40 MG/4 ML INJ IV SCH (14:03)
--- NOTE | 2019-08-13 14:04 | Progress Note ---
Assessment and Plan / Sepsis; Sepsis secondary to healthcare associated pneumonia, serial lactic acid, follow blood cultures, empiric antibiotics for a week /HCAP (healthcare-associated pneumonia): cont IV antibiotic cefepime for one week, f/u cultures, Pulm consulted. cont Supportive care. /NSCLC Stage III: Follows with hematology oncologist /-Acute on chronic Respiratory failure: likely due to Possible pneumonitis secondary to immunotherapy with Imfinzi O2 , NIPPV, pulse oximetry, supportive care. IV steroids, inhalation steroids /-General anxiety: Low-dose Xanax when necessary, if no improvement will do Psych evaluation /-UTI: Emperic antibiotics,Urine cultures /-Severe Malnutrition/hypoalbuminemia: nutritional supplements and nutrition consult /Full code. Poor Prognosis discussed with patient and family. They Verbalized understanding / DVT prophylaxis SCD to BLE while in bed, prophylactic lovenox Monitor clinically and adjust the management as needed, Plan of care is reviewed with the patient at the bedside as well as the nurse. Disposition; patient needs LTAC as difficult to wean off from 100% Fio2 Brief History 64-year-old male patient with lung cancer status post radiation undergoing c hemotherapy with lifting with his chemotherapy next hypertension was admitted through emergency room with worsening shortness of breath cough and fatigue. Patient is being treated for healthcare associated pneumonia on IV antibiotics, pneumonitis with iv steroids, pulmonary following, consultated oncology. Patient will need long tapering steroid, CM consulted for LTAC Hospitalist Physical General appearance: Present: mild distress, well-nourished - EENT Eyes: Present: PERRL, EOM intact - Neck Neck: Present: supple, normal ROM - Respiratory Respiratory effort: normal Respiratory: bilateral: diminished, rhonchi, negative: rales, wheezing - Cardiovascular Rhythm: regular Heart Sounds: Present: S1 & S2 - Extremities Extremities: no ischemia, No edema - Abdominal General gastrointestinal: soft, non-tender, non-distended, normal bowel sounds - Integumentary Integumentary: Present: clear, warm - Psychiatric Psychiatric: appropriate mood/affect, cooperative - Neurologic Neurologic: moves all extremities Subjective Date of service: 08/13/19 Principal diagnosis: lung ca - pneumonitis Interval history: Patient seen and examined. Medical records and medication list reviewed. No acute event overnight noted by the RN. Patient continued to complaints of shortness of breath, remained on 100% FiO2 - unable to wean off Discussed plan of care at bedside with patient - waiting for LTAC placement Objective - Constitutional Vitals: Vital Signs - 12hr 08/13/19 08/13/19 08/13/19 02:36 07:21 08:14 Temperature 97.8 F Pulse Rate 89 Pulse Rate [ Anterior Bilateral Upper Lobe] Pulse Rate [ From Monitor] Respiratory 22 Rate Respiratory Rate [Anterior Bilateral Upper Lobe] Blood Pressure 117/87 O2 Sat by Pulse 96 92 91 Oximetry 08/13/19 08/13/19 08/13/19 08:40 09:33 10:00 Temperature Pulse Rate 113 H Pulse Rate [ 98 H Anterior Bilateral Upper Lobe] Pulse Rate [ 116 H From Monitor] Respiratory Rate Respiratory 20 Rate [Anterior Bilateral Upper Lobe] Blood Pressure 125/88 O2 Sat by Pulse 93 Oximetry 08/13/19 14:00 Temperature Pulse Rate Pulse Rate [ Anterior Bilateral Upper Lobe] Pulse Rate [ From Monitor] Respiratory Rate Respiratory Rate [Anterior Bilateral Upper Lobe] Blood Pressure O2 Sat by Pulse 92 Oximetry - Labs CBC & Chem 7: 08/11/19 07:37 08/11/19 07:37
[2019-08-13] MEDS: MAGNESIUM HYDROXIDE (MOM) ORAL LIQD UDC PO PRN (14:50)
[2019-08-13] MEDS: FUROSEMIDE 100 MG/10 ML INJ IV SCH (19:18)
[2019-08-14] MEDS: methylPREDNISolone Sod Succinate 125 MG/2 ML INJ IV SCH ×5 (00:38→23:23)
[2019-08-14] MEDS: ALPRAZolam 0.25 MG TAB PO PRN ×3 (03:40→21:21)
[2019-08-14] MEDS: BENZONATATE 100 MG CAP PO SCH ×3 (05:25→21:23)
[2019-08-14] MEDS: CEFEPIME/NS 2 GM/100 ML 2 GM/100 ML BAG IV SCH ×3 (05:25→21:22)
[2019-08-14] MEDS: FUROSEMIDE 100 MG/10 ML INJ IV SCH ×2 (05:26→17:25)
[2019-08-14] MEDS: ARFORMOTEROL 15 MCG/2 ML NEBU IH SCH ×2 (08:54→19:20)
[2019-08-14] MEDS: IPRATROPIUM/ALBUTEROL SULFATE 3 ML AMPUL.NEB IH SCH ×3 (08:54→19:20)
[2019-08-14] MEDS: BUDESONIDE 0.5 MG/2 ML NEBU IH SCH ×2 (08:54→19:19)
[2019-08-14] MEDS: DICLOFENAC EC 25 MG TAB PO SCH (10:02)
[2019-08-14] MEDS: ASPIRIN 81 MG TAB CHEW PO SCH (10:02)
[2019-08-14] MEDS: carvediloL 3.125 MG TAB PO SCH ×2 (10:02→21:22)
[2019-08-14] MEDS: ENOXAPARIN 40 MG/0.4 ML INJ SUB-Q SCH (10:03)
--- NOTE | 2019-08-14 13:21 | Progress Note ---
Assessment and Plan / Sepsis; Sepsis secondary to healthcare associated pneumonia, serial lactic acid, follow blood cultures, empiric antibiotics for a week - last day today /HCAP (healthcare-associated pneumonia): cont IV antibiotic cefepime for one week, f/u cultures, Pulm consulted. cont Supportive care. /NSCLC Stage III: Follows with hematology oncologist /-Acute on chronic Respiratory failure: likely due to Possible pneumonitis secondary to immunotherapy with Imfinzi O2 , NIPPV, pulse oximetry, supportive care. IV steroids, inhalation steroids /-General anxiety: Low-dose Xanax when necessary, if no improvement will do Psych evaluation /-UTI: Treated with Emperic antibiotics, Urine cultures /-Severe Malnutrition/hypoalbuminemia: nutritional supplements and nutrition consult /Full code. Poor Prognosis discussed with patient and family. They Verbalized understanding / DVT prophylaxis SCD to BLE while in bed, prophylactic lovenox Monitor clinically and adjust the management as needed, Plan of care is reviewed with the patient at the bedside as well as the nurse. Disposition; patient needs LTAC as difficult to wean off O2 Brief History 64-year-old male patient with lung cancer status post radiation undergoing chemotherapy with lifting with his chemotherapy next hypertension was admitted through emergency room with worsening shortness of breath cough and fatigue. Patient is being treated for healthcare associated pneumonia on IV antibiotics, pneumonitis with iv steroids, pulmonary following, consultated oncology. Patient will need long tapering steroid, CM consulted for LTAC Hospitalist Physical General appearance: Present: mild distress, mal-nourished - EENT Eyes: Present: PERRL, EOM intact - Neck Neck: Present: supple, normal ROM - Respiratory Respiratory effort: normal Respiratory: bilateral: diminished, rhonchi, negative: rales, wheezing - Cardiovascular Rhythm: regular Heart Sounds: Present: S1 & S2 - Extremities Extremities: no ischemia, No edema - Abdominal General gastrointestinal: soft, non-tender, non-distended, normal bowel sounds - Integumentary Integumentary: Present: clear, warm - Psychiatric Psychiatric: appropriate mood/affect, cooperative - Neurologic Neurologic: moves all extremities Subjective Date of service: 08/14/19 Principal diagnosis: lung ca - pneumonitis Interval history: Patient seen and examined. Medical records and medication list reviewed. No acute event overnight noted by the RN. Patient continued to complaints of shortness of breath, today on 85% FiO2 Discussed plan of care at bedside with patient - waiting for LTAC placement at bedside - updated Objective - Constitutional Vitals: Vital Signs - 12hr 08/14/19 08/14/19 08/14/19 01:52 02:45 04:45 Temperature Pulse Rate 98 H Pulse Rate [ Anterior Throughout] Pulse Rate [ From Monitor] Respiratory 18 Rate Respiratory Rate [Anterior Throughout] Blood Pressure 118/86 O2 Sat by Pulse 97 97 97 Oximetry 08/14/19 08/14/19 08/14/19 07:47 09:00 09:45 Temperature 97.3 F L Pulse Rate 96 H Pulse Rate [ 96 H Anterior Throughout] Pulse Rate [ From Monitor] Respiratory 20 Rate Respiratory 24 Rate [Anterior Throughout] Blood Pressure 126/91 O2 Sat by Pulse 94 93 Oximetry 08/14/19 08/14/19 10:00 10:02 Temperature Pulse Rate 82 96 H Pulse Rate [ Anterior Throughout] Pulse Rate [ 82 From Monitor] Respiratory 20 Rate Respiratory Rate [Anterior Throughout] Blood Pressure 126/91 O2 Sat by Pulse 93 Oximetry - Labs CBC & Chem 7: 08/11/19 07:37 08/11/19 07:37
--- NOTE | 2019-08-14 19:27 | Progress Note ---
Assessment and Plan Imp: 1. 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 NSCLC 3. A/C respiratory failure, hypoxia 4. Thrombocytopenia 5. Dilated CMP Rec: 1. Solumedrol IV same; will need a prolonged course of steroids 2. Cont. IV Lasix 3. Wean HFNC to keep sats 88% or > 4. Agree w/ LTAC as this may take time to wean FiO2 5. D/c Imfinzi permanently 6. Monitor platelets closely; may need HIT work-up 7. Complex decision-making Plan of care reviewed with pt./family, they understand/agree Subjective Date of service: 08/14/19 Principal diagnosis: lung ca - pneumonitis Interval history: No events. Remains on HFNC. SOB the same. No new complaints Active Medications Acetaminophen (Tylenol) 650 mg PO Q4H PRN PRN Reason: Pain MILD(1-3)/Fever >100.5/FU Albuterol/Ipratropium (Duoneb *Not For Prn Use*) 1 ampul IH TIDRT REPLACED BY [facility] Last Admin: 08/14/19 14:46 Dose: 1 ampul Documented by: Alprazolam (Xanax) 0.25 mg PO Q8H PRN PRN Reason: Anxiety Last Admin: 08/14/19 14:09 Dose: 0.25 mg Documented by: Arformoterol Tartrate (Brovana Nebu) 15 mcg IH Q12HRT REPLACED BY [facility] Last Admin: 08/14/19 08:54 Dose: 15 mcg Documented by: Aspirin (Baby Aspirin) 81 mg PO QDAY REPLACED BY [facility] Last Admin: 08/14/19 10:02 Dose: 81 mg Documented by: Benzonatate (Tessalon Perles) 100 mg PO Q8HR REPLACED BY [facility] Last Admin: 08/14/19 14:10 Dose: 100 mg Documented by: Budesonide (Pulmicort) 0.5 mg IH Q12HRT REPLACED BY [facility] Last Admin: 08/14/19 08:54 Dose: 0.5 mg Documented by: Carvedilol (Coreg) 3.125 mg PO BID REPLACED BY [facility] Last Admin: 08/14/19 10:02 Dose: 3.125 mg Documented by: Diclofenac Sodium (Voltaren) 25 mg PO QDAY REPLACED BY [facility] Last Admin: 08/14/19 10:02 Dose: 25 mg Documented by: Enoxaparin Sodium (Enoxaparin) 40 mg SUB-Q QDAY@1000 ELI Last Admin: 08/14/19 10:03 Dose: 40 mg Documented by: Furosemide (Lasix) 60 mg IV 0600,1800 REPLACED BY [facility] Last Admin: 08/14/19 17:25 Dose: 60 mg Documented by: Cefepime HCl (Cefepime/Ns 2 Gm/100 Ml) 2 gm in 100 mls @ 200 mls/hr IV Q8HR REPLACED BY [facility]; Protocol Stop: 08/14/19 23:59 Last Admin: 08/14/19 14:05 Dose: 200 mls/hr Documented by: Magnesium Hydroxide (Milk Of Magnesia) 30 ml PO QDAY PRN PRN Reason: Constipation Last Admin: 08/13/19 14:50 Dose: 30 ml Documented by: Methylprednisolone Sodium Succinate (Solu-Medrol) 60 mg IV Q6H REPLACED BY [facility] Last Admin: 08/14/19 17:25 Dose: 60 mg Documented by: Ondansetron HCl (Zofran) 4 mg IV Q8H PRN PRN Reason: Nausea And Vomiting Sodium Chloride (Sodium Chloride Flush Syringe 10 Ml) 10 ml IV BID REPLACED BY [facility] Last Admin: 08/14/19 10:03 Dose: 10 ml Documented by: Sodium Chloride (Sodium Chloride Flush Syringe 10 Ml) 10 ml IV PRN PRN PRN Reason: LINE FLUSH Last Admin: 08/14/19 17:26 Dose: 10 ml Documented by: Objective Vital Signs - 12hr 08/14/19 08/14/19 08/14/19 07:47 09:00 09:45 Temperature 97.3 F L Pulse Rate 96 H Pulse Rate [ 96 H Anterior Throughout] Pulse Rate [ From Monitor] Respiratory 20 Rate Respiratory 24 Rate [Anterior Throughout] Blood Pressure 126/91 O2 Sat by Pulse 94 93 Oximetry 08/14/19 08/14/19 08/14/19 10:00 10:02 13:29 Temperature 97.5 F L Pulse Rate 82 96 H 107 H Pulse Rate [ Anterior Throughout] Pulse Rate [ 82 From Monitor] Respiratory 20 22 Rate Respiratory Rate [Anterior Throughout] Blood Pressure 126/91 109/75 O2 Sat by Pulse 93 93 Oximetry 08/14/19 08/14/19 14:20 19:12 Temperature 97.6 F Pulse Rate 108 H Pulse Rate [ 93 H Anterior Throughout] Pulse Rate [ From Monitor] Respiratory 18 Rate Respiratory 22 Rate [Anterior Throughout] Blood Pressure 130/95 O2 Sat by Pulse 91 Oximetry Constitutional: no acute distress, alert Eyes: non-icteric ENT: oropharynx moist Neck: supple Effort: mildly labored Ascultation: Bilateral: rales Cardiovascular: regular rate and rhythm (no mrg) Gastrointestinal: normoactive bowel sounds, soft, non-tender, non-distended Integumentary: normal Extremities: no cyanosis, no edema, pink and warm Neurologic: normal mental status, non-focal exam, pupils equal and round, CN II- XII normal Psychiatric: mood appropriate, affect normal CBC and BMP: 08/11/19 07:37 08/11/19 07:37 ABG, PT/INR, D-dimer: ABG POC ABG pH 7.415 (7.35-7.45) 08/07/19 18:38 POC ABG pCO2 45.1 (35-45) H 08/07/19 18:38 POC ABG pO2 89 (80-105) 08/07/19 18:38 POC ABG HCO3 28.9 (22-26 mml/L) 08/07/19 18:38 POC ABG Total CO2 30 (23-27mmol/L) 08/07/19 18:38 POC ABG O2 Sat 97 08/07/19 18:38 PT/INR, D-dimer PT 16.0 Sec. (12.2-14.9) H 08/07/19 17:29 INR 1.30 (0.87-1.13) H 08/07/19 17:29 Abnormal lab findings: Abnormal Labs 08/07/19 08/07/19 08/07/19 17:29 17:29 17:29 WBC 17.1 H Hgb RDW 16.5 H Plt Count Seg Neuts % (Manual) 89.0 H Lymphocytes % (Manual) 6.0 L Seg Neutrophils # Man 15.2 H Lymphocytes # (Manual) 1.0 L PT 16.0 H INR 1.30 H POC ABG pCO2 BUN Creatinine Glucose 213 H Calcium NT-Pro-B Natriuret Pep 4527 H Albumin 2.8 L 08/07/19 08/08/19 08/08/19 18:38 03:53 03:53 WBC Hgb RDW 16.9 H Plt Count 122 L Seg Neuts % (Manual) 94.0 H Lymphocytes % (Manual) 4.0 L Seg Neutrophils # Man 9.9 H Lymphocytes # (Manual) 0.4 L PT INR POC ABG pCO2 45.1 H BUN Creatinine 0.7 L Glucose 136 H Calcium 8.3 L NT-Pro-B Natriuret Pep Albumin 2.6 L 08/11/19 08/11/19 08/11/19 07:37 07:37 07:37 WBC Hgb 11.5 L RDW 18.2 H Plt Count 97 L Seg Neuts % (Manual) 95.0 H Lymphocytes % (Manual) 3.0 L Seg Neutrophils # Man 10.3 H Lymphocytes # (Manual) 0.3 L PT INR POC ABG pCO2 BUN 31 H Creatinine Glucose 139 H Calcium NT-Pro-B Natriuret Pep 5959 H Albumin 3.0 L Chest x-ray: report reviewed, image reviewed
[2019-08-15] MEDS: methylPREDNISolone Sod Succinate 125 MG/2 ML INJ IV SCH ×3 (05:24→17:41)
[2019-08-15] MEDS: FUROSEMIDE 100 MG/10 ML INJ IV SCH ×2 (05:24→17:41)
[2019-08-15] MEDS: BUDESONIDE 0.5 MG/2 ML NEBU IH SCH ×2 (08:45→21:19)
[2019-08-15] MEDS: ARFORMOTEROL 15 MCG/2 ML NEBU IH SCH ×2 (08:46→21:20)
[2019-08-15] MEDS: ASPIRIN 81 MG TAB CHEW PO SCH (09:14)
[2019-08-15] MEDS: DICLOFENAC EC 25 MG TAB PO SCH (09:15)
[2019-08-15] MEDS: carvediloL 3.125 MG TAB PO SCH ×2 (09:15→22:17)
[2019-08-15] MEDS: ENOXAPARIN 40 MG/0.4 ML INJ SUB-Q SCH (09:16)
--- NOTE | 2019-08-15 11:34 | Hem/Onc Progress Note ---
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 Shortness of breath likely secondary to pneumonitis of Imfinzi, the patient has received 3 treatments of same. He follows with Dr. Dolan. IV steroids were started. pt needs a few weeks of steroids 2. History of port placement. 3. History of hypertension. 4. He will need oxygen support and oral steroids for a few days. He had appointment with Dr. Dolan on the . He is being treated for possible pneumonia during this admission. PLT going down - ? meds related? ON steroids and ABx pt is reluctant to go to rehab/ NH pt needs a few weeks of steroids - dr dolan would follow and taper still on high o2 d/w family member as the % and flow rate of O2 is very high - I think Placement is the only option - pulm following the pt - Patient Problems (1) Lung cancer Current Visit: Yes Status: Acute Qualifiers: Laterality: unspecified laterality Subjective Date of service: 08/15/19 Principal diagnosis: Lung ca Interval history: still SOB - and on 85% o2 Objective - Exam Narrative Exam: Pain - none General appearance - awake Performance status limited self care Eyes - no icterus ENT - on o2 LNs cervical not palpable Neck - no LN Respiratory Normal Breath sounds - CTA anteriorly CVS S1 S2 + Extremities no edema General GI Soft Rectal deferred male - deferred Skin warm Musculoskeletal - moving limbs Neurologically awake - Constitutional Vitals: Last Vital Signs Temp 97.4 F L 08/15/19 08:00 Pulse 107 H 08/15/19 10:00 Resp 20 08/15/19 10:00 BP 124/88 08/15/19 09:15 Pulse Ox 93 08/15/19 10:00 Medications & Allergies - Medications Allergies/Adverse Reactions: Allergies No Known Allergies Allergy (Verified 07/19/19 14:55) Home Medications: Home Medications Medication Instructions Recorded Confirmed Last Taken Type Aspirin [Aspirin BABY CHEW TAB] 81 mg PO QDAY 07/19/19 08/07/19 07/18/19 History Diclofenac EC [Voltaren] 25 mg PO QDAY 07/19/19 08/07/19 07/18/19 History Durvalumab [Imfinzi] 120 mg IV Q2W 07/19/19 08/07/19 07/18/19 History carvediloL [Coreg] 3.125 mg PO BID 07/19/19 08/07/19 07/18/19 History diazePAM [Diazepam] 10 mg PO QHS 07/19/19 08/07/19 07/18/19 History ALBUTEROL Inhaler (OR & NICU) 2 puff IH QID PRN #1 07/28/19 08/07/19 Unknown Rx [ProAir HFA Inhaler] Benzonatate [Tessalon Perles] 100 mg PO Q8HR #14 capsule 07/28/19 08/08/19 Unknown Rx predniSONE [Deltasone] 60 mg PO QDAY #14 tablet 07/28/19 08/07/19 Unknown Rx Active Medications: Generic Name Dose Route Start Last Admin Trade Name Freq PRN Reason Stop Dose Admin Acetaminophen 650 mg 08/07/19 18:52 08/14/19 23:23 Tylenol PO 650 mg Q4H PRN Administration Pain MILD(1-3)/Fever >100.5/FU Albuterol/Ipratropium 1 ampul 08/08/19 14:00 08/14/19 19:20 Duoneb *Not For Prn Use* IH 1 ampul TIDRT ELI Administration Alprazolam 0.25 mg 08/08/19 12:01 08/14/19 21:21 Xanax PO 0.25 mg Q8H PRN Administration Anxiety Arformoterol Tartrate 15 mcg 08/08/19 20:00 08/15/19 08:46 Brovana Nebu IH 15 mcg Q12HRT ELI Administration Aspirin 81 mg 08/09/19 10:00 08/15/19 09:14 Baby Aspirin PO 81 mg QDAY ELI Administration Benzonatate 100 mg 08/08/19 14:00 08/14/19 21:23 Tessalon Perles PO Not Given Q8HR ELI Budesonide 0.5 mg 08/08/19 20:00 08/15/19 08:45 Pulmicort IH 0.5 mg Q12HRT ELI Administration Carvedilol 3.125 mg 08/08/19 12:00 08/15/19 09:15 Coreg PO 3.125 mg BID ELI Administration Diclofenac Sodium 25 mg 08/09/19 10:00 08/15/19 09:15 Voltaren PO 25 mg QDAY ELI Administration Enoxaparin Sodium 40 mg 08/08/19 10:00 08/15/19 09:16 Enoxaparin SUB-Q 40 mg QDAY@1000 ELI Administration Furosemide 60 mg 08/13/19 18:00 08/15/19 05:24 Lasix IV 60 mg 0600,1800 ELI Administration Magnesium Hydroxide 30 ml 08/09/19 19:33 08/13/19 14:50 Milk Of Magnesia PO 30 ml QDAY PRN Administration Constipation Methylprednisolone Sodium Succinate 60 mg 08/10/19 12:00 08/15/19 05:24 Solu-Medrol IV 60 mg Q6H ELI Administration Ondansetron HCl 4 mg 08/07/19 18:52 Zofran IV Q8H PRN Nausea And Vomiting Sodium Chloride 10 ml 08/07/19 22:00 08/15/19 09:16 Sodium Chloride Flush Syringe 10 Ml IV 10 ml BID ELI Administration Sodium Chloride 10 ml 08/07/19 18:52 08/14/19 17:26 Sodium Chloride Flush Syringe 10 Ml IV 10 ml PRN PRN Administration LINE FLUSH
[2019-08-15] MEDS: BENZONATATE 100 MG CAP PO SCH ×3 (13:20→22:17)
[2019-08-15] MEDS: ALPRAZolam 0.25 MG TAB PO PRN ×2 (13:23→22:17)
[2019-08-15] MEDS: IPRATROPIUM/ALBUTEROL SULFATE 3 ML AMPUL.NEB IH SCH ×3 (13:44→21:19)
--- NOTE | 2019-08-15 13:48 | Progress Note ---
Assessment and Plan / Sepsis; Sepsis secondary to healthcare associated pneumonia, Managed with serial lactic acid, negative blood cultures, s/p empiric an tibiotics for a week - last day 08/14/19 /HCAP (healthcare-associated pneumonia): treated with IV antibiotic cefepime for one week, Pulm consulted. cont Supportive care. /NSCLC Stage III: Follows with hematology oncologist /-Acute on chronic Respiratory failure: likely due to Possible pneumonitis secondary to immunotherapy with Imfinzi and HCAP cont O2 , NIPPV, pulse oximetry, supportive care. High dose IV steroids, inhalation steroids /-General anxiety: Low-dose Xanax when necessary, if no improvement will do Psych evaluation /-UTI: Treated with Emperic antibiotics, Urine cultures /-Severe Malnutrition/hypoalbuminemia: nutritional supplements and nutrition consult /Full code. Poor Prognosis discussed with patient and family. They Verbalized understanding / DVT prophylaxis SCD to BLE while in bed, prophylactic lovenox Monitor clinically and adjust the management as needed, Plan of care is reviewed with the patient at the bedside as well as the nurse. Disposition; patient needs LTAC as difficult to wean off O2 Brief History 64-year-old male patient with lung cancer status post radiation undergoing chemotherapy with lifting with his chemotherapy next hypertension was admitted through emergency room with worsening shortness of breath cough and fatigue. Patient is being treated for healthcare associated pneumonia on IV antibiotics, pneumonitis with iv steroids, pulmonary following, consultated oncology. Patient will need long tapering steroid, CM consulted for LTAC Hospitalist Physical General appearance: Present: mild distress, mal-nourished - EENT Eyes: Present: PERRL, EOM intact - Neck Neck: Present: supple, normal ROM - Respiratory Respiratory effort: normal Respiratory: bilateral: diminished, rhonchi, negative: rales, wheezing - Cardiovascular Rhythm: regular Heart Sounds: Present: S1 & S2 - Extremities Extremities: no ischemia, No edema - Abdominal General gastrointestinal: soft, non-tender, non-distended, normal bowel sounds - Integumentary Integumentary: Present: clear, warm - Psychiatric Psychiatric: appropriate mood/affect, cooperative - Neurologic Neurologic: moves all extremities Subjective Date of service: 08/15/19 Principal diagnosis: lung ca - pneumonitis Interval history: Patient seen and examined. Medical records and medication list reviewed. No acute event overnight noted by the RN. Patient continued to complaints of shortness of breath, remained on 85% FiO2 Discussed plan of care at bedside with patient - waiting for LTAC placement at bedside - updated Objective - Constitutional Vitals: Vital Signs - 12hr 08/15/19 08/15/19 08/15/19 02:03 08:00 08:35 Temperature 97.4 F L 97.4 F L Pulse Rate 95 H 102 H Pulse Rate [ 101 H Anterior Bilateral Upper Lobe] Pulse Rate [ 105 H Anterior Throughout] Pulse Rate [ From Monitor] Respiratory 18 20 Rate Respiratory 18 Rate [Anterior Throughout] Blood Pressure 125/89 124/88 O2 Sat by Pulse 95 93 Oximetry 08/15/19 08/15/19 08/15/19 09:15 10:00 13:46 Temperature Pulse Rate 102 H 107 H Pulse Rate [ Anterior Bilateral Upper Lobe] Pulse Rate [ Anterior Throughout] Pulse Rate [ 107 H From Monitor] Respiratory 20 Rate Respiratory Rate [Anterior Throughout] Blood Pressure 124/88 O2 Sat by Pulse 93 98 Oximetry - Labs CBC & Chem 7: 08/16/19 04:08 08/16/19 04:08
--- NOTE | 2019-08-15 15:29 | Progress Note ---
Assessment and Plan Imp: 1. 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 NSCLC 3. A/C respiratory failure, hypoxia 4. Thrombocytopenia 5. Dilated CMP Rec: 1. Solumedrol IV same; will need a prolonged course of steroids 2. Cont. IV Lasix; check BMP in AM 3. Wean HFNC to keep sats 88% or > 4. Agree w/ LTAC as this may take time to wean FiO2 5. D/c Imfinzi permanently 6. Monitor platelets closely; may need HIT work-up; repeat CBC in AM 7. Complex decision-making Plan of care reviewed with pt./family, they understand/agree Subjective Date of service: 08/15/19 Principal diagnosis: lung ca - pneumonitis Interval history: No events. Remains on HFNC. SOB the same. No new complaints Active Medications Acetaminophen (Tylenol) 650 mg PO Q4H PRN PRN Reason: Pain MILD(1-3)/Fever >100.5/FU Last Admin: 08/14/19 23:23 Dose: 650 mg Documented by: Albuterol/Ipratropium (Duoneb *Not For Prn Use*) 1 ampul IH TIDRT [facility] Last Admin: 08/15/19 13:44 Dose: 1 ampul Documented by: Alprazolam (Xanax) 0.25 mg PO Q8H PRN PRN Reason: Anxiety Last Admin: 08/15/19 13:23 Dose: 0.25 mg Documented by: Arformoterol Tartrate (Brovana Nebu) 15 mcg IH Q12HRT [facility] Last Admin: 08/15/19 08:46 Dose: 15 mcg Documented by: Aspirin (Baby Aspirin) 81 mg PO QDAY [facility] Last Admin: 08/15/19 09:14 Dose: 81 mg Documented by: Benzonatate (Tessalon Perles) 100 mg PO Q8HR [facility] Last Admin: 08/15/19 13:20 Dose: 100 mg Documented by: Budesonide (Pulmicort) 0.5 mg IH Q12HRT [facility] Last Admin: 08/15/19 08:45 Dose: 0.5 mg Documented by: Carvedilol (Coreg) 3.125 mg PO BID [facility] Last Admin: 08/15/19 09:15 Dose: 3.125 mg Documented by: Diclofenac Sodium (Voltaren) 25 mg PO QDAY [facility] Last Admin: 08/15/19 09:15 Dose: 25 mg Documented by: Enoxaparin Sodium (Enoxaparin) 40 mg SUB-Q QDAY@1000 [facility] Last Admin: 08/15/19 09:16 Dose: 40 mg Documented by: Furosemide (Lasix) 60 mg IV 0600,1800 [facility] Last Admin: 08/15/19 05:24 Dose: 60 mg Documented by: Magnesium Hydroxide (Milk Of Magnesia) 30 ml PO QDAY PRN PRN Reason: Constipation Last Admin: 08/13/19 14:50 Dose: 30 ml Documented by: Methylprednisolone Sodium Succinate (Solu-Medrol) 60 mg IV Q6H [facility] Last Admin: 08/15/19 12:55 Dose: 60 mg Documented by: Ondansetron HCl (Zofran) 4 mg IV Q8H PRN PRN Reason: Nausea And Vomiting Sodium Chloride (Sodium Chloride Flush Syringe 10 Ml) 10 ml IV BID [facility] Last Admin: 08/15/19 09:16 Dose: 10 ml Documented by: Sodium Chloride (Sodium Chloride Flush Syringe 10 Ml) 10 ml IV PRN PRN PRN Reason: LINE FLUSH Last Admin: 08/14/19 17:26 Dose: 10 ml Documented by: Objective Vital Signs - 12hr 08/15/19 08/15/19 08/15/19 08:00 08:35 09:15 Temperature 97.4 F L Pulse Rate 102 H 102 H Pulse Rate [ 101 H Anterior Bilateral Upper Lobe] Pulse Rate [ 105 H Anterior Throughout] Pulse Rate [ From Monitor] Respiratory 20 Rate Respiratory 18 Rate [Anterior Bilateral Upper Lobe] Respiratory 18 Rate [Anterior Throughout] Blood Pressure 124/88 124/88 O2 Sat by Pulse 93 Oximetry 08/15/19 08/15/19 08/15/19 10:00 13:09 13:40 Temperature 97.5 F L Pulse Rate 107 H 102 H Pulse Rate [ 96 H Anterior Bilateral Upper Lobe] Pulse Rate [ 96 H Anterior Throughout] Pulse Rate [ 107 H From Monitor] Respiratory 20 22 Rate Respiratory 19 Rate [Anterior Bilateral Upper Lobe] Respiratory 18 Rate [Anterior Throughout] Blood Pressure 121/82 O2 Sat by Pulse 93 95 Oximetry 08/15/19 13:46 Temperature Pulse Rate Pulse Rate [ Anterior Bilateral Upper Lobe] Pulse Rate [ Anterior Throughout] Pulse Rate [ From Monitor] Respiratory Rate Respiratory Rate [Anterior Bilateral Upper Lobe] Respiratory Rate [Anterior Throughout] Blood Pressure O2 Sat by Pulse 98 Oximetry Constitutional: no acute distress, alert Eyes: non-icteric ENT: oropharynx moist Neck: supple Effort: mildly labored Ascultation: Bilateral: rales Cardiovascular: regular rate and rhythm (no mrg) Gastrointestinal: normoactive bowel sounds, soft, non-tender, non-distended Integumentary: normal Extremities: no cyanosis, no edema, pink and warm Neurologic: normal mental status, non-focal exam, pupils equal and round, CN II- XII normal Psychiatric: mood appropriate, affect normal CBC and BMP: 08/11/19 07:37 08/11/19 07:37 ABG, PT/INR, D-dimer: ABG POC ABG pH 7.415 (7.35-7.45) 08/07/19 18:38 POC ABG pCO2 45.1 (35-45) H 08/07/19 18:38 POC ABG pO2 89 (80-105) 08/07/19 18:38 POC ABG HCO3 28.9 (22-26 mml/L) 08/07/19 18:38 POC ABG Total CO2 30 (23-27mmol/L) 08/07/19 18:38 POC ABG O2 Sat 97 08/07/19 18:38 PT/INR, D-dimer PT 16.0 Sec. (12.2-14.9) H 08/07/19 17:29 INR 1.30 (0.87-1.13) H 08/07/19 17:29 Abnormal lab findings: Abnormal Labs 08/07/19 08/07/19 08/07/19 17:29 17:29 17:29 WBC 17.1 H Hgb RDW 16.5 H Plt Count Seg Neuts % (Manual) 89.0 H Lymphocytes % (Manual) 6.0 L Seg Neutrophils # Man 15.2 H Lymphocytes # (Manual) 1.0 L PT 16.0 H INR 1.30 H POC ABG pCO2 BUN Creatinine Glucose 213 H Calcium NT-Pro-B Natriuret Pep 4527 H Albumin 2.8 L 08/07/19 08/08/19 08/08/19 18:38 03:53 03:53 WBC Hgb RDW 16.9 H Plt Count 122 L Seg Neuts % (Manual) 94.0 H Lymphocytes % (Manual) 4.0 L Seg Neutrophils # Man 9.9 H Lymphocytes # (Manual) 0.4 L PT INR POC ABG pCO2 45.1 H BUN Creatinine 0.7 L Glucose 136 H Calcium 8.3 L NT-Pro-B Natriuret Pep Albumin 2.6 L 08/11/19 08/11/19 08/11/19 07:37 07:37 07:37 WBC Hgb 11.5 L RDW 18.2 H Plt Count 97 L Seg Neuts % (Manual) 95.0 H Lymphocytes % (Manual) 3.0 L Seg Neutrophils # Man 10.3 H Lymphocytes # (Manual) 0.3 L PT INR POC ABG pCO2 BUN 31 H Creatinine Glucose 139 H Calcium NT-Pro-B Natriuret Pep 5959 H Albumin 3.0 L Chest x-ray: report reviewed, image reviewed CT scan - chest: report reviewed, image reviewed
[2019-08-15] MEDS: MAGNESIUM HYDROXIDE (MOM) ORAL LIQD UDC PO PRN (17:48)
[2019-08-16] MEDS: methylPREDNISolone Sod Succinate 125 MG/2 ML INJ IV SCH ×5 (00:43→23:02)
[2019-08-16 05:09] LABS: Hematocrit 42.7 % (35.5-45.6); Hemoglobin 13.7 gm/dl (11.8-15.2); Mean Corpuscular HGB Conc 32 % (32-34); Mean Corpuscular Volume 88 fl (84-94); Red Blood Count 4.87 M/mm3 (3.65-5.03); Red Cell Distribution Width 17.7 % (13.2-15.2)
[2019-08-16 05:10] LABS: Platelet Count 92 K/mm3 (140-440)
[2019-08-16 05:27] LABS: BUN/Creatinine Ratio 59; Blood Urea Nitrogen 47 mg/dL (9-20); Calcium 8.5 mg/dL (8.4-10.2); Hemolysis Index 7
[2019-08-16] MEDS: BENZONATATE 100 MG CAP PO SCH ×3 (05:39→21:45)
[2019-08-16] MEDS: FUROSEMIDE 100 MG/10 ML INJ IV SCH ×2 (05:39→17:57)
[2019-08-16 06:37] LABS: Band Neutrophils # (Manual) 0.1 K/mm3; Basophils % (Manual) 0 % (0.0-1.8); Eosinophils % (Manual) 0 % (0.0-4.3); Total Cells Counted 100
[2019-08-16 06:38] LABS: Anisocytosis 1+; Large Platelets Few; Ovalocytes Few; Platelet Estimate Consistent w Auto; Poikilocytosis 1+
--- NOTE | 2019-08-16 08:24 | Hem/Onc Progress Note ---
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 Shortness of breath likely secondary to pneumonitis of Imfinzi, the patient has received 3 treatments of same. He follows with Dr. Dolan. IV steroids were started. pt needs a few weeks of steroids 2. History of port placement. 3. History of hypertension. 4. He will need oxygen support and oral steroids for a few days. He had appointment with Dr. Dolan on the . He is being treated for possible pneumonia during this admission. PLT going down - ? meds related? ON steroids pt is reluctant to go to rehab/ NH pt needs a few weeks of steroids - dr dolan would follow and taper still on high o2 as the % and flow rate of O2 is very high - I think Placement - LTAC is the only option - pulm following the pt d/w family and Dr Noelle cabezas IX for LOw PLT - Patient Problems (1) Lung cancer Current Visit: Yes Status: Acute Qualifiers: Laterality: unspecified laterality Subjective Date of service: 08/16/19 Principal diagnosis: lung ca Interval history: on 75% o2 with 30 LPM flow Objective - Exam Narrative Exam: Pain - none General appearance - awake Performance status limited self care Eyes - no icterus ENT - on o2 LNs cervical not palpable Neck - no LN Respiratory Normal Breath sounds - CTA anteriorly CVS S1 S2 + Extremities no edema General GI Soft Rectal deferred male - deferred Skin warm Musculoskeletal - moving limbs Neurologically awake - Constitutional Vitals: Last Vital Signs Temp 97.3 F L 08/16/19 02:21 Pulse 70 08/16/19 07:04 Resp 20 08/16/19 02:21 BP 116/87 08/16/19 02:21 Pulse Ox 93 08/16/19 03:00 - Labs Lab Results: Laboratory Results - last 24 hr 08/16/19 08/16/19 04:08 04:08 WBC 7.6 RBC 4.87 Hgb 13.7 Hct 42.7 MCV 88 MCH 28 MCHC 32 RDW 17.7 H Plt Count 92 L Add Manual Diff Complete Total Counted 100 Seg Neutrophils % Repair Order Clerk Seg Neuts % (Manual) 94.0 H Band Neutrophils % 1.0 Lymphocytes % (Manual) 3.0 L Reactive Lymphs % (Man) 0 Monocytes % (Manual) 2.0 Eosinophils % (Manual) 0 Basophils % (Manual) 0 Metamyelocytes % 0 Myelocytes % 0 Promyelocytes % 0 Blast Cells % 0 Nucleated RBC % Not Reportable Seg Neutrophils # Man 7.1 Band Neutrophils # 0.1 Lymphocytes # (Manual) 0.2 L Abs React Lymphs (Man) 0.0 Monocytes # (Manual) 0.2 Eosinophils # (Manual) 0.0 Basophils # (Manual) 0.0 Metamyelocytes # 0.0 Myelocytes # 0.0 Promyelocytes # 0.0 Blast Cells # 0.0 WBC Morphology Not Reportable Hypersegmented Neuts Not Reportable Hyposegmented Neuts Not Reportable Hypogranular Neuts Not Reportable Smudge Cells Not Reportable Toxic Granulation Not Reportable Toxic Vacuolation Not Reportable Dohle Bodies Not Reportable Pelger-Huet Anomaly Not Reportable Zak Rods Not Reportable Platelet Estimate Consistent w auto Clumped Platelets Not Reportable Plt Clumps, EDTA Not Reportable Large Platelets Few Giant Platelets Not Reportable Platelet Satelliting Not Reportable Plt Morphology Comment Not Reportable RBC Morphology Not Reportable Dimorphic RBCs Not Reportable Polychromasia Not Reportable Hypochromasia Not Reportable Poikilocytosis 1+ Anisocytosis 1+ Microcytosis Not Reportable Macrocytosis Not Reportable Spherocytes Not Reportable Pappenheimer Bodies Not Reportable Sickle Cells Not Reportable Target Cells Not Reportable Tear Drop Cells Not Reportable Ovalocytes Few Helmet Cells Not Reportable [place] Bodies Not Reportable [place] Rings Not Reportable Renata Cells Not Reportable Bite Cells Not Reportable Crenated Cell Not Reportable Elliptocytes Few Acanthocytes (Spur) Not Reportable Rouleaux Not Reportable Hemoglobin C Crystals Not Reportable Schistocytes Not Reportable Malaria parasites Not Reportable Rafa Bodies Not Reportable Hem Pathologist Commnt No Sodium 138 Potassium 4.6 Chloride 87.4 L Carbon Dioxide 40 H D Anion Gap 15 BUN 47 H Creatinine 0.8 Estimated GFR > 60 BUN/Creatinine Ratio 59 Glucose 223 H Calcium 8.5 Medications & Allergies - Medications Allergies/Adverse Reactions: Allergies No Known Allergies Allergy (Verified 07/19/19 14:55) Home Medications: Home Medications Medication Instructions Recorded Confirmed Last Taken Type Aspirin [Aspirin BABY CHEW TAB] 81 mg PO QDAY 07/19/19 08/07/19 07/18/19 History Diclofenac EC [Voltaren] 25 mg PO QDAY 07/19/19 08/07/19 07/18/19 History Durvalumab [Imfinzi] 120 mg IV Q2W 07/19/19 08/07/19 07/18/19 History carvediloL [Coreg] 3.125 mg PO BID 07/19/19 08/07/19 07/18/19 History diazePAM [Diazepam] 10 mg PO QHS 07/19/19 08/07/19 07/18/19 History ALBUTEROL Inhaler (OR & NICU) 2 puff IH QID PRN #1 07/28/19 08/07/19 Unknown Rx [ProAir HFA Inhaler] Benzonatate [Tessalon Perles] 100 mg PO Q8HR #14 capsule 07/28/19 08/08/19 Unknown Rx predniSONE [Deltasone] 60 mg PO QDAY #14 tablet 07/28/19 08/07/19 Unknown Rx Active Medications: Generic Name Dose Route Start Last Admin Trade Name Freq PRN Reason Stop Dose Admin Acetaminophen 650 mg 08/07/19 18:52 08/14/19 23:23 Tylenol PO 650 mg Q4H PRN Administration Pain MILD(1-3)/Fever >100.5/FU Albuterol/Ipratropium 1 ampul 08/08/19 14:00 08/15/19 21:19 Duoneb *Not For Prn Use* IH 1 ampul TIDRT ELI Administration Alprazolam 0.25 mg 08/08/19 12:01 08/15/19 22:17 Xanax PO 0.25 mg Q8H PRN Administration Anxiety Arformoterol Tartrate 15 mcg 08/08/19 20:00 08/15/19 21:20 Brovana Nebu IH Not Given Q12HRT ELI Aspirin 81 mg 08/09/19 10:00 08/15/19 09:14 Baby Aspirin PO 81 mg QDAY ELI Administration Benzonatate 100 mg 08/08/19 14:00 08/16/19 05:39 Tessalon Perles PO 100 mg Q8HR ELI Administration Budesonide 0.5 mg 08/08/19 20:00 08/15/19 21:19 Pulmicort IH 0.5 mg Q12HRT ELI Administration Carvedilol 3.125 mg 08/08/19 12:00 08/15/19 22:17 Coreg PO 3.125 mg BID ELI Administration Diclofenac Sodium 25 mg 08/09/19 10:00 08/15/19 09:15 Voltaren PO 25 mg QDAY ELI Administration Enoxaparin Sodium 40 mg 08/08/19 10:00 08/15/19 09:16 Enoxaparin SUB-Q 40 mg QDAY@1000 ELI Administration Furosemide 60 mg 08/13/19 18:00 08/16/19 05:39 Lasix IV 60 mg 0600,1800 ELI Administration Magnesium Hydroxide 30 ml 08/09/19 19:33 08/15/19 17:48 Milk Of Magnesia PO 30 ml QDAY PRN Administration Constipation Methylprednisolone Sodium Succinate 60 mg 08/10/19 12:00 08/16/19 05:39 Solu-Medrol IV 60 mg Q6H ELI Administration Ondansetron HCl 4 mg 08/07/19 18:52 Zofran IV Q8H PRN Nausea And Vomiting Sodium Chloride 10 ml 08/07/19 22:00 08/15/19 22:18 Sodium Chloride Flush Syringe 10 Ml IV 10 ml BID ELI Administration Sodium Chloride 10 ml 08/07/19 18:52 08/14/19 17:26 Sodium Chloride Flush Syringe 10 Ml IV 10 ml PRN PRN Administration LINE FLUSH
[2019-08-16] MEDS: IPRATROPIUM/ALBUTEROL SULFATE 3 ML AMPUL.NEB IH SCH ×3 (08:47→21:07)
[2019-08-16] MEDS: ARFORMOTEROL 15 MCG/2 ML NEBU IH SCH ×2 (08:47→21:08)
[2019-08-16] MEDS: BUDESONIDE 0.5 MG/2 ML NEBU IH SCH ×2 (08:47→21:07)
[2019-08-16] MEDS: ASPIRIN 81 MG TAB CHEW PO SCH (09:43)
[2019-08-16] MEDS: ENOXAPARIN 40 MG/0.4 ML INJ SUB-Q SCH (09:44)
[2019-08-16] MEDS: carvediloL 3.125 MG TAB PO SCH ×2 (09:44→21:45)
[2019-08-16] MEDS: DICLOFENAC EC 25 MG TAB PO SCH (09:44)
--- NOTE | 2019-08-16 10:55 | Progress Note ---
Assessment and Plan 64 y/o male with known lung CA, likely COPD and recent allergic reaction to chemo who presents with acute shortness of breath and acute hypoxic respiratory failure. 1. High Dose IV steroids, would not taper anytime soon and continue bipap PRN and QHS 2. May need higher doses of lasix if BP and renal function will allow. 3. Appreciate Onc recs. 4. Montior fluid intake 5. Discussed with CM, patient may need LTACH with pulmonary rehab given his significant decline since discharge and how rapid this happened. Subjective Date of service: 08/16/19 Principal diagnosis: lung ca - pneumonitis Interval history: Still on HFNC but down to 75% Objective Vital Signs - 12hr 08/16/19 08/16/19 08/16/19 02:21 03:00 07:04 Temperature 97.3 F L Pulse Rate 93 H 70 Pulse Rate [ Anterior Throughout] Respiratory 20 Rate Respiratory Rate [Anterior Throughout] Blood Pressure 116/87 O2 Sat by Pulse 94 93 Oximetry 08/16/19 08/16/19 08/16/19 07:41 08:47 09:17 Temperature 97.3 F L Pulse Rate 97 H Pulse Rate [ 85 Anterior Throughout] Respiratory 22 Rate Respiratory 20 Rate [Anterior Throughout] Blood Pressure 117/88 O2 Sat by Pulse 96 95 Oximetry 08/16/19 09:44 Temperature Pulse Rate 97 H Pulse Rate [ Anterior Throughout] Respiratory 21 Rate Respiratory Rate [Anterior Throughout] Blood Pressure 117/88 O2 Sat by Pulse Oximetry Constitutional: no acute distress, alert Eyes: non-icteric ENT: oropharynx moist Neck: supple Effort: mildly labored Ascultation: Bilateral: rales Cardiovascular: regular rate and rhythm (no mrg) Gastrointestinal: normoactive bowel sounds, soft, non-tender, non-distended Integumentary: normal Extremities: no cyanosis, no edema, pink and warm Neurologic: normal mental status, non-focal exam, pupils equal and round, CN II- XII normal Psychiatric: mood appropriate, affect normal CBC and BMP: 08/16/19 04:08 08/16/19 04:08 ABG, PT/INR, D-dimer: ABG POC ABG pH 7.415 (7.35-7.45) 08/07/19 18:38 POC ABG pCO2 45.1 (35-45) H 08/07/19 18:38 POC ABG pO2 89 (80-105) 08/07/19 18:38 POC ABG HCO3 28.9 (22-26 mml/L) 08/07/19 18:38 POC ABG Total CO2 30 (23-27mmol/L) 08/07/19 18:38 POC ABG O2 Sat 97 08/07/19 18:38 PT/INR, D-dimer PT 16.0 Sec. (12.2-14.9) H 08/07/19 17:29 INR 1.30 (0.87-1.13) H 08/07/19 17:29 Abnormal lab findings: Abnormal Labs 08/07/19 08/07/19 08/07/19 17:29 17:29 17:29 WBC 17.1 H Hgb RDW 16.5 H Plt Count Seg Neuts % (Manual) 89.0 H Lymphocytes % (Manual) 6.0 L Seg Neutrophils # Man 15.2 H Lymphocytes # (Manual) 1.0 L PT 16.0 H INR 1.30 H POC ABG pCO2 Chloride Carbon Dioxide BUN Creatinine Glucose 213 H Calcium NT-Pro-B Natriuret Pep 4527 H Albumin 2.8 L 08/07/19 08/08/19 08/08/19 18:38 03:53 03:53 WBC Hgb RDW 16.9 H Plt Count 122 L Seg Neuts % (Manual) 94.0 H Lymphocytes % (Manual) 4.0 L Seg Neutrophils # Man 9.9 H Lymphocytes # (Manual) 0.4 L PT INR POC ABG pCO2 45.1 H Chloride Carbon Dioxide BUN Creatinine 0.7 L Glucose 136 H Calcium 8.3 L NT-Pro-B Natriuret Pep Albumin 2.6 L 08/11/19 08/11/19 08/11/19 07:37 07:37 07:37 WBC Hgb 11.5 L RDW 18.2 H Plt Count 97 L Seg Neuts % (Manual) 95.0 H Lymphocytes % (Manual) 3.0 L Seg Neutrophils # Man 10.3 H Lymphocytes # (Manual) 0.3 L PT INR POC ABG pCO2 Chloride Carbon Dioxide BUN 31 H Creatinine Glucose 139 H Calcium NT-Pro-B Natriuret Pep 5959 H Albumin 3.0 L 08/16/19 08/16/19 04:08 04:08 WBC Hgb RDW 17.7 H Plt Count 92 L Seg Neuts % (Manual) 94.0 H Lymphocytes % (Manual) 3.0 L Seg Neutrophils # Man Lymphocytes # (Manual) 0.2 L PT INR POC ABG pCO2 Chloride 87.4 L Carbon Dioxide 40 H D BUN 47 H Creatinine Glucose 223 H Calcium NT-Pro-B Natriuret Pep Albumin
[2019-08-16] MEDS: ALPRAZolam 0.25 MG TAB PO PRN ×2 (13:32→21:45)
--- NOTE | 2019-08-16 14:23 | Progress Note ---
Assessment and Plan / Sepsis; Sepsis secondary to healthcare associated pneumonia, Managed with serial lactic acid, negative blood cultures, s/p empiric ant ibiotics for a week - last day 08/14/19 /HCAP (healthcare-associated pneumonia): treated with IV antibiotic cefepime for one week, Pulm consulted. cont Supportive care. /NSCLC Stage III: Follows with hematology oncologist Dr Dolan /-Acute on chronic Respiratory failure: likely due to Possible pneumonitis secondary to immunotherapy with Imfinzi and HCAP cont O2 , NIPPV, pulse oximetry, supportive care. High dose IV steroids, inhalation steroids /-General anxiety: Low-dose Xanax when necessary, if no improvement will do Psych evaluation /-UTI: Treated with Emperic antibiotics, Urine cultures /-Severe Malnutrition/hypoalbuminemia: nutritional supplements and nutrition consult /Full code. Poor Prognosis discussed with patient and family. They Verbalized understanding / DVT prophylaxis SCD to BLE while in bed, prophylactic lovenox Monitor clinically and adjust the management as needed, Plan of care is reviewed with the patient at the bedside as well as the nurse. Disposition; patient needs LTAC as difficult to wean off O2 Brief History 64-year-old male patient with lung cancer status post radiation undergoing chemotherapy, hypertension was admitted through emergency room with worsening shortness of breath cough and fatigue. Patient is being treated for healthcare associated pneumonia, pneumonitis. Now on IV antibiotics, with iv steroids, pulmonary following, consultated oncology. Patient will need long tapering steroid, CM consulted for LTAC. He was recently discharged from hospital after being treated for the same and was supposed to f/u with his oncologist but he came back for the worsening symptoms. Hospitalist Physical General appearance: Present: mild distress, mal-nourished - EENT Eyes: Present: PERRL, EOM intact - Neck Neck: Present: supple, normal ROM - Respiratory Respiratory effort: normal Respiratory: bilateral: diminished, rhonchi, negative: rales, wheezing - Cardiovascular Rhythm: regular Heart Sounds: Present: S1 & S2 - Extremities Extremities: no ischemia, No edema - Abdominal General gastrointestinal: soft, non-tender, non-distended, normal bowel sounds - Integumentary Integumentary: Present: clear, warm - Psychiatric Psychiatric: appropriate mood/affect, cooperative - Neurologic Neurologic: moves all extremities Subjective Date of service: 08/16/19 Principal diagnosis: lung ca - pneumonitis Interval history: Patient seen and examined. Medical records and medication list reviewed. No acute event overnight noted by the RN. Patient continued to complaints of shortness of breath, Patient on 75% FiO2 today Discussed plan of care at bedside with patient - waiting for LTAC placement Patient doesnot want hospice at bedside - updated Objective - Constitutional Vitals: Vital Signs - 12hr 08/16/19 08/16/19 08/16/19 03:00 07:04 07:41 Temperature 97.3 F L Pulse Rate 70 97 H Pulse Rate [ Anterior Bilateral Upper Lobe] Pulse Rate [ Anterior Throughout] Pulse Rate [ From Monitor] Respiratory 22 Rate Respiratory Rate [Anterior Bilateral Upper Lobe] Respiratory Rate [Anterior Throughout] Blood Pressure 117/88 O2 Sat by Pulse 93 96 Oximetry 08/16/19 08/16/19 08/16/19 08:47 09:17 09:44 Temperature Pulse Rate 97 H Pulse Rate [ Anterior Bilateral Upper Lobe] Pulse Rate [ 85 Anterior Throughout] Pulse Rate [ From Monitor] Respiratory 21 Rate Respiratory Rate [Anterior Bilateral Upper Lobe] Respiratory 20 Rate [Anterior Throughout] Blood Pressure 117/88 O2 Sat by Pulse 95 Oximetry 08/16/19 08/16/19 08/16/19 10:00 13:17 13:34 Temperature Pulse Rate Pulse Rate [ 114 H Anterior Bilateral Upper Lobe] Pulse Rate [ 110 H Anterior Throughout] Pulse Rate [ 110 H From Monitor] Respiratory 21 Rate Respiratory 20 Rate [Anterior Bilateral Upper Lobe] Respiratory 21 Rate [Anterior Throughout] Blood Pressure O2 Sat by Pulse 95 94 Oximetry - Labs CBC & Chem 7: 08/16/19 04:08 08/16/19 04:08 Labs: Abnormal lab results 08/16/19 08/16/19 Range/Units 04:08 04:08 RDW 17.7 H (13.2-15.2) % Plt Count 92 L (140-440) K/mm3 Seg Neuts % (Manual) 94.0 H (40.0-70.0) % Lymphocytes % (Manual) 3.0 L (13.4-35.0) % Lymphocytes # (Manual) 0.2 L (1.2-5.4) K/mm3 Chloride 87.4 L (98-107) mmol/L Carbon Dioxide 40 H D (22-30) mmol/L BUN 47 H (9-20) mg/dL Glucose 223 H (75-100) mg/dL
--- NOTE | 2019-08-17 05:02 | Hem/Onc Progress Note ---
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 Shortness of breath likely secondary to pneumonitis of Imfinzi, the patient has received 3 treatments of same. He follows with Dr. Dolan. IV steroids were started. pt needs a few weeks of steroids 2. History of port placement. 3. History of hypertension. 4. He will need oxygen support and oral steroids for a few days. He had appointment with Dr. Dolan on the . He is being treated for possible pneumonia during this admission. PLT going down - ? meds related? ON steroids pt is reluctant to go to rehab/ NH pt needs a few weeks of steroids - dr dolan would follow and taper still on high o2 as the % and flow rate of O2 is very high - I think Placement - LTAC is the only option - pulm following the pt d/w family def IX for LOw PLT d/w dr dolan - pt oncologist - Patient Problems (1) Lung cancer Current Visit: Yes Status: Acute Qualifiers: Laterality: unspecified laterality Subjective Date of service: 08/17/19 Principal diagnosis: lung ca Interval history: still on high flow o2 Objective - Exam Narrative Exam: Pain - none General appearance - awake Performance status limited self care Eyes - no icterus ENT - on o2 LNs cervical not palpable Neck - no LN Respiratory Normal Breath sounds - CTA anteriorly CVS S1 S2 + Extremities no edema General GI Soft Rectal deferred male - deferred Skin warm Musculoskeletal - moving limbs Neurologically awake - Constitutional Vitals: Last Vital Signs Temp 97.5 F L 08/17/19 01:38 Pulse 73 08/17/19 02:22 Resp 22 08/17/19 01:38 BP 182/97 08/17/19 01:38 Pulse Ox 98 08/17/19 02:22 - Labs Lab Results: Laboratory Results - last 24 hr 08/16/19 08/16/19 04:08 04:08 WBC 7.6 RBC 4.87 Hgb 13.7 Hct 42.7 MCV 88 MCH 28 MCHC 32 RDW 17.7 H Plt Count 92 L Add Manual Diff Complete Total Counted 100 Seg Neutrophils % [employer] Seg Neuts % (Manual) 94.0 H Band Neutrophils % 1.0 Lymphocytes % (Manual) 3.0 L Reactive Lymphs % (Man) 0 Monocytes % (Manual) 2.0 Eosinophils % (Manual) 0 Basophils % (Manual) 0 Metamyelocytes % 0 Myelocytes % 0 Promyelocytes % 0 Blast Cells % 0 Nucleated RBC % Not Reportable Seg Neutrophils # Man 7.1 Band Neutrophils # 0.1 Lymphocytes # (Manual) 0.2 L Abs React Lymphs (Man) 0.0 Monocytes # (Manual) 0.2 Eosinophils # (Manual) 0.0 Basophils # (Manual) 0.0 Metamyelocytes # 0.0 Myelocytes # 0.0 Promyelocytes # 0.0 Blast Cells # 0.0 WBC Morphology Not Reportable Hypersegmented Neuts Not Reportable Hyposegmented Neuts Not Reportable Hypogranular Neuts Not Reportable Smudge Cells Not Reportable Toxic Granulation Not Reportable Toxic Vacuolation Not Reportable Dohle Bodies Not Reportable Pelger-Huet Anomaly Not Reportable Zak Rods Not Reportable Platelet Estimate Consistent w auto Clumped Platelets Not Reportable Plt Clumps, EDTA Not Reportable Large Platelets Few Giant Platelets Not Reportable Platelet Satelliting Not Reportable Plt Morphology Comment Not Reportable RBC Morphology Not Reportable Dimorphic RBCs Not Reportable Polychromasia Not Reportable Hypochromasia Not Reportable Poikilocytosis 1+ Anisocytosis 1+ Microcytosis Not Reportable Macrocytosis Not Reportable Spherocytes Not Reportable Pappenheimer Bodies Not Reportable Sickle Cells Not Reportable Target Cells Not Reportable Tear Drop Cells Not Reportable Ovalocytes Few Helmet Cells Not Reportable [place] Bodies Not Reportable Elma Rings Not Reportable Renata Cells Not Reportable Bite Cells Not Reportable Crenated Cell Not Reportable Elliptocytes Few Acanthocytes (Spur) Not Reportable Rouleaux Not Reportable Hemoglobin C Crystals Not Reportable Schistocytes Not Reportable Malaria parasites Not Reportable Rafa Bodies Not Reportable Hem Pathologist Commnt No Sodium 138 Potassium 4.6 Chloride 87.4 L Carbon Dioxide 40 H D Anion Gap 15 BUN 47 H Creatinine 0.8 Estimated GFR > 60 BUN/Creatinine Ratio 59 Glucose 223 H Calcium 8.5 Medications & Allergies - Medications Allergies/Adverse Reactions: Allergies No Known Allergies Allergy (Verified 07/19/19 14:55) Home Medications: Home Medications Medication Instructions Recorded Confirmed Last Taken Type Aspirin [Aspirin BABY CHEW TAB] 81 mg PO QDAY 07/19/19 08/07/19 07/18/19 History Diclofenac EC [Voltaren] 25 mg PO QDAY 07/19/19 08/07/19 07/18/19 History Durvalumab [Imfinzi] 120 mg IV Q2W 07/19/19 08/07/19 07/18/19 History carvediloL [Coreg] 3.125 mg PO BID 07/19/19 08/07/19 07/18/19 History diazePAM [Diazepam] 10 mg PO QHS 07/19/19 08/07/19 07/18/19 History ALBUTEROL Inhaler (OR & NICU) 2 puff IH QID PRN #1 07/28/19 08/07/19 Unknown Rx [ProAir HFA Inhaler] Benzonatate [Tessalon Perles] 100 mg PO Q8HR #14 capsule 07/28/19 08/08/19 Unknown Rx predniSONE [Deltasone] 60 mg PO QDAY #14 tablet 07/28/19 08/07/19 Unknown Rx Active Medications: Generic Name Dose Route Start Last Admin Trade Name Freq PRN Reason Stop Dose Admin Acetaminophen 650 mg 08/07/19 18:52 08/14/19 23:23 Tylenol PO 650 mg Q4H PRN Administration Pain MILD(1-3)/Fever >100.5/FU Albuterol/Ipratropium 1 ampul 08/08/19 14:00 08/16/19 21:07 Duoneb *Not For Prn Use* IH 1 ampul TIDRT ELI Administration Alprazolam 0.25 mg 08/08/19 12:01 08/16/19 21:45 Xanax PO 0.25 mg Q8H PRN Administration Anxiety Arformoterol Tartrate 15 mcg 08/08/19 20:00 08/16/19 21:08 Brovana Nebu IH 15 mcg Q12HRT ELI Administration Aspirin 81 mg 08/09/19 10:00 08/16/19 09:43 Baby Aspirin PO 81 mg QDAY ELI Administration Benzonatate 100 mg 08/08/19 14:00 08/16/19 21:45 Tessalon Perles PO 100 mg Q8HR ELI Administration Budesonide 0.5 mg 08/08/19 20:00 08/16/19 21:07 Pulmicort IH 0.5 mg Q12HRT ELI Administration Carvedilol 3.125 mg 08/08/19 12:00 08/16/19 21:45 Coreg PO 3.125 mg BID ELI Administration Diclofenac Sodium 25 mg 08/09/19 10:00 08/16/19 09:44 Voltaren PO 25 mg QDAY ELI Administration Enoxaparin Sodium 40 mg 08/08/19 10:00 08/16/19 09:44 Enoxaparin SUB-Q 40 mg QDAY@1000 ELI Administration Furosemide 60 mg 08/13/19 18:00 08/16/19 17:57 Lasix IV 60 mg 0600,1800 ELI Administration Magnesium Hydroxide 30 ml 08/09/19 19:33 08/15/19 17:48 Milk Of Magnesia PO 30 ml QDAY PRN Administration Constipation Methylprednisolone Sodium Succinate 60 mg 08/10/19 12:00 08/16/19 23:02 Solu-Medrol IV 60 mg Q6H ELI Administration Ondansetron HCl 4 mg 08/07/19 18:52 Zofran IV Q8H PRN Nausea And Vomiting Sodium Chloride 10 ml 08/07/19 22:00 08/16/19 21:46 Sodium Chloride Flush Syringe 10 Ml IV 10 ml BID ELI Administration Sodium Chloride 10 ml 08/07/19 18:52 08/14/19 17:26 Sodium Chloride Flush Syringe 10 Ml IV 10 ml PRN PRN Administration LINE FLUSH
[2019-08-17] MEDS: BENZONATATE 100 MG CAP PO SCH ×3 (05:44→23:13)
[2019-08-17] MEDS: methylPREDNISolone Sod Succinate 125 MG/2 ML INJ IV SCH ×3 (05:44→18:30)
[2019-08-17] MEDS: FUROSEMIDE 100 MG/10 ML INJ IV SCH ×2 (05:45→18:31)
[2019-08-17 07:57] LABS: Hematocrit 46.4 % (35.5-45.6); Hemoglobin 15.3 gm/dl (11.8-15.2); Mean Corpuscular HGB Conc 33 % (32-34); Mean Corpuscular Volume 87 fl (84-94); Platelet Count 109 K/mm3 (140-440); Red Blood Count 5.36 M/mm3 (3.65-5.03); Red Cell Distribution Width 17.1 % (13.2-15.2)
[2019-08-17] MEDS ORDERED: DEXTROSE 50% IN WATER (25GM) 50 ML SYRINGE IV PRN (08:24)
[2019-08-17 08:31] LABS: Alanine Aminotransferase 33 units/L (7-56); Albumin 3.7 g/dL (3.9-5); BUN/Creatinine Ratio 74; Blood Urea Nitrogen 52 mg/dL (9-20); Calcium 8.7 mg/dL (8.4-10.2); Hemolysis Index 42; Iron 135 ug/dL (49-181)
[2019-08-17 08:47] LABS: Total Iron Binding Capacity 246 mcg/dL (250-450)
[2019-08-17] MEDS: carvediloL 3.125 MG TAB PO SCH ×2 (09:13→23:13)
[2019-08-17] MEDS: ENOXAPARIN 40 MG/0.4 ML INJ SUB-Q SCH (09:13)
[2019-08-17] MEDS: ASPIRIN 81 MG TAB CHEW PO SCH (09:13)
[2019-08-17] MEDS: ARFORMOTEROL 15 MCG/2 ML NEBU IH SCH ×2 (09:50→20:12)
[2019-08-17] MEDS: IPRATROPIUM/ALBUTEROL SULFATE 3 ML AMPUL.NEB IH SCH ×3 (09:50→20:12)
[2019-08-17] MEDS: BUDESONIDE 0.5 MG/2 ML NEBU IH SCH ×2 (09:50→20:12)
--- NOTE | 2019-08-17 11:09 | Progress Note ---
Assessment and Plan 64 y/o male with known lung CA, likely COPD and recent allergic reaction to chemo who presents with acute shortness of breath and acute hypoxic respiratory failure. 1. High Dose IV steroids, would not taper anytime soon and continue bipap PRN and QHS 2. Continue 60 IV BID lasix. If patient not improving with this, may need to consider moving to step down for lasix drip to get volume off. 3. Appreciate Onc recs. 4. Montior fluid intake 5. Discussed with CM, patient may need LTACH with pulmonary rehab given his significant decline since discharge and how rapid this happened. Subjective Date of service: 08/17/19 Principal diagnosis: lung ca Interval history: No acute events. Remains on HFNC. Objective Vital Signs - 12hr 08/17/19 08/17/19 08/17/19 01:38 02:00 02:22 Temperature 97.5 F L Pulse Rate 73 Respiratory 22 Rate Blood Pressure 182/97 O2 Sat by Pulse 96 98 Oximetry 08/17/19 07:27 Temperature 97.5 F L Pulse Rate 101 H Respiratory 20 Rate Blood Pressure 136/95 O2 Sat by Pulse 92 Oximetry Constitutional: no acute distress, alert Eyes: non-icteric ENT: oropharynx moist Neck: supple Effort: mildly labored Ascultation: Bilateral: rales Cardiovascular: regular rate and rhythm (no mrg) Gastrointestinal: normoactive bowel sounds, soft, non-tender, non-distended Integumentary: normal Extremities: no cyanosis, no edema, pink and warm Neurologic: normal mental status, non-focal exam, pupils equal and round, CN II- XII normal Psychiatric: mood appropriate, affect normal CBC and BMP: 08/17/19 07:04 08/17/19 07:04 ABG, PT/INR, D-dimer: ABG POC ABG pH 7.415 (7.35-7.45) 08/07/19 18:38 POC ABG pCO2 45.1 (35-45) H 08/07/19 18:38 POC ABG pO2 89 (80-105) 08/07/19 18:38 POC ABG HCO3 28.9 (22-26 mml/L) 08/07/19 18:38 POC ABG Total CO2 30 (23-27mmol/L) 08/07/19 18:38 POC ABG O2 Sat 97 08/07/19 18:38 PT/INR, D-dimer PT 16.0 Sec. (12.2-14.9) H 08/07/19 17:29 INR 1.30 (0.87-1.13) H 08/07/19 17:29 Abnormal lab findings: Abnormal Labs 08/07/19 08/07/19 08/07/19 17:29 17:29 17:29 WBC 17.1 H RBC Hgb Hct RDW 16.5 H Plt Count Seg Neuts % (Manual) 89.0 H Lymphocytes % (Manual) 6.0 L Seg Neutrophils # Man 15.2 H Lymphocytes # (Manual) 1.0 L PT 16.0 H INR 1.30 H POC ABG pCO2 Sodium Chloride Carbon Dioxide BUN Creatinine Glucose 213 H Calcium TIBC Ferritin NT-Pro-B Natriuret Pep 4527 H Albumin 2.8 L Vitamin B12 08/07/19 08/08/19 08/08/19 18:38 03:53 03:53 WBC RBC Hgb Hct RDW 16.9 H Plt Count 122 L Seg Neuts % (Manual) 94.0 H Lymphocytes % (Manual) 4.0 L Seg Neutrophils # Man 9.9 H Lymphocytes # (Manual) 0.4 L PT INR POC ABG pCO2 45.1 H Sodium Chloride Carbon Dioxide BUN Creatinine 0.7 L Glucose 136 H Calcium 8.3 L TIBC Ferritin NT-Pro-B Natriuret Pep Albumin 2.6 L Vitamin B12 08/11/19 08/11/19 08/11/19 07:37 07:37 07:37 WBC RBC Hgb 11.5 L Hct RDW 18.2 H Plt Count 97 L Seg Neuts % (Manual) 95.0 H Lymphocytes % (Manual) 3.0 L Seg Neutrophils # Man 10.3 H Lymphocytes # (Manual) 0.3 L PT INR POC ABG pCO2 Sodium Chloride Carbon Dioxide BUN 31 H Creatinine Glucose 139 H Calcium TIBC Ferritin NT-Pro-B Natriuret Pep 5959 H Albumin 3.0 L Vitamin B12 08/16/19 08/16/19 08/17/19 04:08 04:08 07:04 WBC RBC 5.36 H Hgb 15.3 H Hct 46.4 H RDW 17.7 H 17.1 H Plt Count 92 L 109 L Seg Neuts % (Manual) 94.0 H Lymphocytes % (Manual) 3.0 L Seg Neutrophils # Man Lymphocytes # (Manual) 0.2 L PT INR POC ABG pCO2 Sodium Chloride 87.4 L Carbon Dioxide 40 H D BUN 47 H Creatinine Glucose 223 H Calcium TIBC Ferritin NT-Pro-B Natriuret Pep Albumin Vitamin B12 08/17/19 08/17/19 08/17/19 07:04 07:04 07:04 WBC RBC Hgb Hct RDW Plt Count Seg Neuts % (Manual) Lymphocytes % (Manual) Seg Neutrophils # Man Lymphocytes # (Manual) PT INR POC ABG pCO2 Sodium 135 L Chloride 83.2 L Carbon Dioxide 33 H D BUN 52 H Creatinine 0.7 L Glucose 214 H Calcium TIBC 246 L Ferritin 866.0 H NT-Pro-B Natriuret Pep Albumin 3.7 L Vitamin B12 1805 H
--- NOTE | 2019-08-17 11:23 | Progress Note ---
Assessment and Plan Assessment and plan: Sepsis secondary to healthcare associated pneumonia, Managed with serial lactic acid, negative blood cultures, s/p empiric antibiotics for a week - last day 08/14/19 HCAP (healthcare-associated pneumonia): treated with IV Cefepime for one week Acute on chronic systolic HF with EF of 40-45%, POA: cont IV Lasix echo done on 07/21/19 showed EF of 40-45% NSCLC Stage III: Follows with hematology oncologist Dr Dolan -Acute on chronic Respiratory failure with hypoxia likely due to Possible pneumonitis secondary to immunotherapy with Imfinzi and HCAP cont O2 , NIPPV, High dose IV steroids, inhalation steroids pulmonary following -Anxiety: cont Low-dose Xanax when necessary /-UTI: Treated with antibiotic, Urine culture neg -Severe Malnutrition/hypoalbuminemia: nutritional supplements and nutrition following Prediabetes with Hba1c of 6.1 in 07/17 -started on SSI /Full code. Poor Prognosis / DVT prophylaxis SCD to BLE while in bed, prophylactic lovenox Disposition: pt continues to require high flow 02 but was denied for LTAC. CM following up on other options History Interval history: Pt has no new complaints. He continues to require high flow 02 Hospitalist Physical - Constitutional Vitals: Temp Pulse Resp BP Pulse Ox 97.5 F L 101 H 20 136/95 92 08/17/19 07:27 08/17/19 07:27 08/17/19 07:27 08/17/19 07:27 08/17/19 07:27 General appearance: Present: mild distress, well-nourished - EENT Eyes: Present: PERRL, EOM intact ENT: hearing intact, clear oral mucosa - Neck Neck: Present: supple - Respiratory Respiratory effort: normal Respiratory: bilateral: CTA, diminished - Cardiovascular Rhythm: regular Heart Sounds: Present: S1 & S2 - Extremities Extremities: No edema - Abdominal General gastrointestinal: soft, non-tender, normal bowel sounds - Integumentary Integumentary: Present: warm, dry - Psychiatric Psychiatric: appropriate mood/affect - Neurologic Neurologic: CNII-XII intact Results - Labs CBC & Chem 7: 08/17/19 07:04 08/17/19 07:04 Labs: Laboratory Last Values WBC 9.1 K/mm3 (4.5-11.0) 08/17/19 07:04 RBC 5.36 M/mm3 (3.65-5.03) H 08/17/19 07:04 Hgb 15.3 gm/dl (11.8-15.2) H 08/17/19 07:04 Hct 46.4 % (35.5-45.6) H 08/17/19 07:04 MCV 87 fl (84-94) 08/17/19 07:04 MCH 29 pg (28-32) 08/17/19 07:04 MCHC 33 % (32-34) 08/17/19 07:04 RDW 17.1 % (13.2-15.2) H 08/17/19 07:04 Plt Count 109 K/mm3 (140-440) L 08/17/19 07:04 Lymph % (Auto) Animal [employer]ides Manager 08/07/19 17:29 [place] % (Auto) Animal Rides Manager 08/07/19 17:29 Eos % (Auto) Animal Rides Manager 08/07/19 17:29 Baso % (Auto) Animal Rides Manager 08/07/19 17:29 Lymph # Animal Rides Manager 08/07/19 17:29 [place] # Animal Rides Manager 08/07/19 17:29 Eos # Animal Rides Manager 08/07/19 17:29 Baso # Animal Rides Manager 08/07/19 17:29 Add Manual Diff Complete 08/16/19 04:08 Total Counted 100 08/16/19 04:08 Seg Neutrophils % [employer]ides Manager 08/17/19 07:04 Seg Neuts % (Manual) 94.0 % (40.0-70.0) H 08/16/19 04:08 Band Neutrophils % 1.0 % 08/16/19 04:08 Lymphocytes % (Manual) 3.0 % (13.4-35.0) L 08/16/19 04:08 Reactive Lymphs % (Man) 0 % 08/16/19 04:08 Monocytes % (Manual) 2.0 % (0.0-7.3) 08/16/19 04:08 Eosinophils % (Manual) 0 % (0.0-4.3) 08/16/19 04:08 Basophils % (Manual) 0 % (0.0-1.8) 08/16/19 04:08 Metamyelocytes % 0 % 08/16/19 04:08 Myelocytes % 0 % 08/16/19 04:08 Promyelocytes % 0 % 08/16/19 04:08 Blast Cells % 0 % 08/16/19 04:08 Nucleated RBC % Not Reportable 08/16/19 04:08 Seg Neutrophils # Animal Rides Manager 08/07/19 17:29 Seg Neutrophils # Man 7.1 K/mm3 (1.8-7.7) 08/16/19 04:08 Band Neutrophils # 0.1 K/mm3 08/16/19 04:08 Lymphocytes # (Manual) 0.2 K/mm3 (1.2-5.4) L 08/16/19 04:08 Abs React Lymphs (Man) 0.0 K/mm3 08/16/19 04:08 Monocytes # (Manual) 0.2 K/mm3 (0.0-0.8) 08/16/19 04:08 Eosinophils # (Manual) 0.0 K/mm3 (0.0-0.4) 08/16/19 04:08 Basophils # (Manual) 0.0 K/mm3 (0.0-0.1) 08/16/19 04:08 Metamyelocytes # 0.0 K/mm3 08/16/19 04:08 Myelocytes # 0.0 K/mm3 08/16/19 04:08 Promyelocytes # 0.0 K/mm3 08/16/19 04:08 Blast Cells # 0.0 K/mm3 08/16/19 04:08 WBC Morphology Not Reportable 08/16/19 04:08 Hypersegmented Neuts Not Reportable 08/16/19 04:08 Hyposegmented Neuts Not Reportable 08/16/19 04:08 Hypogranular Neuts Not Reportable 08/16/19 04:08 Smudge Cells Not Reportable 08/16/19 04:08 Toxic Granulation Not Reportable 08/16/19 04:08 Toxic Vacuolation Not Reportable 08/16/19 04:08 Dohle Bodies Not Reportable 08/16/19 04:08 [place] Anomaly Not Reportable 08/16/19 04:08 Zak Rods Not Reportable 08/16/19 04:08 Platelet Estimate Consistent w auto 08/16/19 04:08 Clumped Platelets Not Reportable 08/16/19 04:08 Plt Clumps, EDTA Not Reportable 08/16/19 04:08 Large Platelets Few 08/16/19 04:08 Giant Platelets Not Reportable 08/16/19 04:08 Platelet Satelliting Not Reportable 08/16/19 04:08 Plt Morphology Comment Not Reportable 08/16/19 04:08 RBC Morphology Not Reportable 08/16/19 04:08 Dimorphic RBCs Not Reportable 08/16/19 04:08 Polychromasia Not Reportable 08/16/19 04:08 Hypochromasia Not Reportable 08/16/19 04:08 Poikilocytosis 1+ 08/16/19 04:08 Anisocytosis 1+ 08/16/19 04:08 Microcytosis Not Reportable 08/16/19 04:08 Macrocytosis Not Reportable 08/16/19 04:08 Spherocytes Not Reportable 08/16/19 04:08 Pappenheimer Bodies Not Reportable 08/16/19 04:08 Sickle Cells Not Reportable 08/16/19 04:08 Target Cells Not Reportable 08/16/19 04:08 Tear Drop Cells Not Reportable 08/16/19 04:08 Ovalocytes Few 08/16/19 04:08 Helmet Cells Not Reportable 08/16/19 04:08 [place] Bodies Not Reportable 08/16/19 04:08 [place] Not Reportable 08/16/19 04:08 [place]ata Cells Not Reportable 08/16/19 04:08 Bite Cells Not Reportable 08/16/19 04:08 Crenated Cell Not Reportable 08/16/19 04:08 Elliptocytes Few 08/16/19 04:08 Acanthocytes (Spur) Not Reportable 08/16/19 04:08 Rouleaux Not Reportable 08/16/19 04:08 Hemoglobin C Crystals Not Reportable 08/16/19 04:08 Schistocytes Not Reportable 08/16/19 04:08 Malaria parasites Not Reportable 08/16/19 04:08 Rafa Bodies Not Reportable 08/16/19 04:08 Hem Pathologist Commnt No 08/16/19 04:08 PT 16.0 Sec. (12.2-14.9) H 08/07/19 17:29 INR 1.30 (0.87-1.13) H 08/07/19 17:29 APTT 28.5 Sec. (24.2-36.6) 08/07/19 17:29 POC ABG pH 7.415 (7.35-7.45) 08/07/19 18:38 POC ABG pCO2 45.1 (35-45) H 08/07/19 18:38 POC ABG pO2 89 (80-105) 08/07/19 18:38 POC ABG HCO3 28.9 (22-26 mml/L) 08/07/19 18:38 POC ABG Total CO2 30 (23-27mmol/L) 08/07/19 18:38 POC ABG O2 Sat 97 08/07/19 18:38 POC ABG Base Excess 4 ((-2) - (+3)mmol/L) 08/07/19 18:38 FiO2 60 % 08/07/19 18:38 Sodium 135 mmol/L (137-145) L 08/17/19 07:04 Potassium 4.3 mmol/L (3.6-5.0) 08/17/19 07:04 Chloride 83.2 mmol/L (98-107) L 08/17/19 07:04 Carbon Dioxide 33 mmol/L (22-30) H D 08/17/19 07:04 Anion Gap 23 mmol/L 08/17/19 07:04 BUN 52 mg/dL (9-20) H 08/17/19 07:04 Creatinine 0.7 mg/dL (0.8-1.5) L 08/17/19 07:04 Estimated GFR > 60 ml/min 08/17/19 07:04 BUN/Creatinine Ratio 74 % 08/17/19 07:04 Glucose 214 mg/dL (75-100) H 08/17/19 07:04 Lactic Acid 1.70 mmol/L (0.7-2.0) 08/07/19 20:32 Calcium 8.7 mg/dL (8.4-10.2) 08/17/19 07:04 Iron 135 ug/dL (49-181) 08/17/19 07:04 TIBC 246 mcg/dL (250-450) L 08/17/19 07:04 Ferritin 866.0 ng/mL (13.0-400.0) H 08/17/19 07:04 Total Bilirubin 0.60 mg/dL (0.1-1.2) 08/17/19 07:04 AST 19 units/L (5-40) 08/17/19 07:04 ALT 33 units/L (7-56) 08/17/19 07:04 Alkaline Phosphatase 103 units/L (35-129) 08/17/19 07:04 Troponin T 0.013 ng/mL (0.00-0.029) 08/07/19 17:29 NT-Pro-B Natriuret Pep 5959 pg/mL (0-900) H 08/11/19 07:37 Total Protein 7.3 g/dL (6.3-8.2) 08/17/19 07:04 Albumin 3.7 g/dL (3.9-5) L 08/17/19 07:04 Albumin/Globulin Ratio 1.0 % 08/17/19 07:04 Vitamin B12 1805 pg/mL (211-911) H 08/17/19 07:04 Folate 19.94 ng/mL (7.3-26.0) 08/17/19 07:04 Urine Color Yellow (Yellow) 08/08/19 09:22 Urine Turbidity Slightly-cloudy (Clear) 08/08/19 09:22 Urine pH 5.0 (5.0-7.0) 08/08/19 09:22 Ur Specific [place] 1.027 (1.003-1.030) 08/08/19 09:22 Urine Protein 30 mg/dl mg/dL (Negative) 08/08/19 09:22 Urine Glucose (UA) Neg mg/dL (Negative) 08/08/19 09:22 Urine Ketones Tr mg/dL (Negative) 08/08/19 09:22 Urine Blood Neg (Negative) 08/08/19 09:22 Urine Nitrite Neg (Negative) 08/08/19 09:22 Urine Bilirubin Neg (Negative) 08/08/19 09:22 Urine Urobilinogen < 2.0 mg/dL (<2.0) 08/08/19 09:22 Ur Leukocyte Esterase Neg (Negative) 08/08/19 09:22 Urine WBC (Auto) 2.0 /HPF (0.0-6.0) 08/08/19 09:22 Urine RBC (Auto) 3.0 /HPF (0.0-6.0) 08/08/19 09:22 U Epithel Cells (Auto) < 1.0 /HPF (0-13.0) 08/08/19 09:22 Urine Bacteria (Auto) 1+ /HPF (Negative) 08/08/19 09:22 Hyaline Casts 4 /LPF 08/08/19 09:22 Urine Mucus 2+ /HPF 08/08/19 09:22 Vancomycin Trough 13.5 ug/mL (5.0-20.0) 08/10/19 08:14 Active Medications - Current Medications Current Medications: Generic Name Dose Route Start Last Admin Trade Name Freq PRN Reason Stop Dose Admin Acetaminophen 650 mg 08/07/19 18:52 08/14/19 23:23 Tylenol PO 650 mg Q4H PRN Administration Pain MILD(1-3)/Fever >100.5/FU Albuterol/Ipratropium 1 ampul 08/08/19 14:00 08/17/19 09:50 Duoneb *Not For Prn Use* IH 1 ampul TIDRT ELI Administration Alprazolam 0.25 mg 08/08/19 12:01 08/16/19 21:45 Xanax PO 0.25 mg Q8H PRN Administration Anxiety Arformoterol Tartrate 15 mcg 08/08/19 20:00 08/17/19 09:50 Brovana Nebu IH 15 mcg Q12HRT ELI Administration Aspirin 81 mg 08/09/19 10:00 08/17/19 09:13 Baby Aspirin PO 81 mg QDAY ELI Administration Benzonatate 100 mg 08/08/19 14:00 08/17/19 05:44 Tessalon Perles PO 100 mg Q8HR ELI Administration Budesonide 0.5 mg 08/08/19 20:00 08/17/19 09:50 Pulmicort IH 0.5 mg Q12HRT ELI Administration Carvedilol 3.125 mg 08/08/19 12:00 08/17/19 09:13 Coreg PO 3.125 mg BID ELI Administration Dextrose 50 ml 08/17/19 08:24 D50w (25gm) Syringe IV Q30MIN PRN Hypoglycemia Protocol Diclofenac Sodium 25 mg 08/09/19 10:00 08/16/19 09:44 Voltaren PO 25 mg QDAY ELI Administration Enoxaparin Sodium 40 mg 08/08/19 10:00 08/17/19 09:13 Enoxaparin SUB-Q 40 mg QDAY@1000 ELI Administration Furosemide 60 mg 08/13/19 18:00 08/17/19 05:45 Lasix IV 60 mg 0600,1800 ELI Administration Insulin Human Lispro 0 unit 08/17/19 11:30 Humalog SUB-Q ACHS ELI Protocol Magnesium Hydroxide 30 ml 08/09/19 19:33 08/15/19 17:48 Milk Of Magnesia PO 30 ml QDAY PRN Administration Constipation Methylprednisolone Sodium Succinate 60 mg 08/10/19 12:00 08/17/19 05:44 Solu-Medrol IV 60 mg Q6H ELI Administration Ondansetron HCl 4 mg 08/07/19 18:52 Zofran IV Q8H PRN Nausea And Vomiting Sodium Chloride 10 ml 08/07/19 22:00 08/17/19 09:14 Sodium Chloride Flush Syringe 10 Ml IV 10 ml BID ELI Administration Sodium Chloride 10 ml 08/07/19 18:52 08/14/19 17:26 Sodium Chloride Flush Syringe 10 Ml IV 10 ml PRN PRN Administration LINE FLUSH Nutrition/Malnutrition Assess - Dietary Evaluation Nutrition/Malnutrition Findings: Nutrition Notes Start: 08/08/19 12:57 Freq: Status: Active Protocol: Document 08/16/19 16:52 RM (Rec: 08/16/19 17:00 RM [id number]) Nutrition Notes Initial or Follow up Reassessment Current Diagnosis Sepsis,Respiratory Failure Other Pertinent Diagnosis Lung CA S/P radiation,HCAP Current Diet Regular w/Ensure Enlive Vanilla TID Labs/Tests reviewed Pertinent Medications Lasix, Solu-Medrol, Milk of Magnesia Height 5 ft 10 in Weight 61.7 kg [place] Body Weight (kg) 75.45 BMI 19.5 Weight change and time frame [facility] Subjective/Other Information Pt and pt in room at time of visit. Pt answered questions on behalf of pt. Stated that pt appetite is poor d/t constipation. However she forces him to eat some of each meal before he drinks the Ensure Enlive. Stated that pt ate his cream of wheat this morning and drinks all of the Ensure Enlive. Percent of energy/protein needs met: 58%/92% Burn Absent Trauma Absent Minimum of two criteria No #2 Nutrition Diagnosis Inadequate oral intake As Evidenced by Signs and Symptoms pt meeting 58% of calorie and 92% of protein needs Diagnosis Progress(for reassessment Improved documentation) Is patient on ventilator? No Is Patient Ambulatory and/or Out of Bed Yes REE-([facility]-ambulatory/OOB) [ [id number] [id number]] Calculation Used for Recommendations [facility] Additional Notes Protein: 65-77g (1-1.2g/kg) Fluid: 1ml/kcal Nutrition Intervention Change Diet Order: Continue current Add Supplement/Snack (indicate name/kcal Ensure Enlive Vanilla TID /protein ) Provides kCal: 1,050 Provides Protein (gm) 60 Goal #1 Meet at least 75% of calorie and protein needs via PO and ONS intakes Anticipated Discharge Needs: Regular diet Follow-Up By: 08/19/19 Additional Comments Follow for PO and ONS intakes
[2019-08-17 11:56] LABS: Band Neutrophils # (Manual) 0.1 K/mm3; Basophils % (Manual) 0 % (0.0-1.8); Eosinophils % (Manual) 0 % (0.0-4.3); Total Cells Counted 100
[2019-08-17 11:57] LABS: Ovalocytes Few; Tear Drop Cells Few
[2019-08-17 11:58] LABS: Anisocytosis 1+; Large Platelets Few; Platelet Estimate Consistent w Auto
[2019-08-17] MEDS: INSULIN LISPRO 100 UNIT/ML SUB-Q SCH ×3 (13:29→23:14)
[2019-08-17] MEDS: DICLOFENAC EC 25 MG TAB PO SCH (13:35)
[2019-08-17] MEDS: ALPRAZolam 0.25 MG TAB PO PRN (23:18)
[2019-08-18 04:47] LABS: BUN/Creatinine Ratio 71; Blood Urea Nitrogen 57 mg/dL (9-20); Calcium 8.5 mg/dL (8.4-10.2); Hemolysis Index 58
--- NOTE | 2019-08-18 07:54 | Hem/Onc Progress Note ---
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 Shortness of breath likely secondary to pneumonitis of Imfinzi, the patient has received 3 treatments of same. He follows with Dr. Dolan. IV steroids were started. pt needs a few weeks of steroids 2. History of port placement. 3. History of hypertension. 4. He will need oxygen support and oral steroids for a few days. He had appointment with Dr. Dolan on the . He is being treated for possible pneumonia during this admission. PLT going down - ? meds related? ON steroids pt is reluctant to go to rehab/ NH pt needs a few weeks of steroids - dr dolan would follow and taper still on high o2 as the % and flow rate of O2 is very high - I think Placement - LTAC is the only option - pulm following the pt d/w family def IX for LOw PLT - b12- folate - iron and ferritin not Low - Patient Problems (1) Lung cancer Current Visit: Yes Status: Acute Qualifiers: Laterality: unspecified laterality Subjective Date of service: 08/18/19 Principal diagnosis: lung ca - Imfinzi related pneumonitis Interval history: still on high flow o2 Objective - Constitutional Vitals: Last Vital Signs Temp 97.9 F 08/18/19 01:56 Pulse 98 H 08/18/19 01:56 Resp 20 08/18/19 01:56 BP 134/59 08/18/19 03:24 Pulse Ox 93 08/18/19 02:00 - Labs Lab Results: Laboratory Results - last 24 hr 08/17/19 08/17/19 08/17/19 07:04 07:04 07:04 WBC 9.1 RBC 5.36 H Hgb 15.3 H Hct 46.4 H MCV 87 MCH 29 MCHC 33 RDW 17.1 H Plt Count 109 L Add Manual Diff Complete Total Counted 100 Seg Neutrophils % Cable Placer Seg Neuts % (Manual) 95.0 H Band Neutrophils % 1.0 Lymphocytes % (Manual) 3.0 L Reactive Lymphs % (Man) 0 Monocytes % (Manual) 1.0 Eosinophils % (Manual) 0 Basophils % (Manual) 0 Metamyelocytes % 0 Myelocytes % 0 Promyelocytes % 0 Blast Cells % 0 Nucleated RBC % Not Reportable Seg Neutrophils # Man 8.6 H Band Neutrophils # 0.1 Lymphocytes # (Manual) 0.3 L Abs React Lymphs (Man) 0.0 Monocytes # (Manual) 0.1 Eosinophils # (Manual) 0.0 Basophils # (Manual) 0.0 Metamyelocytes # 0.0 Myelocytes # 0.0 Promyelocytes # 0.0 Blast Cells # 0.0 WBC Morphology Not Reportable Hypersegmented Neuts Not Reportable Hyposegmented Neuts Not Reportable Hypogranular Neuts Not Reportable Smudge Cells Not Reportable Toxic Granulation Not Reportable Toxic Vacuolation Not Reportable Dohle Bodies Not Reportable Pelger-Huet Anomaly Not Reportable Zak Rods Not Reportable Platelet Estimate Consistent w auto Clumped Platelets Not Reportable Plt Clumps, EDTA Not Reportable Large Platelets Few Giant Platelets Not Reportable Platelet Satelliting Not Reportable Plt Morphology Comment Not Reportable RBC Morphology Not Reportable Dimorphic RBCs Not Reportable Polychromasia Few Hypochromasia Not Reportable Poikilocytosis Not Reportable Anisocytosis 1+ Microcytosis Not Reportable Macrocytosis Not Reportable Spherocytes Not Reportable Pappenheimer Bodies Not Reportable Sickle Cells Not Reportable Target Cells Not Reportable Tear Drop Cells Few Ovalocytes Few Helmet Cells Not Reportable Alegre-[place] Bodies Not Reportable [place] Rings Not Reportable [place] Cells Not Reportable Bite Cells Not Reportable Crenated Cell Not Reportable Elliptocytes Not Reportable Acanthocytes (Spur) Not Reportable Rouleaux Not Reportable Hemoglobin C Crystals Not Reportable Schistocytes Not Reportable Malaria parasites Not Reportable Rafa Bodies Not Reportable Hem Pathologist Commnt No POC ABG pH POC ABG pCO2 POC ABG pO2 POC ABG HCO3 POC ABG Total CO2 POC ABG O2 Sat POC ABG Base Excess FiO2 Sodium 135 L Potassium 4.3 Chloride 83.2 L Carbon Dioxide 33 H D Anion Gap 23 BUN 52 H Creatinine 0.7 L Estimated GFR > 60 BUN/Creatinine Ratio 74 Glucose 214 H POC Glucose Calcium 8.7 Iron 135 TIBC 246 L Ferritin 866.0 H Total Bilirubin 0.60 AST 19 ALT 33 Alkaline Phosphatase 103 Total Protein 7.3 Albumin 3.7 L Albumin/Globulin Ratio 1.0 Vitamin B12 Folate 08/17/19 08/17/19 08/17/19 07:04 07:04 13:00 WBC RBC Hgb Hct MCV MCH MCHC RDW Plt Count Add Manual Diff Total Counted Seg Neutrophils % Seg Neuts % (Manual) Band Neutrophils % Lymphocytes % (Manual) Reactive Lymphs % (Man) Monocytes % (Manual) Eosinophils % (Manual) Basophils % (Manual) Metamyelocytes % Myelocytes % Promyelocytes % Blast Cells % Nucleated RBC % Seg Neutrophils # Man Band Neutrophils # Lymphocytes # (Manual) Abs React Lymphs (Man) Monocytes # (Manual) Eosinophils # (Manual) Basophils # (Manual) Metamyelocytes # Myelocytes # Promyelocytes # Blast Cells # WBC Morphology Hypersegmented Neuts Hyposegmented Neuts Hypogranular Neuts Smudge Cells Toxic Granulation Toxic Vacuolation Dohle Bodies Pelger-Huet Anomaly Zak Rods Platelet Estimate Clumped Platelets Plt Clumps, EDTA Large Platelets Giant Platelets Platelet Satelliting Plt Morphology Comment RBC Morphology Dimorphic RBCs Polychromasia Hypochromasia Poikilocytosis Anisocytosis Microcytosis Macrocytosis Spherocytes Pappenheimer Bodies Sickle Cells Target Cells Tear Drop Cells Ovalocytes Helmet Cells Alegre-[place] Bodies [place] Rings [place] Cells Bite Cells Crenated Cell Elliptocytes Acanthocytes (Spur) Rouleaux Hemoglobin C Crystals Schistocytes Malaria parasites Rafa Bodies Hem Pathologist Commnt POC ABG pH POC ABG pCO2 POC ABG pO2 POC ABG HCO3 POC ABG Total CO2 POC ABG O2 Sat POC ABG Base Excess FiO2 Sodium Potassium Chloride Carbon Dioxide Anion Gap BUN Creatinine Estimated GFR BUN/Creatinine Ratio Glucose POC Glucose 228 H Calcium Iron TIBC Ferritin Total Bilirubin AST ALT Alkaline Phosphatase Total Protein Albumin Albumin/Globulin Ratio Vitamin B12 1805 H Folate 19.94 08/17/19 08/17/19 08/17/19 16:10 16:13 22:56 WBC RBC Hgb Hct MCV MCH MCHC RDW Plt Count Add Manual Diff Total Counted Seg Neutrophils % Seg Neuts % (Manual) Band Neutrophils % Lymphocytes % (Manual) Reactive Lymphs % (Man) Monocytes % (Manual) Eosinophils % (Manual) Basophils % (Manual) Metamyelocytes % Myelocytes % Promyelocytes % Blast Cells % Nucleated RBC % Seg Neutrophils # Man Band Neutrophils # Lymphocytes # (Manual) Abs React Lymphs (Man) Monocytes # (Manual) Eosinophils # (Manual) Basophils # (Manual) Metamyelocytes # Myelocytes # Promyelocytes # Blast Cells # WBC Morphology Hypersegmented Neuts Hyposegmented Neuts Hypogranular Neuts Smudge Cells Toxic Granulation Toxic Vacuolation Dohle Bodies Pelger-Huet Anomaly Zak Rods Platelet Estimate Clumped Platelets Plt Clumps, EDTA Large Platelets Giant Platelets Platelet Satelliting Plt Morphology Comment RBC Morphology Dimorphic RBCs Polychromasia Hypochromasia Poikilocytosis Anisocytosis Microcytosis Macrocytosis Spherocytes Pappenheimer Bodies Sickle Cells Target Cells Tear Drop Cells Ovalocytes Helmet Cells Alegre-[place] Bodies [place] Rings [place] Cells Bite Cells Crenated Cell Elliptocytes Acanthocytes (Spur) Rouleaux Hemoglobin C Crystals Schistocytes Malaria parasites Rafa Bodies Hem Pathologist Commnt POC ABG pH 7.498 H POC ABG pCO2 60.9 H POC ABG pO2 71 L POC ABG HCO3 47.2 POC ABG Total CO2 49 POC ABG O2 Sat 95 POC ABG Base Excess 24 FiO2 70 Sodium Potassium Chloride Carbon Dioxide Anion Gap BUN Creatinine Estimated GFR BUN/Creatinine Ratio Glucose POC Glucose 194 H 128 H Calcium Iron TIBC Ferritin Total Bilirubin AST ALT Alkaline Phosphatase Total Protein Albumin Albumin/Globulin Ratio Vitamin B12 Folate 08/18/19 08/18/19 03:40 07:36 WBC RBC Hgb Hct MCV MCH MCHC RDW Plt Count Add Manual Diff Total Counted Seg Neutrophils % Seg Neuts % (Manual) Band Neutrophils % Lymphocytes % (Manual) Reactive Lymphs % (Man) Monocytes % (Manual) Eosinophils % (Manual) Basophils % (Manual) Metamyelocytes % Myelocytes % Promyelocytes % Blast Cells % Nucleated RBC % Seg Neutrophils # Man Band Neutrophils # Lymphocytes # (Manual) Abs React Lymphs (Man) Monocytes # (Manual) Eosinophils # (Manual) Basophils # (Manual) Metamyelocytes # Myelocytes # Promyelocytes # Blast Cells # WBC Morphology Hypersegmented Neuts Hyposegmented Neuts Hypogranular Neuts Smudge Cells Toxic Granulation Toxic Vacuolation Dohle Bodies Pelger-Huet Anomaly Zak Rods Platelet Estimate Clumped Platelets Plt Clumps, EDTA Large Platelets Giant Platelets Platelet Satelliting Plt Morphology Comment RBC Morphology Dimorphic RBCs Polychromasia Hypochromasia Poikilocytosis Anisocytosis Microcytosis Macrocytosis Spherocytes Pappenheimer Bodies Sickle Cells Target Cells Tear Drop Cells Ovalocytes Helmet Cells Alegre-On[place] Bodies [place] Rings [place] Cells Bite Cells Crenated Cell Elliptocytes Acanthocytes (Spur) Rouleaux Hemoglobin C Crystals Schistocytes Malaria parasites Rafa Bodies Hem Pathologist Commnt POC ABG pH POC ABG pCO2 POC ABG pO2 POC ABG HCO3 POC ABG Total CO2 POC ABG O2 Sat POC ABG Base Excess FiO2 Sodium 137 Potassium 4.3 Chloride 86.4 L Carbon Dioxide 38 H Anion Gap 17 BUN 57 H Creatinine 0.8 Estimated GFR > 60 BUN/Creatinine Ratio 71 Glucose 162 H POC Glucose 165 H Calcium 8.5 Iron TIBC Ferritin Total Bilirubin AST ALT Alkaline Phosphatase Total Protein Albumin Albumin/Globulin Ratio Vitamin B12 Folate Medications & Allergies - Medications Allergies/Adverse Reactions: Allergies No Known Allergies Allergy (Verified 07/19/19 14:55) Home Medications: Home Medications Medication Instructions Recorded Confirmed Last Taken Type Aspirin [Aspirin BABY CHEW TAB] 81 mg PO QDAY 07/19/19 08/07/19 07/18/19 History Diclofenac EC [Voltaren] 25 mg PO QDAY 07/19/19 08/07/19 07/18/19 History Durvalumab [Imfinzi] 120 mg IV Q2W 07/19/19 08/07/19 07/18/19 History carvediloL [Coreg] 3.125 mg PO BID 07/19/19 08/07/19 07/18/19 History diazePAM [Diazepam] 10 mg PO QHS 07/19/19 08/07/19 07/18/19 History ALBUTEROL Inhaler (OR & NICU) 2 puff IH QID PRN #1 07/28/19 08/07/19 Unknown Rx [ProAir HFA Inhaler] Benzonatate [Tessalon Perles] 100 mg PO Q8HR #14 capsule 07/28/19 08/08/19 Unknown Rx predniSONE [Deltasone] 60 mg PO QDAY #14 tablet 07/28/19 08/07/19 Unknown Rx Active Medications: Generic Name Dose Route Start Last Admin Trade Name Freq PRN Reason Stop Dose Admin Acetaminophen 650 mg 08/07/19 18:52 08/14/19 23:23 Tylenol PO 650 mg Q4H PRN Administration Pain MILD(1-3)/Fever >100.5/FU Albuterol/Ipratropium 1 ampul 08/08/19 14:00 08/17/19 20:12 Duoneb *Not For Prn Use* IH 1 ampul TIDRT ELI Administration Alprazolam 0.25 mg 08/08/19 12:01 11/19/19 23:18 Xanax PO 0.25 mg Q8H PRN Administration Anxiety Arformoterol Tartrate 15 mcg 08/08/19 20:00 08/17/19 20:12 Brovana Nebu IH 15 mcg Q12HRT ELI Administration Aspirin 81 mg 08/09/19 10:00 08/17/19 09:13 Baby Aspirin PO 81 mg QDAY ELI Administration Benzonatate 100 mg 08/08/19 14:00 08/17/19 23:13 Tessalon Perles PO 100 mg Q8HR ELI Administration Budesonide 0.5 mg 08/08/19 20:00 08/17/19 20:12 Pulmicort IH 0.5 mg Q12HRT ELI Administration Carvedilol 3.125 mg 08/08/19 12:00 08/17/19 23:13 Coreg PO 3.125 mg BID ELI Administration Dextrose 50 ml 08/17/19 08:24 D50w (25gm) Syringe IV Q30MIN PRN Hypoglycemia Protocol Diclofenac Sodium 25 mg 08/09/19 10:00 08/17/19 13:35 Voltaren PO Not Given QDAY ELI Enoxaparin Sodium 40 mg 08/08/19 10:00 08/17/19 09:13 Enoxaparin SUB-Q 40 mg QDAY@1000 ELI Administration Furosemide 60 mg 08/13/19 18:00 08/17/19 18:31 Lasix IV 60 mg 0600,1800 ELI Administration Insulin Human Lispro 0 unit 08/17/19 11:30 08/17/19 23:14 Humalog SUB-Q Not Given ACHS [facility] Protocol Magnesium Hydroxide 30 ml 08/09/19 19:33 08/15/19 17:48 Milk Of Magnesia PO 30 ml QDAY PRN Administration Constipation Methylprednisolone Sodium Succinate 60 mg 08/10/19 12:00 08/18/19 00:00 Solu-Medrol IV 60 mg Q6H ELI Administration Ondansetron HCl 4 mg 08/07/19 18:52 Zofran IV Q8H PRN Nausea And Vomiting Sodium Chloride 10 ml 08/07/19 22:00 08/18/19 01:59 Sodium Chloride Flush Syringe 10 Ml IV 10 ml BID ELI Administration Sodium Chloride 10 ml 08/07/19 18:52 08/14/19 17:26 Sodium Chloride Flush Syringe 10 Ml IV 10 ml PRN PRN Administration LINE FLUSH
[2019-08-18] MEDS: IPRATROPIUM/ALBUTEROL SULFATE 3 ML AMPUL.NEB IH SCH ×3 (08:05→19:55)
[2019-08-18] MEDS: ARFORMOTEROL 15 MCG/2 ML NEBU IH SCH ×2 (08:05→19:55)
[2019-08-18] MEDS: BUDESONIDE 0.5 MG/2 ML NEBU IH SCH ×2 (08:05→19:55)
[2019-08-18] MEDS: BENZONATATE 100 MG CAP PO SCH ×3 (08:18→22:07)
[2019-08-18] MEDS: FUROSEMIDE 100 MG/10 ML INJ IV SCH ×2 (08:18→18:41)
[2019-08-18] MEDS: methylPREDNISolone Sod Succinate 125 MG/2 ML INJ IV SCH ×4 (08:18→18:41)
[2019-08-18] MEDS: INSULIN LISPRO 100 UNIT/ML SUB-Q SCH ×3 (08:18→17:24)
--- NOTE | 2019-08-18 09:00 | Progress Note ---
Assessment and Plan Assessment and plan: Sepsis secondary to healthcare associated pneumonia, Managed with serial lactic acid, negative blood cultures, s/p empiric antibiotics for a week - last day 08/14/19 HCAP (healthcare-associated pneumonia): treated with IV Cefepime for one week Acute on chronic systolic HF with EF of 40-45%, POA: cont IV Lasix echo done on 07/21/19 showed EF of 40-45% NSCLC Stage III: Follows with hematology oncologist Dr Dolan Acute on chronic Respiratory failure with hypoxia likely due to Possible pneumonitis secondary to immunotherapy with Imfinzi and HCAP cont O2 , NIPPV, High dose IV steroids, inhalation steroids pulmonary following -Anxiety: cont Low-dose Xanax when necessary /-UTI: Treated with antibiotic, Urine culture neg Severe Malnutrition/hypoalbuminemia: nutritional supplements and nutrition following Prediabetes with Hba1c of 6.1 in 07/17 cont SSI /Full code. Poor Prognosis / DVT prophylaxis SCD to BLE while in bed, prophylactic lovenox Disposition: pt continues to require high flow 02 but was denied for LTAC. CM following up on other options History Interval history: Patient reports feeling weak today. Hospitalist Physical - Constitutional Vitals: Temp Pulse Resp BP Pulse Ox 97.9 F 98 H 20 134/59 93 08/18/19 01:56 08/18/19 01:56 08/18/19 01:56 08/18/19 03:24 08/18/19 02:00 General appearance: Present: mild distress, well-nourished - EENT Eyes: Present: PERRL, EOM intact ENT: hearing intact, clear oral mucosa - Neck Neck: Present: supple - Respiratory Respiratory effort: normal Respiratory: bilateral: CTA, diminished - Cardiovascular Rhythm: regular Heart Sounds: Present: S1 & S2 - Extremities Extremities: No edema - Abdominal General gastrointestinal: soft, non-tender, normal bowel sounds - Integumentary Integumentary: Present: warm, dry - Psychiatric Psychiatric: cooperative - Neurologic Neurologic: moves all extremities Results - Labs CBC & Chem 7: 08/17/19 07:04 08/18/19 03:40 Labs: Laboratory Last Values WBC 9.1 K/mm3 (4.5-11.0) 08/17/19 07:04 RBC 5.36 M/mm3 (3.65-5.03) H 08/17/19 07:04 Hgb 15.3 gm/dl (11.8-15.2) H 08/17/19 07:04 Hct 46.4 % (35.5-45.6) H 08/17/19 07:04 MCV 87 fl (84-94) 08/17/19 07:04 MCH 29 pg (28-32) 08/17/19 07:04 MCHC 33 % (32-34) 08/17/19 07:04 RDW 17.1 % (13.2-15.2) H 08/17/19 07:04 Plt Count 109 K/mm3 (140-440) L 08/17/19 07:04 Lymph % (Auto) President And Cmo 08/07/19 17:29 [place] % (Auto) President And Cmo 08/07/19 17:29 Eos % (Auto) President And Cmo 08/07/19 17:29 Baso % (Auto) President And Cmo 08/07/19 17:29 Lymph # President And Cmo 08/07/19 17:29 [place] # President And Cmo 08/07/19 17:29 Eos # President And Cmo 08/07/19 17:29 Baso # President And Cmo 08/07/19 17:29 Add Manual Diff Complete 08/17/19 07:04 Total Counted 100 08/17/19 07:04 Seg Neutrophils % President And Cmo 08/17/19 07:04 Seg Neuts % (Manual) 95.0 % (40.0-70.0) H 08/17/19 07:04 Band Neutrophils % 1.0 % 08/17/19 07:04 Lymphocytes % (Manual) 3.0 % (13.4-35.0) L 08/17/19 07:04 Reactive Lymphs % (Man) 0 % 08/17/19 07:04 Monocytes % (Manual) 1.0 % (0.0-7.3) 08/17/19 07:04 Eosinophils % (Manual) 0 % (0.0-4.3) 08/17/19 07:04 Basophils % (Manual) 0 % (0.0-1.8) 08/17/19 07:04 Metamyelocytes % 0 % 08/17/19 07:04 Myelocytes % 0 % 08/17/19 07:04 Promyelocytes % 0 % 08/17/19 07:04 Blast Cells % 0 % 08/17/19 07:04 Nucleated RBC % Not Reportable 08/17/19 07:04 Seg Neutrophils # President And Cmo 08/07/19 17:29 Seg Neutrophils # Man 8.6 K/mm3 (1.8-7.7) H 08/17/19 07:04 Band Neutrophils # 0.1 K/mm3 08/17/19 07:04 Lymphocytes # (Manual) 0.3 K/mm3 (1.2-5.4) L 08/17/19 07:04 Abs React Lymphs (Man) 0.0 K/mm3 08/17/19 07:04 Monocytes # (Manual) 0.1 K/mm3 (0.0-0.8) 08/17/19 07:04 Eosinophils # (Manual) 0.0 K/mm3 (0.0-0.4) 08/17/19 07:04 Basophils # (Manual) 0.0 K/mm3 (0.0-0.1) 08/17/19 07:04 Metamyelocytes # 0.0 K/mm3 08/17/19 07:04 Myelocytes # 0.0 K/mm3 08/17/19 07:04 Promyelocytes # 0.0 K/mm3 08/17/19 07:04 Blast Cells # 0.0 K/mm3 08/17/19 07:04 WBC Morphology Not Reportable 08/17/19 07:04 Hypersegmented Neuts Not Reportable 08/17/19 07:04 Hyposegmented Neuts Not Reportable 08/17/19 07:04 Hypogranular Neuts Not Reportable 08/17/19 07:04 Smudge Cells Not Reportable 08/17/19 07:04 Toxic Granulation Not Reportable 08/17/19 07:04 Toxic Vacuolation Not Reportable 08/17/19 07:04 Dohle Bodies Not Reportable 08/17/19 07:04 Pelger-Huet Anomaly Not Reportable 08/17/19 07:04 Zak Rods Not Reportable 08/17/19 07:04 Platelet Estimate Consistent w auto 08/17/19 07:04 Clumped Platelets Not Reportable 08/17/19 07:04 Plt Clumps, EDTA Not Reportable 08/17/19 07:04 Large Platelets Few 08/17/19 07:04 Giant Platelets Not Reportable 08/17/19 07:04 Platelet Satelliting Not Reportable 08/17/19 07:04 Plt Morphology Comment Not Reportable 08/17/19 07:04 RBC Morphology Not Reportable 08/17/19 07:04 Dimorphic RBCs Not Reportable 08/17/19 07:04 Polychromasia Few 08/17/19 07:04 Hypochromasia Not Reportable 08/17/19 07:04 Poikilocytosis Not Reportable 08/17/19 07:04 Anisocytosis 1+ 08/17/19 07:04 Microcytosis Not Reportable 08/17/19 07:04 Macrocytosis Not Reportable 08/17/19 07:04 Spherocytes Not Reportable 08/17/19 07:04 Pappenheimer Bodies Not Reportable 08/17/19 07:04 Sickle Cells Not Reportable 08/17/19 07:04 Target Cells Not Reportable 08/17/19 07:04 Tear Drop Cells Few 08/17/19 07:04 Ovalocytes Few 08/17/19 07:04 Helmet Cells Not Reportable 08/17/19 07:04 Alegre-Squirrel [place] Bodies Not Reportable 08/17/19 07:04 [place] Rings Not Reportable 08/17/19 07:04 Renata Cells Not Reportable 08/17/19 07:04 Bite Cells Not Reportable 08/17/19 07:04 Crenated Cell Not Reportable 08/17/19 07:04 Elliptocytes Not Reportable 08/17/19 07:04 Acanthocytes (Spur) Not Reportable 08/17/19 07:04 Rouleaux Not Reportable 08/17/19 07:04 Hemoglobin C Crystals Not Reportable 08/17/19 07:04 Schistocytes Not Reportable 08/17/19 07:04 Malaria parasites Not Reportable 08/17/19 07:04 Rafa Bodies Not Reportable 08/17/19 07:04 Hem Pathologist Commnt No 08/17/19 07:04 PT 16.0 Sec. (12.2-14.9) H 08/07/19 17:29 INR 1.30 (0.87-1.13) H 08/07/19 17:29 APTT 28.5 Sec. (24.2-36.6) 08/07/19 17:29 POC ABG pH 7.498 (7.35-7.45) H 08/17/19 16:10 POC ABG pCO2 60.9 (35-45) H 08/17/19 16:10 POC ABG pO2 71 (80-105) L 08/17/19 16:10 POC ABG HCO3 47.2 (22-26 mml/L) 08/17/19 16:10 POC ABG Total CO2 49 (23-27mmol/L) 08/17/19 16:10 POC ABG O2 Sat 95 08/17/19 16:10 POC ABG Base Excess 24 ((-2) - (+3)mmol/L) 08/17/19 16:10 FiO2 70 % 08/17/19 16:10 Sodium 137 mmol/L (137-145) 08/18/19 03:40 Potassium 4.3 mmol/L (3.6-5.0) 08/18/19 03:40 Chloride 86.4 mmol/L (98-107) L 08/18/19 03:40 Carbon Dioxide 38 mmol/L (22-30) H 08/18/19 03:40 Anion Gap 17 mmol/L 08/18/19 03:40 BUN 57 mg/dL (9-20) H 08/18/19 03:40 Creatinine 0.8 mg/dL (0.8-1.5) 08/18/19 03:40 Estimated GFR > 60 ml/min 08/18/19 03:40 BUN/Creatinine Ratio 71 % 08/18/19 03:40 Glucose 162 mg/dL (75-100) H 08/18/19 03:40 POC Glucose 165 (70-105) H 08/18/19 07:36 Lactic Acid 1.70 mmol/L (0.7-2.0) 08/07/19 20:32 Calcium 8.5 mg/dL (8.4-10.2) 08/18/19 03:40 Iron 135 ug/dL (49-181) 08/17/19 07:04 TIBC 246 mcg/dL (250-450) L 08/17/19 07:04 Ferritin 866.0 ng/mL (13.0-400.0) H 08/17/19 07:04 Total Bilirubin 0.60 mg/dL (0.1-1.2) 08/17/19 07:04 AST 19 units/L (5-40) 08/17/19 07:04 ALT 33 units/L (7-56) 08/17/19 07:04 Alkaline Phosphatase 103 units/L (35-129) 08/17/19 07:04 Troponin T 0.013 ng/mL (0.00-0.029) 08/07/19 17:29 NT-Pro-B Natriuret Pep 5959 pg/mL (0-900) H 08/11/19 07:37 Total Protein 7.3 g/dL (6.3-8.2) 08/17/19 07:04 Albumin 3.7 g/dL (3.9-5) L 08/17/19 07:04 Albumin/Globulin Ratio 1.0 % 08/17/19 07:04 Vitamin B12 1805 pg/mL (211-911) H 08/17/19 07:04 Folate 19.94 ng/mL (7.3-26.0) 08/17/19 07:04 Urine Color Yellow (Yellow) 08/08/19 09:22 Urine Turbidity Slightly-cloudy (Clear) 08/08/19 09:22 Urine pH 5.0 (5.0-7.0) 08/08/19 09:22 Ur Specific [place] 1.027 (1.003-1.030) 08/08/19 09:22 Urine Protein 30 mg/dl mg/dL (Negative) 08/08/19 09:22 Urine Glucose (UA) Neg mg/dL (Negative) 08/08/19 09:22 Urine Ketones Tr mg/dL (Negative) 08/08/19 09:22 Urine Blood Neg (Negative) 08/08/19 09:22 Urine Nitrite Neg (Negative) 08/08/19 09:22 Urine Bilirubin Neg (Negative) 08/08/19 09:22 Urine Urobilinogen < 2.0 mg/dL (<2.0) 08/08/19 09:22 Ur Leukocyte Esterase Neg (Negative) 08/08/19 09:22 Urine WBC (Auto) 2.0 /HPF (0.0-6.0) 08/08/19 09:22 Urine RBC (Auto) 3.0 /HPF (0.0-6.0) 08/08/19 09:22 U Epithel Cells (Auto) < 1.0 /HPF (0-13.0) 08/08/19 09:22 Urine Bacteria (Auto) 1+ /HPF (Negative) 08/08/19 09:22 Hyaline Casts 4 /LPF 08/08/19 09:22 Urine Mucus 2+ /HPF 08/08/19 09:22 Vancomycin Trough 13.5 ug/mL (5.0-20.0) 08/10/19 08:14 Active Medications - Current Medications Current Medications: Generic Name Dose Route Start Last Admin Trade Name Freq PRN Reason Stop Dose Admin Acetaminophen 650 mg 08/07/19 18:52 08/14/19 23:23 Tylenol PO 650 mg Q4H PRN Administration Pain MILD(1-3)/Fever >100.5/FU Albuterol/Ipratropium 1 ampul 08/08/19 14:00 08/18/19 08:05 Duoneb *Not For Prn Use* IH 1 ampul TIDRT ELI Administration Alprazolam 0.25 mg 08/08/19 12:01 08/17/19 23:18 Xanax PO 0.25 mg Q8H PRN Administration Anxiety Arformoterol Tartrate 15 mcg 08/08/19 20:00 08/18/19 08:05 Brovana Nebu IH 15 mcg Q12HRT ELI Administration Aspirin 81 mg 08/09/19 10:00 08/17/19 09:13 Baby Aspirin PO 81 mg QDAY ELI Administration Benzonatate 100 mg 08/08/19 14:00 08/18/19 08:18 Tessalon Perles PO 100 mg Q8HR ELI Administration Budesonide 0.5 mg 08/08/19 20:00 08/18/19 08:05 Pulmicort IH 0.5 mg Q12HRT ELI Administration Carvedilol 3.125 mg 08/08/19 12:00 08/17/19 23:13 Coreg PO 3.125 mg BID ELI Administration Dextrose 50 ml 08/17/19 08:24 D50w (25gm) Syringe IV Q30MIN PRN Hypoglycemia Protocol Diclofenac Sodium 25 mg 08/09/19 10:00 08/17/19 13:35 Voltaren PO Not Given QDAY ELI Enoxaparin Sodium 40 mg 08/08/19 10:00 08/17/19 09:13 Enoxaparin SUB-Q 40 mg QDAY@1000 ELI Administration Furosemide 60 mg 08/13/19 18:00 08/18/19 08:18 Lasix IV 60 mg 0600,1800 ELI Administration Insulin Human Lispro 0 unit 08/17/19 11:30 08/18/19 08:18 Humalog SUB-Q 2 unit ACHS ELI Administration Protocol Magnesium Hydroxide 30 ml 08/09/19 19:33 08/15/19 17:48 Milk Of Magnesia PO 30 ml QDAY PRN Administration Constipation Methylprednisolone Sodium Succinate 60 mg 08/10/19 12:00 08/18/19 08:18 Solu-Medrol IV 60 mg Q6H ELI Administration Ondansetron HCl 4 mg 08/07/19 18:52 Zofran IV Q8H PRN Nausea And Vomiting Sodium Chloride 10 ml 08/07/19 22:00 08/18/19 01:59 Sodium Chloride Flush Syringe 10 Ml IV 10 ml BID ELI Administration Sodium Chloride 10 ml 08/07/19 18:52 08/14/19 17:26 Sodium Chloride Flush Syringe 10 Ml IV 10 ml PRN PRN Administration LINE FLUSH Nutrition/Malnutrition Assess - Dietary Evaluation Nutrition/Malnutrition Findings: Nutrition Notes Start: 08/08/19 12:57 Freq: Status: Active Protocol: Document 08/16/19 16:52 RM (Rec: 08/16/19 17:00 RM [id number]) Nutrition Notes Initial or Follow up Reassessment Current Diagnosis Sepsis,Respiratory Failure Other Pertinent Diagnosis Lung CA S/P radiation,HCAP Current Diet Regular w/Ensure Enlive Vanilla TID Labs/Tests reviewed Pertinent Medications Lasix, Solu-Medrol, Milk of Magnesia Height 5 ft 10 in Weight 61.7 kg [place] Body Weight (kg) 75.45 BMI 19.5 Weight change and time frame Current wt obtained from [facility] Subjective/Other Information Pt and pt in room at time of visit. Pt answered questions on behalf of pt. Stated that pt appetite is poor d/t constipation. However she forces him to eat some of each meal before he drinks the Ensure Enlive. Stated that pt ate his cream of wheat this morning and drinks all of the Ensure Enlive. Percent of energy/protein needs met: 58%/92% Burn Absent Trauma Absent Minimum of two criteria No #2 Nutrition Diagnosis Inadequate oral intake As Evidenced by Signs and Symptoms pt meeting 58% of calorie and 92% of protein needs Diagnosis Progress(for reassessment Improved documentation) Is patient on ventilator? No Is Patient Ambulatory and/or Out of Bed Yes REE-([facility]-ambulatory/OOB) [ 1824.225 [id number]] Calculation Used for Recommendations [facility] Additional Notes Protein: 65-77g (1-1.2g/kg) Fluid: 1ml/kcal Nutrition Intervention Change Diet Order: Continue current Add Supplement/Snack (indicate name/kcal Ensure Enlive Vanilla TID /protein ) Provides kCal: 1,050 Provides Protein (gm) 60 Goal #1 Meet at least 75% of calorie and protein needs via PO and ONS intakes Anticipated Discharge Needs: Regular diet Follow-Up By: 08/19/19 Additional Comments Follow for PO and ONS intakes
[2019-08-18] MEDS: ENOXAPARIN 40 MG/0.4 ML INJ SUB-Q SCH (10:57)
[2019-08-18] MEDS: ASPIRIN 81 MG TAB CHEW PO SCH (10:57)
[2019-08-18] MEDS: carvediloL 3.125 MG TAB PO SCH ×2 (10:57→22:07)
[2019-08-18] MEDS: DICLOFENAC EC 25 MG TAB PO SCH (10:58)
--- NOTE | 2019-08-18 12:03 | Progress Note ---
Assessment and Plan 64 y/o male with known lung CA, likely COPD and recent allergic reaction to chemo who presents with acute shortness of breath and acute hypoxic respiratory failure. No new recommendations. Still suggest LTACH for intermission coordinator weaning and rehab. 1. High Dose IV steroids, would not taper anytime soon and continue bipap PRN and QHS 2. Continue 60 IV BID lasix. If patient not improving with this, may need to consider moving to step down for lasix drip to get volume off. 3. Appreciate Onc recs. 4. Montior fluid intake 5. Discussed with CM, patient may need LTACH with pulmonary rehab given his significant decline since discharge and how rapid this happened. Subjective Date of service: 08/18/19 Principal diagnosis: lung ca Interval history: No acute events. Still on HFNC. Objective Vital Signs - 12hr 08/18/19 08/18/19 08/18/19 01:56 02:00 03:24 Temperature 97.9 F Pulse Rate 98 H Pulse Rate [ Anterior Bilateral Upper Lobe] Pulse Rate [ Anterior Throughout] Respiratory 20 Rate Respiratory Rate [Anterior Bilateral Upper Lobe] Respiratory Rate [Anterior Throughout] Blood Pressure Blood Pressure 134/59 [Right] O2 Sat by Pulse 94 93 Oximetry 08/18/19 08/18/19 08/18/19 07:47 08:00 08:05 Temperature 97.9 F Pulse Rate 102 H Pulse Rate [ 110 H Anterior Bilateral Upper Lobe] Pulse Rate [ 102 H Anterior Throughout] Respiratory 22 Rate Respiratory 20 Rate [Anterior Bilateral Upper Lobe] Respiratory 30 H Rate [Anterior Throughout] Blood Pressure 129/98 Blood Pressure [Right] O2 Sat by Pulse 95 94 Oximetry Constitutional: no acute distress, alert Eyes: non-icteric ENT: oropharynx moist Neck: supple Effort: mildly labored Ascultation: Bilateral: rales Cardiovascular: regular rate and rhythm (no mrg) Gastrointestinal: normoactive bowel sounds, soft, non-tender, non-distended Integumentary: normal Extremities: no cyanosis, no edema, pink and warm Neurologic: normal mental status, non-focal exam, pupils equal and round, CN II- XII normal Psychiatric: mood appropriate, affect normal CBC and BMP: 08/17/19 07:04 08/18/19 03:40 ABG, PT/INR, D-dimer: ABG POC ABG pH 7.498 (7.35-7.45) H 08/17/19 16:10 POC ABG pCO2 60.9 (35-45) H 08/17/19 16:10 POC ABG pO2 71 (80-105) L 08/17/19 16:10 POC ABG HCO3 47.2 (22-26 mml/L) 08/17/19 16:10 POC ABG Total CO2 49 (23-27mmol/L) 08/17/19 16:10 POC ABG O2 Sat 95 08/17/19 16:10 PT/INR, D-dimer PT 16.0 Sec. (12.2-14.9) H 08/07/19 17:29 INR 1.30 (0.87-1.13) H 08/07/19 17:29 Abnormal lab findings: Abnormal Labs 08/07/19 08/07/19 08/07/19 17:29 17:29 17:29 WBC 17.1 H RBC Hgb Hct RDW 16.5 H Plt Count Seg Neuts % (Manual) 89.0 H Lymphocytes % (Manual) 6.0 L Seg Neutrophils # Man 15.2 H Lymphocytes # (Manual) 1.0 L PT 16.0 H INR 1.30 H POC ABG pH POC ABG pCO2 POC ABG pO2 Sodium Chloride Carbon Dioxide BUN Creatinine Glucose 213 H POC Glucose Calcium TIBC Ferritin NT-Pro-B Natriuret Pep 4527 H Albumin 2.8 L Vitamin B12 08/07/19 08/08/19 08/08/19 18:38 03:53 03:53 WBC RBC Hgb Hct RDW 16.9 H Plt Count 122 L Seg Neuts % (Manual) 94.0 H Lymphocytes % (Manual) 4.0 L Seg Neutrophils # Man 9.9 H Lymphocytes # (Manual) 0.4 L PT INR POC ABG pH POC ABG pCO2 45.1 H POC ABG pO2 Sodium Chloride Carbon Dioxide BUN Creatinine 0.7 L Glucose 136 H POC Glucose Calcium 8.3 L TIBC Ferritin NT-Pro-B Natriuret Pep Albumin 2.6 L Vitamin B12 08/11/19 08/11/19 08/11/19 07:37 07:37 07:37 WBC RBC Hgb 11.5 L Hct RDW 18.2 H Plt Count 97 L Seg Neuts % (Manual) 95.0 H Lymphocytes % (Manual) 3.0 L Seg Neutrophils # Man 10.3 H Lymphocytes # (Manual) 0.3 L PT INR POC ABG pH POC ABG pCO2 POC ABG pO2 Sodium Chloride Carbon Dioxide BUN 31 H Creatinine Glucose 139 H POC Glucose Calcium TIBC Ferritin NT-Pro-B Natriuret Pep 5959 H Albumin 3.0 L Vitamin B12 08/16/19 08/16/19 08/17/19 04:08 04:08 07:04 WBC RBC 5.36 H Hgb 15.3 H Hct 46.4 H RDW 17.7 H 17.1 H Plt Count 92 L 109 L Seg Neuts % (Manual) 94.0 H 95.0 H Lymphocytes % (Manual) 3.0 L 3.0 L Seg Neutrophils # Man 8.6 H Lymphocytes # (Manual) 0.2 L 0.3 L PT INR POC ABG pH POC ABG pCO2 POC ABG pO2 Sodium Chloride 87.4 L Carbon Dioxide 40 H D BUN 47 H Creatinine Glucose 223 H POC Glucose Calcium TIBC Ferritin NT-Pro-B Natriuret Pep Albumin Vitamin B12 08/17/19 08/17/19 08/17/19 07:04 07:04 07:04 WBC RBC Hgb Hct RDW Plt Count Seg Neuts % (Manual) Lymphocytes % (Manual) Seg Neutrophils # Man Lymphocytes # (Manual) PT INR POC ABG pH POC ABG pCO2 POC ABG pO2 Sodium 135 L Chloride 83.2 L Carbon Dioxide 33 H D BUN 52 H Creatinine 0.7 L Glucose 214 H POC Glucose Calcium TIBC 246 L Ferritin 866.0 H NT-Pro-B Natriuret Pep Albumin 3.7 L Vitamin B12 1805 H 08/17/19 08/17/19 08/17/19 13:00 16:10 16:13 WBC RBC Hgb Hct RDW Plt Count Seg Neuts % (Manual) Lymphocytes % (Manual) Seg Neutrophils # Man Lymphocytes # (Manual) PT INR POC ABG pH 7.498 H POC ABG pCO2 60.9 H POC ABG pO2 71 L Sodium Chloride Carbon Dioxide BUN Creatinine Glucose POC Glucose 228 H 194 H Calcium TIBC Ferritin NT-Pro-B Natriuret Pep Albumin Vitamin B12 08/17/19 08/18/19 08/18/19 22:56 03:40 07:36 WBC RBC Hgb Hct RDW Plt Count Seg Neuts % (Manual) Lymphocytes % (Manual) Seg Neutrophils # Man Lymphocytes # (Manual) PT INR POC ABG pH POC ABG pCO2 POC ABG pO2 Sodium Chloride 86.4 L Carbon Dioxide 38 H BUN 57 H Creatinine Glucose 162 H POC Glucose 128 H 165 H Calcium TIBC Ferritin NT-Pro-B Natriuret Pep Albumin Vitamin B12 08/18/19 11:49 WBC RBC Hgb Hct RDW Plt Count Seg Neuts % (Manual) Lymphocytes % (Manual) Seg Neutrophils # Man Lymphocytes # (Manual) PT INR POC ABG pH POC ABG pCO2 POC ABG pO2 Sodium Chloride Carbon Dioxide BUN Creatinine Glucose POC Glucose 155 H Calcium TIBC Ferritin NT-Pro-B Natriuret Pep Albumin Vitamin B12
[2019-08-18] MEDS: ALPRAZolam 0.25 MG TAB PO PRN (22:07)
[2019-08-19] MEDS: methylPREDNISolone Sod Succinate 125 MG/2 ML INJ IV SCH ×2 (02:33→12:08)
--- NOTE | 2019-08-19 07:37 | Hem/Onc Progress Note ---
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 Shortness of breath likely secondary to pneumonitis of Imfinzi, the patient has received 3 treatments of same. He follows with Dr. Dolan. IV steroids were started. pt needs a few weeks of steroids 2. History of port placement. 3. History of hypertension. 4. He will need oxygen support and oral steroids for a few days. He had appointment with Dr. Dolan on the . He is being treated for possible pneumonia during this admission. PLT low - ? meds related? ON steroids pt needs a few weeks of steroids - dr dolan would follow and taper recently - I spoke to dr dolan - Imfinshruthi vs tumor related sob still on high o2 as the % and flow rate of O2 is very high - I think Placement - LTAC is the only option - pulm following the pt d/w family def IX for LOw PLT - b12- folate - iron and ferritin not Low pt wants b12 inj d/w pt and familyreg guarded prognosis he was requesting some help for TMJ issues - soft diet for now d/w dr blevins - Patient Problems (1) Lung cancer Current Visit: Yes Status: Acute Qualifiers: Laterality: unspecified laterality Subjective Date of service: 08/19/19 Principal diagnosis: lung ca - pneumonitis Interval history: sob - on high o2 Objective - Exam Narrative Exam: Pain - none General appearance - awake Performance status limited self care Eyes - no icterus ENT - on o2 LNs cervical not palpable Neck - no LN Respiratory Normal Breath sounds - CTA anteriorly CVS S1 S2 + Extremities no edema General GI Soft Rectal deferred male - deferred Skin warm Musculoskeletal - moving limbs Neurologically awake - Constitutional Vitals: Last Vital Signs Temp 97.7 F 08/19/19 02:28 Pulse 101 H 08/19/19 02:28 Resp 18 08/19/19 02:28 BP 107/79 08/19/19 02:28 Pulse Ox 95 08/19/19 03:12 - Labs Lab Results: Laboratory Results - last 24 hr 08/18/19 08/18/19 11:49 16:52 POC Glucose 155 H 136 H Medications & Allergies - Medications Allergies/Adverse Reactions: Allergies No Known Allergies Allergy (Verified 07/19/19 14:55) Home Medications: Home Medications Medication Instructions Recorded Confirmed Last Taken Type Aspirin [Aspirin BABY CHEW TAB] 81 mg PO QDAY 07/19/19 08/07/19 07/18/19 History Diclofenac EC [Voltaren] 25 mg PO QDAY 07/19/19 08/07/19 07/18/19 History Durvalumab [Imfinzi] 120 mg IV Q2W 07/19/19 08/07/19 07/18/19 History carvediloL [Coreg] 3.125 mg PO BID 07/19/19 08/07/19 07/18/19 History diazePAM [Diazepam] 10 mg PO QHS 07/19/19 08/07/19 07/18/19 History ALBUTEROL Inhaler (OR & NICU) 2 puff IH QID PRN #1 07/28/19 08/07/19 Unknown Rx [ProAir HFA Inhaler] Benzonatate [Tessalon Perles] 100 mg PO Q8HR #14 capsule 07/28/19 08/08/19 Unknown Rx predniSONE [Deltasone] 60 mg PO QDAY #14 tablet 07/28/19 08/07/19 Unknown Rx Active Medications: Generic Name Dose Route Start Last Admin Trade Name Freq PRN Reason Stop Dose Admin Acetaminophen 650 mg 08/07/19 18:52 08/14/19 23:23 Tylenol PO 650 mg Q4H PRN Administration Pain MILD(1-3)/Fever >100.5/FU Albuterol/Ipratropium 1 ampul 08/08/19 14:00 08/18/19 19:55 Duoneb *Not For Prn Use* IH 1 ampul TIDRT ELI Administration Alprazolam 0.25 mg 08/08/19 12:01 08/18/19 22:07 Xanax PO 0.25 mg Q8H PRN Administration Anxiety Arformoterol Tartrate 15 mcg 08/08/19 20:00 08/18/19 19:55 Brovana Nebu IH 15 mcg Q12HRT ELI Administration Aspirin 81 mg 08/09/19 10:00 08/18/19 10:57 Baby Aspirin PO 81 mg QDAY ELI Administration Benzonatate 100 mg 08/08/19 14:00 08/18/19 22:07 Tessalon Perles PO 100 mg Q8HR ELI Administration Budesonide 0.5 mg 08/08/19 20:00 08/18/19 19:55 Pulmicort IH 0.5 mg Q12HRT ELI Administration Carvedilol 3.125 mg 08/08/19 12:00 08/18/19 22:07 Coreg PO 3.125 mg BID ELI Administration Dextrose 50 ml 08/17/19 08:24 D50w (25gm) Syringe IV Q30MIN PRN Hypoglycemia Protocol Diclofenac Sodium 25 mg 08/09/19 10:00 08/18/19 10:58 Voltaren PO Not Given QDAY ELI Enoxaparin Sodium 40 mg 08/08/19 10:00 08/18/19 10:57 Enoxaparin SUB-Q 40 mg QDAY@1000 ELI Administration Furosemide 60 mg 08/13/19 18:00 08/18/19 18:41 Lasix IV 60 mg 0600,1800 [facility] Administration Insulin Human Lispro 0 unit 08/17/19 11:30 08/18/19 17:24 Humalog SUB-Q Not Given ACHS [facility] Protocol Magnesium Hydroxide 30 ml 08/09/19 19:33 08/15/19 17:48 Milk Of Magnesia PO 30 ml QDAY PRN Administration Constipation Methylprednisolone Sodium Succinate 60 mg 08/10/19 12:00 08/19/19 02:33 Solu-Medrol IV 60 mg Q6H ELI Administration Ondansetron HCl 4 mg 08/07/19 18:52 Zofran IV Q8H PRN Nausea And Vomiting Sodium Chloride 10 ml 08/07/19 22:00 08/19/19 02:34 Sodium Chloride Flush Syringe 10 Ml IV 10 ml BID ELI Administration Sodium Chloride 10 ml 08/07/19 18:52 08/14/19 17:26 Sodium Chloride Flush Syringe 10 Ml IV 10 ml PRN PRN Administration LINE FLUSH
[2019-08-19 08:35] VITALS: BP 120/89
[2019-08-19] MEDS: INSULIN LISPRO 100 UNIT/ML SUB-Q SCH ×2 (08:38→12:07)
[2019-08-19] MEDS: ARFORMOTEROL 15 MCG/2 ML NEBU IH SCH (09:10)
[2019-08-19] MEDS: IPRATROPIUM/ALBUTEROL SULFATE 3 ML AMPUL.NEB IH SCH ×2 (09:10→13:59)
[2019-08-19] MEDS: BUDESONIDE 0.5 MG/2 ML NEBU IH SCH (09:10)
[2019-08-19] MEDS: ASPIRIN 81 MG TAB CHEW PO SCH (09:39)
[2019-08-19] MEDS: DICLOFENAC EC 25 MG TAB PO SCH (09:39)
[2019-08-19] MEDS: carvediloL 3.125 MG TAB PO SCH (09:56)
[2019-08-19] MEDS: ENOXAPARIN 40 MG/0.4 ML INJ SUB-Q SCH (09:56)
[2019-08-19] MEDS ORDERED: CYANOCOBALAMIN (VIT B-12) 1000 MCG/1 ML INJ SUB-Q ONE (10:00)
--- NOTE | 2019-08-19 11:42 | Progress Note ---
Assessment and Plan 64 y/o male with known lung CA, likely COPD and recent allergic reaction to chemo who presents with acute shortness of breath and acute hypoxic respiratory failure. No objection to discharge today. Imperative that steroids are not reduced to quickly. Patient should remain on 60q6 unitl HFNC can be weaned off and then that dose should be tapered very slowly. I suspect the patient will needs months, not weeks of steroid therapy so that he does not relapse. It is also imperative that he maintain daily net negative fluid balance as he has literally no lung reserve. 1. High Dose IV steroids, would not taper anytime soon and continue bipap PRN and QHS 2. Continue 60 IV BID lasix. If patient not improving with this, may need to consider moving to step down for lasix drip to get volume off. 3. Appreciate Onc recs. 4. Montior fluid intake 5. Discussed with CM, patient may need LTACH with pulmonary rehab given his significant decline since discharge and how rapid this happened. Subjective Date of service: 08/19/19 Principal diagnosis: lung ca - pneumonitis Interval history: Patient now down to 70%. Sat at 96%. reviewed CM note and may be going to [facility] today. Objective Vital Signs - 12hr 08/19/19 08/19/19 08/19/19 02:28 03:12 07:45 Temperature 97.7 F 97.5 F L Pulse Rate 101 H 102 H Pulse Rate [ Anterior Throughout] Respiratory 18 20 Rate Respiratory Rate [Anterior Throughout] Blood Pressure 107/79 120/89 O2 Sat by Pulse 95 95 96 Oximetry 08/19/19 08/19/19 08/19/19 08:00 09:00 09:56 Temperature Pulse Rate 102 H Pulse Rate [ 103 H Anterior Throughout] Respiratory Rate Respiratory 22 Rate [Anterior Throughout] Blood Pressure 120/89 O2 Sat by Pulse 96 Oximetry Constitutional: no acute distress, alert Eyes: non-icteric ENT: oropharynx moist Neck: supple Effort: mildly labored Ascultation: Bilateral: rales Cardiovascular: regular rate and rhythm (no mrg) Gastrointestinal: normoactive bowel sounds, soft, non-tender, non-distended Integumentary: normal Extremities: no cyanosis, no edema, pink and warm Neurologic: normal mental status, non-focal exam, pupils equal and round, CN II- XII normal Psychiatric: mood appropriate, affect normal CBC and BMP: 08/17/19 07:04 08/18/19 03:40 ABG, PT/INR, D-dimer: ABG POC ABG pH 7.498 (7.35-7.45) H 08/17/19 16:10 POC ABG pCO2 60.9 (35-45) H 08/17/19 16:10 POC ABG pO2 71 (80-105) L 08/17/19 16:10 POC ABG HCO3 47.2 (22-26 mml/L) 08/17/19 16:10 POC ABG Total CO2 49 (23-27mmol/L) 08/17/19 16:10 POC ABG O2 Sat 95 08/17/19 16:10 PT/INR, D-dimer PT 16.0 Sec. (12.2-14.9) H 08/07/19 17:29 INR 1.30 (0.87-1.13) H 08/07/19 17:29 Abnormal lab findings: Abnormal Labs 08/07/19 08/07/19 08/07/19 17:29 17:29 17:29 WBC 17.1 H RBC Hgb Hct RDW 16.5 H Plt Count Seg Neuts % (Manual) 89.0 H Lymphocytes % (Manual) 6.0 L Seg Neutrophils # Man 15.2 H Lymphocytes # (Manual) 1.0 L PT 16.0 H INR 1.30 H POC ABG pH POC ABG pCO2 POC ABG pO2 Sodium Chloride Carbon Dioxide BUN Creatinine Glucose 213 H POC Glucose Calcium TIBC Ferritin NT-Pro-B Natriuret Pep 4527 H Albumin 2.8 L Vitamin B12 08/07/19 08/08/19 08/08/19 18:38 03:53 03:53 WBC RBC Hgb Hct RDW 16.9 H Plt Count 122 L Seg Neuts % (Manual) 94.0 H Lymphocytes % (Manual) 4.0 L Seg Neutrophils # Man 9.9 H Lymphocytes # (Manual) 0.4 L PT INR POC ABG pH POC ABG pCO2 45.1 H POC ABG pO2 Sodium Chloride Carbon Dioxide BUN Creatinine 0.7 L Glucose 136 H POC Glucose Calcium 8.3 L TIBC Ferritin NT-Pro-B Natriuret Pep Albumin 2.6 L Vitamin B12 08/11/19 08/11/19 08/11/19 07:37 07:37 07:37 WBC RBC Hgb 11.5 L Hct RDW 18.2 H Plt Count 97 L Seg Neuts % (Manual) 95.0 H Lymphocytes % (Manual) 3.0 L Seg Neutrophils # Man 10.3 H Lymphocytes # (Manual) 0.3 L PT INR POC ABG pH POC ABG pCO2 POC ABG pO2 Sodium Chloride Carbon Dioxide BUN 31 H Creatinine Glucose 139 H POC Glucose Calcium TIBC Ferritin NT-Pro-B Natriuret Pep 5959 H Albumin 3.0 L Vitamin B12 08/16/19 08/16/19 08/17/19 04:08 04:08 07:04 WBC RBC 5.36 H Hgb 15.3 H Hct 46.4 H RDW 17.7 H 17.1 H Plt Count 92 L 109 L Seg Neuts % (Manual) 94.0 H 95.0 H Lymphocytes % (Manual) 3.0 L 3.0 L Seg Neutrophils # Man 8.6 H Lymphocytes # (Manual) 0.2 L 0.3 L PT INR POC ABG pH POC ABG pCO2 POC ABG pO2 Sodium Chloride 87.4 L Carbon Dioxide 40 H D BUN 47 H Creatinine Glucose 223 H POC Glucose Calcium TIBC Ferritin NT-Pro-B Natriuret Pep Albumin Vitamin B12 08/17/19 08/17/19 08/17/19 07:04 07:04 07:04 WBC RBC Hgb Hct RDW Plt Count Seg Neuts % (Manual) Lymphocytes % (Manual) Seg Neutrophils # Man Lymphocytes # (Manual) PT INR POC ABG pH POC ABG pCO2 POC ABG pO2 Sodium 135 L Chloride 83.2 L Carbon Dioxide 33 H D BUN 52 H Creatinine 0.7 L Glucose 214 H POC Glucose Calcium TIBC 246 L Ferritin 866.0 H NT-Pro-B Natriuret Pep Albumin 3.7 L Vitamin B12 1805 H 08/17/19 08/17/19 08/17/19 13:00 16:10 16:13 WBC RBC Hgb Hct RDW Plt Count Seg Neuts % (Manual) Lymphocytes % (Manual) Seg Neutrophils # Man Lymphocytes # (Manual) PT INR POC ABG pH 7.498 H POC ABG pCO2 60.9 H POC ABG pO2 71 L Sodium Chloride Carbon Dioxide BUN Creatinine Glucose POC Glucose 228 H 194 H Calcium TIBC Ferritin NT-Pro-B Natriuret Pep Albumin Vitamin B12 08/17/19 08/18/19 08/18/19 22:56 03:40 07:36 WBC RBC Hgb Hct RDW Plt Count Seg Neuts % (Manual) Lymphocytes % (Manual) Seg Neutrophils # Man Lymphocytes # (Manual) PT INR POC ABG pH POC ABG pCO2 POC ABG pO2 Sodium Chloride 86.4 L Carbon Dioxide 38 H BUN 57 H Creatinine Glucose 162 H POC Glucose 128 H 165 H Calcium TIBC Ferritin NT-Pro-B Natriuret Pep Albumin Vitamin B12 08/18/19 08/18/19 08/19/19 11:49 16:52 07:56 WBC RBC Hgb Hct RDW Plt Count Seg Neuts % (Manual) Lymphocytes % (Manual) Seg Neutrophils # Man Lymphocytes # (Manual) PT INR POC ABG pH POC ABG pCO2 POC ABG pO2 Sodium Chloride Carbon Dioxide BUN Creatinine Glucose POC Glucose 155 H 136 H 226 H Calcium TIBC Ferritin NT-Pro-B Natriuret Pep Albumin Vitamin B12
--- NOTE | 2019-08-19 12:00 | Discharge Summary ---
Providers - Providers Date of Admission: 08/07/19 18:53 Date of discharge: 08/19/19 Attending physician: SUSY HOGAN 08/09/19 07:42 Consult to Physician [CONS] Routine Comment: Consulting Provider: ARTIE RAMON Physician Instructions: Reason For Exam: Adrien Pneumonia/HCAP 08/09/19 09:21 Physical Therapy Evaluation and Treat [CONS] Routine Comment: Reason For Exam: Weakness 08/09/19 15:22 Consult to Physician [CONS] Routine Comment: Consulting Provider: PRATIMA DUVALL Physician Instructions: Reason For Exam: lung cancer/HCAP Primary care physician: [employer] Hospitalization Reason for admission: Sepsis secondary to HCAP, Acute on chronic respiratory failure with hypoxia Condition: Poor Hospital course: Final discharge diagnosis/Hospital course: Sepsis secondary to healthcare associated pneumonia, Managed with serial lactic acid, negative blood cultures, s/p empiric antibiot ics for a week - last day 08/14/19 HCAP (healthcare-associated pneumonia): treated with IV Cefepime for one week Acute on chronic systolic HF with EF of 40-45%, POA: treated with IV Lasix echo done on 07/21/19 showed EF of 40-45% NSCLC Stage III: Followed by hematology oncologist Dr Dolan Acute on chronic Respiratory failure with hypoxia likely due to Possible pneumonitis secondary to immunotherapy with Imfinzi and HCAP Anxiety treated with Low-dose Xanax when necessary UTI: Treated with antibiotic, Urine culture neg Severe Malnutrition/hypoalbuminemia: treated with nutritional supplements Prediabetes with Hba1c of 6.1 BG controlled on SSI Disposition: Patient was discharged to LT[facility] for continued management Disposition: [id number] MEDICARE CERT LT Time spent for discharge: 40 minutes Core Measure Documentation - Palliative Care Palliative Care/ Comfort Measures: Not Applicable - Core Measures Any of the following diagnoses?: none Exam - Constitutional Vitals: Temp Pulse Resp BP Pulse Ox 97.5 F L 102 H 22 120/89 96 08/19/19 07:45 08/19/19 09:56 08/19/19 09:00 08/19/19 09:56 08/19/19 08:00 General appearance: Present: mild distress - EENT Eyes: Present: PERRL, EOM intact ENT: hearing intact - Neck Neck: Present: supple, normal ROM - Respiratory Respiratory effort: normal Respiratory: bilateral: diminished, negative: wheezing - Cardiovascular Rhythm: regular (with tachycardia) Heart Sounds: Present: S1 & S2. Absent: rub, click - Extremities Extremities: No edema Peripheral Pulses: within normal limits - Abdominal General gastrointestinal: Present: soft, non-tender, non-distended, normal bowel sounds - Integumentary Integumentary: Present: clear, warm, dry - Musculoskeletal Musculoskeletal: gait normal, strength equal bilaterally - Psychiatric Psychiatric: cooperative - Neurologic Neurologic: CNII-XII intact, moves all extremities Plan Follow up with: PRIMARY CARE, [Primary Care Provider] - 7 Days
== END 2019-08-19 14:20 | DRG 871 ==
LOC: ED 17:06 → 2B-ACE 18:53
PROVIDERS: ADMIT Internal Medicine; ATTEND Internal Medicine
PROC: 4A033R1 Measurement of Arterial Saturation, Peripheral, Percutaneous Approach (ICD-10-PCS; principal; 2019-08-07)
PROC: 5A09357 Assistance with Respiratory Ventilation, Less than 24 Consecutive Hours, Continuous Positive Airway Pressure (ICD-10-PCS; 2019-08-07)
PROC: 5A09357 Assistance with Respiratory Ventilation, Less than 24 Consecutive Hours, Continuous Positive Airway Pressure (ICD-10-PCS; 2019-08-08)
PROC: 5A09357 Assistance with Respiratory Ventilation, Less than 24 Consecutive Hours, Continuous Positive Airway Pressure (ICD-10-PCS; 2019-08-09)
PROC: 5A09357 Assistance with Respiratory Ventilation, Less than 24 Consecutive Hours, Continuous Positive Airway Pressure (ICD-10-PCS; 2019-08-10)
DX: A41.9 Sepsis, unspecified organism (principal); J18.9 Pneumonia, unspecified organism; I50.23 Acute on chronic systolic (congestive) heart failure; J96.21 Acute and chronic respiratory failure with hypoxia; E43 Unspecified severe protein-calorie malnutrition; C34.90 Malignant neoplasm of unspecified part of unspecified bronchus or lung; J44.0 Chronic obstructive pulmonary disease with (acute) lower respiratory infection; N39.0 Urinary tract infection, site not specified; F41.9 Anxiety disorder, unspecified; I11.0 Hypertensive heart disease with heart failure; Z68.20 Body mass index [BMI] 20.0-20.9, adult; Z82.49 Family history of ischemic heart disease and other diseases of the circulatory system; Z79.82 Long term (current) use of aspirin; Z79.899 Other long term (current) drug therapy
CPT/HCPCS: 36415; 36600; 71045; 80048; 80053; 80202; 81001; 82140; 82607; 82728; 82747; 82803; 82962; 83550; 83880; 84484; 85007; 85025; 85610; 85730; 87040; 87086; 94640; 94644; 94660; 94760; G0378; J0692; J1100; J1650; J1815; J1940; J2060; J2405; J2930; J3370; J3420; J7030; J7040; J7050; J7512